=== PATIENT | female | born 1995 | race Caucasian/White ===

== ENCOUNTER 2022-04-21 22:17 | Emergency (ER) | payer OTHER, SELFPAY ==
[2022-04-21 22:28] VITALS: BP 165/78; PULSE 98; RESP 16; TEMP 37.2; O2SAT 98; BMI 52.0
--- OUTSIDE RECORDS SUMMARY | 2022-04-21 23:25 | XMS_ITS | Encounter Summary ---
:1995 Author Organization [facility] Address [address] [place] [address] Care Team Providers Name Role Phone Shan Wild M.D. Primary Care Provider Encounter Details Date Type Department Care Team Description 04/21/2022 Hospital Encounter Department of Shan Wild Well Ad ult Examination Normal; Laboratory Medicine Justice Baker Fatigue in [place] [address] [address] [place] [address] [facility] [address] [place], [place] [phone] (Work) [phone] Social History Tobacco Use Types Packs/Day Years Used Date Smoking Tobacco: Some Days Cigarettes Smokeless Tobacco: Never Sex Assigned at Date Recorded Not on file documented as of this encounter Plan of Treatment Not on filedocumented as of this encounter Procedures Procedure Name Priority Date/Time Associated Comments Diagnosis MORPHOLOGY EVALUATION Routine 04/21/2022 8:34 AM Results for this CDT procedure are i n the results section. LIPID PANEL, S Routine 04/21/2022 8:34 AM Well Adult Results for this CDT Examination Normal procedure are in the results section. CBC WITH DIFFERENTIAL, Routine 04/21/2022 8:34 AM Fatigue Results for this B CDT procedure are i n the results section. THYROID-STIMULATING Routine 04/21/2022 8:34 AM Fatigue Re sults for this HORMONE-SENSITIVE CDT procedure are in (S-TSH) the results section. GLUCOSE, FASTING, S/P Routine 04/21/2022 8:34 AM Well Adult Results for this CDT Examination Normal procedure are in the results section. COMPREHENSIVE Routine 04/21/2022 8:34 AM Fatigue Results for this METABOLIC PANEL, S/P CDT procedu re are in the results section. documented in this encounter Results (ABNORMAL) Morphology Evaluation (04/21/2022 8:34 AM CDT) Patholo gist Method Time Signature RBC Morphology See Specific 04/21/2022 [facility] Findings 12:28 PM CDT PLT Morphology Normal 04/21/2022 [facility] 12:28 PM CDT PLT Estimate Adequate Adequate 04/21/2022 [facility] 12:28 PM CDT Anisocytosis Marked (A) 04/21/2022 [facility] 12:28 PM CDT Elliptocytes Slight (A) Not Seen 04/21/2022 [facility] 12:28 PM CDT Hypochromia Moderate (A) Not Seen 04/21/2022 [facility] 12:28 PM CDT Microcytosis Marked (A) Not Seen 04/21/2022 [facility] 12:28 PM CDT Polychromasia Slight (A) Not Seen 04/21/2022 [facility] 12:28 PM CDT Specimen Anatomical Collection Method Collection Time Receive d Time (Source) Location / / Volume Laterality Blood 04/21/2022 8:34 AM 8:34 CDT AM CDT Shan Wild M.D. LAB BLOOD ADD-ON Performing Organization Address City/State/ZIP Code Phon e Number [facility]- [address], [place] [address] [place] [address] System in [place] [address] (ABNORMAL) Comprehensive Metabolic Panel (04/21/2022 8:34 AM CDT) Analysis Performed At Patho logist Time Signature Potassium, P 3.7 3.6 - 5.2 04/21/2022 [facility] mmol/L 12:05 PM CDT Sodium, P 138 135 - 145 04/21/2022 [place] mmol/L 12:05 PM CDT Chloride, P 103 98 - 107 04/21/2022 [place] mmol/L 12:05 PM CDT Bicarbonate, P 23 22 - 29 04/21/2022 [facility] mmol/L 12:05 PM CDT Anion Gap, P 12 7 - 15 04/21/2022 [facility] 12:05 PM CDT BUN (Blood Urea 9 6 - 21 04/21/2022 [facility] Nitrogen), P mg/dL 12:05 PM CDT Creatinine 0.57 (L) 0.59 - 04/21/2022 [facility] 1.04 mg/dL 12:05 PM CDT Estimated GFR >90 >=60 04/21/2022 [facility] (eGFR) mL/min/BSA 12:05 PM CDT Comment: Estimated GFR calculated using the 2020 CKD_EPI creatinine equation. Calcium, Total, P 8.6 8.6 - 10.0 mg/dL 04/21/2022 12:0 5 PM CDT [place] Glucose, P CANCELED mg/dL 04/21/2022 11:10 AM CDT [facility] Comment: Duplicate test request. Result canceled by the ancillary. Protein, Total, P 6.5 6.3 - 7.9 g/dL 04/21/2022 12:05 PM CDT [facility] Albumin, P 4.1 3.5 - 5.0 g/dL 04/21/2022 12:05 PM CDT [place] Aspartate Aminotransferase (AST), 18 8 - 43 U/L 04/21 12:05 PM CDT [place] P Alkaline Phosphatase, P 50 35 - 104 U/L 04/21/2022 12 :05 PM CDT [facility] Alanine Aminotransferase (ALT), P 14 7 - 45 U/L 04/21 12:05 PM CDT [place] Bilirubin, Total, P 0.3 <=1.2 mg/dL 04/21/2022 12:05 P M CDT [facility] Specimen Anatomical Collection Method Collection Time Receive d Time (Source) Location / / Volume Laterality Blood (Blood, 04/21/2022 8:34 AM 04/21/20 22 Venous) CDT 11:09 AM CDT Shan Wild M.D. LAB BLOOD ADD-ON Performing Organization Address City/State/ZIP Code Phon e Number [facility]- [address] [place] [address] [place] [address] System in [place] [address] (ABNORMAL) S-TSH (Thyroid-Stimulating Hormone - Sensitive) (04/21/2022 8:34 AM CDT) athologist Signature TSH, Sensitive 5.6 (H) 0.3 - 4.2 04/21/2022 [facility] mIU/L 11:54 AM CDT Specimen Anatomical Collection Method Collection Time Receive d Time (Source) Location / / Volume Laterality Blood (Blood, 04/21/2022 8:34 AM 04/21/20 Venous) CDT 11:09 AM CDT Shan Wild M.D. LAB BLOOD ADD-ON Performing Organization Address City/[facility]/ZIP Code Phon e Number [facility]- [address] [place] [facility] [address] [facility] [place] [address] System in [place] [address] Glucose, Fasting (04/21/2022 8:34 AM CDT) athologist Signature Glucose, P 95 70 - 100 04/21/2022 [facility] mg/dL 12:09 PM CDT Last Intake 10 hr 04/21/2022 [facility] 11:08 AM CDT Specimen Anatomical Collection Method Collection Time Receive d Time (Source) Location / / Volume Laterality Blood (Blood, 04/21/2022 8:34 AM 04/21/20 Venous) CDT 11:08 AM CDT Shan Wild M.D. LAB BLOOD NON ADD-ON Performing Organization Address City/[facility]/ZIP Code Phon e Number [facility]- [address] [place] [facility] [place] [address] [place] [address] System in [place] [address] (ABNORMAL) CBC with Differential, Blood (04/21/2022 8:34 AM CDT) [facility] gist Method Time Signature Hemoglobin 6.5 (L) 11.6 - 04/21/2022 [facility] 15.0 g/dL 12:27 PM CDT Hematocrit 24.8 (L) 35.5 - 04/21/2022 [facility] 44.9 % 12:27 PM CDT Erythrocytes 4.06 3.92 - 04/21/2022 [facility] 5.13 12:27 PM CDT x10(12)/L MCV 61.1 (L) 78.2 - 04/21/2022 [place] 97.9 fL 12:27 PM CDT RBC Distrib Width 20.3 (H) 12.2 - 04/21/2022 [facility] 16.1 % 12:27 PM CDT Platelet Count 351 157 - 371 04/21/2022 [place] x10(9)/L 12:27 PM CDT Leukocytes 6.0 3.4 - 9.6 04/21/2022 [place] x10(9)/L 12:27 PM CDT Neutrophils 3.58 1.56 - 04/21/2022 [place] 6.45 12:27 PM CDT x10(9)/L Lymphocytes 1.73 0.95 - 04/21/2022 [place] 3.07 12:27 PM CDT x10(9)/L Monocytes 0.53 0.26 - 04/21/2022 [place] 0.81 12:27 PM CDT x10(9)/L Eosinophils 0.09 0.03 - 04/21/2022 [facility] 0.48 12:27 PM CDT x10(9)/L Basophils 0.05 0.01 - 04/21/2022 [place] 0.08 12:27 PM CDT x10(9)/L Specimen Anatomical Collection Method Collection Time Receive d Time (Source) Location / / Volume Laterality Blood (Blood, 04/21/2022 8:34 AM 04/21/20 8:34 Venous) CDT AM CDT Shan Wild M.D. LAB BLOOD ADD-ON Performing Organization Address City/State/ZIP Code Phon e Number [facility]- [address] [place] [address] [place] [address] System in [place] [address] (ABNORMAL) Lipid Panel (04/21/2022 8:34 AM CDT) athologist Signature Triglycerides 62 mg/dL 04/21/2022 [facility] 12:05 PM CDT Comment: ----REFERENCE VALUE---- Normal: <150 mg/dL Borderline High: 150-199 mg/dL High: 200-499 mg/dL Very High: > or =500 mg/dL Cholesterol, Total 136 mg/dL 04/21/2022 12:05 PM C DT [facility] Comment: ----REFERENCE VALUE---- Desirable: < 200 mg/dL Borderline High: 200 - 239 mg/dL High: > or = 240 mg/dL Cholesterol, LDL, Calculated 79 mg/dL 04/21/2022 12:05 PM CDT [facility] Comment: ----REFERENCE VALUE---- Desirable: <100 mg/dL Above Desirable: 100-129 mg/dL Borderline High: 130-159 mg/dL High: 160-189 mg/dL Very High: >=190 mg/dL ----ADDITIONAL INFORMATION---- LDL cholesterol calculated using the Gentile/NIH equation. Cholesterol, HDL 44 (L) >=50 mg/dL 04/21/2022 12:05 PM CD T [place] Cholesterol, Non-HDL, Calculated 92 mg/dL 12:05 PM CDT [facility] Comment: ----REFERENCE VALUE---- Desirable: <130 mg/dL Above Desirable: 130-159 mg/dL Borderline High: 160-189 mg/dL High: 190-219 mg/dL Very High: > or =220 mg/dL Fasting (8 HR or more) Yes 04/21/2022 11:09 AM CDT [place] Specimen Anatomical Collection Method Collection Time Receive d Time (Source) Location / / Volume Laterality Blood (Blood, 04/21/2022 8:34 AM 04/21/20 22 Venous) CDT 11:09 AM CDT Shan Wild M.D. LAB BLOOD ADD-ON Performing Organization Address City/State/ZIP Code Phon e Number [facility]- [address] [place] [address] [place] [address] System in [place] [address] documented in this encounter Visit Diagnoses Diagnosis Well Adult Examination Normal Fatigue documented in this encounter Care Teams Brake Liner Relationship Specialty Start Date End Date Shan Wild M.D. PCP - General Family Medicine 04/07/[address] [place] [address] [place] [phone] documented as of this encounter
--- OUTSIDE RECORDS SUMMARY | 2022-04-21 23:25 | XMS_ITS | Clinical Summary ---
:1993 Author Organization [facility] [place] [address] Care Team Providers Name Role Phone Damien Jaramillo MD Primary Care Provider Allergies Active Allergy Reactions Severity Noted Date Comments Nickel Rash 04/28/2016 Medications Medication Sig Dispensed Refills Start Date End Date Status ferrous sulfate 325 mg Take 1 tablet by 180 tablet 1 7 Active delayed release mouth 2 times tabletIndications: daily with meals. Iron deficiency anemia due to chronic blood loss Active Problems Problem Noted Date Morbid obesity with BMI of 50.0-59.9, adult 04/28/2016 Supervision of normal first 06/26/2012 Overview: 1. NAIF 02/05/2013 by sure LMP. 8 wee k ultrasound gave due date of 02/09/13. Will stick with due date based on sure LMP. 2. Declined screening for defects. 3. Borderline hypertension. 4. Anemia Iron deficiency anemia, unspecified 03/29/2009 Adjustment disorder with mixed anxiety and depressed m ood 01/09/2008 Immunizations Name Administration Dates Next Due DTP 04/14/1998, 07/25/1994, 1993 DTP-HIB 1993, 1993 HIB HbOC (HibTITER) 07/25/1994, 1993 Hepatitis B (Peds) 04/14/1998, 05/06/1997, 04/14/1996 Human Papilloma Virus Vaccine 04/28/2016, 12/11/2008, 2007 Influenza, IIV4 04/28/2016 MMR 04/14/1998, 07/25/1994 Oral Polio Vaccine 04/14/1998, 07/25/1994, 1993, 04/26 Td (Age >=7 Years) 11/17/2004 Tdap 04/28/2016 Family History Medical History Relation Name Comments Hypertension Father Good Health Mother Diabetes Paternal Grandmother Hypertension Paternal Grandmother Relation Name Status Comments Father Mother Paternal Grandmother Social History Tobacco Use Types Packs/Day Years Used Date Never Smoker Smokeless Tobacco: Never Used Tobacco Cessation: Counseling Given: Yes Alcohol Use Standard Drinks/Week Comments Yes 1 (1 standard drink = 0.6 oz pure alcoho l) 1 glass of wine per month Alcohol Habits Answer Date Recorded How often do you have a drink containing Not asked alcohol? How many drinks containing alcohol do you Not asked have on a typical day when you are drinking? How often do you have six or more drinks on Not asked one occasion? Comment: 1 glass of wine per month 04/28/2016 Sex Assigned at Date Recorded Not on file Obstetrics History Para Term AB IAB SAB Ectopic Multiple Living Live Births 2 Date Outcome GA Total Labor/2nd/3rd Weight Sex Delivery Anes PTL Margarita A 1 A5 Name Clin Labor Comments: System Generated. Please review and update details. Last Filed Vital Signs Vital Sign Reading Time Taken Comments Blood Pressure 136/80 01/16/2020 2:15 PM CDT Pulse 96 01/16/2020 1:21 PM CDT Temperature 36.7 ??C (98 ??F) 01/16/2020 1:21 PM CDT Respiratory Rate 12 01/15/2012 1:03 PM CDT Oxygen Saturation 99% 01/16/2020 1:21 PM CDT Inhaled Oxygen Concentration - - Weight 162.4 kg (358 lb) 01/16/2020 1:21 PM CDT Height 172.7 cm (5' 8) 01/16/2020 1:21 PM CDT Body Mass Index 54.43 01/16/2020 1:21 PM CDT Plan of Treatment Health Maintenance Due Date Last Done Comments Hepatitis C screening for age 1004/05/2011 18-79 Pap test for age 21-65 04/28/2019 04/28/2016, 07/01/2012, 06/23/2011 Depression screening for age 12+ 10/05/2020 10/06/2019, , 04/28/2016 BMI (ht and wt on same day) for 01/15/2021 01/16/2020, 09/24, age 18+ 11/27/2016, Additional history exists Influenza for age 9-49 02/23/2022 04/28/2016 COVID-19 vaccine series (2 - 05/05/2022 04/14/2022 Pfizer series) Tetanus booster 04/28/2026 04/28/2016, 11/17/2004 Tdap Completed 04/28/2016 Results Not on filefrom Last 3 Months Insurance Payer Benefit Plan / Subscriber ID Effective Dates Phone Addre ss Type Group [employer] [id number] 2019-Present [address] [place] [address] Care Teams Child Care Attendant Relationship Specialty Start Date End Date Damien Jaramillo MD PCP - General 06/07/06 [address] [place] [address]
--- OUTSIDE RECORDS SUMMARY | 2022-04-21 23:25 | XMS_ITS | Clinical Summary ---
:1995 Author Organization [facility] Address [address] [place] [address] Care Team Providers Name Role Phone Shan Wild M.D. Primary Care Provider Source Comments Patient records contain information from all sites at [facility]. For routine questions regarding patient records, call [phone] during business hours, M-F 8:00 AM - 5:00 PM Central Time. Record requests for emergency care only can be directed to [phone] at any time.[facility] Allergies Active Allergy Reactions Severity Noted Date Comments Alcohol Hives Medium 04/14/2022 TEQUILA Blackberry Hives Medium 04/14/2022 Nickel Rash 04/28/2016 Medications Medication Sig Dispensed Refills Start Date End Date Status ferrous sulfate 325 Take 325 mg 0 11/27/2016 022 Discontinued mg (65 mg iron) DR by mouth. tablet Encounters Date Type Specialty Care Team Description 04/21/2022 Hospital Encounter Laboratory Medicine Shan Wild [facility] Adult Examination Normal; Justice Baker Fatigue 04/21/2022 Clinical Communication Family Medicine Shan Wild M.D. 04/14/2022 Comprehensive Visit Family Medicine Shan Wild Adult Examination Normal (Primary Dx); Justice Baker Fatigue; Iron Deficiency Anemia Screening Exam; Morbid Obesity Body Mass Index 40.0-44.9 Adult (HCC) from Last 3 Months Immunizations Name Administration Dates Next Due 4vHPV (discontinued) 04/28/2016, 12/11/2008, 04/28/2008 DTP 04/14/1998, 07/25/1994, 1993 DTP / Hib 1993, 1993 HepB Pediatric/Adolescent 04/14/1998, 05/06/1997, 04/14/1996 Hib (HbOC) (discontinued) 07/25/1994, 1993 Influenza (IM) Preservative Free 04/03/2013 MMR 04/14/1998, 07/25/1994 Polio, Unspecified 04/14/1998, 07/25/1994, 1993, 1993 SARS-COV-2 (COVID-19) - PFIZER 04/14/2022 BIVALENT BOOSTER TS(12 YEARS OR OLDER) Td, (Adult) Unspecified 11/17/2004 Tdap 04/28/2016 influenza vaccine quad 04/14/2022, 04/28/2016 (FLUZONE/FLUARIX) (6 months and older)(PF) Family History Medical History Relation Name Comments Anemia Mother Relation Name Status Comments Mother Alive Social History Tobacco Use Types Packs/Day Years Used Date Smoking Tobacco: Some Days Cigarettes Smokeless Tobacco: Never Tobacco Cessation: Ready to Quit: Yes; C ounseling Given: Yes Sex Assigned at Date Recorded Not on file Last Filed Vital Signs Vital Sign Reading Time Taken Comments Blood Pressure 135/81 04/14/2022 10:10 AM CDT Pulse 86 04/14/2022 10:10 AM CDT Temperature 36.7 ??C (98.1 ??F) 04/14/2022 10:10 AM CDT Respiratory Rate 16 04/14/2022 10:10 AM CDT Oxygen Saturation - - Inhaled Oxygen Concentration - - Weight 160 kg (352 lb 11.8 oz) 04/14/2022 10:10 AM CDT Height 175 cm (5' 8.9) 04/14/2022 10:10 AM CDT Body Mass Index 52.24 04/14/2022 10:10 AM CDT Plan of Treatment Health Maintenance Due Date Last Done Comments HIV Screening 1993 Hepatitis C Screening 1993 Pneumococcal vaccine (0-64 years) 1999 (1 - PCV) Depression Screening (Annual 06/25/2021 PHQ-2) Tobacco Cessation counseling 04/14/2023 04/14/2022 Cervical Cancer Screening 04/14/2025 04/14/2022 DTaP,Tdap,and Td Vaccines (7 - Td 04/28/2026 04/28/2016, , or Tdap) 04/14/1998, Additional history exists Hepatitis B Vaccines Completed 04/14/1998, 05/06/1997, 04/14/1996 COVID-19 Vaccine Completed 04/14/2022, 06/15/2021, 05/18/2021 Influenza Vaccine Completed 04/14/2022, 04/28/2016, 04/03/2013 Procedures Procedure Name Priority Date/Time Associated Comments Diagnosis MORPHOLOGY EVALUATION Routine 04/21/2022 8:34 AM Results for this CDT procedure are i n the results section. COMPREHENSIVE Routine 04/21/2022 8:34 AM Fatigue Results for this METABOLIC PANEL, S/P CDT procedu re are in the results section. THYROID-STIMULATING Routine 04/21/2022 8:34 [...] Normal procedure are in the results section. THINPREP SCREEN Routine 04/14/2022 10:41 Well Adult Results for this AM CDT Examination Normal procedure are in the results section. from Last 3 Months Results (ABNORMAL) Morphology Evaluation (04/21/2022 8:34 AM CDT) [facility] Method Time Signature RBC Morphology See Specific [...] Organization Address City/State/ZIP Code Phon e Number [facility]- [address] [place] [address] [facility] [place] [facility] [address] System in [place] [address] (ABNORMAL) Lipid Panel (04/21/2022 8:34 AM CDT) P athologist Signature Triglycerides 62 mg/dL 04/21/2022 [facility] [...] Organization Address City/State/ZIP Code Phon e Number [facility]- [address] [place] [address] [facility] [place] [address] System in [place] [address] (ABNORMAL) CBC with Differential, Blood (04/21/2022 8:34 AM CDT) [facility] Method Time Signature Hemoglobin 6.5 (L) 11.6 [...] M.D. LAB BLOOD ADD-ON Performing Organization Address City/[facility] [address]/ZIP Code Phon e Number [facility]- [address] [place] [address] [facility] [place] [address] System in [place] [address] (ABNORMAL) S-TSH (Thyroid-Stimulating Hormone - Sensitive) (04/21/2022 8:34 AM CDT) athologist Signature TSH, Sensitive 5.6 (H) 0.3 - 4.2 04/21/2022 [facility] mIU/L 11:54 AM CDT Specimen Anatomical Collection Method Collection Time Receive d Time (Source) Location / / Volume Laterality Blood (Blood, 04/21/2022 8:34 AM 04/21/20 Venous) CDT 11:09 AM CDT Shan Wild M.D. LAB BLOOD ADD-ON Performing Organization Address City/[facility] [address]/ZIP Code Phon e Number [facility]- [address] [place] [address] [place] [address] System in [place] [address] Glucose, Fasting (04/21/2022 8:34 AM CDT) P athologist Signature Glucose, P 95 70 - 100 04/21/2022 [facility] mg/dL 12:09 PM CDT Last Intake 10 hr 04/21/2022 [facility] 11:08 AM CDT Specimen Anatomical Collection Method Collection Time Receive d Time (Source) Location / / Volume Laterality Blood (Blood, 04/21/2022 8:34 AM 04/21/20 Venous) CDT 11:08 AM CDT Shan Wild M.D. LAB BLOOD NON ADD-ON Performing Organization Address City/State/ZIP Code Phon e Number [facility]- [address] [place] [address] [facility] [place] [facility] [place] [address] System in [place] [address] (ABNORMAL) Comprehensive Metabolic Panel (04/21/2022 8:34 AM [...] Organization Address City/State/ZIP Code Phon e Number [facility]- [address] [place] [address] [place] [address] System in [place] [address] (ABNORMAL) ThinPrep Screen (04/14/2022 10:41 AM CDT) Component Value Ref Test Analysis Performed At [facility] Range Method Time Signature (A) 04/20/2022 [facility] 2:48 PM CDT Pap Test Source Cervical/Endoce 04/20/2022 [facility] rv[facility] (A) 2:48 PM CDT Gross Description Received 04/20/2022 [facility] specimen in a 2:48 PM CDT ThinPrep vial. (A) Hormone None/Not known 04/20/2022 [facility] Therapy/Contracep (A) 2:48 PM CDT tives Report Barbara Fitch MD 04/20/2022 [facility] electronically 2:48 PM CDT signed by I verify that I have examined all relevant slides/materials for the specimen(s) and rendered or confirmed the diagnosis. (A) Interpretation Cervical/Endocervical ??(ThinPrep): 04/20/2022 [facility] 2:48 PM CDT Satisfactory for Evaluation Epithelial Cell Abnormality Atypical squamous cells of undetermined significance (A) Specimen Anatomical Collection Method Collection Time Receive d Time (Source) Location / / Volume Laterality Thin Prep Vial 04/14/2022 10:41 9:23 (Cervix/Endocerv AM CDT AM CDT ix) Narrative This result has an attachment that is no t available. Shan Wild M.D. LAB PAP PATHDX ORDERABLES Performing Organization Address City/State/ZIP Code Phon e Number [facility]- [address] CYTOLOGY [facility] [address] Cytology 1025 [facility] from Last 3 Months Care Teams Veneer Sample Maker Relationship Specialty Start Date End Date Shan Wild M.D. PCP - General Family Medicine 04/07/[address] [place] [phone]
--- OUTSIDE RECORDS SUMMARY | 2022-04-21 23:25 | XMS_ITS | Encounter Summary ---
:1993 Author Organization [facility] Address [address] [place] [address] Care Team Providers Name Role Phone Shan Wild M.D. Primary Care Provider Encounter Details Date Type Department Care Team Description 04/21/2022 Clinical Communication Department of [facility] Sukhdev Wild, Medicine, [facility], in [address] [address] [place], [place] [phone] (Work) [phone] Social History Tobacco Use Types Packs/Day Years Used Date Smoking Tobacco: Some Days Cigarettes Smokeless Tobacco: Never Sex Assigned at Date Recorded Not on file documented as of this encounter Miscellaneous Notes Telephone Encounter - Kari Tavera L.P.N. - 04/21/2022 5:17 PM CDT Images from the original note were not included. Left message for patient to return call to clinic. Does the patient need to speak to nursing? yes Action needed: Shan Wild M.D. P [facility] Fbfb Nurse Please inform the patient regarding her results. Her hemoglobin is down to 6.5. I would urge her to go to the ER for further evaluation and management. Fasting glucose, cholesterol, CMP, and TSH are normal. Provider notified documented in this encounter Plan of Treatment Not on filedocumented as of this encounter Visit Diagnoses Not on filedocumented in this encounter Care Teams Front End Alignment Specialist Relationship Specialty Start Date End Date Shan Wild M.D. PCP - General Family Medicine 04/07/[address] [place] [address] [place] [phone] documented as of this encounter
--- OUTSIDE RECORDS SUMMARY | 2022-04-21 23:25 | XMS_ITS | Encounter Summary ---
:1995 Author Organization [facility] Address [address] [place] [address] Care Team Providers Name Role Phone Shan Wild M.D. Primary Care Provider Reason for Visit Reason Comments Annual Exam Fatigue Patient thinks her iron is l ow. Easy bruising and fatigue. Not currently taking an iron supplement. Earache Left sided ear pain. Started one week ago. Comes and goes - rates 4/10 pain scale. Appointment Request (Routine) - Closed Specialty Diagnoses / Procedures Referred By Contact Refer red To Contact Family Medicine Referral ID Status Reason Start Date Expiration Date Visits Requ ested Visits Authorized [id number] Closed 04/07/2022 04/07/2023 1 1 Encounter Details Date Type Department Care Team Description 04/14/2022 Comprehensive Visit Department of Shan Wild Well A dult Examination Normal (Primary Dx); Family MedicineSamuel M.D. Fatigue; [facility], [facility] Iron Deficiency Anemia Screening Exam; in [place], [place] Morbid Obesit y Body Mass Index 40.0-44.9 Adult ([facility]) [place] [id number] [place] [address] [place], [place] (Work) [phone] Social History Tobacco Use Types Packs/Day Years Used Date Smoking Tobacco: Some Days Cigarettes Smokeless Tobacco: Never Tobacco Cessation: Ready to Quit: Yes; C ounseling Given: Yes Sex Assigned at Date Recorded Not on file documented as of this encounter Last Filed Vital Signs Vital Sign Reading [...] Mass Index 52.24 04/14/2022 10:10 AM CDT documented in this encounter H&P Notes Shan Wild M.D. - 04/14/2022 10:00 AM CDT SUBJECTIVE CHIEF COMPLAINT / REASON FOR VISIT Patient is 27 years old female with past medical history significant for iron- deficiency anemia, morbid obesity who presented today to the clinic to establish care and get an annual physical. Patient was receiving her care at [facility]. Patient stated that she has history of iron-deficiency anemia. She would like her blood work to be checked. She stated that she has been trying to conceive recently. She has not been using any contraception. She complains that her periods are regular. She stated that she has been feeling extremely tired. She has not been on iron supplements. She denies any other symptoms. She reported that she has smoked couple of times a week. She has occasional drinking alcohol. Denies any recreational drug use. She works in [email or web address]. HISTORY OF PRESENT ILLNESS Neha Rand is a 27 y.o. female REVIEW OF SYSTEMS REVIEW OF SYSTEMS No current outpatient medications on file. Pertinent positive ROS are listed above in HPI. 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 FAMILY HISTORY Family History Problem Relation Age of Onset Anemia Mother SOCIAL HISTORY Social History Socioeconomic History Marital status: Spouse name: Not on file Number of children: Not on file Years of education: Not on file Highest education level: Not on file Occupational History Not on file Tobacco Use Smoking status: Some Days Types: Cigarettes Smokeless tobacco: Never Vaping Use Vaping Use: never used Substance and Sexual Activity Alcohol use: Not on file Drug use: Not on file Sexual activity: Not on file Other Topics Concern Not on file Social History Narrative Not on file Social Determinants of Health Financial Resource Strain: Not on file Food Insecurity: Not on file Transportation Needs: Not on file Physical Activity: Not on file Stress: Not on file Social Connections: Not on file Intimate Partner Violence: Not on file Housing Stability: Not on file OBJECTIVE BP 135/81 (BP Location: Right arm, Patient Position: Sitting, Cuff Size: Regular) Pulse 86 Temp 36.7 ??C (Temporal) Resp 16 Ht 175 cm Wt (!) 160 kg LMP 03/25/2022 Comment: Had some spottinglast week. BMI 52.24 kg/m?? PHYSICAL EXAMINATION General: Alert, pleasant female appearing in no acute distress. Neuro: Oriented x 3, responds appropriately to questions and follows commands without difficulty. Pupils equal and reactive to light. Cranial nerves II-XII grossly intact. EOMs intact. Muscle tone and strength normal and equal bilaterally without weakness or involuntary movements. Sensation intact to light touch in all extremities. Head: Normocephalic, atraumatic. Eyes: Sclerae clear without injection, conjunctivae without drainage, erythema or matting. MILADIS. Ears: Normal auditory canals and external ears. Tympanic membranes pearly bilaterally. Nontender. Oropharynx: Moist and pink without exudate. Normal buccal mucosa. Dental hygiene adequate. Neck: Supple without lymphadenopathy. No thyromegaly or carotid bruits. Heart: Normal S1, S2 with regular rate and rhythm. No murmurs, rubs, or clicks heard. Lungs: Clear to auscultation bilaterally posteriorly without rhonchi, wheezes, or crackles. No coughon exam today. Respirations are easy and unlabored. Breasts: breasts appear normal, no suspicious masses, no skin or nipple changes or axillary nodes. Abdomen: Soft, nondistended, nontender to palpation without palpable masses or organomegaly. Genitourinary: .. External genitalia without erythema or lesions. Urethra normal. No prolapse. No lesions or masses. Vaginal mucosa well estrogenized and with normal physiologic discharge. Cervix pink and without discharge. Uterus anterior, midline, smooth and not enlarged. No adnexal masses or tenderness. Musculoskeletal: Back is straight and non-tender, full range of motion of upper and lower extremities. Feet: Good pedal pulses, no lesions, nail hygiene good. Extremities: No upper or lower extremity edema or cyanosis. Skin: Warm and dry without rashes on the visible areas. Psychiatric: Appropriate mood and affect. Makes good eye contact. Dressed appropriately. Contributesmeaningfully to conversation. ASSESSMENT / PLAN #1 Well Adult Examination Normal - Lipid Panel; Future; Expected date: 04/21/2022 - Glucose, Fasting; Future; Expected date: 04/21/2022 - ThinPrep Screen Preventive measurements discussed. We will obtain Pap smear, screening for hyperlipidemia and diabetes. Monthly breast exam advised. Declined STD. #2 Fatigue - CBC with Differential, Blood; Future; Expected date: 04/21/2022 - S-TSH (Thyroid-Stimulating Hormone - Sensitive); Future; Expected date: 04/21/2022 - Comprehensive Metabolic Panel; Future; Expected date: 04/21/2022 Will check above blood work. Call the patient with the result. #3 Iron Deficiency Anemia Screening Exam We will check her CBC. #4 Morbid Obesity Body Mass Index 40.0-44.9 Adult (HCC) Counseled about healthy diet and exercise. Other orders - SARS-COV-2 (COVID-19) - PFIZER BIVALENT BOOSTER TS (12 years or older) - influenza vaccine quad (FLUZONE/FLUARIX) (6 months and older) (PF) Shan Wild M.D. documented in this encounter Plan of Treatment Not on filedocumented as of this encounter Procedures Procedure Name Priority Date/Time Associated Diagnosis Comme nts THINPREP SCREEN Routine 04/14/2022 10:41 AM Well Adult Resul ts for this CDT Examination Normal procedure are in the results section. documented in this encounter Results (ABNORMAL) Comprehensive Metabolic Panel (04/21/2022 8:34 AM [...] Organization Address City/State/ZIP Code Phon e Number [facility]- [address] [place] [address] [facility] [place] [address] System in [place] [address] (ABNORMAL) S-TSH (Thyroid-Stimulating Hormone - [...] Organization Address City/State/ZIP Code Phon e Number [facility]- [address] [facility] [place] [address] [place] [address] System in [place] [address] [facility] Glucose, Fasting (04/21/2022 8:34 AM CDT) athologist [...] Organization Address City/State/ZIP Code Phon e Number [facility]- [address] [facility] [place] [address] [facility] [place] [address] System in [place] [address] (ABNORMAL) CBC with Differential, Blood (04/21/2022 8:34 AM CDT) [facility] gist Method Time Signature Hemoglobin 6.5 (L) [...] Organization Address City/State/ZIP Code Phon e Number [facility]- [address] [place] [address] [place] [address] System in [place] [address] (ABNORMAL) Lipid Panel (04/21/2022 8:34 [...] T [facility] Cholesterol, Non-HDL, Calculated 92 mg/dL 022 12:05 PM CDT [facility] Comment: ----REFERENCE VALUE---- [...] Organization Address City/State/ZIP Code Phon e Number [facility]- [address] [place] [address] [place] [address] System in [place] [address] (ABNORMAL) ThinPrep Screen (04/14/2022 10:41 AM CDT) Component Value Ref Test Analysis Performed At [facility] gist Range Method Time Signature (A) 04/20/2022 [facility] 2:48 PM CDT Pap Test Source Cervical/Endoce 04/20/2022 [facility] rvical (A) 2:48 PM CDT Gross Description Received 04/20/2022 [facility] specimen in a 2:48 PM CDT ThinPrep vial. (A) Hormone None/Not known 04/20/2022 [facility] Therapy/Contracep (A) 2:48 PM CDT tives Report Barbara Fitch MD 04/20/2022 [facility] electronically 2:48 PM CDT signed by I [...] LAB PAP PATHDX ORDERABLES Performing Organization Address City/[facility] Code Phon e Number [facility]- [address] [place] [address] [place] [address] [facility] [address] [place] [address] documented in this encounter Visit Diagnoses Diagnosis Well Adult Examination Normal - Primary Fatigue Iron Deficiency Anemia Screening Exam Morbid Obesity Body Mass Index 40.0-44.9 Adult (HCC) documented in this encounter Care Teams Government Documents Librarian Relationship Specialty Start Date End Date Shan Wild M.D. PCP - General Family Medicine 04/07/[address] [place] [address] [place] [id number] documented as of this encounter
[2022-04-21 23:40] VITALS: BP 154/78; PULSE 98; RESP 16; TEMP 36.9
--- NOTE | 2022-04-22 01:01 | ED_ITS ---
HPI - General Adult General Date Seen: 04/21/22 Chief complaint: Unspecified Complaint, Adult Stated complaint: low hemoglobin Time Seen by Provider: 04/21/22 22:46 Source: patient Mode of arrival: ambulatory Limitations: no limitations History of Present Illness HPI narrative: 27-year-old female with a history of anemia presents here and she got a panic call from primary care that her hemoglobin was 6.5. She was in there to get checked, she has a history of low hemoglobins and fatigue. They called her and told her to rib go directly to the emergency room. She says the lowest her he enrique is been before that she can remember was 9, but she has quit taking her iron approximately 1 year ago. She is also a vegan, she denies a history of nose bleeds, blood in her stools, nausea and vomiting. She does have rather heavy periods and a little bit of irregularity with this. She denies any chest pain any shortness of breath, any weakness, any syncope, or feeling she is going to pass out. She otherwise feels pretty fine but she does work to 12 hours a [employer] trip where she is employed. There is no history of previous malignancy. Related Data Previous Rx's Medication Instructions Recorded ferrous fumarate 324 mg (106 mg 324 mg PO DAILY #30 tabs 04/21/22 iron) tablet Allergies Allergy/AdvReac Type Severity Reaction Status Date / Time nickel AdvReac Verified 04/21/22 22:33 blackberry AdvReac Uncoded 04/21/22 22:33 Review of Systems Status of ROS: Reports: 10 or more systems reviewed and unremarkable except as noted in History and below PFSH PFS Social History Smoking Status: Current some day smoker What tobacco products do you use: cigarettes Do you use any of these nicotine containing products: None How often do you have a drink containing alcohol: never AUDIT-C Alcohol total score: 0 Non-prescribed substance use: denies use Exam Narrative: Exam Narrative: She is seen in room 8 she is in no apparent distress, her pupils are equal round reactive to light maybe a little bit of pale conjunctiva TMs are normal bilaterally cranial nerves 3-12 are normal, carotid upstrokes are normal there is no lymphadenopathy anterior posterior chains, her chest is clear bilaterally with no wheezing crackles noted her heart sounds are normal and I cannot hear a murmur. Her abdomen is soft there is no guarding no pedal splenomegaly noted. She over has a large abdomen consistent with an elevated BMI. Moves all extremities independently and well. Const: Vital Signs, click to edit/add: Vital Signs - 24 hr 04/21/22 22:28 04/21/22 23:40 Temperature 98.9 F 98.4 F Pulse Rate [Left P ulse Oximeter] 98 98 Respiratory Rate 16 16 Blood Pressure [Le ft Upper Arm] 165/78 H 154/78 H Pulse Oximetry 98 Oxygen Delivery Me thod Room Air Documenting provider has reviewed patient's vital signs: yes Course Vital Signs Vital signs: Initial Vital Signs Temperature 98.9 F 04/21/22 22:28 Temperature Source Temporal Artery Scan 04/21/22 22:28 Pulse Rate 98 04/21/22 22:28 Pulse Rhythm 04/21/22 22:28 Respiratory Rate 16 04/21/22 22:28 Blood Pressure 165/78 H 04/21/22 22:28 Blood Pressure Mean 107 04/21/22 22:28 Blood Pressure Position Sitting 04/21/22 22:28 Pulse Oximetry 98 04/21/22 22:28 Oxygen Delivery Method 04/21/22 22:28 Vital Signs Temperature 98.9 F 04/21/22 22:28 Pulse Rate 98 04/21/22 22:28 Respiratory Rate 16 04/21/22 22:28 Blood Pressure 165/78 H 04/21/22 22:28 Pulse Oximetry 98 04/21/22 22:28 Oxygen Delivery Method 04/21/22 22:28 Temperature 98.4 F 04/21/22 23:40 Pulse Rate 98 04/21/22 23:40 Respiratory Rate 16 04/21/22 23:40 Blood Pressure 154/78 H 04/21/22 23:40 Pulse Oximetry 98 04/21/22 22:28 Oxygen Delivery Method 04/21/22 22:28 Medical Decision Making MDM Narrative Medical decision making narrative: I discussed with her that at this point she is anemic. The sheet she brought with me shows me that her RDW is high, and a low MCV, platelet count was normal, this is consistent with iron deficiency anemia, but further testing will need to be done. She does not appear to have acute blood loss, and does not appear we from a malignancy. Although she would qualify for a transfusion she clearly is not needing it on emergent basis. The risk of a transfusion I went over with her and she does not want to do this. She however would agree to follow up with her primary care physician and start iron. I did give her prescription for iron fumarate that she can start taking. She will need other testing for this such as iron studies. Would also encourage her to consideration of follow-up with OBGYN if we can get her periods under control. I went over with her the signs and symptoms of worsening, when she should come back to the ER she was okay with this. Discharge Plan Discharge Clinical Impression: Anemia Patient Disposition: Home, Self-Care Condition: Stable Instructions: Anemia (ED) Additional Instructions: Home rest follow-up with primary care, for further studies, start taken the iron tablets, if you develop, chest pain, shortness of breath, syncope, passing out, or other issues then I would recommend to come back and we will give you a transfusion. But given the fact that this is chronic, likely related to heavy periods and nutritional. Prescriptions: New ferrous fumarate 324 mg (106 mg iron) tablet 324 mg PO DAILY Qty: 30 2RF Follow Up/Referrals: Damien Jaramillo MD [Staff Physician] - Stand Alone Forms: [employer] Mondays Info Instructions
== END 2022-04-21 23:41 | disposition home or self-care (01) ==
LOC: ED 23:23
PROVIDERS: Emergency Provider Family Medicine
DX: D64.9 Anemia, unspecified (principal)
CPT/HCPCS: 99283; 99284

== ENCOUNTER 2022-05-09 14:35 | Outpatient (CLI) | payer OTHER, SELFPAY ==
--- OUTSIDE RECORDS SUMMARY | 2022-05-09 14:39 | XMS_ITS | Clinical Summary ---
:1995 Author Organization [facility] Address [address] [place] [address] Care Team Providers Name Role Phone Shan Wild M.D. Primary Care Provider Source Comments Patient records contain information from all sites at [facility]. For routine questions regarding patient records, call [phone] during business hours, M-F 8:00 AM - 5:00 PM Central Time. Record requests for emergency care only can be directed to [phone] at any time.[facility] Allergies Active Allergy Reactions Severity Noted Date Comments Alcohol Hives Medium 04/14/2022 TEQUILA Blackberry Hives Medium 04/14/2022 Nickel Rash 04/28/2016 Medications Medication Sig Dispensed Refills Start Date End Date Status ibuprofen Take 400 mg 0 Active (ADVIL,MOTRIN) 200 mg by mouth. tablet ferrous sulfate 325 Take 325 mg 0 04/26/2022 Active mg (65 mg iron) by mouth. tablet acetaminophen Take 1,000 0 Activ e (TYLENOL) 500 mg mg by tablet mouth. ferrous sulfate 325 Take 325 mg 0 11/27/2016 022 Discontinued mg (65 mg iron) DR by mouth. tablet Encounters Date Type Specialty Care Team Description 04/28/20[address] Family Shan Lane Menorrhagia (Primary Dx); Justice Baker Atypical Squ[place] us Cell Uncertain Significance Personal History; Anemia 04/24/[address] Shan [address] M.D. 04/21/2022 Hospital Encounter Laboratory Shan Wild Dmitry lt Examination Normal; Medicine Justice Baker Fatigue 04/21/[address] Shan [address] M.D. 04/14/2022 Comprehensive Visit Family Medicine Ayuob, Mysoon Well Adult Examination Normal (Primary Dx); M MRochelleDRochelle Fatigue; Iron Deficiency Anemia Screening Exam; Morbid [...] Tobacco: Never Tobacco Cessation: Ready to Quit: Not As ked; Counseling Given: Not Answered Comments: Patient stated she has not had a cigarette in two weeks Sex Assigned at Date Recorded Not on file Last Filed Vital Signs Vital Sign Reading Time Taken Comments Blood Pressure 155/78 04/28/2022 11:30 AM CDT Pulse 80 04/28/2022 11:30 AM CDT Temperature 36.6 ??C (97.8 ??F) 04/28/2022 11:20 AM CDT Respiratory Rate 16 04/28/2022 11:20 AM CDT Oxygen Saturation - - Inhaled Oxygen Concentration - - Weight 157 kg (345 lb 14.4 oz) 04/28/2022 11:20 AM CDT Height 175 cm (5' 8.9) 04/14/2022 10:10 AM CDT Body Mass Index 51.23 04/14/2022 10:10 AM CDT Plan of Treatment Upcoming Encounters Date Type Specialty Care Team Description 05/12/2022 Comprehensive Visit Obstetrics and Vaibhav Pastor Gynecology Justice [address] [facility] Nena [place] [address] (Wo rk) 05/29/2022 Appointment Laboratory Medicine Shan Wild M.D. [address] [facility] [place] [phone] (Wo rk) Health Maintenance Due Date Last Done Comments HIV Screening 1995 Hepatitis C Screening 1995 Pneumococcal vaccine (0-64 years) 1999 (1 - PCV) Tobacco Cessation counseling 04/14/2023 04/14/2022 Cervical Cancer Screening 04/14/2025 04/14/2022 DTaP,Tdap,and Td Vaccines (7 - Td 04/28/2026 04/28/2016, , or Tdap) 04/14/1998, Additional history exists Hepatitis B Vaccines Completed 04/14/1998, 05/06/1997, 04/14/1996 COVID-19 Vaccine Completed 04/14/2022, 06/15/2021, 05/18/2021 Influenza Vaccine Completed 04/14/2022, 04/28/2016, 04/03/2013 Depression Screening (Annual Completed 04/28/2022 PHQ-2) Procedures Procedure Name Priority Date/Time Associated Comments [...] Organization Address City/State/ZIP Code Phon e Number [facility]- [address] [place] [address] [place] [address] System in [place] [address] (ABNORMAL) Lipid Panel (04/21/2022 [...] Organization Address City/State/ZIP Code Phon e Number [facility]- [address] [place] [address] [place] [address] System in [place] [address] (ABNORMAL) CBC with Differential, Blood (04/21/2022 8:34 AM CDT) [facility] gist Method Time Signature Hemoglobin 6.5 [...] Organization Address City/State/ZIP Code Phon e Number [facility]- [address] [place] [address] [place] [address] System in [place] [address] (ABNORMAL) S-TSH (Thyroid-Stimulating Hormone - Sensitive) (04/21/2022 8:34 AM CDT) P athologist Signature TSH, Sensitive 5.6 (H) 0.3 - 4.2 04/21/2022 [facility] mIU/L 11:54 AM CDT Specimen Anatomical Collection Method Collection Time Receive d Time (Source) Location / / Volume Laterality Blood (Blood, 04/21/2022 8:34 AM 04/21/20 Venous) CDT 11:09 AM CDT Shan Wild M.D. LAB BLOOD ADD-ON Performing Organization Address City/[facility]/ZIP Code Phon e Number [facility]- [address] [place] [place] [address] [place] [address] System in [place] [address] Glucose, Fasting (04/21/2022 8:34 AM CDT) P [...] Organization Address City/State/ZIP Code Phon e Number [facility]- [address] [place] [place] [address] [place] [address] System in [place] [address] (ABNORMAL) Comprehensive Metabolic Panel (04/21/2022 [...] Organization Address City/State/ZIP Code Phon e Number [facility]- [address] [place] [address] [place] [address] System in [place] [address] (ABNORMAL) ThinPrep Screen (04/14/2022 10:41 AM CDT) Component Value Ref Test Analysis Performed At [facility] gist Range Method Time Signature (A) [...] Organization Address City/State/ZIP Code Phon e Number [facility]- [address] [place] [address] [place] [address] [facility] Cytology [address] [place] [address] from Last 3 Months Care Teams Marketing Intelligence Manager Relationship Specialty Start Date End Date Shan Wild M.D. PCP - General Family Medicine 04/07/[address] [place] [id number]
--- OUTSIDE RECORDS SUMMARY | 2022-05-09 14:39 | XMS_ITS | Encounter Summary ---
:1995 Author Organization [facility] Address [address] [place] [address] Care Team Providers Name Role Phone Shan [...] Expiration Date Visits Requ ested Visits Authorized [id number] Closed 04/07/2022 04/07/2023 1 1 Encounter Details Date Type Department Care Team Description 04/14/2022 Comprehensive Visit Department of Shan Wild Well A dult Examination Normal (Primary Dx); Family MedicineSamuel M.D. Fatigue; [facility], [facility] Iron Deficiency Anemia Screening Exam; in [place], [place] Morbid Obesit y Body Mass Index 40.0-44.9 Adult (FORM[facility]LY [facility]) [place] [address] [place] [address] [place], [place] (Work) [phone] Social History Tobacco Use [...] physical. Patient was receiving her care at [facility]. Patient stated that she has history of [...] any recreational drug use. She works in [employer]. HISTORY OF PRESENT ILLNESS Neha Rand is a 27 y.o. female REVIEW OF SYSTEMS REVIEW OF SYSTEMS No current outpatient medications on file. Pertinent positive ROS are listed above in HPI. ALLERGIES Alcohol, Blackberry, and Nickel PAST MEDICAL HISTORY Past Medical History: Diagnosis Date Anemia Iron Deficiency Morbid Obesity Body Mass Index 50.0-59.9 Adult (FORMERLY [facility]) PAST SURGICAL HISTORY Past Surgical History: Procedure Laterality Date SECTION DIRECTOR OF LOSS PREVENTION HISTORY Patient's last menstrual period was 03/25/2022. [...] Morbid Obesity Body Mass Index 40.0-44.9 Adult ([facility]) Counseled about healthy diet and exercise. Other orders - SARS-COV-2 (COVID-19) - PFIZER BIVALENT BOOSTER TS (12 years or older) - influenza vaccine quad (FLUZONE/FLUARIX) (6 months and older) (PF) Shan Wild M.D. documented in this encounter Plan of Treatment Upcoming Encounters Date Type Specialty Care Team Description 05/12/2022 Comprehensive Visit Obstetrics and [facility], Vaibhav Khan Gynecology Justice 200 [facility] PA[place] [phone] (Michael arias) 05/29/2022 Appointment Laboratory Medicine Shan Wild M.D. [address] [facility] [place] [phone] (Michael arias) documented as of this encounter Procedures Procedure Name Priority Date/Time Associated Diagnosis Comme nts THINPREP SCREEN Routine 04/14/2022 10:41 AM Well Adult Resul ts for this CDT Examination Normal procedure are in the results section. documented in this encounter Results (ABNORMAL) Comprehensive Metabolic Panel (04/21/2022 8:34 AM CDT) [facility] Time Signature Potassium, P 3.7 3.6 - [...] Organization Address City/State/ZIP Code Phon e Number - [address] [place] [address] [place] [address] System in [place] [address] (ABNORMAL) S-TSH (Thyroid-Stimulating Hormone - [...] Organization Address City/State/ZIP Code Phon e Number - [address] [place] [address] [place] [address] System in [place] [address] Glucose, Fasting (04/21/2022 [...] Organization Address City/State/ZIP Code Phon e Number - [address] [place] [address] [facility] [place] [place] [address] System in [place] [address] [facility] (ABNORMAL) CBC with Differential, Blood (04/21/2022 8:34 AM CDT) [facility] Method Time Signature Hemoglobin 6.5 (L) 11.6 [...] Organization Address City/State/ZIP Code Phon e Number [facility]- [address] [place] [address] [place] [address] System in [place] [address] (ABNORMAL) Lipid Panel (04/21/2022 [...] Organization Address City/State/ZIP Code Phon e Number - [address] [place] [address] [place] [address] System in [place] [address] (ABNORMAL) ThinPrep Screen (04/14/2022 10:41 AM CDT) Component Value Ref Test Analysis Performed At [facility] gist Range Method Time Signature (A) [...] LAB PAP PATHDX ORDERABLES Performing Organization Address City/[facility]/ZIP Code Phon e Number - [address] [place] [address] [facility] [place] [place] [address] System [facility] documented in this encounter Visit Diagnoses Diagnosis Well Adult Examination Normal - Primary Fatigue Iron Deficiency Anemia Screening Exam Morbid Obesity Body Mass Index 40.0-44.9 Adult (HCC) documented in this encounter Care Teams Robot Designer Relationship Specialty Start Date End Date Shan Wild M.D. PCP - General Family Medicine 04/07/[address] [place] [phone] documented as of this encounter
--- OUTSIDE RECORDS SUMMARY | 2022-05-09 14:39 | XMS_ITS | Encounter Summary ---
:1995 Author Organization [facility] Address [address] [place] [address] Care Team Providers Name Role Phone Shan Wild M.D. Primary Care Provider Reason for Referral Outpatient (Routine) - Authorized Specialty Diagnoses / Procedures Referred By Contact Refer red To Contact Obstetrics and Diagnoses Menorrhagia Atypical Squamous Cell Uncertain Significance Personal History Shan Wild [facility] Gynecology M.Dano [address] [place] [address] Referral ID Status Reason Start Date Expiration Date Visits V isits Requested Authorized [id number] Authorized 04/28/2022 04/28/2023 1 1 Reason for Visit Reason Comments OTHER Pap and hemoglobin Appointment Request (Routine) - Closed Specialty Diagnoses / Procedures Referred By Contact Refer red To Contact Family Medicine Referral ID Status Reason Start Date Expiration Date Visits Requ ested Visits Authorized [id number] Closed 04/24/2022 04/24/2023 1 Encounter Details Date Type Department Care Team Description 04/28/2022 Office Visit Department of Family Shan Wild Men orrhagia (Primary Dx); Medicine, [facility]ul[facility] Rendon Atypical Squamous Cell Uncertain Signifi cance Personal History; Clinic, in [place] [address] [place], [place] [address] [facility] [address] [place], [place] [phone] (Work) [phone] Social History Tobacco Use Types Packs/Day Years [...] 14.4 oz) 04/28/2022 11:20 AM CDT Height - - Body Mass Index 51.23 04/14/2022 10:10 AM CDT documented in this encounter Progress Notes Shan Wild M.D. - 04/28/2022 11:30 AM CDT Progress Note Post hospital discharge HOSPITALIST DISCHARGE SUMMARY [facility] Admission Date: 04/25/2022 Discharge Date: 04/26/2022 Discharge Plan: Neha Rand was discharged to home. Principal Diagnosis Iron deficiency anemia Hospital Problem List Principal Problem: Iron deficiency anemia, unspecified Active Problems: Morbid obesity with BMI of 50.0-59.9, adult (HC) Menorrhagia ADDITIONAL COMMENTS REGARDING DIAGNOSIS SPECIFICITY Additional Diagnosis Information BMI>40, which is consistent with MORBID OBESITY. This is clinically significant due to increased nursing cares, use of resources and specialty equipment. Hospital Course Ms. Neha Rand is a 27 y.o. female with a history of iron deficiency anemia and menorrhagia who presents with fatigue and low hemoglobin. Patient saw her PCP for routine appointment an 04/21 and was found to have low hgb. At that time she was discharged prior to labs returning. She wasthen notified by her primary care, to present to the emergency department because her hemoglobin waslow. Patient states that she went to the [facility] yesterday, they felt that this was chronic, no further labs were done and she was discharged home. She eventually came to [facility] ED. Patient has had increased fatigue over the last several days prior to admission. She does have chronic iron deficiency anemia and has been having heavy menstrual cycles. Feeling very weak. No chest pain. Noshortness of breath. She has been taking iron supplements. She did just finished her menstrual cycleon . Her cycles are regular every month, they last 7 days with the first 3 days being the heaviest flow. In the ED, her cbc was remarkable for hgb of 6.4 with microcytic hypochromic anemia. She was typed and cross to receive 2 units of RBC. She was admitted for management of anemia. Her HGB increased to 7.9 after 2 units. A third unit of RBC and an IV Iron infusion was given to get her hgb up to 9.1. Patient was feeling fell and stable for discharge. She should resume her ferrous sulfate every other day. She will follow up with her PCP in 2 days. Recommendations for Outpatient Provider PCP: Damien Jaramillo MD Recommendations for outpatient provider Specific recommendations to be addressed at the follow up visit: Recheck anemia symptoms, recheck blood pressure- consider starting antihypertensive medication if consistently elevated outside the hospital, follow up iron studies and celiac studies- was pending at discharged (blood was drawn prior to iron infusion), encourage weight loss Medication regimen changes: iron supplement changed to every other day Today at the clinic: Patient stated that she has been feeling better than before. She does have some energy. She stated that her periods are very heavy, she goes through 1-2 packages of pad in the 1st 3 days. She stated that her periods are regular and last for 7 days. Patient stated that she the last time she was on oral contraception was 7 years ago. She is trying to conceive for the past year. Denies any concern today. A Pap smear was found to be ASCUS. Denies history of Pap smear. Allergies Allergen Reactions Alcohol Hives TEQUILA Blackberry Hives Nickel Rash Current Outpatient Medications: acetaminophen (TYLENOL) 500 mg tablet, Take 1,000 mg by mouth., Disp: , Rfl: ferrous sulfate 325 mg (65 mg iron) tablet, Take 325 mg by mouth., Disp: , Rfl: ibuprofen (ADVIL,MOTRIN) 200 mg tablet, Take 400 mg by mouth., Disp: , Rfl: No current facility-administered medications for this visit. Past Medical History: Diagnosis Date Anemia Iron Deficiency Morbid Obesity Body Mass Index 50.0-59.9 Adult (FORM[facility]) Social History Tobacco Use Smoking status: Some Days Types: Cigarettes Smokeless tobacco: Never Tobacco comments: Patient stated she has not had a cigarette in two weeks Vaping Use Vaping Use: never used REVIEW OF SYSTEMS Vitals: 04/28/22 1120 04/28/22 1130 BP: 145/80 155/78 BP Location: Right arm Right arm Patient Position: Sitting Sitting Cuff Size: Large Large Pulse: 70 80 Resp: 16 Temp: 36.6 ??C TempSrc: Temporal Weight: (!) 157 kg Constitutional Appearance: She is well-developed. HENT Head: Normocephalic and atraumatic. Right Ear: External ear normal. Left Ear: External ear normal. Nose: Nose normal. Eyes Conjunctiva/sclera: Conjunctivae normal. Pupils: Pupils are equal, round, and reactive to light. Cardiovascular Rate and Rhythm: Normal rate and regular rhythm. Heart sounds: Normal heart sounds. Pulmonary Effort: Pulmonary effort is normal. No respiratory distress. Breath sounds: Normal breath sounds. Abdominal General: Bowel sounds are normal. There is no distension. Palpations: Abdomen is soft. There is no mass. Tenderness: There is no abdominal tenderness. There is no guarding. Musculoskeletal General: Normal range of motion. Cervical back: Normal range of motion and neck supple. Skin General: Skin is warm and dry. Neurological Mental Status: She is alert and oriented to person, place, and time. Deep Tendon Reflexes: Reflexes are normal and symmetric. Psychiatric Behavior: Behavior normal. Neha was seen today for other. Diagnoses and all orders for this visit: Menorrhagia - Obstetrics and Gynecology - Gynecology consult (clinic); Future Atypical Squamous Cell Uncertain Significance Personal History - Obstetrics and Gynecology - Gynecology consult (clinic); Future Will refer to OBGYN for further evaluation given that the patient is to trying conceive. She have significant menorrhagia. She was also to have ASCUS. Given her weight, I believe it would be appropriate to send her to OBGYN to repeat Pap smear and get HPV. Anemia - CBC with Differential, Blood; Future - Iron and Total Iron-Binding Capacity; Future We will check [place] CBC in [place] as well as ferritin in 1 month. She will continue on iron supplements. documented in this encounter Plan of Treatment Upcoming Encounters Date Type Specialty Care Team Description 05/12/2022 Comprehensive Visit Obstetrics and [facility], Vaibhav Khan Gynecology Justice 200 [facility] [place] [phone] (Wo rk) 05/29/2022 Appointment Laboratory Medicine Shan Wild M.D. [address] [facility] [place] [phone] (Wo rk) Scheduled Orders Name Type Priority Associated Diagnoses Order S chedule CBC with Differential, Lab Routine Anemia Expec krystal: 05/28/2022 Blood (Approximate), Expires: 07/29/2023 Iron and Total Lab Routine Anemia Expected: 09/2021 Iron-Binding Capacity (Appro ximate), Expires: 07/29/2023 Ferritin Lab Routine Menorrhagia Expected: 05/28 (Approximate), Expires: 07/29/2023 Scheduled Referrals Name Type Priority Associated Diagnoses Order S chedule Obstetrics and Outpatient Referral Routine Menorrhagia Expected: Gynecology - Atypical Squamous 04/28/2022 Gynecology consult Cell Uncertain (Approx imate), (clinic) Significance Personal s: History 07/29/2023 documented as of this encounter Visit Diagnoses Diagnosis Menorrhagia - Primary Atypical Squamous Cell Uncertain Signifi cance Personal History Anemia documented in this encounter Care Teams Linotyper Relationship Specialty Start Date End Date Shan Wild M.D. PCP - General Family Medicine 04/07/22 [address] [facility] [place] [phone] documented as of this encounter
--- OUTSIDE RECORDS SUMMARY | 2022-05-09 14:39 | XMS_ITS | Encounter Summary ---
:1995 Author Organization [facility] Address [address] [place] [address] Care Team Providers Name Role Phone Shan Wild M.D. Primary Care Provider Encounter Details Date Type Department Care Team Description 04/24/2022 Clinical Communication Department of [facility] Sukhdev Wild, Medicine, [place] [facility], in [address] [address] [place], [place] [phone] (Work) [phone] Social History Tobacco Use Types Packs/Day Years Used Date Smoking Tobacco: Some Days Cigarettes Smokeless Tobacco: Never Sex Assigned at Date Recorded Not on file documented as of this encounter Miscellaneous Notes Telephone Encounter - Joe Burgos - 04/25/2022 1:52 PM CDT Patient calling back to inform that she will not be on her cycle at her upcoming appt. Telephone Encounter - Daniela Mcdonald - 04/25/2022 11:05 AM CDT Left detailed message per patient request. Patient is scheduled on 04/28/22. Telephone Encounter - Tyree Blanco - 04/25/2022 9:56 AM CDT Reason for Communication: Patient returning call Current Can Nursing/Provider leave a detailed message: yes Did the patient refuse triage through Nurse line? (for symptom based concerns): Action Needed: Name of Medication (if relevant): Telephone Encounter - Cony Fung L.P.N. - 04/24/2022 11:29 AM CDT Images from the original note were not included. Left message for patient to return call to clinic. Does the patient need to speak to nursing? yes Action needed: Per Dr. Wild patient needs to be informed of the following information: Shan Wild M.D. 04/22/2022 4:29 PM CDT Back to Top Pap smears showed abnormal cells. I would like to repeat the Pap smear and get HPV testing as well. Please help the patient to schedule an appointment for Pap smear. Make sure that she is not on her period. documented in this encounter Plan of Treatment Upcoming Encounters Date Type Specialty Care Team Description 05/12/2022 Comprehensive [facility] Vaibhav Khan Gynecology Justice 200 [facility] Nena [place] [phone] (Wo rk) 05/29/2022 Appointment Laboratory Medicine Shan Wild M.D. 300 [facility] [place] [phone] (Wo rk) documented as of this encounter Visit Diagnoses Not on filedocumented in this encounter Care Teams Marine Equipment Preservation Inspector Relationship Specialty Start Date End Date Shan Wild M.D. PCP - General Family Medicine 04/07/22 [address] [facility] [place] [phone] documented as of this encounter
--- OUTSIDE RECORDS SUMMARY | 2022-05-09 14:39 | XMS_ITS | Encounter Summary ---
:1995 Author Organization [facility] Address [address] [place] [address] Care Team Providers Name Role Phone Shan Wild M.D. Primary Care Provider Encounter Details Date Type Department Care Team Description 04/21/2022 Hospital Encounter Department of Shan Wild ult Examination Normal; Laboratory Medicine Justice Baekr Fatigue in [address] 300 [facility] [address] [place], [place] [phone] (Work) [phone] Social History Tobacco Use Types Packs/Day Years Used Date Smoking Tobacco: Some Days Cigarettes Smokeless Tobacco: Never Sex Assigned at Date Recorded Not on file documented as of this encounter Plan of Treatment Upcoming Encounters Date Type Specialty Care Team Description 05/12/2022 Comprehensive Visit Obstetrics and [place], Sherice Ribeiro M.D. 200 [place], [place] [address] (Wo rk) 05/29/2022 Appointment Laboratory Medicine Shan Wild M.D. 300 [place] [address] (Wo rk) documented as of this encounter Procedures Procedure [...] Organization Address City/State/ZIP Code Phon e Number [facility]- [address] [place] [address] [place] [address] System in [place] [address] (ABNORMAL) Comprehensive Metabolic Panel [...] Organization Address City/State/ZIP Code Phon e Number [facility]- [address] [place] [address] [facility] [place] [address] System in [place] [address] (ABNORMAL) S-TSH (Thyroid-Stimulating Hormone [...] Organization Address City/State/ZIP Code Phon e Number [facility]- [address] [place] [address] [facility] [place] [facility] [address] System in [place] [address] Glucose, Fasting (04/21/2022 8:34 AM CDT) P athologist Signature Glucose, P 95 70 - 100 04/21/2022 [place] mg/dL 12:09 PM CDT Last Intake 10 hr 04/21/2022 [place] 11:08 AM CDT Specimen Anatomical Collection Method Collection Time Receive d Time (Source) Location / / Volume Laterality Blood (Blood, 04/21/2022 8:34 AM 04/21/20 Venous) CDT 11:08 AM CDT hSan Wild M.D. LAB BLOOD NON ADD-ON Performing Organization Address City/State/ZIP Code Phon e Number [facility]- [address] [place] [address] [facility] [place] [address] System in [place] [address] (ABNORMAL) CBC with Differential, Blood (04/21/2022 8:34 AM CDT) [facility] gist Method Time Signature Hemoglobin 6.5 [...] Organization Address City/State/ZIP Code Phon e Number [facility]- [address] [place] [address] [place] [address] System in [place] [address] (ABNORMAL) Lipid Panel (04/21/2022 8:34 [...] Organization Address City/State/ZIP Code Phon e Number [facility]- [address] [place] [address] [place] [address] System in [place] [address] documented in this encounter Visit Diagnoses Diagnosis Well Adult Examination Normal Fatigue documented in this encounter Care Teams Farmworker Dairy Relationship Specialty Start Date End Date Shan Wild M.D. PCP - General Family Medicine 04/07/[address] [place] [phone] documented as of this encounter
--- OUTSIDE RECORDS SUMMARY | 2022-05-09 14:39 | XMS_ITS | Encounter Summary ---
:1995 Author Organization [facility] Address [address] [place] [address] Care Team Providers Name Role Phone Shan Wild M.D. Primary Care Provider Encounter Details Date Type Department Care Team Description 04/21/2022 Clinical Communication Department of [facility] Sukhdev Wild, Medicine, [facility], in [address] [address] [place], [place] [phone] (Work) [phone] Social History Tobacco Use Types Packs/Day Years Used Date Smoking Tobacco: Some Days Cigarettes Smokeless Tobacco: Never Sex Assigned at Date Recorded Not on file documented as of this encounter Miscellaneous Notes Telephone Encounter - Analy Gutierrez CRochelleMPorter - 04/24/2022 2:54 PM CDT Notified patient of results. She went to ED in [facility] and was told by physician in ED that it was a chronic condition and didn't seem worried. Patient stated they also didn't test her hemoglobin and just gave and iron pill and sent her home. Telephone Encounter - Kari Tavera L.P.N. - 04/21/2022 5:17 PM CDT Images from the original note were not included. Left message for patient to return call to clinic. Does the patient need to speak to nursing? yes Action needed: Shan Wild M.D. P [facility] Fbfb Nurse Please inform the patient regarding her results. Her hemoglobin is down to 6.5. I would urge her to go to the ER for further evaluation and management. Fasting glucose, cholesterol, CMP, and TSH are normal. Provider notified documented in this encounter Plan of Treatment Upcoming Encounters Date Type Specialty Care Team Description 05/12/2022 [facility] Vaibhav [facility] Gyne[facility] [place] 200 [facility] [place] [phone] (Wo rk) 05/29/2022 Appointment Laboratory Medicine Shan Wild M.D. 300 [facility] [place] [phone] (Wo rk) documented as of this encounter Visit Diagnoses Not on filedocumented in this encounter Care Teams Cellophane Press Operator Relationship Specialty Start Date End Date Shan Wild M.D. PCP - General Family Medicine 04/07/22 300 [facility] [place] [phone] documented as of this encounter
--- OUTSIDE RECORDS SUMMARY | 2022-05-09 14:39 | XMS_ITS | Clinical Summary ---
:1995 Author Organization [email or web address] [facility] Address [place] [address] Care Team Providers Name Role Phone Damien Jaramillo MD Primary Care Provider Allergies Active Allergy Reactions Severity Noted Date Comments Nickel Rash 04/28/2016 Medications Medication Sig Dispensed Refills Start End Date Status Date acetaminophen Take 1,000 mg by 0 Active (TYLENOL EXTRA mouth every 6 STRGTH) 500 mg hours if needed tablet for Pain. Max acetaminophen dose: 4000mg in 24 hrs. ibuprofen (ADVIL; Take 400 mg by 0 Active MOTRIN) 200 mg mouth every 6 tablet hours if needed for Pain. ferrous sulfate, Take 1 Tablet 0 Active 65 mg elemental, (325 mg) by mouth 2 tabletIndications once every other : Iron deficiency day. anemia due to chronic blood loss ferrous sulfate Take 1 tablet by 180 tablet 1 Discontinued 325 mg delayed mouth 2 times 7 22 ( Pharmacist release daily with meals. ch aneta per tabletIndications me dication : Iron deficiency hi story anemia due to (E-can milli not chronic blood sent)) loss ferrous sulfate, Take 325 mg by 0 04/26/20 Discontinued 65 mg elemental, mouth once daily. 22 (Reorder tablet (E-cancel not sent)) Active Problems Problem Noted Date Menorrhagia 04/25/2022 Morbid obesity with BMI of 50.0-59.9, adult 04/28/2016 Supervision of normal first 06/26/2012 Overview: 1. NAIF 02/05/2013 by sure LMP. 8 [facility] ultrasound gave due date of 02/09/13. Will stick with due date based on sure LMP. 2. Declined screening for defects. 3. Borderline hypertension. 4. Anemia Iron deficiency anemia, unspecified 03/29/2009 Adjustment disorder with mixed anxiety and depressed m ood 01/09/2008 Encounters Date Type Specialty Care Team Description 05/08/2022 Lab Requisition Ritika, September LASHAY Miller 05/05/2022 Lab Requisition Fitvarunoff, September L, LASHAY 04/27/2022 Patient Outreach Natasha Lucio RN Care S, RN Management; Hos pital F/U (Lace [facility]) 04/25/2022 - Emergency Delphine Connelly Anemia, unspecified type (Primary Dx); 04/26/2022 PURA Mon Menorrhagia with regular cycle; Hunter Bingham Iron deficie ncy anemia due to chronic blood loss MD Bre George Jennifer Rose F, MD Nguyen, Lala Miller, Z OS 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 HOSPITALIST DISCHARGE [facility] Admission Date: 04/25/2022 Discharge Date: 04/26/2022 Discharge Plan: Neha Rand was discharged to home. Principal Diagnosis Iron deficiency anemia Hospital Problem List Principal Problem: Iron deficiency anemia, uns pecified Active Problems: Morbid obesity with BMI of 50.0-59.9, adult (HC) Menorrhagia ADDITIONAL COMMENTS REGARDIN G DIAGNOSIS SPECIFICITY Additional Diagnosis Informa tion BMI>40, which is consistent with MORBID OBESITY. This is clinically significant due to increased nursing cares, use of resources and specialty equipment. Hospital Course Ms. Neha graff is a 27 y.o. female with a history of iron deficiency anemia and menorrhagia who presents with fatigue and low hemoglobin. Patient saw her PCP for routine appointment an 04/21 and was found to have low hgb. At that time she was discharged prior to labs returning. She was then notified by her primary care, to present to the emergency department because her hemoglobin was low. Patient states that ludy andrade went to the [facility] yesterday, they felt that this was chronic, no further labs were done and she was discharged home. She eventually came to [facility]. Josee ent has had increased fatigu e over the last several days prior to admission. She does have chronic iron deficiency anemia and has been having heavy menstrual cycles. Feeling very weak. No chest pain. No shortness of breath. She faulkner s been taking iron supplements. She did just finished her menstrual cycle on . Her cycles are regular every month, they last 7 days with the first 3 days being the heaviest flow. In the ED, her cbc was remar kable for hgb of 6.4 with microcytic hypochromic anemia. She was typed and cross to receive 2 units of RBC. She was admitted for management of anemia. Her HGB increased to 7. 9 after 2 units. A third uni t of RBC and an IV Iron infusion was given to get her hgb up to 9.1. Patient was feeling fell and stable for discharge. She should resume her ferrous sulfate every other day. She will follow up with her PCP in 2 days. Recommendations for Outpatie nt Provider PCP: Damien Jaramillo MD Recommendations for outpati ent provider Specific recommendations to be addressed at the follow up visit: Recheck anemia symptoms, re check blood pressure- consider starting antihypertensive medication if consistently elevated outside the hospital, follow up iron studies and celiac studies- was pending at d ischarged (blood was drawn p rior to iron infusion), encourage weight loss Medication regimen changes: iron supplement changed to every other day Follow-up labs/imaging: hgb Other specialty follow-up no t included in DC orders: Hematology Special considerations: none Functional evaluations: Fall Risk: Total Score (If 5 or > is High Risk): 1 (04/26/22799) NuDESC (>/=2 abnormal): 0 ( 04/26/22799) MOCA: // SLUMS: Discharge Medications Your Home Medicines CHANGE how you take these me dicines Instructions ferrous sulfate (65 mg eleme ntal) tablet For diagnoses: Iron deficien cy anemia due to chronic blood loss What changed: when to take t his Take 1 Tablet (325 mg) by m outh once every other day. CONTINUE taking these medici shannon Instructions acetaminophen 500 mg tablet Commonly known as: TYLENOL E XTRA STRGTH Take 1,000 mg by mouth ever y 6 hours if needed for Pain. Max acetaminophen dose: 4000mg in 24 hrs. ibuprofen 200 mg tablet Commonly known as: ADVIL; MO GIN Take 400 mg by mouth every 6 hours if needed for Pain. Pertinent Findings / Procedu res Most Recent Vital Signs Last 36 Hours BP: 172/95 (04/26/22 163) B P Min: 135/91 Max: 183/103 Pulse: 64 (04/26/221636) Pu lse Min: 64 Max: 98 Resp: 18 (04/26/22 163) Res p Min: 17 Max: 20 SpO2: 97 % (04/26/221636) S pO2 Min: 96 % Max: 100 % Temp: 97.8 ??F (36.6 ??C) (06/26/211636) Temp Min: 97.8 ??F (36.6 ??C) Max: 99.3 ??F (37.4 ??C) Most Recent O2 Device Last L PM (if NC) Last FiO2 (if BiPAP/vent) Room Air (04/26/22 1358) Last Wt: (!) 157.7 kg (347 l b 11.2 oz) (04/26/22 0600) Change from prior: -2.9 kg current BMI: 52.28 Gen: obese, resting in bed, in no distress CV: RRR, normal S1 S2, no mu rmurs appreciated Resp: non labored, clear jimmie aterally Abd: soft, non-tender, non-d istended, active bowel sounds Ext: no edema MSK: moving all extremities, muscle tone normal for age, skeletal configuration normal Neuro: alert and oriented, s peech fluent Psych: normal mood and appro priate affect Skin: warm and dry, no signi ficant rashes/lesions Labs: Recent Labs 04/26/22 1656 04/26/22 0559 04/25/22 2156 04/25/22 1521 WBC -- -- -- 7.1 RBC -- -- -- 4.02 HGB 9.1 L 7.9 L < > 6.4 LL HCT -- -- -- 23.7 L MCV 63 L 63 L < > 59 L MCH -- -- -- 15.9 L MCHC -- -- -- 27.0 L PLT -- -- -- 382 MPV -- -- -- 10.5 < > = values in this interv al not displayed. Recent Labs 04/26/22 0559 04/25/22 1521 SODIUM 137 134 L POTASSIUM 4.2 3.7 CHLORIDE 110 106 WU2JIHTS 20 L 21 BUN 9 11 CREATININE 0.63 0.69 GLUCOSE 90 88 CALCIUM 8.6 9.1 No results for input(s): AL KPHOSPH, PROTEIN, BILITOTAL, AST, ALT in the last 720 hours. Component Latest Ref Rng & Units 04/25 TSH 0.35 - 4.94 uIU/mL 2.45 Consultants None Diet / Activity / Follow-Up After Discharge Orders and I nstructions Low salt 2gm sodium restric tion diet: - eat a diet that is low in sodium (salt). - remove the salt shaker, do not have it on the table when you are eating, or in the kitchen when you are cooking - do not eat seasoned salts, pickles, olives, salted soups and snacks, regular cold cuts and cheeses, regular TV dinners - learn to read food labels - low sodium is 140 mg or le ss per serving - beware of foods with 400 - 600 mg sodium per serving - eat fresh fruits, vegetabl es, and meats PATIENT COMMUNICATION To help keep your blood pre ssure down, minimize salt, caffeine, alcohol and high fat dairy products. Primary Care Provider yareli w up appointment(s) Keep your follow up appoint ment on Saturday 04/28 When to follow up: 1 to 5 d ays Up as tolerated It is important to slowly r eturn to your regular level of activity. Start with 5-10 minutes at one time and slowly build to 30 minutes at one time. Save your energy by spreading out activities that make you tired. Rest as needed. When should you be concerne d? Your health care provider i s: Damien Jaramillo MD Please call your health care provider if: - you feel you are getting w orse or having an increase in problems - fever greater than 101 deg michael - increasing shortness of br eath - any signs of infection (in creasing redness, swelling, tenderness, warmth, change in appearance, or increased drainage) - blood in your urine or sto ol - coughing or vomiting blood - nausea (upset stomach) and vomiting and/or diarrhea that will not stop - severe pain that is not re lieved by medicine, rest or ice Call 911 if you feel you are having a medical emergency. [facility] You were in the hospital fo r anemia. Pending Studies Lab results that may not be resulted at time of discharge: (From admission through now) Start Ordered 04/26/22 0600 CWS PATH REVI EW HEMATOLOGY TOMORROW AM, STAT 04/25/22 1610 04/25/22 2200 IRON PLUS IRO N BINDING CAP ONE TIME, TODAY 04/25/22 18004/25/22 220 CELIAC CASCAD E PANEL ONE TIME, TODAY 04/25/22 18004/25/22 181 FERRITIN ONE TIME, SABINO 04/25/22 180 Total time spent on discharg e coordination: 35 minutes. Patient was seen and examined today. Lala Craig NP Hospitalist, [facility] [phone] Patient seen and examined. Reol perez discussed with Lala Craig NP. Agree with above plan. 04/25/2022 Travel from Last 3 Months Immunizations Name Administration Dates Next Due DTP 04/14/1998, 07/25/1994, 1993 DTP-HIB 1993, 1993 HIB HbOC (HibTITER) 07/25/1994, 1993 Hepatitis B (Peds) 04/14/1998, 05/06/1997, 04/14/1996 Human Papilloma Virus Vaccine 04/28/2016, 12/11/2008, 2007 Influenza, IIV4 04/28/2016 MMR 04/14/1998, 07/25/1994 Oral Polio Vaccine 04/14/1998, 07/25/1994, 1993, 04/26 Td (Age >=7 Years) 11/17/2004 Tdap 04/28/2016 Family History Medical History Relation Name Comments Hypertension Father Hypothyroidism Maternal Grandmother Iron deficiency Maternal Grandmother Good Health Mother Iron deficiency Mother Diabetes Paternal Grandmother Hypertension Paternal Grandmother Relation Name Status Comments Father Maternal Grandmother Mother Paternal Grandmother Social History Tobacco Use [...] Assigned at Date Recorded Not on file Travel History Travel Start Travel End [place] 04/07/2022 04/10/2022 COVID-19 Exposure Response Date Recorded In the last 10 days, have you been in contact with No / Unsu re 04/25/2022 2:47 PM CDT someone who was confirmed or suspected to have Coronavirus/COVID-19? Obstetrics History Para Term AB IAB SAB Ectopic Multiple Living Live Births 2 Date Outcome GA Total Labor/2nd/3rd Weight Sex Delivery Anes PTL Margarita A 1 A5 Name Clin Labor Comments: System Generated. Please review and update details. Last Filed Vital Signs Vital Sign Reading Time Taken Comments Blood Pressure 172/95 04/26/2022 4:37 PM CDT Pulse 64 04/26/2022 4:37 PM CDT Temperature 36.6 ??C (97.8 ??F) 04/26/2022 4:37 PM CDT Respiratory Rate 18 04/26/2022 4:37 PM CDT Oxygen Saturation 97% 04/26/2022 4:37 PM CDT Inhaled Oxygen Concentration - - Weight 157.7 kg (347 lb 11.2 oz) 04/26/2022 6:00 AM CDT Height 175.3 cm (5' 9) 04/25/2022 2:59 PM CDT Body Mass Index 51.35 04/25/2022 2:59 PM CDT Plan of Treatment Health Maintenance Due Date Last Done Comments Hepatitis C screening for age 1004/05/2011 18-79 Pap test for age 21-65 04/28/2019 04/28/2016, 07/01/2012, 06/23/2011 Depression screening for age 12+ 10/05/2020 10/06/2019, , 04/28/2016 BMI (ht and wt on same day) for 01/15/2021 01/16/2020, 09/24, age 18+ 11/27/2016, Additional history exists Influenza for age 9-49 02/23/2022 04/28/2016 Tetanus booster 04/28/2026 04/28/2016, 11/17/2004 Tdap Completed 04/28/2016 COVID-19 vaccine series Completed 04/14/2022, 06/15/2021, 05/18/2021 Procedures Procedure Name Priority Date/Time Associated Comments Diagnosis LAB TRACKING EVENT Routine 05/05/2022 9:50 AM BABY DOCTOR PATH TISSUE EXAM Routine 05/05/2022 9:50 Results for this AM BABY DOCTOR procedure are i n the results section. HEMOGLOBIN Today 04/26/2022 4:56 Results for this PM CDT procedure are i n the results section. TRANSFUSE RBC (NURSE STAT 04/26/2022 2:01 COMMUNICATION ORDER) PM CDT RBC W/O TYPE & SCREEN STAT 04/26/2022 10:30 Re sults for this AM CDT procedure are i n the results section. HEMOGLOBIN Early AM 04/26/2022 5:59 Results for this AM CDT procedure are i n the results section. BASIC METABOLIC PANEL Early AM 04/26/2022 5:59 Res ults for this AM CDT procedure are i n the results section. MAGNESIUM Early AM 04/26/2022 5:59 Results for this AM CDT procedure are i n the results section. HEMOGLOBIN Today 04/25/2022 9:56 Results for this PM CDT procedure are i n the results section. TRANSFUSE RBC (NURSE Today 04/25/2022 7:42 COMMUNICATION ORDER) PM CDT TISSUE TRANSGLUTAMINASE Timed 04/25/2022 6:12 R esults for this IGA PM CDT procedure are i n the results section. CELIAC CASCADE PANEL Today 04/25/2022 6:12 Resu lts for this PM CDT procedure are i n the results section. IRON PLUS IRON BINDING Today 04/25/2022 6:12 Re sults for this CAP PM CDT procedure are i n the results section. TRANSFUSE RBC (NURSE Today 04/25/2022 4:35 COMMUNICATION ORDER) PM CDT COVID 19 STAT 04/25/2022 4:07 Results for this PM CDT procedure are i n the results section. COVID 19 COLLECTION STAT 04/25/2022 4:07 Resul ts for this PM CDT procedure are i n the results section. RBC W/O TYPE & SCREEN STAT 04/25/2022 3:47 Res ults for this PM CDT procedure are i n the results section. RED BLOOD CELLS EA UNIT STAT 04/25/2022 3:21 R esults for this PM CDT procedure are i n the results section. RED BLOOD CELLS EA UNIT STAT 04/25/2022 3:21 R esults for this PM CDT procedure are i n the results section. RED BLOOD CELLS EA UNIT STAT 04/25/2022 3:21 R esults for this PM CDT procedure are i n the results section. TYPE & SCREEN STAT 04/25/2022 3:21 Results for this PM CDT procedure are i n the results section. TSH SABINO 04/25/2022 3:21 Results for this PM CDT procedure are i n the results section. FERRITIN SABINO 04/25/2022 3:21 Results for this PM CDT procedure are i n the results section. CWS PATH REVIEW STAT 04/25/2022 3:21 Results f or this HEMATOLOGY PM CDT procedure are i n the results section. RED CELL MORPHOLOGY STAT 04/25/2022 3:21 Resul ts for this PM CDT procedure are i n the results section. PLATELET ESTIMATE STAT 04/25/2022 3:21 Results for this PM CDT procedure are i n the results section. MANUAL DIFFERENTIAL STAT 04/25/2022 3:21 Resul ts for this PM CDT procedure are i n the results section. ,SERUM SABINO 04/25/2022 3:21 Results f or this PM CDT procedure are i n the results section. CBC WITH AUTO STAT 04/25/2022 3:21 Results for this DIFFERENTIAL PM CDT procedure are i n the results section. BASIC METABOLIC PANEL STAT 04/25/2022 3:21 Res ults for this PM CDT procedure are i n the results section. CBC WITH AUTO STAT 04/25/2022 3:21 Results for this DIFFERENTIAL PM CDT procedure are i n the results section. from Last 3 Months Results LAB TRACKING EVENT (05/05/2022 9:50 AM BABY DOCTOR) Specimen Anatomical Collection Method Collection Time Receive d Time (Source) Location / / Volume Laterality Other (Other) Client Collect / 05/05/2022 9:50 AM 04/25 5:35 Unknown BABY DOCTOR PM BABY DOCTOR Kristi Yost PA-C LAB BILL ONLY Performing Organization Address City/State/ZIP Code Phon e Number [facility] [address] [place] [address] LABORATORY-CENTRAL 2000 LABORATORY PATH TISSUE EXAM (05/05/2022 9:50 AM BABY DOCTOR) Component Value Ref Test Analysis Performed At [facility] gist Range Method Time Signature Case Report Pathology Report ?Case: [id number] ? 05/09/2022 [facility] Authorizing Provider: ??Kristi Marin PA-C ?Collected: ? 05/05/2022 0950 ? 2:33 PM BABY DOCTOR HEALTH Ordering Location: ? [facility] CENTRAL LAB ?Received: ?05/08/20222105 ? MATT RILEY Pathologist: ? Melvin Alegria MD ? ENTRAL Specimen: ?Endometrial B iopsy ? LABORATORY Final A) ENDOMETRIUM, BIOPSY: 05/09/2022 [facility] A Electronically Diagnosis 1. Menstrual endometrium 2:33 PM BABY DOCTOR HEA LT signed by 2. Negative for chronic endometritis LABORATORY-C Melvin Alegria 3. Negative for hyperplasia, atypia, and malignancy ENTRMILEY Casillas MD on LABORATORY 2 at 2:33 PM Clinical Ms. Suh 05/09/2022 [facility] Information Keyona is a 27 2:33 PM [facility] y.o. with LABORATORY-C irregular ENTRAL bleeding LABORATORY Gross A) Received in formalin, lab eled with the patient's name and intra- uterine, is a 2.7 x 1.1 x 0.2 cm aggregate of pink-gilmore mucosa admixed with clotted blood and mucous. The specimen is entirely submitted in 1 cassette. 05/09/2022 [facility] Description 2:33 PM [facility] [place] Le[place] 05/08/2022 9:15 PM LABORATORY-C ENTRAL LABORATORY Microscopic The final 05/09/2022 [facility] Description diagnosis is 2:33 PM [facility] based on LABORATORY-C microscopic ENTRAL examination of LABORATORY appropriate sections of all specimens. Additional 05/09/2022 [facility] Information Interpreted at [email or web address], Central Laboratory - [address], [place] [address] 2:33 PM [facility] LABORATORY-C ENTRAL LABORATORY Specimen Anatomical Collection Method Collection Time Receive d Time (Source) Location / / Volume Laterality Other 05/05/2022 9:50 AM 2 9:06 (Endometrial BABY DOCTOR PM BABY DOCTOR Biopsy) September L Ritika METZ PATHOLOGY/CYTOLOGY Performing Organization Address City/State/ZIP Code Phon e Number [facility] [address] [place] [address] LABORATORY-CENTRAL 2000 LABORATORY (ABNORMAL) HEMOGLOBIN (04/26/2022 4:56 PM CDT)Only the most recent of3 results within the time period is included. athologist Signature HEMOGLOBIN 9.1 (L) 12.0 - 04/26/2022 [place] 16.0 g/dL 5:18 PM CDT [facility] LABORATORY MCV 63 (L) 80 - 100 04/26/2022 [place] fL 5:18 PM CDT [facility] LABORATORY Specimen Anatomical Collection Method / Collection Time Recei danie Time (Source) Location / Volume Laterality Blood BLOOD SPECIMEN / Venipuncture / 04/26/2022 4:56 2021 5:15 Unknown Unknown PM CDT PM CDT Vanessa Díaz MD HEMATOLOGY Performing Organization Address [facility] Phon e Number [facility] LABORATORY [address] [place] [address] TRANSFUSE RBC (NURSE COMMUNICATION ORDER) (04/26/2022 4:35 PM CDT) Specimen (Source) Anatomical Location Collection Method / Collectio n Time Received Time / Laterality Volume Blood BLOOD SPECIMEN / Unknown Vanessa Díaz MD NURSING BLOOD BANK RBC W/O TYPE & SCREEN (04/26/2022 10:30 AM CDT)Only the most recent of2 results within the time period is included. P athologist Signature QUANTITY 1 04/26/2022 [place] 10:30 AM CDT [facility] LABORAT[facility] BLOOD BANK Specimen (Source) Anatomical Collection Method Collection Time Re ceived Time Location / / Volume Laterality Blood BLOOD SPECIMEN / 04/26/2022 9:56 Unknown AM CDT Vanessa Díaz MD BLOOD BANK Performing Organization Address [facility] Phon e [facility] [place] LABORATORY [address] [place] [address] BLOOD BANK Magnesium (04/26/2022 5:59 AM CDT) P athologist Signature MAGNESIUM 2.0 1.6 - 2.6 04/26/2022 [place] mg/dL 6:56 AM CDT [facility] LABORATORY Specimen Anatomical Collection Method Collection Time Receive d Time (Source) Location / / Volume Laterality Blood BLOOD SPECIMEN / Butterfly / 04/26/2022 5:59 AM 04/26 6:05 Unknown Unknown CDT AM CDT Vanessa Díaz MD CHEMISTRY Performing Organization Address City/[facility] Code Phon e [facility] [place] LABORATORY [address] [place] [address] (ABNORMAL) Basic Metabolic Panel (04/26/2022 5:59 AM CDT)Only the most recent of 2 resultswithin the time period is included. athologist Signature SODIUM 137 135 - 145 04/26/2022 [place] mmol/L 6:55 AM [facility] LABORATORY POTASSIUM 4.2 3.5 - 5.0 04/26/2022 [place] mmol/L 6:55 AM [facility] LABORATORY CHLORIDE 110 98 - 110 04/26/2022 [place] mmol/L 6:55 AM [facility] LABORATORY CO2,TOTAL 20 (L) 21 - 31 04/26/2022 [place] mmol/L 6:55 AM [facility] LABORATORY ANION GAP 7 5 - 18 04/26/2022 [facility] 6:55 AM [facility] LABORATORY GLUCOSE 90 65 - 100 04/26/2022 [place] mg/dL 6:55 AM [facility] LABORATORY CALCIUM 8.6 8.5 - 10.5 04/26/2022 [place] mg/dL 6:55 AM [facility] LABORATORY BUN 9 8 - 25 04/26/2022 [facility] mg/dL 6:55 AM [facility] LABORATORY CREATININE 0.63 0.57 - 04/26/2022 [place] 1.11 mg/dL 6:55 AM [facility] LABORATORY BUN/CREAT RATIO 14 10 - 20 04/26/2022 [facility] 6:55 AM [facility] LABORATORY eGFR >90 >90 04/26/2022 [facility] mL/min/1.7 6:55 AM [facility] 3m2 LABORATORY Comment: As of 2021, eGFR is calcu lated by the CKD-EPI creatinine equation without race adjustment. eGFR can be inf luenced by muscle mass, exercise, and diet. The reported eGFR is an estimation only and is only applicable if the renal function is stable. Specimen Anatomical Collection Method Collection Time Receive d Time (Source) Location / / Volume Laterality Blood BLOOD SPECIMEN / Butterfly / 04/26/2022 5:59 AM 04/26 6:05 Unknown Unknown CDT AM CDT Vanessa Díaz MD CHEMISTRY Performing Organization Address City/[facility]/ZIP Code Phon e Number [facility] LABORATORY [address] [place] [address] TRANSFUSE RBC (NURSE COMMUNICATION ORDER) (04/25/2022 9:55 PM CDT) Specimen (Source) Anatomical Location Collection Method / Collectio n Time Received Time / Laterality Volume Blood BLOOD SPECIMEN / Unknown Delphine Connelly Z OS MAINFRAME SYSTEMS PROGRAMMER NURSING BLOOD BANK TRANSFUSE RBC (NURSE COMMUNICATION ORDER) (04/25/2022 7:27 PM CDT) Specimen (Source) Anatomical Location Collection Method / Collectio n Time Received Time / Laterality Volume Blood BLOOD SPECIMEN / Unknown Delphine Connelly Z OS MAINFRAME SYSTEMS PROGRAMMER NURSING BLOOD BANK CELIAC CASCADE PANEL (04/25/2022 6:12 PM CDT) P athologist Signature IGA 131.85 84.50 - 04/27/2022 [facility] [email or web address] 499.00 8:41 AM CDT LABORATORY-CENT mg/dL [facility] LABORATORY Specimen Anatomical Collection Method Collection Time Receive d Time (Source) Location / / Volume Laterality Blood BLOOD SPECIMEN / Add On / Unknown 04/25/2022 6:12 PM 1 06/25/2021 6:12 Unknown CDT PM CDT Narrative [facility] LABORATORY-CENTRAL LABORAT ORY - 04/27/2022 8:41 AM CDT Reflexed to Tissue Transglutaminase IgA Lala Craig Z OS [employer]INFRAME SYSTEMS PROGRAMMER SEND OUTS Performing Organization Address City/[facility]/ZIP Code Phon e Number [facility] [address] [place] [address] LABORATORY-CENTRAL 2000 LABORATORY (ABNORMAL) IRON PLUS IRON BINDING CAP (04/25/2022 6:12 PM CDT) Analysis Performed At Patho logist Time Signature IRON 62 25 - 156 04/27/2022 [facility] ug/dL 1:52 PM CDT LABORATORY-[facility]YTE TRAL LABORATORY UIBC 494 04/27/2022 [facility] (UNSATURATED) 1:52 PM CDT LABORATORY-[facility] TRAL LABORATORY IRON BINDING 556 (H) 245 - 400 04/27/2022 [facility] ug/dL 1:52 PM CDT LABORATORY-[facility] TRAL LABORATORY IRON,% 11 (L) 20 - 55 % 04/27/2022 [facility] SATURATION 1:52 PM CDT LABORATORY-[facility] TRAL LABORATORY Specimen Anatomical Collection Method Collection Time Receive d Time (Source) Location / / Volume Laterality Blood BLOOD SPECIMEN / Add On / Unknown 04/25/2022 6:12 PM 1 06/25/2021 6:12 Unknown CDT PM CDT Lala Miller Kiara NEVES CHEMISTRY Performing Organization Address [facility] Phon e Number [facility] [address] [place] [address] LABORATORY-CENTRAL 1999 LABORATORY TISSUE TRANSGLUTAMINASE IGA (04/25/2022 6:12 PM CDT) [facility] gist Method Time Signature TISSUE <1.2 <4.0 U/ml 04/28/2022 [facility] TRANSGLUTAMINASE IGA 12:[address] [facility] TOR-MAYTE TRAL LABORATORY Comment: Celiac disease unlikely unless IgA deficient. Recommend IgA levels if not already performed. Specimen Anatomical Collection Method Collection Time Receive d Time (Source) Location / / Volume Laterality Blood BLOOD SPECIMEN / Add On / Unknown 04/25/2022 6:12 PM 1 06/25/2021 6:12 Unknown CDT PM CDT Narrative [facility] LABORATORY-CENTRAL LABORAT ORY - 04/28/2022 12:17 PM CDT Negative ?<4.0 Weak Positive ?? 4-10 Positive ?>10.0 This test should not be solely relied up on to establish a diagnosis of celiac disease. Affected individuals who have been on a gluten-free diet prior to testing may have a negative result. These results were obtained using the [employer] R h-tTG IgA PRAMOD assay. ??Values obtained from other manufacturers' assay methods may not be used interchangeably. Lala Kiara Craig NP SEND OUTS Performing Organization Address City/[facility] Phon e Number [facility] [address] [place] [address] LABORATORY-CENTRAL 1999 LABORATORY COVID 19 (04/25/2022 4:07 PM CDT) Analysis Performed At [facility] Time Signature COVID 19 Negative Negative 04/25/2022 [facility] 6:34 PM CDT [facility] Comment: All PCR tests are subject to fa lse negative result due to variability in viral load and collection technique. A n egative result does not rule out a SARS-CoV-2 infection. Clinical correlation required . Specimen Anatomical Location / Collection Method Collection Samir e Received Time (Source) Laterality / Volume Other SPECIMEN FROM Non-Blood / 04/25/2022 4:07 04/25/2022 4:11 NASOPHARYNGEAL Unknown PM CDT PM CDT STRUCTURE / Unknown Narrative [facility] - 6:34 PM CDT This test has been authorized by FDA und er an Emergency Use Authorization (EUA). This test is only authorized for the duration of time the declaration that circumstances exist justifying the authorization of th e emergency use of in vitro diagnostic tests for detection of SARS-CoV-2 virus and/or diagnosis of COVID-19 infection under section 564(b)(1) of the Act, 21 U.S.C. 360bbb-3(b) (1), unless the authorization is terminated or revoked sooner. Delphine Connelly NP MICROBIOLOGY Performing Organization Address [facility] e [facility] [place] LABORATORY [address] [place] [address] COVID 19 COLLECTION (04/25/2022 4:07 PM CDT) [facility] [employer] Method Time Signature TESTING [facility] 04/25/2022 [facility] [facility] Laboratory 4:11 PM CDT [facility] Comment: Specimen submitted to [facility] for testing. Specimen Anatomical Location / Collection Method Collection Samir e Received Time (Source) Laterality / Volume Other SPECIMEN FROM Non-Blood / 04/25/2022 4:07 04/25/2022 4:10 NASOPHARYNGEAL Unknown PM CDT PM CDT STRUCTURE / Unknown Delphine Connelly NP SEND OUTS Performing Organization Address [facility] e [facility] [place] LABORATORY [address] [place] [address] CWS PATH REVIEW HEMATOLOGY (04/25/2022 3:21 PM CDT) [facility] [employer] Method Time Signature PATH COMMENT Reviewed by 04/27/2022 [facility] BB on 4:19 PM CDT LABORATORY-MAYTE 04/27/2022 TRAL LABORATORY Comment: Specimen Anatomical Collection Method / Collection Time Recei danie Time (Source) Location / Volume Laterality Blood BLOOD SPECIMEN / Venipuncture / 04/25/2022 3:21 2021 3:29 Unknown Unknown PM CDT PM CDT Delphine Connelly NP LABORATORY Performing Organization Address City/State/ZIP Code Phon e Number [facility] [address] [place] [address] LABORATORY-CENTRAL 2000 LABORATORY (ABNORMAL) CBC WITH AUTO DIFFERENTIAL (04/25/2022 3:21 PM CDT) [facility] Method Time Signature WHITE BLOOD 7.1 4.5 - 11.0 04/25/2022 [place] COUNT thou/cu mm 4:19 PM [facility] LABORATORY RED BLOOD COUNT 4.02 4.00 - 04/25/2022 [place] 5.20 4:19 PM [facility] mil/cu mm LABORATORY HEMOGLOBIN 6.4 (LL) 12.0 - 04/25/2022 [place] 16.0 g/dL 4:19 PM [facility] LABORATORY HEMATOCRIT 23.7 (L) 33.0 - 04/25/2022 [place] 51.0 % 4:19 PM [facility] LABORATORY MCV 59 (L) 80 - 100 04/25/2022 [place] fL 4:19 PM [facility] LABORATORY MCH 15.9 (L) 26.0 - 04/25/2022 [place] 34.0 pg 4:19 PM [facility] LABORATORY MCHC 27.0 (L) 32.0 - 04/25/2022 [place] 36.0 g/dL 4:19 PM [facility] LABORATORY RDW 20.2 (H) 11.5 - 04/25/2022 [place] 15.5 % 4:19 PM [facility] LABORATORY PLATELET COUNT 382 140 - 440 04/25/2022 [place] thou/cu mm 4:19 PM [facility] LABORATORY MPV 10.5 6.5 - 11.0 04/25/2022 [place] fL 4:19 PM [facility] LABORATORY Specimen Anatomical Collection Method / Collection Time Recei danie Time (Source) Location / Volume Laterality Blood BLOOD SPECIMEN / Venipuncture / 04/25/2022 3:21 2021 3:29 Unknown Unknown PM CDT PM CDT Delphine Connelly NP HEMATOLOGY Performing Organization Address [facility]/ZIP Code Phon e Number [facility] [address] [place] [address] RED CELL MORPHOLOGY (04/25/2022 3:21 PM CDT) [facility] Method Time Signature RBC COMMENT RBC RBC 04/25/2022 [place] morphology morphology 4:10 PM CDT [facility] normal normal, RBC LABORATORY morphology within normal limits for newborns. Specimen Anatomical Collection Method / Collection Time Recei danie Time (Source) Location / Volume Laterality Blood BLOOD SPECIMEN / Venipuncture / 04/25/2022 3:21 2021 3:29 Unknown Unknown PM CDT PM CDT Delphine Connelly NP HEMATOLOGY Performing Organization Address [facility]/ZIP Code Phon e Number [facility] [address] [place] [address] PLATELET ESTIMATE (04/25/2022 3:21 PM CDT) [facility] Method Time Signature PLATELET Adequate Adequate, No 04/25/2022 [facility] estimate 4:10 PM CDT [facility] LABORATORY Specimen Anatomical Collection Method / Collection Time Recei danie Time (Source) Location / Volume Laterality Blood BLOOD SPECIMEN / Venipuncture / 04/25/2022 3:21 2021 3:29 Unknown Unknown PM CDT PM CDT Delphine Connelly NP HEMATOLOGY Performing Organization Address [facility]/ZIP Code Phon e Number [facility] [address] [place] [address] MANUAL DIFFERENTIAL (04/25/2022 3:21 PM CDT) athologist Signature % NEUTROPHILS 64.0 % 04/25/2022 [place] 4:10 PM CDT [facility] LAB[facility] % LYMPHOCYTES 30.0 % 04/25/2022 [place] 4:10 PM CDT [facility] % MONOCYTES 5.0 % 04/25/2022 [place] 4:10 PM CDT [facility] % EOSINOPHILS 1.0 % 04/25/2022 [place] 4:10 PM CDT [facility] % BASOPHILS 0.0 % 04/25/2022 [place] 4:10 PM CDT [facility] NEUTROPHILS 4.5 1.7 - 7.0 04/25/2022 [place] ABSOLUTE thou/cu mm 4:10 PM CDT [facility] LABORATORY LYMPHOCYTES 2.1 0.9 - 2.9 04/25/2022 [place] ABSOLUTE thou/cu mm 4:10 PM CDT [facility] LABORATORY MONOCYTES 0.4 <0.9 04/25/2022 [place] ABSOLUTE thou/cu mm 4:10 PM CDT [facility] LABORATORY EOSINOPHILS 0.1 <0.5 04/25/2022 [place] ABSOLUTE thou/cu mm 4:10 PM CDT [facility] LABORATORY BASOPHILS 0.0 <0.3 04/25/2022 [facility] ABSOLUTE thou/cu mm 4:10 PM T [facility] LABORATORY Specimen Anatomical Collection Method / Collection Time Recei danie Time (Source) Location / Volume Laterality Blood BLOOD SPECIMEN / Venipuncture / 04/25/2022 3:21 2021 3:29 Unknown Unknown PM CDT PM CDT Delphine Connelly NP HEMATOLOGY Performing Organization Address City/State/ZIP Code Phon e Number [facility] [address] [place] [address] TSH (04/25/2022 3:21 PM CDT) P athologist Signature TSH 2.45 0.35 - 4.94 04/25/2022 [place] uIU/mL 6:53 PM CDT [facility] LABORATORY Specimen Anatomical Collection Method / Collection Time Recei danie Time (Source) Location / Volume Laterality Blood BLOOD SPECIMEN / Venipuncture / 04/25/2022 3:21 2021 3:29 Unknown Unknown PM CDT PM CDT Narrative [facility] - 6:53 PM CDT In Adults, TSH values between 5.00 and 10.00 uIU/ml do not necessarily indicate the presence of Hyp othyroidism. Correlation with clinical findings such as presence of goiter and/or Thyroperoxidase (TPO) Antibody ma y be helpful. For more information please refer to POONAM 20 ; 291: [phone]. Lala Craig Z OS [employer] SYSTEM[employer] PROGRAMMER CHEMISTRY Performing Organization Address City/[facility]/ZIP Code Phon e Number [facility] [address] [place] [address] ,SERUM (04/25/2022 3:21 PM CDT) Analysis Performed At Patho logist Time Signature ,SERU Negative Negative 04/25/2022 [place] M 4:13 PM CDT [facility] LABORATORY Specimen Anatomical Collection Method / Collection Time Recei danie Time (Source) Location / Volume Laterality Blood BLOOD SPECIMEN / Venipuncture / 04/25/2022 3:21 2021 3:29 Unknown Unknown PM CDT PM CDT Delphine Connelly NP CHEMISTRY Performing Organization Address [facility]/ZIP [facility] Phon e Number [facility] [address] [place] [address] TYPE AND SCREEN ONLY (04/25/2022 3:21 PM CDT) Patholo gist Method Time Signature ABORH A Rh 04/25/2022 [place] Positive 4:00 PM CDT [facility] LAB[facility]ORY BLOOD BANK ANTIBODY Negative Negative 04/25/2022 [place] SCREEN 4:00 PM CDT [facility] BLOOD BANK SPECIMEN 04/28/22 04/25/2022 [place] EXPIRATION 23:59 4:00 PM CDT MEDICAL DATE/TIME CENTER LABORATORY BLOOD BANK Specimen Anatomical Collection Method / Collection Time Recei danie Time (Source) Location / Volume Laterality Blood BLOOD SPECIMEN / Venipuncture / 04/25/2022 3:21 2021 3:29 Unknown Unknown PM CDT PM CDT Delphine Connelly Z OS [employer]S PROGRAMMER BLOOD BANK Performing Organization Address [facility]/ZIP [facility] Phon e Number [facility] [address] [place] [address] BLOOD BANK (ABNORMAL) FERRITIN (04/25/2022 3:21 PM CDT) P athologist Signature FERRITIN <2.0 (L) 15.0 - 04/26/2022 [facility] 205.0 ng/mL 6:42 PM CDT LABORATORY-CENT RAL LABORATORY Specimen Anatomical Collection Method / Collection Time Recei danie Time (Source) Location / Volume Laterality Blood BLOOD SPECIMEN / Venipuncture / 04/25/2022 3:21 2021 3:29 Unknown Unknown PM CDT PM CDT Lala Craig NP CHEMISTRY Performing Organization Address City/State/ZIP Code Phon e Number [facility] [address] [place] [address] LABORATORY-CENTRAL 2000 LABORATORY RED BLOOD CELLS EA UNIT (04/25/2022 3:21 PM CDT)Only the most recent of3 results within the time period is included. [facility] Method Time Signature CROSSMATCH Compatible Compatible [facility] BLOOD BANK PRODUCT BLOOD A Rh Positive [facility] LAB[facility] BLOOD BANK PRODUCT ID [id number] [facility] LABORATORY BLOOD BANK PRODUCT STATUS Transfused [facility] BLOOD BANK PRODUCT RBC -1 LR [facility] LAB[facility]ATORY BLOOD BANK PRODUCT CODE [id number] [facility] BLOOD BANK ISSUE 04/26/22 [place] DATE/TIME 13:51 [facility] BLOOD BANK Specimen (Source) Anatomical Location Collection Method / Collectio n Time Received Time / Laterality Volume Vanessa Díaz MD BLOOD BANK Performing Organization Address City/[facility]/ZIP Code Phon e Number [facility] [address] [place] [address] BLOOD BANK from Last 3 Months Insurance Payer Benefit Plan / Subscriber ID Effective Dates Phone Addre ss Type Group [employer] HP [id number] 2019-Present [address] [place] [id number] Advance Directives Latest Code Status on File Code Status Date Activated Date Inactivated Comments Full Code 04/25/2022 5:49 PM 04/26/2022 8:26 PM Code Status Discussion: Reviewed Preferences Care Teams Undercover 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
--- NOTE | 2022-05-09 15:00 | CRLHL7_ITS ---
For Patients: As a result of the Century Cures Act, medical imaging exams and procedure reports are released immediately into your electronic medical record. You may view this report before your referring provider. If you have questions, please contact your health care provider. INDICATION: ? FIBROIDS, POLYPS, OTHER COMPARISON: 12/13/2018 TECHNIQUE: 2D mckeon scale and color Doppler images were acquired of the pelvis using a transabdominal and transvaginal approach. FINDINGS: Sonographic images demonstrate an enlarged size and right lobular outer contour of the uterus. Uterus measures 12.8 cm in length by 7.7 cm in AP diameter by 12.2 cm in transverse dimension. There is a large right-sided intramural/subserosal heterogeneously hypoechoic circumscribed leiomyoma measuring 7.9 x 7.8 x 7.9 cm. The endometrial lining is displaced and measures 13 mm in composite thickness. The right ovary measures 3.9 x 2.1 x 3.0 cm in size and the left ovary measures 4.2 x 2.1 x 3.1 cm. The ovaries demonstrate normal arterial and venous blood flow on color Doppler analysis. There are no suspicious fluid collections within the cul-de-sac. IMPRESSION: Large right-sided uterine fibroid measuring 7.9 cm, new from the prior study. Dictated by James Byers MD @ 05/12/2022 9:49:36 AM (Electronically Signed)
== END 2022-05-09 14:36 | disposition home or self-care (01) ==
LOC: US 14:37
PROVIDERS: Visit Provider Physician Assistant
DX: N92.0 Excessive and frequent menstruation with regular cycle (principal); D25.9 Leiomyoma of uterus, unspecified
CPT/HCPCS: 76830; 76856

== ENCOUNTER 2022-08-08 14:24 | Emergency (ER) | payer OTHER, SELFPAY ==
[2022-08-08 14:29] VITALS: BP 162/93; PULSE 90; RESP 20; TEMP 36.3; O2SAT 100; BMI 48.8
--- NOTE | 2022-08-08 14:42 | ED.LOWEXIN ---
HPI - Extremity Injury (Lower) General Time Seen by Provider: 14:42 Date Seen: 08/08/22 Chief Complaint: Extremity Pain/Injury, Lower Stated Complaint: Fell, injured R knee Time Seen by Provider: 08/08/22 14:42 Source: patient, RN notes reviewed and old records reviewed Mode of arrival: ambulatory Limitations: no limitations History of Present Illness HPI Narrative: Neha is a very pleasant 27-year-old female who comes to the emergency room after falling and injuring her right knee and right ankle. States that she fell this morning prior to work. She fell onto her right knee and may have twisted her ankle. She was able to get up and walk and even went to work. However, while at work at the [employer] where she was standing for prolonged. She had increasing pain and increasing inability to bear a lot of weight. She denies hitting her head or any neck pain. She denies numbness or tingling of the extremities. In the past she has fractured toes on her right foot but has never injured her ankle. Related Data Home Medications Medication Instructions Recorded Confirmed No Known Home Medications 08/08/22 08/08/22 Allergies Allergy/AdvReac Type Severity Reaction Status Date / Time nickel Allergy Mild Rash Verified 05/23/22 14:28 agave Allergy Mild Hives Uncoded 05/23/22 14:28 blackberry Allergy Mild Hives Uncoded 05/23/22 14:28 Review of Systems Status of ROS: Reports: 10 or more systems reviewed and unremarkable except as noted in History and below Const: Denies: fever or chills Eyes: Denies: change in vision ENMT: Denies: neck pain Cardio: Denies: chest pain GI: Denies: abdominal pain Musculo: Reports: extremity pain, extremity swelling and joint pain; Denies: back pain or neck pain Integ/Breast: Denies: rash PFSH COUNTS INCLUDE [facility] BEDS AT THE [facility] Medical History Dysmenorrhea Elevated blood pressure reading History of abnormal cervical Pap smear Iron deficiency anemia Menorrhagia Morbid obesity with BMI of 50.0-59.9, adult Recurrent loss Surgical History History of Family History Family/Other Breast cancer Aunt Lung cancer Family/Other High blood pressure Maternal Grandmother Diabetes Social History Smoking Status: Former smoker What tobacco products do you use: cigarettes Smoking quit date/years: <= 15 years ago Do you use any of these nicotine containing products: Vaping Products Second hand tobacco smoke exposure: No How often do you have a drink containing alcohol: monthly or less How many standard drinks containing alcohol do you have on a typical day: 1 or 2 How often do you have six or more drinks on one occasion: Never AUDIT-C Alcohol total score: 1 Non-prescribed substance use: marijuana (any form) Non-prescribed substance use details: occasionally marijuana gummy for sleep Little interest or pleasure in doing things: several days Feeling down, depressed, or hopeless: several days service: No Exam Narrative: Exam Narrative: Very pleasant female in no acute distress. No respiratory issues. Head atraumatic normocephalic. Neck is supple without any midline cervical tenderness Heart with regular rate and rhythm lungs are clear Palpation of the right knee shows tenderness along the medial joint line slightly. No tenderness along the lateral joint line. Mild ecchymosis noted over the patella. There is evolving ecchymosis noted on the anterior lateral aspect of the lower tib-fib area. Mild discomfort with palpation over the lateral malleolus and none over medial malleolus. Palpation of the foot shows no pain over the 5th metatarsal nor the navicular. Const: Vital Signs, click to edit/add: Vital Signs - 24 hr 08/08/22 14:29 Temperature 97.4 F L Pulse Rate [Pulse Oximeter] 90 Respiratory Rate 20 Blood Pressure [Ri ght Upper Arm] 162/93 H Pulse Oximetry 100 Oxygen Delivery Me thod Room Air Documenting provider has reviewed patient's vital signs: yes Course Course Hospital Course: Would recommend x-ray of the knee and ankle at this time. Vital Signs Vital signs: Initial Vital Signs Temperature 97.4 F L 08/08/22 14:29 Temperature Source Temporal Artery Scan 08/08/22 14:29 Pulse Rate 90 08/08/22 14:29 Respiratory Rate 20 08/08/22 14:29 Blood Pressure 162/93 H 08/08/22 14:29 Blood Pressure Mean 116 08/08/22 14:29 Blood Pressure Position Supine 08/08/22 14:29 Pulse Oximetry 100 08/08/22 14:29 Oxygen Delivery Method 08/08/22 14:29 Vital Signs Temperature 97.4 F L 08/08/22 14:29 Pulse Rate 90 08/08/22 14:29 Respiratory Rate 20 08/08/22 14:29 Blood Pressure 162/93 H 08/08/22 14:29 Pulse Oximetry 100 08/08/22 14:29 Oxygen Delivery Method 08/08/22 14:29 Temperature 97.4 F L 08/08/22 14:29 Pulse Rate 90 08/08/22 14:29 Respiratory Rate 20 08/08/22 14:29 Blood Pressure 162/93 H 08/08/22 14:29 Pulse Oximetry 100 08/08/22 14:29 Oxygen Delivery Method 08/08/22 14:29 MDM - Extremity Injury (Lower) MDM Narrative Medical decision making narrative: 1. Right knee injury-no evidence of fracture but there is a possibility of an effusion. Will attempted placement of knee immobilizer and if that is not comfortable will use wide Rivas wrap. Recommend crutches at this time for partial weight-bearing. Reviewed need for safety with crutch use during the winter months. Ibuprofen or Tylenol as needed for discomfort. Recommend icing as needed recommend follow-up with primary MD or Orthopedics if not improving. May need MRI. 2. Disposition-home at this time. Patient declines note for work. Medical Records Attestation: I reviewed the patient's medical records. Imaging Data Right knee and ankle x-rays: My impression: No evidence of fractures. Radiologist's impression: There is a large plantar calcaneal spur. There is no visible acute fracture, dislocation or destructive process regarding the right ankle on this two-view exam. The imaging of the right knee is limited. The lateral view is suboptimal. No obvious acute fracture, dislocation or destructive process. Questionable joint effusion Impression: 1. Large plantar calcaneal spur. No visible acute fracture, dislocation or destructive process regarding the right ankle. 2. Limited examination of the right knee. No obvious fracture, dislocation or destructive process. Probable joint effusion. Discharge Plan Discharge Clinical Impression: Injury, knee, Fall Patient Disposition: Home, Self-Care Condition: Unchanged Additional Instructions: Knee immobilizer Rivas wrap as needed for support. Use crutches so that you can bear only a small amount of weight on your knee. Recommend ibuprofen or Tylenol as needed for pain and continued icing. Follow-up with your primary MD or Orthopedics if you have ongoing difficulty as you may need MRI in the future. Return as needed. Prescriptions: No Action No Known Home Medications Follow Up/Referrals: Provider,Not a Local [Primary Care Provider] - Stand Alone Forms: [employer] Info Instructions
--- NOTE | 2022-08-08 14:48 | CRLHL7_ITS ---
For Patients: As a result of the Century Cures Act, medical imaging exams and procedure reports are released immediately into your electronic medical record. You may view this report before your referring provider. If you have questions, please contact your health care provider. Indication: Injury Technique: Two views of the right ankle and two views of the right knee were acquired Comparison: None Findings: There is a large plantar calcaneal spur. There is no visible acute fracture, dislocation or destructive process regarding the right ankle on this two-view exam. The imaging of the right knee is limited. The lateral view is suboptimal. No obvious acute fracture, dislocation or destructive process. Questionable joint effusion Impression: 1. Large plantar calcaneal spur. No visible acute fracture, dislocation or destructive process regarding the right ankle. 2. Limited examination of the right knee. No obvious fracture, dislocation or destructive process. Probable joint effusion. Dictated by Patrick William MD @ 08/08/2022 3:38:24 PM (Electronically Signed)
== END 2022-08-08 16:09 | disposition home or self-care (01) ==
PROVIDERS: Emergency Provider Family Medicine
DX: M25.561 Pain in right knee (principal); M25.571 Pain in right ankle and joints of right foot; W19.XXXA Unspecified fall, initial encounter; X50.1XXA Overexertion from prolonged static or awkward postures, initial encounter
CPT/HCPCS: 73560; 73600; 99283

== ENCOUNTER 2022-08-30 08:14 | Outpatient (CLI) | payer OTHER, SELFPAY | END 2022-08-30 08:15 | disposition home or self-care (01) | LOC: NFLDREF 09-02 08:17 | PROVIDERS: PCP Physician Assistant; Referring Provider Physician Assistant; Visit Provider Physician Assistant | DX: D50.9 Iron deficiency anemia, unspecified (principal) | CPT/HCPCS: 82728; 83540; 83550 ==

== ENCOUNTER 2023-02-21 09:16 | Outpatient (REF) | payer OTHER, SELFPAY ==
[2023-02-21 09:35] LABS: Basophils Absolute Auto 0.05 K/uL (0.00-0.30); Basophils Percent Auto 0.6 % (0.0-3.0); Eosinophils Absolute Auto 0.15 K/uL (0.00-0.50); Eosinophils Percent Auto 1.9 % (0.0-7.0); Hematocrit 31.2 % (33.0-51.0); Hemoglobin* 8.5 gm/dL (12.0-16.0); Immature Granulocytes Abs Auto 0.02 K/uL (0.00-0.30); Immature Granulocytes Pct Auto 0.3 %; Lymphocytes Percent Auto 26.3 % (20-44); Mean Corpuscular HGB Conc 27 gm/dL (32-36); Mean Corpuscular Hemoglobin 18 pg (26-34); Mean Corpuscular Volume 66 fL (80-100); Monocytes Percent Auto 5.5 % (0.0-11.0); Neutrophils Absolute Auto 5.22 K/uL (1.7-7.0); Neutrophils Percent Auto 65.4 % (42.0-72.0); Platelet Count* 486 K/uL (140-440); RDW Coefficient of Variation % 19.4 % (11.5-15.5); Red Blood Count 4.71 m/uL (4.00-5.20); White Blood Count* 7.98 K/uL (4.50-11.00)
[2023-02-21 09:54] LABS: Slide Review Reflex Yes
[2023-02-21 10:08] LABS: Slide Review Acceptable Review (Acceptable)
== END 2023-02-21 09:17 | disposition home or self-care (01) ==
LOC: NPINS 09:16
PROVIDERS: PCP Pediatrics; Visit Provider Pediatrics
DX: D25.9 Leiomyoma of uterus, unspecified (principal); N92.0 Excessive and frequent menstruation with regular cycle; D50.9 Iron deficiency anemia, unspecified; D64.9 Anemia, unspecified
CPT/HCPCS: 85025

== ENCOUNTER 2023-03-14 11:23 | Outpatient (REF) | payer OTHER, SELFPAY ==
[2023-03-14 11:54] LABS: Hematocrit 30.1 % (33.0-51.0); Hemoglobin* 8.4 gm/dL (12.0-16.0); Mean Corpuscular HGB Conc 28 gm/dL (32-36); Mean Corpuscular Hemoglobin 19 pg (26-34); Mean Corpuscular Volume 67 fL (80-100); Neutrophils Percent Auto 66.3 % (42.0-72.0); Platelet Count* 380 K/uL (140-440); Red Blood Count 4.51 m/uL (4.00-5.20); White Blood Count* 5.85 K/uL (4.50-11.00)
[2023-03-14 11:55] LABS: Basophils Absolute Auto 0.06 K/uL (0.00-0.30); Eosinophils Absolute Auto 0.08 K/uL (0.00-0.50); Eosinophils Percent Auto 1.4 % (0.0-7.0); Immature Granulocytes Abs Auto 0.03 K/uL (0.00-0.30); Immature Granulocytes Pct Auto 0.5 %; Lymphocytes Absolute Auto 1.35 K/uL (0.90-2.90); Lymphocytes Percent Auto 23.1 % (20-44); Monocytes Percent Auto 7.7 % (0.0-11.0); Neutrophils Absolute Auto 3.88 K/uL (1.7-7.0)
[2023-03-14 11:56] LABS: Slide Review Reflex No
== END 2023-03-14 11:24 | disposition home or self-care (01) ==
LOC: NPINS 11:23
PROVIDERS: PCP Pediatrics; Visit Provider Obstetrics & Gynecology
DX: D50.9 Iron deficiency anemia, unspecified (principal); N92.0 Excessive and frequent menstruation with regular cycle; D25.9 Leiomyoma of uterus, unspecified
CPT/HCPCS: 85025

== ENCOUNTER 2023-11-23 14:25 | Outpatient (CLI) | payer OTHER, SELFPAY ==
--- OUTSIDE RECORDS SUMMARY | 2023-11-23 14:27 | XMS_ITS ---
Author Organization [facility] Address [address] [place] [address] Care Team Providers Care Optometry Professor Name Role Phone Unavailable Unavailable Unavailable Surgery Details Not on file Complications Check Surgery Details section. Procedure Estimated Blood Loss Check Surgery Details section. Procedure Findings Check Surgery Details section. Procedure Specimens Taken Check Surgery Details section.
--- OUTSIDE RECORDS SUMMARY | 2023-11-23 14:27 | XMS_ITS | Clinical Summary ---
Author Organization [facility] Address [address] [place] [address] Care Team Providers Care Boilermaker Ship Name Role Phone Shan Wild M.D. Primary Care Provider Source Comments Patient records contain information from all sites at [facility]. For routine questions regarding patient records, call [phone] during business hours, M-F 8:00 AM - 5:00 PM Central Time. Record requests for emergency care only can be directed to [phone] at any time.[facility] Allergies Active Allergy Reactions Criticality Noted Date Comments Alcohol Hives (Reselect Reaction) Medium 04/14/2022 TEQUILA Blackberry Hives (Reselect Reaction) Medium 04/14/2022 Nickel Rash 04/28/2016 Medications Medication Sig Dispensed Refills Start Date End Date Status ibuprofen (ADVIL,MOTRIN) 200 mg tablet Take 400 mg by mouth as needed for pain or fever. Active ferrous sulfate 325 mg (65 mg iron) tablet Take 325 mg by mouth every other day. Twice daily, every other day 04/26/2022 Active acetaminophen (TYLENOL) 500 mg tablet Take 2 tablets (1,000 mg total) by mouth every 6 (six) hours as needed for pain. Alternate with ibuprofen every 3 hours. Do not exceed 4000 mg or 4 g in 24 hours. 30 tablet 03/23/2023 Active ibuprofen (ADVIL,MOTRIN) 200 mg tablet Take 3 tablets (600 mg total) by mouth every 6 (six) hours as needed for pain. Alternate with acetaminophen every 3 hours. 30 tablet 03/23/2023 Active UNABLE TO FIND Apple cider vinegar tablet 3 times daily Active metFORMIN XR (GLUCOPHAGE-XR) 500 mg 24 hr tablet Take 1 tablet (500 mg total) by mouth daily with breakfast. 90 tablet 1 06/01/2023 Active phentermine (ADIPEX-P) 37.5 mg tablet Take 1 tablet (37.5 mg total) by mouth every morning before breakfast. 30 tablet 06/01/2023 Active Active Problems Problem Noted Date Diagnosed Date Leiomyoma (Fibroid) Uterus 12/08/2022 Immunizations Name Administration Dates Next Due 4vHPV (discontinued) 04/28/2016,12/11/2008,04/28 DTP 04/14/1998,07/25/1994,1993 DTP / Hib 1993,1993 HepB Pediatric/Adolescent 04/14/1998,05/06/1997, 04/14/1996 Hib (HbOC) (discontinued) 07/25/1994,1993 Influenza (IM) Preservative Free 04/03/2013 MMR 04/14/1998,07/25/1994 PCV20 06/01/2023 Polio, Unspecified 04/14/1998, 5,1993,1992 SARS-COV-2 (COVID-19) - MODE RNA (12 YEARS AND OLDER) [id number] 06/01/2023 SARS-COV-2 (COVID-19) - PFIZ ER BIVALENT TS(Discontinued)(12 YEARS OR OLDER) 04/14/2022 Td, (Adult) Unspecified 11/17/2004 Tdap 04/28/2016 influenza vaccine quad (FLUZONE/FLUARIX) (6 months and older)(PF) 06/01/2023,04/14/2022,04/28/2016 Family History Medical History Relation Name Comments Anemia Mother Relation Name Status Comments Mother Alive Social History Tobacco Use Types Packs/Day Years Used Date Smoking Tobacco: Some Days Cigarettes 0.3 10 Smokeless Tobacco: Never Tobacco Cessation:Ready to Q uit: Not Asked; Counseling Given: Not Answered Comments:Currently using a vape. Alcohol Use Standard Drinks/Week Comments Yes 0 (1 standard drink = 0.6 oz pur e alcohol) Once a month Humiliation, Afraid, Rape, and Kick questionnair e Answer Date Recorded Within the last year, have y ou been afraid of your partner or ex-partner? No 08/30/2022 Within the last year, have y ou been humiliated or emotionally abused in other ways by your partner or ex-partner? No Within the last year, have y ou been kicked, hit, slapped, or otherwise physically hurt by your partner or ex-partner? No 08/30/2022 Within the last year, have y ou been raped or forced to have any kind of sexual activity by your partner or ex-partner? No 08/30/2022 Social Connection and Isolation Panel [NHANES] A nswer Date Recorded In a typical week, how many times do you talk on the phone with family, friends, or neighbors? Three times a week 08/30/2022 How often do you get togethe r with friends or relatives? Once a week 08/30/2022 How often do you attend [facility] or tenriism services? Never 08/30/2022 Do you belong to any clubs o r organizations such as hoahaoism groups, unions, fraternal or athletic groups, or school groups? No 08/30/2022 How often do you attend meet ings of the clubs or organizations you belong to? Never 08/30/2022 Are you , , di vorced, , never , or living with a partner? 08/30/2022 AUDIT-C Answer Date Recorded Q1: How often do you have a drink containing alc ohol? Monthly or less 08/30/2022 Q2: How many drinks containi ng alcohol do you have on a typical day when you are drinking? 1 or 2 08/30/2022 Q3: How often do you have si x or more drinks on one occasion? Never 08/30/2022 Overall Financial Resource Strain (CARDIA) Answe r Date Recorded How hard is it for you to pa y for the very basics like food, housing, medical care, and heating? Not hard at all 08/30/2022 PHQ-2 Answer Date Recorded PHQ-2 Score 1 05/30/2023 [facility] - Occupational Stress Questionnaire Answer Date Recorded Do you feel stress - tense, restless, nervous, or anxious, or unable to sleep at night because your mind is troubled all the time - these days? To some extent 08/30/2022 Exercise Vital Sign Answer Date Recorde d On average, how many days pe r week do you engage in moderate to strenuous exercise (like a brisk walk)? 2 days 08/30/2022 On average, how many minutes do you engage in exercise at this level? 30 min 08/30/2022 Hunger Vital Sign Answer Date Recorded Within the past 12 months, y ou worried that your food would run out before you got the money to buy more. Never true 08/31/19 Within the past 12 months, t he food you bought just didn't last and you didn't have money to get more. Never true 08/30/2022 PRAPARE - Transportation Answer Date Re corded In the past 12 months, has l ack of transportation kept you from medical appointments or from getting medications? No 01/2023 In the past 12 months, has l ack of transportation kept you from meetings, work, or from getting things needed for daily living? No 08/30/2022 Housing Stability Vital Sign Answer Dion e Recorded In the last 12 months, was t here a time when you were not able to pay the mortgage or rent on time? No 08/30/2022 In the last 12 months, how many places have you lived? 1 08/30/2022 In the last 12 months, was t here a time when you did not have a steady place to sleep or slept in a fci (including now)? No 08/30/2022 Nutrition Answer Date Recorded Nutrition: EVOO Fat Source No 08/30 On average, how many serving s of fruits and vegetables do you eat per day (serving size is equal to 1 cup or approximately the size of a tennis ball)? 2-3 08/30/2022 Dental Answer Date Recorded Dental: Regular Dentist Yes 08/24/19 Employment Answer Date Recorded Employment status Employed and actively working without restrictions 08/30/2022 Education Answer Date Recorded What is the highest level of school you have completed or the highest degree you have received? 12th grade 08/23/2022 Sex and Gender Information Value Date Recorded Sex Assigned at Female 08/23/2022 7:16 PM PRODUCT CONTROLLER Gender Identity Female 08/23/2022 7:16 PM PRODUCT CONTROLLER Sexual Orientation Bisexual 08/23/2022 7: 16 PM PRODUCT CONTROLLER Last Filed Vital Signs Vital Sign Reading Time Taken Comments Blood Pressure 146/90 06/01/2023 9:26 AM PRODUCT CONTROLLER Pulse 79 06/01/2023 9:26 AM PRODUCT CONTROLLER Temperature 36.3 ??C (97.3 ??F) 06/01/2023 9:19 AM CS T Respiratory Rate 16 06/01/2023 9:19 AM PRODUCT CONTROLLER Oxygen Saturation 100% 03/23/2023 5:20 PM CDT Inhaled Oxygen Concentration - - Weight 154 kg (340 lb 9.8 oz) 06/01/2023 9:19 AM PRODUCT CONTROLLER Height 172.5 cm (5' 7.91) 06/01/2023 9:19 AM CS T Body Mass Index 51.92 06/01/2023 9:19 AM PRODUCT CONTROLLER Plan of Treatment Health Maintenance Due Date Last Done Comments HIV Screening 1993 Hepatitis C Screening 1993 Tobacco Cessation counseling 04/14/2023 04/14/2022 Depression Screening (Annual PHQ-2) 06/25/2023 Cervical Cancer Screening 05/05/2025 05/05/2022, DTaP,Tdap,and Td Vaccines (7 - Td or Tdap) 04/28/2026 04/28/2016, 11/17/2004, 04/14/1998, Additional history exists Hepatitis B Vaccines Completed 04/14/1998, 05/06/1997, 04/14/1996 HPV Vaccines Completed 04/28/2016, 11/23, 04/28/2008 COVID-19 Vaccine Completed 06/01/2023, , 06/15/2021, Additional history exists Influenza Vaccine Completed 06/01/2023, , 04/28/2016, Additional history exists Pneumococcal vaccine (0-64 years) Completed 023 Procedures Procedure Name Priority Date/Time Associated Diagnosis Comments THINPREP SCREEN Routine 04/14/2022 10:41 AM CDT Well Adult Examination Normal from Last 3 Months or Most Recently Relevant to Health Maintenance Results * (ABNORMAL) ThinPrep Screen (04/14/2022 10:41 AM CDT) (A) 2:48 PM CDT [facility] Pap Test Source Cervical/Endoce rvical(A) 04/20/2022 2:48 PM CDT [facility] Gross Description Received specimen in a ThinPrep vial.(A) 04/20/2022 2:48 PM CDT [facility] Hormone Therapy/Contracep tives None/Not known(A) 04/20/2022 2:48 PM CDT [facility] Report electronically signed by Barbara Fitch MD I verify that I have examined all relevant slides/material s for the specimen(s) and rendered or confirmed the diagnosis. (A) 04/20/2022 2:48 PM CDT [facility] Interpretation Cervical/Endoce rvical ??(ThinPrep): Satisfactory for Evaluation Epithelial Cell Abnormality Atypical squamous cells of undetermined significance (A) 04/20/2022 2:48 PM CDT [facility] Thin Prep Vial (Cervix/Endocerv ix) 04/14/2022 10:41 AM CDT 04/17/2022 9:23 AM CDT Shan Wild M.D. LAB PAP PATHDX ORDER [facility] [address] [place] [address], [facility] [address] [place] [id number] from Last 3 Months or Most Recently Relevant to Health Maintenance Advance Directives For more information, please contact: [phone] * Full Code (Latest Code Status on File) Date Activated Date Inactivated Comments 03/23/2023 5:05 PM 03/23/2023 9:40 PM Question Answer Comments Full Code: Discussed * Full Code Date Activated Date Inactivated Comments 03/23/2023 10:38 AM 03/23/2023 5:05 PM Question Answer Comments Full Code: Discussed Care Teams Boilermaker Ship Relationship Specialty Start Date End Date Shan Wild M.D. [address] [place] [phone] PCP - General Family Medicine 04/07/22
--- OUTSIDE RECORDS SUMMARY | 2023-11-23 14:27 | XMS_ITS | Referral Summary ---
Author Organization [facility] Address [address] [place] [address] Care Team Providers Care Clerical Order Filler Name Role Phone Shan Wild M.D. Primary Care Provider Source Comments Patient records contain information from all sites at [facility]. For routine questions regarding patient records, call [phone] during business hours, M-F 8:00 AM - 5:00 PM Central Time. Record requests for emergency care only can be directed to [phone] at any time.[facility] Allergies Active Allergy Reactions Criticality Noted Date [...] - MODE RNA (12 YEARS AND OLDER) [id number] 06/01/2023 SARS-COV-2 (COVID-19) - PFIZ ER BIVALENT TS(Discontinued)(12 YEARS OR OLDER) 04/14/2022 Td, (Adult) Unspecified 11/17/2004 Tdap 04/28/2016 influenza vaccine quad (FLUZONE/FLUARIX) (6 months and older)(PF) 06/01/2023,04/14/2022,04/28/2016 Social History Tobacco Use Types Packs/Day Years [...] week 08/30/2022 How often do you attend chur or cheondoism services? Never 08/30/2022 Do you belong to any clubs o r organizations such as mosque groups, unions, fraternal or athletic groups, or [...] Answer Date Recorded PHQ-2 Score 1 05/30/2023 [facility] - Occupational Stress Questionnaire Answer Date Recorded [...] Sex Assigned at Female 08/23/2022 7:16 PM VALVE REPAIRER Gender Identity Female 08/23/2022 7:16 PM VALVE REPAIRER Sexual Orientation Bisexual 08/23/2022 7: 16 PM VALVE REPAIRER Last Filed Vital Signs Vital Sign Reading Time Taken Comments Blood Pressure 146/90 06/01/2023 9:26 AM VALVE REPAIRER Pulse 79 06/01/2023 9:26 AM VALVE REPAIRER Temperature 36.3 ??C (97.3 ??F) 06/01/2023 9:19 AM CS T Respiratory Rate 16 06/01/2023 9:19 AM VALVE REPAIRER Oxygen Saturation 100% 03/23/2023 5:20 PM CDT Inhaled Oxygen Concentration - - Weight 154 kg (340 lb 9.8 oz) 06/01/2023 9:19 AM VALVE REPAIRER Height 172.5 cm (5' 7.91) 06/01/2023 9:19 AM CS T Body Mass Index 51.92 06/01/2023 9:19 AM VALVE REPAIRER Plan of Treatment Not on file Procedures Procedure Name Priority Date/Time Associated Diagnosis [...] Wild M.D. LAB PAP PATHDX ORDER [facility] [address] [place] [address], [place] [facility] [address] [place] [address] from Last 3 Months or Most Recently Relevant to Health Maintenance Advance Directives For more information, please contact: [phone] * Full Code (Latest Code Status on File) Date Activated Date Inactivated Comments 03/23/2023 5:05 PM 03/23/2023 9:40 PM Question Answer Comments Full Code: Discussed * Full Code Date Activated Date Inactivated Comments 03/23/2023 10:38 AM 03/23/2023 5:05 PM Question Answer Comments Full Code: Discussed Care Teams Clerical Order Filler Relationship Specialty Start Date End Date Shan Wild M.D. [address] [place] [phone] PCP - General Family Medicine 04/07/22
--- OUTSIDE RECORDS SUMMARY | 2023-11-23 14:27 | XMS_ITS | Clinical Summary ---
Author Organization [facility] Address [place], [place] [address] Care Team Providers Care Clinical Practitioner Name Role Phone Damien Jaramillo MD Primary Care Provider [phone] Allergies Active Allergy Reactions Criticality Noted Date Comments Nickel Rash 04/28/2016 Medications Medication Sig Dispensed Refills Start Date End Date Status acetaminophen (TYLENOL EXTRA STRGTH) 500 mg tablet Take 1,000 mg by mouth every 6 hours if needed for Pain. Max acetaminophen dose: 4000mg in 24 hrs. Active ibuprofen (ADVIL; MOTRIN) 200 mg tablet Take 400 mg by mouth every 6 hours if needed for Pain. Active ferrous sulfate, 65 mg elemental, tabletIndications:I deshawn deficiency anemia due to chronic blood loss Take 1 Tablet (325 mg) by mouth once every other day. 0 04/26/2022 Active Active Problems Problem Noted Date Diagnosed Date Menorrhagia 04/25/2022 Morbid obesity with BMI of 50.0-59.9, adult 09/2015 Supervision of normal first 06/26/2012 Overview: 1. NAIF 02/05/2013 by sure LMP. 8 week ultrasound gave due date of 02/09/13. Will stick with due date based on sure LMP. 2. Declined screening for defects. 3. Borderline hypertension. 4. Anemia Iron deficiency anemia, unspecified 03/29/2009 Adjustment disorder with mixed anxiety and depre ssed mood 01/09/2008 Immunizations Name Administration Dates Next Due DTP 04/14/1998,07/25/1994,1993 DTP-HIB 1993,1993 HIB HbOC (HibTITER) 07/25/1994,1993 Hepatitis B (Peds) 04/14/1998,05/06/1997, 996 Human Papilloma Virus Vaccine 04/28/2016, 009,04/28/2008 Influenza, IIV4 04/28/2016 MMR 04/14/1998,07/25/1994 Oral Polio Vaccine 04/14/1998,07/25/1994, 994,1993 Td (Age >=7 Years) 11/17/2004 Tdap 04/28/2016 Family History Medical History Relation Name Comments Hypertension Father Hypothyroidism Maternal Grandmother Iron deficiency Maternal Grandmother Good Health Mother Iron deficiency Mother Diabetes Paternal Grandmother Hypertension Paternal Grandmother Relation Name Status Comments Father Maternal Grandmother Mother Paternal Grandmother Social History Tobacco Use Types Packs/Day Years Used Date Smoking Tobacco: Never Smokeless Tobacco: Never Tobacco Cessation:Counseling Given: Yes Alcohol Use Standard Drinks/Week Comments Yes 1 (1 standard drink = 0.6 oz pur e alcohol) 1 glass of wine per month PHQ-2 Answer Date Recorded PHQ-2 TOTAL SCORE 3 10/06/2019 Social Connections Answer Date Recorded Frequency of Communication with Friends and Fami ly Not on file 10/02/2022 Financial Resource Strain Answer Date R ecorded Difficulty of Paying Living Expenses Not on file 06/25/2021 Difficulty of Paying Living Expenses Not on file 06/25/2021 Sex and Gender Information Value Date Recorded Sex Assigned at Not on file Gender Identity Not on file Sexual Orientation Not on file Obstetrics History Para Term AB IAB SAB Ectopic Multiple Livin g Live Births 2 Date Outcome GA Total Labor Labor/2nd/3rd Weight Sex Delivery Anes PTL Margarita A1 A5 Name Cl in Comments:System Genera krystal. Please review and update details. Last Filed Vital Signs Vital Sign Reading Time Taken Comments Blood Pressure 172/95 04/26/2022 4:37 PM CDT Pulse 64 04/26/2022 4:37 PM CDT Temperature 36.6 ??C (97.8 ??F) 04/26/2022 4:37 PM CD T Respiratory Rate 18 04/26/2022 4:37 PM CDT Oxygen Saturation 97% 04/26/2022 4:37 PM CDT Inhaled Oxygen Concentration - - Weight 157.7 kg (347 lb 11.2 oz) 04/26/2022 6:00 AM CDT Height 175.3 cm (5' 9) 04/25/2022 2:59 PM CDT Body Mass Index 51.35 04/25/2022 2:59 PM CDT Plan of Treatment Health Maintenance Due Date Last Done Comments Hepatitis C screening for age 18-79 2011 Depression screening for age 12+ 10/05/2020 10/06/2019, 10/19/2017, 04/28/2016 BMI (ht and wt on same day) for age 18+ 01/15/2021 01/16/2020, 10/19/2017, 11/27/2016, Additional history exists COVID-19 vaccine series ( season) 2023 04/14/2022, 06/15/2021, 05/18/2021 Influenza for age 9-49 02/24/2024 04/28/2016 Pap test for age 21-65 05/05/2025 , 05/05/2022, 04/28/2016, Additional history exists Tetanus booster 04/28/2026 04/28/2016, 11/17/2004 HIV for age 15-65 Completed 06/26/2012 Tdap Completed 04/28/2016 Pneumococcal series for age 6-64 Aged Out No longer eligible based on patient's age to complete this topic Procedures Procedure Name Priority Date/Time Associated Diagnosis Comments HPV THIN PREP Routine 05/05/2022 9:50 AM LIME PLANT OPERATOR ANTI HIV 1/2 Routine 06/26/2012 12:44 PM LIME PLANT OPERATOR Supervision of normal first from Last 3 Months or Most Recently Relevant to Health Maintenance Results * HPV HIGH RISK (05/05/2022 9:50 AM LIME PLANT OPERATOR) TYPE 16 Negative Negative 05/09/2022 5:09 PM LIME PLANT OPERATOR [facility] TYPE 18 Negative Negative 05/09/2022 5:09 PM LIME PLANT OPERATOR [facility] OTHER HIGH RISK TYPES Negative Negative 05/09/2022 5:09 PM LIME PLANT OPERATOR [facility] Other (Cervical) 05/05/2022 9:50 AM LIME PLANT OPERATOR 05/08/2022 1:46 PM LIME PLANT OPERATOR Narrative [facility] - 05/09/2022 5:09 PM LIME PLANT OPERATOR HPV types 16, 18, 31, 33, 35, 39, 45, 51, 52, 56, 58, 59, 66 and 68 DNA were undetectable or below the pre-set threshold. Methodology: Kassidy Keon 4800 HPV Test September Ritika METZ [facility] [address] [place] [address], * ANTI HIV 1/2 (06/26/2012 12:44 PM LIME PLANT OPERATOR) ANTI HIV 1/2 Non-reacti ve [facility] Blood specimen (specimen) BLOOD SPECIMEN / Unknown 06/26/2012 12:44 PM LIME PLANT OPERATOR 06/26/2012 12:34 PM LIME PLANT OPERATOR Kiah Valencia SOLAR BUSINESS DEVELOPER SEND OUTS [facility] INTERNAL ZIP [id number] [place] [address] from Last 3 Months or Most Recently Relevant to Health Maintenance Advance Directives * Full Code (Latest Code Status on File) Date Activated Date Inactivated Comments 04/25/2022 5:49 PM 04/26/2022 8:26 PM Question Answer Comments Code Status Discussion: Reviewed Preferences Care Teams Clinical Practitioner Relationship Specialty Start Date End Date Damien Jaramillo MD [address] [place] [address] [facility] - General 06/07/06
== END 2023-11-23 14:26 | disposition home or self-care (01) ==
PROVIDERS: PCP Pediatrics; Visit Provider Advanced Practice Midwife
DX: Z34.91 Encounter for supervision of normal pregnancy, unspecified, first trimester (principal); Z3A.08 8 weeks gestation of pregnancy
CPT/HCPCS: 76817; 82565; 82570; 84156; 84443; 84450; 84460; 84520; 84550; 86592; 86703; 86704; 86706; 86762; 86787; 86803; 86850; 86870; 86880; 86886; 86900; 86901; 86905; 86906; 86976; 87086; 87340

== ENCOUNTER 2023-11-28 10:45 | Outpatient (CLI) | payer OTHER, SELFPAY ==
--- OUTSIDE RECORDS SUMMARY | 2023-12-02 15:38 | XMS_ITS | Clinical Summary ---
Author Organization [facility] Address [address] [place] [address] Care Team Providers Care Milk House Worker Name Role Phone Shan Wild M.D. Primary Care Provider [phone] Source Comments Patient records contain information from all sites at [facility]. For routine questions regarding patient records, call [phone] during business hours, M-F 8:00 AM - 5:00 PM Central Time. Record requests for emergency care only can be directed to [phone] at any time.[facility] Allergies Active Allergy Reactions Criticality Noted Date [...] cider vinegar tablet 3 times daily Active phentermine (ADIPEX-P) 37.5 mg tablet Take 1 tablet (37.5 mg total) by mouth every morning before breakfast. 30 tablet 06/01/2023 Active metFORMIN XR (GLUCOPHAGE-XR) 500 mg 24 hr tablet TAKE 1 TABLET(500 MG) BY MOUTH DAILY WITH BREAKFAST 90 tablet 3 11/27/2023 Active metFORMIN XR (GLUCOPHAGE-XR) 500 mg 24 hr tablet Take 1 tablet (500 mg total) by mouth daily with breakfast. 90 tablet 1 06/01/2023 4 Discontinued Active Problems Problem Noted Date Diagnosed Date Leiomyoma (Fibroid) Uterus 12/08/2022 Encounters Date Type Department Care Team Description 11/25/2023 Refill Department of Family Medicine, [facility], in [address] [phone] Shan Wild M.D. Med Refill from Last 3 Months Immunizations Name Administration Dates Next Due 4vHPV (discontinued) 04/28/2016,12/11/2008,04/28 DTP 04/14/1998,07/25/1994,1993 DTP / Hib 1993,1993 HepB Pediatric/Adolescent 04/14/1998,05/06/1997, 04/14/1996 Hib (HbOC) (discontinued) 07/25/1994,1993 Influenza (IM) Preservative Free 04/03/2013 MMR 04/14/1998,07/25/1994 PCV20 06/01/2023 Polio, Unspecified 04/14/1998, 5,1993,1992 SARS-COV-2 (COVID-19) - MODE RNA (12 YEARS AND OLDER) [id number] 06/01/2023 SARS-COV-2 (COVID-19) - PFIZ ER BIVALENT [...] week 08/30/2022 How often do you attend [facility] or muslim services? Never 08/30/2022 Do you belong to any clubs o r organizations such as episcopal groups, unions, fraternal or athletic groups, or [...] Answer Date Recorded PHQ-2 Score 1 05/30/2023 [facility] - Occupational Stress Questionnaire Answer Date Recorded [...] money to buy more. Never true 08/31/19 23 Within the past 12 months, t he [...] place to sleep or slept in a intermediate (including now)? No 08/30/2022 Nutrition Answer Date [...] Sex Assigned at Female 08/23/2022 7:16 PM CERAMIST Gender Identity Female 08/23/2022 7:16 PM CERAMIST Sexual Orientation Bisexual 08/23/2022 7: 16 PM CERAMIST Last Filed Vital Signs Vital Sign Reading Time Taken Comments Blood Pressure 146/90 06/01/2023 9:26 AM CERAMIST Pulse 79 06/01/2023 9:26 AM CERAMIST Temperature 36.3 ??C (97.3 ??F) 06/01/2023 9:19 AM CS T Respiratory Rate 16 06/01/2023 9:19 AM CERAMIST Oxygen Saturation 100% 03/23/2023 5:20 PM CDT Inhaled Oxygen Concentration - - Weight 154 kg (340 lb 9.8 oz) 06/01/2023 9:19 AM CERAMIST Height 172.5 cm (5' 7.91) 06/01/2023 9:19 AM CS T Body Mass Index 51.92 06/01/2023 9:19 AM CERAMIST Plan of Treatment Health Maintenance Due Date Last Done Comments HIV Screening 1993 Hepatitis C Screening 1993 Tobacco Cessation counseling 04/14/2023 04/14/2022 Depression Screening (Annual PHQ-2) 06/25/2023 Cervical Cancer Screening 05/05/2025 05/05/2022, DTaP,Tdap,and Td Vaccines (7 - Td or Tdap) 04/28/2026 04/28/2016, 11/17/2004, 04/14/1998, Additional history exists Hepatitis B Vaccines Completed 04/14/1998, 05/06/1997, 04/14/1996 HPV Vaccines Completed 04/28/2016, 09/2015, 12/11/2008, Additional history exists COVID-19 Vaccine Completed 06/01/2023, , 06/15/2021, Additional [...] Wild M.D. LAB PAP PATHDX ORDER [facility] [address] [place] [address], [facility] [address] [place] [address] from Last 3 Months or Most Recently Relevant to Health Maintenance Advance Directives For more information, please contact: [phone] * Full Code (Latest Code Status on File) Date Activated Date Inactivated Comments 03/23/2023 5:05 PM 03/23/2023 9:40 PM Question Answer Comments Full Code: Discussed * Full Code Date Activated Date Inactivated Comments 03/23/2023 10:38 AM 03/23/2023 5:05 PM Question Answer Comments Full Code: Discussed Care Teams Milk House Worker Relationship Specialty Start Date End Date Shan Wild M.D. [address] [place] [phone] PCP - General Family Medicine 04/07/22
--- OUTSIDE RECORDS SUMMARY | 2023-12-02 15:38 | XMS_ITS | Encounter Summary ---
Author Organization [facility] Address [address] [place] [address] Care Team Providers Care Oceanographer Physical Name Role Phone Shan Wild M.D. Primary Care Provider [phone] Reason for Visit * Reason Comments Med Refill Encounter Details Date Type Department Care Team (Late st Contact Info) Description 11/25/2023 Refill Department of Family Medicine, [facility], in [place], [place] [address] [place] [phone] Shan Wild M.D. [address] [place] [address] Med Refill Social History Tobacco Use Types Packs/Day Years Used Date Smoking Tobacco: Some Days Cigarettes 0.3 10 Smokeless Tobacco: Never Comments:Currently using a v ape. Alcohol Use Standard Drinks/Week Comments Yes 0 [...] 08/30/2022 How often do you attend chur ch or yazidi services? Never 08/30/2022 Do you belong to any clubs o r organizations such as synagogue groups, unions, fraternal or athletic groups, or [...] Answer Date Recorded PHQ-2 Score 1 05/30/2023 [facility] - [...] place to sleep or slept in a fdc (including now)? No 08/30/2022 Nutrition Answer Date [...] Sex Assigned at Female 08/23/2022 7:16 PM GASOLINE PUMP MECHANIC Gender Identity Female 08/23/2022 7:16 PM GASOLINE PUMP MECHANIC Sexual Orientation Bisexual 08/23/2022 7: 16 PM GASOLINE PUMP MECHANIC documented as of this encounter Plan of Treatment Not on file documented as of this encounter Visit Diagnoses Not on filedocumented in this encounter Care Teams Oceanographer Physical Relationship Specialty Start Date End Date Shan Wild M.D. [address] [place], [place] [address] [place] [address] PCP - General Family Medicine 04/07/22 documented as of this encounter
--- OUTSIDE RECORDS SUMMARY | 2023-12-02 15:38 | XMS_ITS | Clinical Summary ---
Author Organization [facility] Address [place], [place] [address] Care Team Providers Care Resolution Specialist Name Role Phone Damien Jaramillo MD Primary Care Provider [phone] Allergies Active Allergy Reactions Criticality Noted Date [...] Outcome GA Total Labor Labor/2nd/3rd Weight Sex Type Anes PTL Margarita A1 A5 Name Clin Comments:System Genera krystal. Please review and update [...] HPV THIN PREP Routine 05/05/2022 9:50 AM MICROCOMPUTER SUPPORT SPECIALIST ANTI HIV 1/2 Routine 06/26/2012 12:44 PM MICROCOMPUTER SUPPORT SPECIALIST Supervision of normal first from Last 3 Months or Most Recently Relevant to Health Maintenance Results * HPV HIGH RISK (05/05/2022 9:50 AM MICROCOMPUTER SUPPORT SPECIALIST) TYPE 16 Negative Negative 05/09/2022 5:09 PM MICROCOMPUTER SUPPORT SPECIALIST [facility] TYPE 18 Negative Negative 05/09/2022 5:09 PM MICROCOMPUTER SUPPORT SPECIALIST [facility] OTHER HIGH RISK TYPES Negative Negative 05/09/2022 5:09 PM MICROCOMPUTER SUPPORT SPECIALIST [facility] Other (Cervical) 05/05/2022 9:50 AM MICROCOMPUTER SUPPORT SPECIALIST 05/08/2022 1:46 PM MICROCOMPUTER SUPPORT SPECIALIST Narrative [facility] - 05/09/2022 5:09 PM MICROCOMPUTER SUPPORT SPECIALIST HPV types 16, 18, 31, 33, 35, 39, 45, 51, 52, 56, 58, 59, 66 and 68 DNA were undetectable or below the pre-set threshold. Methodology: Kassidy Keon 4800 HPV Test September Ritika METZ [facility]CROBIOLOGY [facility] [address] [place] [address], * ANTI HIV 1/2 (06/26/2012 12:44 PM MICROCOMPUTER SUPPORT SPECIALIST) ANTI HIV 1/2 Non-reacti ve [facility] Blood specimen (specimen) BLOOD SPECIMEN / Unknown 06/26/2012 12:44 PM MICROCOMPUTER SUPPORT SPECIALIST 06/26/2012 12:34 PM MICROCOMPUTER SUPPORT SPECIALIST Kiah Valencia STONEWORKING BELT SANDER SEND OUTS [facility] INTERNAL ZIP [address] [place] [address] from Last 3 Months or Most Recently Relevant to Health Maintenance Advance Directives * Full Code (Latest Code Status on File) Date Activated Date Inactivated Comments 04/25/2022 5:49 PM 04/26/2022 8:26 PM Question Answer Comments Code Status Discussion: Reviewed Preferences Care Teams Resolution Specialist Relationship Specialty Start Date End Date Damien Jaramillo MD [address] [place] [address] [facility] - General 06/07/06
--- OUTSIDE RECORDS SUMMARY | 2023-12-02 15:38 | XMS_ITS | Referral Summary ---
Author Organization [facility] Address [address] [place] [address] Care Team Providers Care Nuclear Reactor Technician Name Role Phone Shan Wild M.D. Primary Care Provider Source Comments Patient records contain information from all sites at [facility]. For routine questions regarding patient records, call [phone] during business hours, M-F 8:00 AM - 5:00 PM Central Time. Record requests for emergency care only can be directed to [phone] at any time.[facility] Encounters Date Type Department Care Team Description 11/25/2023 Refill Department of Family Medicine, [facility], in [address] [address] Shan Wild M.D. Med Refill from Last 3 Months Allergies Active Allergy Reactions Criticality Noted Date [...] - MODE RNA (12 YEARS AND OLDER) [id number] 06/01/2023 SARS-COV-2 (COVID-19) - PFIZ ER BIVALENT [...] often do you attend chur ch or buddhism services? Never 08/30/2022 Do you belong to any clubs o r organizations such as gnosticist groups, unions, fraternal or athletic groups, or [...] Answer Date Recorded PHQ-2 Score 1 05/30/2023 [facility] - Occupational Stress Questionnaire Answer Date Recorded [...] place to sleep or slept in a alf (including now)? No 08/30/2022 Nutrition Answer Date [...] Sex Assigned at Female 08/23/2022 7:16 PM LEARNING AND DEVELOPMENT ASSOCIATE Gender Identity Female 08/23/2022 7:16 PM LEARNING AND DEVELOPMENT ASSOCIATE Sexual Orientation Bisexual 08/23/2022 7: 16 PM LEARNING AND DEVELOPMENT ASSOCIATE Last Filed Vital Signs Vital Sign Reading Time Taken Comments Blood Pressure 146/90 06/01/2023 9:26 AM LEARNING AND DEVELOPMENT ASSOCIATE Pulse 79 06/01/2023 9:26 AM LEARNING AND DEVELOPMENT ASSOCIATE Temperature 36.3 ??C (97.3 ??F) 06/01/2023 9:19 AM CS T Respiratory Rate 16 06/01/2023 9:19 AM LEARNING AND DEVELOPMENT ASSOCIATE Oxygen Saturation 100% 03/23/2023 5:20 PM CDT Inhaled Oxygen Concentration - - Weight 154 kg (340 lb 9.8 oz) 06/01/2023 9:19 AM LEARNING AND DEVELOPMENT ASSOCIATE Height 172.5 cm (5' 7.91) 06/01/2023 9:19 AM CS T Body Mass Index 51.92 06/01/2023 9:19 AM LEARNING AND DEVELOPMENT ASSOCIATE Plan of Treatment Not on file Procedures [...] Wild M.D. LAB PAP PATHDX ORDER [facility] [address] [place] [address], [facility] [address] [place] [address] from Last 3 Months or Most Recently Relevant to Health Maintenance Advance Directives For more information, please contact: [phone] * Full Code (Latest Code Status on File) Date Activated Date Inactivated Comments 03/23/2023 5:05 PM 03/23/2023 9:40 PM Question Answer Comments Full Code: Discussed * Full Code Date Activated Date Inactivated Comments 03/23/2023 10:38 AM 03/23/2023 5:05 PM Question Answer Comments Full Code: Discussed Care Teams Nuclear Reactor Technician Relationship Specialty Start Date End Date Shan Wild M.D. [address] [place] [phone] PCP - General Family Medicine 04/07/22
--- OUTSIDE RECORDS SUMMARY | 2023-12-02 15:38 | XMS_ITS ---
Author Organization [facility] Address [address] [place] [address] Care Team Providers Care Community Relations Police Lieutenant Name Role Phone Unavailable Unavailable Unavailable Surgery Details Not on file Complications Check Surgery Details section. Procedure Estimated Blood Loss Check Surgery Details section. Procedure Findings Check Surgery Details section. Procedure Specimens Taken Check Surgery Details section.
== END 2023-11-28 10:46 | disposition home or self-care (01) ==
LOC: NFLDREF 12-02 15:37
PROVIDERS: PCP Pediatrics; Referring Provider Pediatrics; Visit Provider Advanced Practice Midwife
DX: R03.0 Elevated blood-pressure reading, without diagnosis of hypertension (principal)
CPT/HCPCS: 82570; 84156

== ENCOUNTER 2024-04-04 11:58 | Outpatient (CLI) | payer OTHER, SELFPAY ==
--- OUTSIDE RECORDS SUMMARY | 2024-04-04 12:05 | XMS_ITS | Encounter Summary ---
Author Organization [facility] Address [address] [place] [id number] Care Team Providers Care Adobe Architect Name Role Phone Shan Wild M.D. Primary Care Provider Reason for Visit * Outpatient (Routine) - Closed Specialty Diagnoses / Procedures Referred By Kike ortiz Referred To Contact Pediatric Cardiology Diagnoses Complication Morbid Obesity Body Mass Index Greater Than 40 (HCC) Pre Existing Essential Hypertension Complicating Second Trimester (HCC) Recurrent Loss Second Trimester (HCC) Danielle Kirkpatrick M.D. [address] [place] [phone] [facility] Referral ID Status Reason Start Date Expiration Date Visits Re quested Visits Authorized [id number] Closed 02/13/2024 08/14/2025 1 1 Encounter Details Date Type Department Care Team (Latest Contact Info) Description 03/10/2024 11:00 AM CDT Comprehensive Visit Division of Pediatric Cardiology in [place], [place] [address] [place] [phone] Binu Ho M.B.B.S. [address] [place] [phone] Encounter For Screening For Congenital Cardiac Abnormalities (HCC) (Primary Dx); Complication Morbid Obesity Body Mass Index Greater Than 40 (HCC); Pre Existing Essential Hypertension Complicating Second Trimester (HCC); Recurrent Loss Second Trimester (HCC) Social History Tobacco Use Types Packs/Day Years Used Date Smoking Tobacco: Former Cigarettes 0.3 10 Q uit: 08/24/2023 Smokeless Tobacco: Never Comments:Currently using a v ape. Alcohol Use Standard Drinks/Week Comments Yes 0 (1 standard drink = 0.6 oz pur e alcohol) Once a month [facility] Utilities Answer Date Recorded In the past 12 months has e [employer], [employer], oil, or water [employer] threatened to shut off services in your home? No 12/17/2023 Humiliation, Afraid, Rape, and Kick questionnair e [...] week 08/30/2022 How often do you attend [facility] or mu-ism services? Never 08/30/2022 Do you belong to any clubs o r organizations such as congregation groups, unions, fraternal or athletic groups, or [...] Score 1 05/30/2023 [facility] - Occupational Stress Questionnaire Answer Date Recorded [...] to strenuous exercise (like a brisk walk)? 3 days 12/17/2023 On average, how many minutes do you engage in exercise at this level? 50 min 12/17/2023 Hunger Vital Sign Answer Date Recorded Within the past 12 months, y ou worried that your food would run out before you got the money to buy more. Never true 12/17/19 Within the past 12 months, t he food you bought just didn't last and you didn't have money to get more. Never true 12/17/2023 PRAPARE - Transportation Answer Date Re corded In the past 12 months, has l ack of transportation kept you from medical appointments or from getting medications? No 11/24 In the past 12 months, has l ack of transportation kept you from meetings, work, or from getting things needed for daily living? No 12/17/2023 Nutrition Answer Date Recorded On average, how many serving s of fruits and vegetables do you eat per day (serving size is equal to 1 cup or approximately the size of a tennis ball)? 3-5 12/17/2023 Dental Answer Date Recorded Dental: Regular Dentist Yes 08/24/19 Employment Answer Date Recorded Employment status Employed and actively working without restrictions 12/17/2023 Housing Stability Answer Date Recorded What is your living situation today? I have a [facility] [place] place to live 12/17/2023 Education Answer Date Recorded What is the highest level of school you have completed or the highest degree you have received? 12th grade 08/23/2022 Estimated Date of Delivery Comme nts Yes 06/30/2024 Based on last me nstrual period of 09/24/2023 (Exact Date) Sex and Gender Information Value Date Recorded Sex Assigned at Female 08/23/2022 7:16 PM VIRTUAL REALITY SPECIALIST Gender Identity Female 08/23/2022 7:16 PM VIRTUAL REALITY SPECIALIST Sexual Orientation Bisexual 08/23/2022 7: 16 PM VIRTUAL REALITY SPECIALIST documented as of this encounter Consult Notes * Binu Ho M.B.BRochelleS. - 03/10/2024 11:00 AM CDT [facility] Cardiology Consultation Fred Jenkins. Date of Consultation: 03/10/2024 Patient: Neha Rand Date of : 1995, Age: 28 y.o. , CSN: [id number] Address: [address] [place] [phone] Referral: Danielle Kirkpatrick M.D. [address] [place] [phone] SUBJECTIVE CHIEF COMPLAINT: cardiovascular screening. HISTORY OF PRESENT ILLNESS: I had the pleasure of meeting Neha for the first time in our Cardiology Clinic for cardiovascular screening. Neha is a 28 y.o. at 24w0d of gestation. Estimated Date of Delivery: 06/30/24. Obstetric ultrasound showed incomplete cardiac views. She has been referred for echocardiography for cardiovascular screening due to severe obesity an incomplete cardiac views on obstetric ultrasound. Current Medications: acetaminophen (TYLENOL) 500 mg tablet, Take 2 tablets (1,000 mg total) by mouth every 6 (six) hoursas needed for pain. Alternate with ibuprofen every 3 hours. Do not exceed 4000 mg or 4 g in 24 [address] aspirin [address] tablet, Take 1 tablet (81 mg total) by mouth daily. ferrous sulfate 325 mg (65 mg iron) tablet, Take 325 mg by mouth every other day. Twice daily, every other day labetaloL 200 mg tablet, Take 1 tablet by mouth 2 (two) times a day. pmkrusv-Sl-elwt-FA 27 mg iron- 1 mg tablet, Take 1 tablet by mouth daily. UNABLE TO FIND, Apple cider vinegar tablet 3 times daily Allergies Allergen Reactions Alcohol Hives (Reselect Reaction) TEQUILA Blackberry Hives (Reselect Reaction) Nickel Rash Past Medical History: Diagnosis Date Abnormal Pap Smear Cervix Anemia Iron Deficiency Blood Transfusion No Diagnosis 2022 Hypertension NOS Intolerance Lactose Leiomyoma (Fibroid) Uterus Morbid Obesity Body Mass Index 50.0-59.9 Adult ([facility]) Past Surgical History: Procedure Laterality Date SECTION 2012 HYSTEROSCOPY N/A 03/23/2023 Procedure: DIAGNOSTIC HYSTEROSCOPY.; Surgeon: Jeremías Salas M.B.B.SRochelle; Location: [facility] RO OR LAPAROSCOPIC MYOMECTOMY N/A 03/23/2023 Procedure: LAPAROSCOPIC MYOMECTOMY, CHROMO DYE TEST; Surgeon: Jeremías Salas M.B.B.SRochelle; Location: [facility] OR Social History Socioeconomic History Marital status: Spouse name: Felipe Highest education level: 12th grade Occupational History Occupation: [employer] Tobacco Use Smoking status: Former Current packs/day: 0.00 Average packs/day: 0.3 packs/day for 10.0 years (2.5 ttl pk-yrs) Types: Cigarettes Quit date: 08/24/2023 Years since quittin.5 Smokeless tobacco: Never Tobacco comments: Currently using a vape. Vaping Use Vaping status: former use Substance and Sexual Activity Alcohol use: Yes Comment: Once a month Drug use: Never Sexual activity: Yes Partners: Male control/protection: None Social Determinants of Health Food Insecurity: No Food Insecurity (12/17/2023) Hunger Vital Sign Worried About Running Out of Food in the Last Year: Never true Ran Out of Food in the Last Year: Never true Transportation Needs: No Transportation Needs (12/17/2023) PRAPARE - Transportation Lack of Transportation (Medical): No Lack of Transportation (Non-Medical): No Physical Activity: Sufficiently Active (12/17/2023) Exercise Vital Sign Days of Exercise per Week: 3 days Minutes of Exercise per Session: 50 min Intimate Partner Violence: Not At Risk (08/30/2022) Humiliation, Afraid, Rape, and Kick questionnaire Fear of Current or Ex-Partner: No Emotionally Abused: No Physically Abused: No Sexually Abused: No Housing Stability: Low Risk (12/17/2023) Housing Stability Housing: Living Situation: I have a steady place to live Family History Problem Relation Name Age of Onset Anemia Mother Diabetes Mother Hypertension Father Hypertension Sister No Known Problems Brother No Known Problems Son Miscarriages / Stillbirths Maternal Grandmother several miscarriages, at least 2 stillbirths Stroke Maternal Grandmother Lung cancer Maternal Grandmother Emphysema Maternal Grandfather Diabetes Paternal Grandmother Hypertension Paternal Grandmother Heart disease Paternal Grandmother Congenital Hearing Loss Other Felipe () Felipe's sister also has hearing loss No known family history of congenital heart disease, cardiomyopathy, arrhythmia, sudden premature or early coronary artery disease. OBJECTIVE DIAGNOSTICS Lab Results Component Value Date HGBA1C 5.5 06/01/2023 Echo Narrative: For the complete report, see the Order-Level Documents. Final Impressions 1. echocardiogram performed due to abnormal obstetric ultrasound cardiac findings. 2. Estimated date of delivery 06/30/2024. Gestational age 24 weeks. 3. [place] . 4. lie: variable. 5. The available image quality was limited. 6. Normal cardiac anatomy. 7. Normal cardiac dimensions. 8. Normal biventricular function. 9. Normal Doppler velocities. 10. Normal aortic arch. 11. Normal ductal arch. 12. Normal patency of the foramen ovale. 13. echocardiogram reveals normal sinus rhythm at a heart rate of 146 contr/min. 14. Normal umbilical cord Doppler velocities and profile. Three vessel cord. 15. No pericardial effusion. No hydrops. 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 Normal great artery relationships. For the complete report, see the Order-Level Documents. ASSESSMENT / PLAN #1 Complication Morbid Obesity Body Mass Index Greater Than 40 (HCC) #2 Pre Existing Essential Hypertension Complicating Second Trimester (HCC) #3 No critical heart disease identified on echocardiogram In summary, Neha is a 28 y.o. at 24w0d of gestation. echocardiogram was limited due to maternal body habitus and position. However, it revealed normal cardiac anatomy and function. No critical heart defect was identified. I reviewed the findings of the echocardiogram and its limitations with Neha. I explained that echocardiography has certain inherent limitations due to hemodynamics and technological constraints. These limitations may include the inability to rule out atrial septal defects, small ventricular septal defects, partial anomalous pulmonary venous connection, minor valve abnormalities such as bicuspid aortic valve, and coarctation of the aorta. Neha does not need any further cardiac evaluation during this unless there are new concerns. Transthoracic echocardiogram on the can be performed postnatally if there is a clinical need. Questions were answered. Thank you for allowing me to see Neha today. Please feel free to call should any questions or concerns arise. Benitez JenkinsBRochelleS. documented in this encounter Plan of Treatment Not on file documented as of this encounter Visit Diagnoses Diagnosis Encounter For Screening For Congenital Cardiac Abnormalities (HCC)- Primary Complication Morbid Obesity Body Mass Index Greater Than 40 (HCC) Pre Existing Essential Hypertension Complicating Second Trimester (HCC) Recurrent Loss Second Trimester (HCC) documented in this encounter Care Teams Adobe Architect Relationship Specialty Start Date End Date Shan Wild M.D. [address] [place] [phone] PCP - General Family Medicine 04/07/22 documented as of this encounter
--- OUTSIDE RECORDS SUMMARY | 2024-04-04 12:05 | XMS_ITS | Referral Summary ---
Author Organization [facility] Address [address] [place] [id number] Care Team Providers Care Vault Cashier Name Role Phone Shan Wild M.D. Primary Care Provider Source Comments Patient records contain information from all sites at [facility]. For routine questions regarding patient records, call [phone] during business hours, M-F 8:00 AM - 5:00 PM Central Time. Record requests for emergency care only can be directed to [phone] at any time.[facility] Encounters Date Type Department Care Team Description 03/10/2024 11:00 AM CDT Comprehensive Visit Division of Pediatric Cardiology in [place], [place] [address] [place] [address] Binu Ho M.B.B.S. Encounter For Screening For Congenital Cardiac Abnormalities (HCC) (Primary Dx); Complication Morbid Obesity Body Mass Index Greater Than 40 (HCC); Pre Existing Essential Hypertension Complicating Second Trimester (HCC); Recurrent Loss Second Trimester (HCC) 03/10/2024 3:00 PM CDT Routine Department of Obstetrics and Gynecology in [place], [place] [address] [place] [phone] Dez Rivers M.D. Pre Existing Essential Hypertension Complicating Second Trimester (HCC) (Primary Dx); Complication Morbid Obesity Body Mass Index Greater Than 40 (HCC); Recurrent Loss Second Trimester (HCC); Anemia Complicating Second Trimester (HCC); Complete Placenta Previa Without Hemorrhage Second Trimester (HCC); Maternal Care Due To Uterine Scar From Other Previous Surgery (HCC); Maternal Care For Low Transverse Scar From Previous Delivery (HCC); Maternal Care For Other Isoimmunization Second Trimester Single Gestation (HCC); 24 Weeks Gestation (HCC) 03/10/2024 1:36 PM CDT - 03/10/2024 11:59 PM CDT Hospital Encounter Department of Obstetrics and Gynecology in [place], [place] [address] [place] [phone] Dez Rivers M.D. Complication Morbid Obesity Body Mass Index Greater Than 40 (HCC); Pre Existing Essential Hypertension Complicating Second Trimester (HCC); Recurrent Loss Second Trimester (HCC) Discharge Disposition: Home or Self Care 03/10/2024 9:55 AM CDT - 03/10/2024 1:35 PM CDT Hospital Encounter Department of Cardiovascular Diseases in [place], [place] [address] [place] [address] Dez Rivers M.D. Complication Morbid Obesity Body Mass Index Greater Than 40 (HCC); Pre Existing Essential Hypertension Complicating Second Trimester (HCC); Recurrent Loss Second Trimester (HCC) Discharge Disposition: Home or Self Care 02/13/2024 Orders Only Department of Obstetrics and Gynecology in [place], [place] [address] [place] [address] Dez Rivers M.D. Complication Morbid Obesity Body Mass Index Greater Than 40 (HCC) (Primary Dx); Pre Existing Essential Hypertension Complicating Second Trimester (HCC); Recurrent Loss Second Trimester (HCC) 02/13/2024 4:26 PM CDT - 02/13/2024 11:59 PM CDT Hospital Encounter Department of Laboratory Medicine and Pathology, [facility], in [place], [place] [address] [place] [phone] Polly Vega M.B.B.SRochelle Pre Existing Essential Hypertension Complicating First Trimester (HCC) Discharge Disposition: Home or Self Care 02/13/2024 4:30 PM CDT Routine Department of Obstetrics and Gynecology in [place], [place] [address] [place] [address] Dez Rivers M.D. Complication Morbid Obesity Body Mass Index Greater Than 40 (HCC) (Primary Dx); Maternal Care For Other Isoimmunization Second Trimester Single Gestation (HCC); Encounter For Screening For Malformations (HCC); Pre Existing Essential Hypertension Complicating Second Trimester (HCC); Recurrent Loss Second Trimester (HCC); Maternal Care For Low Transverse Scar From Previous Delivery (HCC); Maternal Care Due To Uterine Scar From Other Previous Surgery (HCC); Complete Placenta Previa With Hemorrhage Second Trimester (HCC); 20 Weeks Gestation (HCC) 02/13/2024 3:21 PM CDT - 02/13/2024 4:25 PM CDT Hospital Encounter Department of Obstetrics and Gynecology in [place], [place] 200 [place] [address] Dez Rivers M.D. Maternal Care For Other Isoimmunization Second Trimester Single Gestation (HCC); Encounter For Screening For Malformations (HCC); Complication Morbid Obesity Body Mass Index Greater Than 40 (HCC); Pre Existing Essential Hypertension Complicating Second Trimester (HCC) Discharge Disposition: Home or Self Care 02/13/2024 2:30 PM CDT Comprehensive Visit Division of Nephrology and Hypertension in [place], [place] [address] [place] [address] Sona Walsh M.D., Ph.D. Hyperplasia Fibromuscular Renal Artery (HCC) (Primary Dx); Pre Existing Essential Hypertension Complicating First Trimester (HCC) 02/07/2024 Clinical Communication Department of Obstetrics and Gynecology in [place], [place] [address] [place] [address] Dez Rivers M.D. 02/06/2024 3:30 PM CDT Routine Department of Obstetrics and Gynecology in [place], [place] [address] [place] [address] Dez Rivers M.D. Complication Morbid Obesity Body Mass Index Greater Than 40 (HCC) (Primary Dx); Maternal Care For Other Isoimmunization Second Trimester Single Gestation (HCC); Encounter For Screening For Malformations (HCC); Pre Existing Essential Hypertension Complicating Second Trimester (HCC); Anemia Complicating Second Trimester (HCC); Recurrent Loss Second Trimester (HCC); Complete Placenta Previa With Hemorrhage Second Trimester (HCC); 19 Weeks Gestation (HCC) 02/06/2024 1:45 PM CDT - 02/06/2024 11:59 PM CDT Hospital Encounter Department of Obstetrics and Gynecology in [place], [place] [address] [place] [address] Dez Rivers M.D. Maternal Care For Other Isoimmunization First Trimester Single Gestation (HCC) Discharge Disposition: Home or Self Care 01/30/2024 Orders Only Department of Obstetrics and Gynecology in [place], [place] [address] [place] [address] Dez Rivers M.D. Pre Existing Essential Hypertension Complicating First Trimester (HCC) (Primary Dx) 01/30/2024 1:45 PM CDT - 01/30/2024 11:59 PM CDT Hospital Encounter Department of Radiology, [facility], in [place], [place] [address] [place] [address] Dez Rivers M.D. Maternal Care For Other Isoimmunization First Trimester Single Gestation (HCC); Pre Existing Essential Hypertension Complicating First Trimester (HCC) Discharge Disposition: Home or Self Care 01/11/2024 11:00 AM CDT Virtual Visit Department of Obstetrics and Gynecology in [place], [place] [address] [place] [address] Celina Mauricio M.S., CGC Recurrent Loss Unspecified Trimester (HCC) (Primary Dx) from Last 3 Months Allergies Active Allergy Reactions Criticality Noted Date Comments Alcohol Hives (Reselect Reaction) Medium 04/14/2022 TEQUILA Blackberry Hives (Reselect Reaction) Medium 04/14/2022 Nickel Rash 04/28/2016 Medications Medication Sig Dispensed Refills Start Date End Date Status ferrous sulfate 325 mg (65 mg iron) [...] in 24 hours. 30 tablet 03/23/2023 Active UNABLE TO FIND Apple cider vinegar tablet 3 times daily Active aspirin [address] tabletIndications:Mate rnal Care For Other Isoimmunization First Trimester Fetus 1 (HCC) Take 1 tablet (81 mg total) by mouth daily. 12/19/2023 Active labetaloL 200 mg tablet Take 1 tablet by mouth 2 (two) times a day. 01/18/2024 Active dfeyvgr-Mz-nzuv-FA 27 mg iron- 1 mg tablet Take 1 tablet by mouth daily. 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 (labetalol 200 mg oral every 12 hours) Recurrent Loss Second Trimester 2023 Maternal Care For Low Transv erse Scar From Previous Delivery 01/21/2024 Maternal Care Due To Uterine Scar From Other Previous Surgery 01/21/2024 Overview (01/21/2024): History: prior myomectomy (02/2023) requiring section Complication Morbid Obesity Body Mass Index Greater Than 40 01/21/2024 Leiomyoma (Fibroid) Uterus 12/08/2022 Estimated Date of Delivery Comme nts Yes 06/30/2024 Based on last me nstrual period of 09/24/2023 (Exact Date) Resolved Problems Problem Noted Date Diagnosed Date Resolved Date Complication Morbid Obesity Body Mass Index Greater Than 40 02/07/2024 02/07/2024 Immunizations Name Administration Dates Next Due 4vHPV (discontinued) 04/28/2016,12/11/2008,04/28 DTP 04/14/1998,07/25/1994,1993 DTP / Hib 1993,1993 HepB Pediatric/Adolescent 04/14/1998,05/06/1997, 04/14/1996 Hib (HbOC) (discontinued) 07/25/1994,1993 MMR 04/14/1998,07/25/1994 PCV20 06/01/2023 Polio, Unspecified 04/14/1998, 5,1993,1992 SARS-COV-2 (COVID-19) - MODE RNA (12 YEARS AND OLDER) 06/01/2023 SARS-COV-2 (COVID-19) - PFIZ ER BIVALENT TS(Discontinued)(12 YEARS OR OLDER) 04/14/2022 Td, (Adult) Unspecified 11/17/2004 Tdap 04/28/2016 influenza trivalent vaccine (6 months and older)(PF) 04/03/2013 influenza vaccine quad (FLUZONE/FLUARIX) (6 months and older)(PF) 06/01/2023,04/14/2022,04/28/2016 Social History Tobacco Use Types Packs/Day Years Used Date Smoking Tobacco: Former Cigarettes 0.3 10 Q uit: 08/24/2023 Smokeless Tobacco: Never Tobacco Cessation:Counseling Given: Not Answered Comments:Currently using a vape. Alcohol Use Standard Drinks/Week Comments Yes 0 (1 standard drink = 0.6 oz pur e alcohol) Once a month [employer] Answer Date Recorded In the past 12 months has [employer], [employer], or water [employer] threatened to shut off services in your [...] often do you attend chur ch or mu-ism services? Never 08/30/2022 Do you belong to any clubs o r organizations such as adventist groups, unions, fraternal or athletic groups, or [...] Answer Date Recorded PHQ-2 Score 1 05/30/2023 [facility] - Occupational Stress [...] money to buy more. Never true 12/17/19 24 Within the past 12 months, t he [...] your living situation today? [facility] 12/17/2023 Education Answer Date Recorded What is the highest level of school you have completed or the highest degree you have received? 12th grade 08/23/2022 Estimated Date of Delivery Comme nts Yes 06/30/2024 Based on last me nstrual period of 09/24/2023 (Exact Date) Sex and Gender Information Value Date Recorded Sex Assigned at Female 08/23/2022 7:16 PM LABOR E[employer]OMICS PROFESSOR Gender Identity Female 08/23/2022 7:16 PM LABOR ECONOMICS PROFESSOR Sexual Orientation Bisexual 08/23/2022 7: 16 PM LABOR ECONOMICS PROFESSOR Last Filed Vital Signs Vital Sign Reading Time Taken Comments Blood Pressure 126/76 03/10/2024 2:30 PM CDT Pulse 75 03/10/2024 2:30 PM CDT Temperature 36.8 ??C (98.2 ??F) 03/10/2024 2:30 PM CD T Respiratory Rate 16 06/01/2023 9:19 AM LABOR ECONOMICS PROFESSOR Oxygen Saturation 99% 03/10/2024 2:30 PM CDT Inhaled Oxygen Concentration - - Weight 140 kg (308 lb 10.3 oz) 03/10/2024 2:30 P M CDT Height 173.4 cm (5' 8.27) 02/13/2024 2:31 PM CD T Body Mass Index 46.56 02/13/2024 2:31 PM CDT Plan of Treatment Not on file Procedures Procedure Name Priority Date/Time Associated Diagnosis Comments US OB GROWTH FINLEY RAD - Routine (most inpatients and all outpatients) 03/10/2024 2:22 PM CDT Complication Morbid Obesity Body Mass Index Greater Than 40 (HCC) Pre Existing Essential Hypertension Complicating Second Trimester (HCC) Recurrent Loss Second Trimester (HCC) FINLEY ECHO 2D WITH COLOR AND DOPPLER Routine 03/10/2024 11:12 AM CDT Complication Morbid Obesity Body Mass Index Greater Than 40 (HCC) Pre Existing Essential Hypertension Complicating Second Trimester (HCC) Recurrent Loss Second Trimester (HCC) DIPSTICK, U Routine 02/13/2024 4:43 PM CDT PH, U Routine 02/13/2024 4:43 PM CDT OSMOLALITY, U Routine 02/13/2024 4:43 PM CDT MICROSCOPIC AUTOMATED Routine 02/13/2024 4:43 PM CDT ALBUMIN, RANDOM, U Routine 02/13/2024 4: 43 PM CDT Pre Existing Essential Hypertension Complicating First Trimester (HCC) PROTEIN/CREATININE RATIO, RANDOM, URINE Routine 02/13/2024 4:43 PM CDT Pre Existing Essential Hypertension Complicating First Trimester (HCC) URINALYSIS WITH MICROSCOPIC Routine 02/13/2024 4:43 PM CDT Pre Existing Essential Hypertension Complicating First Trimester (HCC) US OB FOLLOW-UP AND OR GROWTH FINLEY RAD - Routine (most inpatients and all outpatients) 02/13/2024 4:17 PM CDT Maternal Care For Other Isoimmunization Second Trimester Single Gestation (HCC) Encounter For Screening For Malformations (HCC) Complication Morbid Obesity Body Mass Index Greater Than 40 (HCC) Pre Existing Essential Hypertension Complicating Second Trimester (HCC) COMPREHENSIVE METABOLIC PANEL, S/P Routine 02/06/2024 5:00 PM CDT Maternal Care For Other Isoimmunization First Trimester Single Gestation (HCC) Encounter For Screening For Malformations (HCC) Complication Morbid Obesity Body Mass Index Greater Than 40 (HCC) Pre Existing Essential Hypertension Complicating Second Trimester (HCC) CBC WITHOUT DIFFERENTIAL, B Routine 02/06/2024 5:00 PM CDT Maternal Care For Other Isoimmunization First Trimester Single Gestation (HCC) Encounter For Screening For Malformations (HCC) Complication Morbid Obesity Body Mass Index Greater Than 40 (HCC) Pre Existing Essential Hypertension Complicating Second Trimester (HCC) US OB ADVANCED LEVEL FINLEY RAD - Routine (most inpatients and all outpatients) 02/06/2024 3:16 PM CDT Maternal Care For Other Isoimmunization First Trimester Single Gestation (HCC) US KIDNEYS WITH RENAL ARTERY DOPPLER RAD - Routine (most inpatients and all outpatients) 01/30/2024 3:02 PM CDT Maternal Care For Other Isoimmunization First Trimester Single Gestation (HCC) Pre Existing Essential Hypertension Complicating First Trimester (HCC) THINPREP SCREEN Routine 04/14/2022 10:41 AM CDT Well Adult Examination Normal from Last 3 Months or Most Recently Relevant to Health Maintenance Results * US OB Growth Finley (03/10/2024 2:22 PM CDT) Anatomical Region Laterality Modality Body, Ultrasound OB RST LOS, Ultrasound ARZ LOS N/A Ultrasound Narrative 03/10/2024 4:10 PM CDT NEHA MARCUS OB Exam, 03/10/2024 EXAM INFORMATION Patient Name: ??NEHA MARCUS : ??1995 Age: ??28 yrs Sex: ??Female Ref Phys: ??DEZ RIVERS Exam Date: 03/10/2024 Procedure: US OB GROWTH FINLEY Exam Site: [facility] OB #[id number] Plurality: 1 OBHx: [G:(7)] ?F Trm:() Pre:() C-Sec:() Ab-I:() Ab-S:() Ect:() Multi:() Margarita:(1) INDICATIONS FOR SONOGRAPHY Maternal obesity, cHTN, growth, follow-up ductal arch IMPRESSION Finley intrauterine . NAIF established by LMP consistent with 8 week scan. ductal arch appears normal. Composite biometry is consistent with gestational age (82%, 747 grams). Amniotic fluid volume normal. MEASUREMENTS ??aleida ??wks [+/-] (Range) % ?? BPD: 6.14 cm ?? 25w0d ??[+/-2.18] ??(5.33 - 6.50) 77% FL: ??4.32 cm ?? 24w1d ??[+/-2.08] ??(3.79 - 4.97) 42% HC: ??22.19 cm ?? 24w2d ??[+/-2.06] ??(20.48 - 24.40) 40% AC: ??20.59 cm ?? 25w1d ??[+/-2.18] ??(16.97 - 22.22) 77% RATIOS ??(Range) % ?? HC/AC: 1.08 ?(1.05 - 1.21) 21% ?? FL/BPD: 0.70 ? FL/AC: 0.21 ? COMPUTATIONS GA: ?? 24w0d [+/-1.80] Method: ??NAIF NAIF: ??06/30/2024 Sono GA: ??24w1d [+/-1.80] Method: ?? BPD, HC, AC, FL Weight: ??747 gms. ??1 lb 10 oz. ??82% Method: ??BPD, HC, AC, FL OBSERVATIONS Amniotic Fluid Fluid Volume: ??Normal MVP: ??5.26 cm Presentation: ?Cephalic Size: ?Normal for dates Growth: ??Within normal limits. FHR: ??138 bpm ANATOMY Normal: Ductal arch COMMENTS Transabdominal ultrasound was performed. Growth Finley in Cephalic presentation. Composite biometry consistent with gestational age. ??EFW 82%, 747 grams, MVP 5.26 cm. ?? Image of ductal arch was obtained. Preliminary Read by Jesús Silva, RGinaM.SRochelle on 03/10/2024 2:22:44 PM. Warehouse Shipping Clerk: ??Jesús Silva R.D.M.S. Thank You For This Referral Procedure Note Chin Bates M.D. - 03/10/2024 KIRSTEN ROSI NEHA JEAN OB Exam, 03/10/2024 EXAM INFORMATION Patient Name: NEHA MARCUS : 1995 Age: 28 yrs Sex: Female Ref Phys: DEZ RIVERS Exam Date: 03/10/2024 Procedure: US OB GROWTH FINLEY Exam Site: [facility] OB #[id number] Plurality: 1 OBHx: [G:(7)] F Trm:() Pre:() C-Sec:() Ab-I:() Ab-S:() Ect:() Multi:() Margarita:(1) INDICATIONS FOR SONOGRAPHY Maternal obesity, cHTN, growth, follow-up ductal arch IMPRESSION Finley intrauterine . NAIF established by LMP consistent with 8week scan. ductal arch appears normal. Composite biometry is consistentwith gestational age (82%, 747 grams). Amniotic fluid volume normal. MEASUREMENTS aleida wks [+/-] (Range) % BPD: 6.14 cm 25w0d [+/-2.18] (5.33 - 6.50) 77% FL: 4.32 cm 24w1d [+/-2.08] (3.79 - 4.97) 42% HC: 22.19 cm 24w2d [+/-2.06] (20.48 - 24.40) 40% AC: 20.59 cm 25w1d [+/-2.18] (16.97 - 22.22) 77% RATIOS (Range) % HC/AC: 1.08 (1.05 - 1.21) 21% FL/BPD: 0.70 FL/AC: 0.21 COMPUTATIONS GA: 24w0d [+/-1.80] Method: NAIF NAIF: 06/30/2024 Sono GA: 24w1d [+/-1.80] Method: BPD, HC, AC, FL Weight: 747 gms. 1 lb 10 oz. 82% Method: BPD, HC, AC, FL OBSERVATIONS Amniotic Fluid Fluid Volume: Normal MVP: 5.26 cm Presentation: Cephalic Size: Normal for dates Growth: Within normal limits. FHR: 138 bpm ANATOMY Normal: Ductal arch COMMENTS Transabdominal ultrasound was performed. Growth Finley in Cephalic presentation. Composite biometry consistent withgestational age. EFW 82%, 747 grams, MVP 5.26 cm. Image of ductal arch was obtained. Preliminary Read by Jesús Silva R.D.M.SRochelle on 03/10/2024 2:22:44 PM. Warehouse Shipping Clerk: Jesús Silva R.D.MRochelleSRochelle Thank You For This Referral Dez Rivers M.D. 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 Normal great artery relationships. For the complete report, see the Order-Level Documents. Narrative 03/10/2024 11:27 AM CDT For the complete report, see the Order-Level Documents. Final Impressions 1. echocardiogram performed due to abnormal obstetric ultrasound cardiac findings. 2. Estimated date of delivery 06/30/2024. ??Gestational age 24 weeks. 3. Finley . 4. lie: variable. 5. The available [...] cord. 15. No pericardial effusion. No hydrops. Procedure Note Binu Ho M.B.B.S. - 03/10/2024 For the complete report, see the Order-Level Documents. Final Impressions 1. echocardiogram performed due to abnormal obstetric ultrasoundcardiac findings. 2. Estimated date of delivery 06/30/2024. Gestational age 24 weeks. 3. Finley . 4. lie: variable. 5. The available image quality was limited. 6. Normal cardiac anatomy. 7. Normal cardiac dimensions. 8. Normal biventricular function. 9. Normal Doppler velocities. 10. Normal aortic arch. 11. Normal ductal arch. 12. Normal patency of the foramen ovale. 13. echocardiogram reveals normal sinus rhythm at a heart rate of146 contr/min. 14. Normal umbilical cord Doppler velocities and profile. Three vesselcord. 15. No pericardial effusion. No hydrops. 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 Normal great artery relationships. For the complete report, see the Order-Level Documents. Dez Rivers M.D. CV ECHO PROC EDURES * Dipstick, Urine (02/13/2024 4:43 PM CDT) Hemoglobin, QL, U Negative Negative 02/13/2024 6:08 PM CDT DTL Leukocyte Esterase, U Negative Negative 02/13/2024 6:08 PM CDT DTL Nitrite, U Negative Negative 02/13/2024 6:08 PM CDT DTL Ketone, U Negative Negative mg/dL 02/13/2024 6:08 PM CDT DTL Glucose, U Negative Negative mg/dL 02/13/2024 6:08 PM CDT DTL Urine 02/13/2024 4:43 PM CDT 02/13/2024 5:32 PM CDT Polly [place]enz [place] [address], [facility] [place] [address] * (ABNORMAL) Microscopic Automated (02/13/2024 4:43 PM CDT) Microscopy Abnormal 02/13/2024 6:08 PM CDT DTL RBC <3 <3 /hpf 02/13/2024 6:08 PM CDT DTL WBC 4-10 /hpf 02/13/2024 6:08 PM CDT DTL Comment: ----REFERENCE VALUE---- <4 ??(Males) <11 (Females) Squamous Epithelial Cells, U 4-10 /hpf 02/13/2024 6:08 PM CDT DTL Bacteria Present(A) 02/13/2024 6:08 PM CDT DTL Urine 02/13/2024 4:43 PM CDT 02/13/2024 5:32 PM CDT Polly MarquisB.S. LAB URINE ORDER ARIN Performing Organization Address City/[facility]/[place] [address] * pH, Urine (02/13/2024 4:43 PM CDT) pH, U 5.9 4.5 - 8.0 02/13/2024 6:2 7 PM CDT DTL Urine 02/13/2024 4:43 PM CDT 02/13/2024 5:32 PM CDT Polly Bee.S. LAB URINE ORDER ARIN Performing Organization Address [facility] [place] [address] * Albumin, Random, Urine (02/13/2024 4:43 PM CDT) Albumin, Random, U <5.0 mg/L 2023 10:29 AM CDT DTL Comment: ----ADDITIONAL INFORMATION---- This test has been modified from the escrow secretary's instructions. Its performance characteristics were determined by [facility] in a manner consistent with CLIA requirements. This test has not been cleared or approved by the U.S. Food and Drug Administration. Creatinine 148 mg/dL 02/13/2024 6:31 PM CDT DTL Albumin/Creatinine Ratio <3 <25 mg/g 02/14/2024 10:29 AM CDT DTL Comment: This ratio may not correspond with the reference range because one or both of the values used to calculate the ratio was above or below the quantification limits. Urine (Urine, Midstream) 02/13/2024 4:43 PM CDT 02/13/2024 5:32 PM CDT Polly SmithSRochelle LAB URINE ORDER ARIN [facility] [address] [place] [address], [facility] [address] [place] [address] * Protein/Creatinine Ratio, Random, Urine (02/13/2024 4:43 PM CDT) Protein, Total, Random, U 10 mg/dL 02/13/2024 6:31 PM CDT DTL Creatinine, Random, U 148 16 - 326 mg/dL 02/13/2024 6:31 PM CDT DTL Protein/Creatin ine Ratio 0.07 <0.18 mg/mg 02/13/2024 6:31 PM CDT DTL Urine (Urine, Midstream) 02/13/2024 4:43 PM CDT 02/13/2024 5:32 PM CDT Polly MarquisB.S. LAB URINE ORDER ARIN Performing Organization Address City/[facility]/ZIP Co de Phone Number [facility] [address] [place], [place] [id number] [place] [address] [address] [place] [address] * Osmolality, Urine (02/13/2024 4:43 PM CDT) Osmolality, U 770 150 - 1150 mOsm/kg 02/13/2024 6:27 PM CDT DTL Urine 02/13/2024 4:43 PM CDT 02/13/2024 5:32 PM CDT Polly MarquisBRochelleS. LAB URINE ORDER ARIN [facility] [address] [place] [address], [facility] [address] [place] [address] * Urinalysis, with Microscopic: Urine, Midstream (02/13/2024 4:43 PM CDT) Source Urine, Urine, Midstream 02/13/2024 5:32 PM CDT DTL Color, U Yellow 02/13/2024 5:32 PM CDT DTL Clarity, U Clear 02/13/2024 5:32 PM CDT DTL Protein, U 10 <26 mg/dL 02/13/2024 6:31 PM CDT DTL Protein/Osmol ality 0.13 <0.42 ratio 02/13/2024 6:31 PM CDT DTL Predicted 24 HR Protein, U 105 <229 mg/24 h 02/13/2024 6:31 PM CDT DTL Predicted Range 26-424 mg/24 h 02/13/2024 6:31 PM CDT DTL Urine (Urine, Midstream) 02/13/2024 4:43 PM CDT 02/13/2024 5:32 PM CDT Polly Saenz LAB URINE ORDER ARIN [facility] [address] [place] [address], [facility] [address] [place] [address] * US OB Follow-up and or Growth Finley (02/13/2024 4:17 PM CDT) Anatomical Region Laterality Modality Body, Ultrasound OB RST LOS, Ultrasound ARZ LOS N/A Ultrasound Narrative 02/13/2024 4:58 PM CDT NEHA MARCUS OB Exam, 02/13/2024 EXAM INFORMATION Patient Name: ??NEHA MARCUS : ??1995 Age: ??28 yrs Sex: ??Female Ref Phys: ??DEZ RIVERS Exam Date: 02/13/2024 Procedure: US OB FOLLOW-UP AND OR GROWTH FINLEY Plurality: 1 OBHx: [G:(7)] ?F Trm:() Pre:() C-Sec:() Ab-I:() Ab-S:() Ect:() Multi:() Margarita:(1) INDICATIONS FOR SONOGRAPHY Follow up anatomy IMPRESSION Follow-up OB Finley Fetus: Live finley intrauterine . Presentation: Cephalic. Anatomy: cardiac anatomy appears within normal limits. Imaging was extremely limited by position and maternal habitus but anatomy appears normal where seen. Amniotic fluid volume: Normal. Conclusion: Live finley intrauterine in cephalic presentation. cardiac anatomy appears within normal limits. Imaging was extremely limited by position and maternal habitus but anatomy appears normal where seen. Normal amniotic fluid volume. Recommendations: For echocardiogram. Reassess anatomy as able with next routine ultrasound. MEASUREMENTS ??aleida ??wks [+/-] (Range) % ?? COMPUTATIONS GA: ?? 20w2d Method: ??NAIF NAIF: ??06/30/2024 Sono GA: ?? Method: ?? OBSERVATIONS Presentation: ?Cephalic FHR: ??146 bpm ANATOMY Normal: RVOT, LVOT, Pulmonary veins, Stomach, Bladder Not Seen: Ductal arch Preliminary Read by Richard Haskins on 02/13/2024 4:18:01 PM. Warehouse Shipping Clerk: ??Richard Haskins Thank You For This Referral Procedure Note Dez Rivers M.D. - 02/13/2024 NEHA MARCUS OB Exam, 02/13/2024 EXAM INFORMATION Patient Name: KEVINTAIWO NEHA RAND : 1995 Age: 28 yrs Sex: Female Ref Phys: DEZ RIVERS Exam Date: 02/13/2024 Procedure: US OB FOLLOW-UP AND OR GROWTH FINLEY Plurality: 1 OBHx: [G:(7)] F Trm:() Pre:() C-Sec:() Ab-I:() Ab-S:() Ect:() Multi:() Margarita:(1) INDICATIONS FOR SONOGRAPHY Follow up anatomy IMPRESSION Follow-up OB Finley Fetus: Live finley intrauterine . Presentation: Cephalic. Anatomy: cardiac anatomy appears within normal limits. Imaging wasextremely limited by position and maternal habitus but anatomyappears normal where seen. Amniotic fluid volume: Normal. Conclusion: Live finley intrauterine in cephalic presentation. cardiac anatomy appears within normal limits. Imaging was extremelylimited by position and maternal habitus but anatomy appears normalwhere seen. Normal amniotic fluid volume. Recommendations: For echocardiogram. Reassess anatomy as able with next routine ultrasound. MEASUREMENTS aleida wks [+/-] (Range) % COMPUTATIONS GA: 20w2d Method: NAIF NAIF: 06/30/2024 Sono GA: Method: OBSERVATIONS Presentation: Cephalic FHR: 146 bpm ANATOMY Normal: RVOT, LVOT, Pulmonary veins, Stomach, Bladder Not Seen: Ductal arch Preliminary Read by Richard Haskins on 02/13/2024 4:18:01 PM. Warehouse Shipping Clerk: Richard Haskins Thank You For This Referral Dez Rivers M.D. IMG OB US [place] OCEDURES * (ABNORMAL) CBC without Differential (02/06/2024 5:00 PM CDT) Hemoglobin 10.0(L) 11.6 - 15.0 g/dL 02/06/2024 5:31 PM CDT DTL Hematocrit 32.3(L) 35.5 - 44.9 % 02/06/2024 5:31 PM CDT DTL Erythrocytes 4.17 3.92 - 5.13 x10(12)/L 02/06/2024 5:31 PM CDT DTL MCV 77.5(L) 78.2 - 97.9 fL 02/06/2024 5:31 PM CDT DTL RBC Distrib Width 16.0 12.2 - 16.1 % 02/06/2024 5:31 PM CDT DTL Platelet Count 223 157 - 371 x10(9)/L 02/06/2024 5:31 PM CDT DTL Leukocytes 5.9 3.4 - 9.6 x10(9)/L 02/06/2024 5:31 PM CDT DTL Blood (Blood, Venous) 02/06/2024 5:00 PM CDT 02/06/2024 5:23 PM CDT Dez Rivers M.D. LAB BLOOD AD D-ON [facility] [address] [place] [address], [facility] DTL [facility] [address] [place] [address] * (ABNORMAL) Comprehensive Metabolic Panel (02/06/2024 5:00 PM CDT) Potassium, S 4.0 3.6 - 5.2 mmol/L 02/06/2024 5:52 PM CDT DTL Sodium, S 138 135 - 145 mmol/L 02/06/2024 5:52 PM CDT DTL Chloride, S 105 98 - 107 mmol/L 02/06/2024 5:52 PM CDT DTL Bicarbonate, S 23 22 - 29 mmol/L 02/06/2024 5:52 PM CDT DTL Anion Gap 10 7 - 15 02/06/2024 5:52 PM CDT DTL BUN (Blood Urea Nitrogen), S 6 6 - 21 mg/dL 02/06/2024 5:52 PM CDT DTL Creatinine 0.58(L) 0.59 - 1.04 mg/dL 02/06/2024 5:52 PM CDT DTL Estimated GFR (eGFR) >90 >=60 mL/min/BS A 02/06/2024 5:52 PM CDT DTL Comment: Estimated GFR calculated using the 2020 CKD_EPI creatinine equation. Calcium, Total, S 9.2 8.6 - 10.0 mg/dL 02/06/2024 5:52 PM CDT DTL Glucose, S 85 70 - 140 mg/dL 02/06/2024 5:52 PM CDT DTL Protein, Total, S 6.5 6.3 - 7.9 g/dL 02/06/2024 5:52 PM CDT DTL Albumin, S 3.9 3.5 - 5.0 g/dL 02/06/2024 5:52 PM CDT DTL Aspartate Aminotransferase (AST), S 15 8 - 43 U/L 02/06/2024 5:52 PM CDT DTL Alkaline Phosphatase, S 46 35 - 104 U/L 02/06/2024 5:52 PM CDT DTL Alanine Aminotransferase (ALT), S 18 7 - 45 U/L 02/06/2024 5:52 PM CDT DTL Bilirubin, Total, S 0.2 0.0 - 1.2 mg/dL 02/06/2024 5:52 PM CDT DTL Blood (Blood, Venous) 02/06/2024 5:00 PM CDT 02/06/2024 5:36 PM CDT Dez Rivers M.D. LAB BLOOD AD D-ON [facility] [address] [place] [address], [facility] DTL [facility] [address] [place] [address] * US OB Advanced Level Finley (02/06/2024 3:16 PM CDT) Anatomical Region Laterality Modality Body, Ultrasound OB RST LOS, Ultrasound ARZ LOS N/A Ultrasound Narrative 02/06/2024 5:02 PM CDT NEHA MARCUS OB Exam, 02/06/2024 EXAM INFORMATION Patient Name: ??NEHA MARCUS : ??1995 Age: ??28 yrs Sex: ??Female Ref Phys: ??DEZ KAMLA RIVERS Exam Date: 02/06/2024 Procedure: US OB ADVANCED LEVEL FINLEY Exam Site: [facility] OB #[id number] Plurality: 1 OBHx: [G:(7)] ?F Trm:() Pre:() C-Sec:() Ab-I:() Ab-S:() Ect:() Multi:() Margarita:(1) INDICATIONS FOR SONOGRAPHY Chronic HTN BMI IMPRESSION Detailed anatomy survey was performed for obesity. Both transabdominal and transvaginal ultrasound was performed. Transvaginal ultrasound was performed to better assess placenta location. Detailed Anatomy Survey Fetus: Live finley intrauterine . Presentation: Variable. Anatomy: Incomplete detailed anatomy survey as noted, with imaging limited by position and maternal habitus. No structural abnormalities identified with anatomy that was seen. heart was suboptimally imaged but appeared normal otherwise. Growth: Appropriate for gestational age (2 days discrepancy). Amniotic fluid volume: Normal. Placenta: Right lateral placenta previa. Inferior edge of placenta covers internal os of cervix on transvaginal imaging. Marginal cord insertion (1.72 cm from placenta edge). Uterus: No uterine abnormalities are identified. Ovaries / Adnexa: Both ovaries appear normal. No adnexal abnormalities are identified. Cervix: Appears long on transabdominal imaging. Conclusion: Live finley intrauterine in variable presentation. Incomplete detailed anatomy survey as noted, with imaging limited by position and maternal habitus. No structural abnormalities identified with anatomy that was seen. heart was suboptimally imaged but appeared normal otherwise. Appropriate growth and normal amniotic fluid volume. Right lateral placenta previa. Marginal cord insertion (1.72 cm from placenta edge). Recommendations: Follow-up ultrasound in 1-4 weeks to complete detailed anatomy survey. Follow-up growth and transvaginal ultrasound with color imaging of internal cervical os anytime once at 28w - 32w gestation to evaluate interval growth, assess placenta location and exclude vasa previa. MEASUREMENTS ??aleida ??wks [+/-] (Range) % ?? BPD: 4.62 cm ?? 20w0d ??[+/-1.73] ??(3.80 - 4.98) 78% FL: ??3.26 cm ?? 20w1d ??[+/-1.80] ??(2.47 - 3.65) 75% HC: ??17.24 cm ?? 19w6d ??[+/-1.48] ??(14.81 - 18.73) 68% AC: ??13.67 cm ?? 19w1d ??[+/-2.06] ??(11.41 - 16.66) 39% HL: ??3.14 cm ?? 20w2d ? (2.36 - 3.36) 75% TCD: 1.94 cm ?? 19w3d ??[+/-1.80] ??(1.80 - 2.20) 52% NF: ??4.02 mm ? Cisterna Magna: 0.44 cm ? RATIOS ??(Range) % ?? HC/AC: 1.26 ?(1.09 - 1.26) 96% ?? FL/BPD: 0.71 ? FL/AC: 0.24 ? LONG BONES SURVEY ??cm ??wks [+/-] (Range) % ?? Humerus: 3.14 cm ?? 20w2d ? (2.36 - 3.36) 75% Ulna: ?? 2.76 cm ? Radius: 2.46 cm ? Femur: 3.26 cm ?? 20w1d ??[+/-1.80] ??(2.47 - 3.65) 75% Tibia: 2.95 cm ? Fibula: 2.76 cm ? COMPUTATIONS GA: ?? 19w2d [+/-1.40] Method: ??NAIF NAIF: ??06/30/2024 Sono GA: ??19w4d [+/-1.40] Method: ?? BPD, HC, AC, FL Weight: ??327 gms. ??0 lb 11 oz. ??86% Method: ??BPD, HC, AC, FL OBSERVATIONS Amniotic Fluid Fluid Volume: ??Normal Placenta: ??Placenta is Right Lateral. ??There is a complete anterior placenta previa. Presentation: ?Variable Size: ?Normal for dates FHR: ??144 bpm ANATOMY Normal: Sag and Trans Cervical spine, Sag and Trans Thoracic spine, Sag and Trans Lumbar spine, Sag and Trans Sacral spine, Cerebellum, Vermis, Cisterna magna, Cerebral ventricle, Choroid plexus, Nuchal thickness, CSP, Midline falx, Palate, Maxilla, Mandible, Tongue, 4 chamber heart, Interventricular septum, Situs, 3VV, 3VT, Aortic arch, SVC/IVC, Chest/Heart/lungs, Diaphragm, Anterior abdominal wall, Abdominal cord insertion, 3 vessel cord, Stomach, Kidneys (coronal and trans), Renal arteries, Bladder, Face, Upper lip/nose, Profile/Nasal Bone, Orbits/lens, Upper extremities, Lower extremities, Hands, Feet Abnormal: Placental cord insert Not Seen: RVOT, LVOT, Ductal arch, Pulmonary veins Preliminary Read by Ana Aguilar on 02/06/2024 3:16:07 PM. Preliminary Read by Ana Aguilar on 02/06/2024 3:25:27 PM. Preliminary Read by Dez Rivers M.D. on 02/06/2024 4:26:07 PM. Warehouse Shipping Clerk: ??Ana Aguilar Thank You For This Referral Procedure Note Dez Rivers M.D. - 02/06/2024 KIRSTEN NEHA RAND OB Exam, 02/06/2024 EXAM INFORMATION Patient Name: NEHA MARCUS : 1995 Age: 28 yrs Sex: Female Ref Phys: DEZ RIVERS Exam Date: 02/06/2024 Procedure: US OB ADVANCED LEVEL FINLEY Exam Site: [facility] OB #[id number] Plurality: 1 OBx: [G:(7)] F Trm:() Pre:() C-Sec:() Ab-I:() Ab-S:() Ect:() Multi:() Margarita:(1) INDICATIONS FOR SONOGRAPHY Chronic HTN BMI IMPRESSION Detailed anatomy survey was performed for obesity. Both transabdominal and transvaginal ultrasound was performed. Transvaginal ultrasound was performed to better assess placenta location. Detailed Anatomy Survey Fetus: Live finley intrauterine . Presentation: Variable. Anatomy: Incomplete detailed anatomy survey as noted, with imaginglimited by position and maternal habitus. No structuralabnormalities identified with anatomy that was seen. heart wassuboptimally imaged but appeared normal otherwise. Growth: Appropriate for gestational age (2 days discrepancy). Amniotic fluid volume: Normal. Placenta: Right lateral placenta previa. Inferior edge of placenta coversinternal os of cervix on transvaginal imaging. Marginal cord insertion(1.72 cm from placenta edge). Uterus: No uterine abnormalities are identified. Ovaries / Adnexa: Both ovaries appear normal. No adnexal abnormalities areidentified. Cervix: Appears long on transabdominal imaging. Conclusion: Live finley intrauterine in variable presentation. Incomplete detailed anatomy survey as noted, with imaging limited byfetal position and maternal habitus. No structural abnormalitiesidentified with anatomy that was seen. heart was suboptimally imaged but appeared normal otherwise. Appropriate growth and normal amniotic fluid volume. Right lateral placenta previa. Marginal cord insertion (1.72 cm from placenta edge). Recommendations: Follow-up ultrasound in 1-4 weeks to complete detailed anatomysurvey. Follow-up growth and transvaginal ultrasound with color imaging ofinternal cervical os anytime once at 28w - 32w gestation to evaluateinterval growth, assess placenta location and exclude vasa previa. MEASUREMENTS aleida wks [+/-] (Range) % BPD: 4.62 cm 20w0d [+/-1.73] (3.80 - 4.98) 78% FL: 3.26 cm 20w1d [+/-1.80] (2.47 - 3.65) 75% HC: 17.24 cm 19w6d [+/-1.48] (14.81 - 18.73) 68% AC: 13.67 cm 19w1d [+/-2.06] (11.41 - 16.66) 39% HL: 3.14 cm 20w2d (2.36 - 3.36) 75% TCD: 1.94 cm 19w3d [+/-1.80] (1.80 - 2.20) 52% NF: 4.02 mm Cisterna Magna: 0.44 cm RATIOS (Range) % HC/AC: 1.26 (1.09 - 1.26) 96% FL/BPD: 0.71 FL/AC: 0.24 LONG BONES SURVEY cm wks [+/-] (Range) % Humerus: 3.14 cm 20w2d (2.36 - 3.36) 75% Ulna: 2.76 cm Radius: 2.46 cm Femur: 3.26 cm 20w1d [+/-1.80] (2.47 - 3.65) 75% Tibia: 2.95 cm Fibula: 2.76 cm COMPUTATIONS GA: 19w2d [+/-1.40] Method: NAIF NAIF: 06/30/2024 Sono GA: 19w4d [+/-1.40] Method: BPD, HC, AC, FL Weight: 327 gms. 0 lb 11 oz. 86% Method: BPD, HC, AC, FL OBSERVATIONS Amniotic Fluid Fluid Volume: Normal Placenta: Placenta is Right Lateral. There is a complete anteriorplacenta previa. Presentation: Variable Size: Normal for dates FHR: 144 bpm ANATOMY Normal: Sag and Trans Cervical spine, Sag and Trans Thoracic spine, Sagand Trans Lumbar spine, Sag and Trans Sacral spine, Cerebellum, Vermis,Cisterna magna, Cerebral ventricle, Choroid plexus, Nuchal thickness, CSP,Midline falx, Palate, Maxilla, Mandible, Tongue, 4 chamber heart, Interventricular septum, Situs, 3VV,3VT, Aortic arch, SVC/IVC, Chest/Heart/lungs, Diaphragm, Anteriorabdominal wall, Abdominal cord insertion, 3 vessel cord, Stomach, Kidneys(coronal and trans), Renal arteries, Bladder, Face, Upper lip/nose, Profile/Nasal Bone, Orbits/lens, Upperextremities, Lower extremities, Hands, Feet Abnormal: Placental cord insert Not Seen: RVOT, LVOT, Ductal arch, Pulmonary veins Preliminary Read by Ana Aguilar on 02/06/2024 3:16:07 PM. Preliminary Read by Ana Aguilar on 02/06/2024 3:25:27 PM. Preliminary Read by Dez Rivers M.D. on 02/06/2024 4:26:07PM. Warehouse Shipping Clerk: Ana Aguilar Thank You For This Referral Dez Rivers M.D. IMG OB US TX OCEDURES * US Kidneys with Renal Artery Doppler (01/30/2024 3:02 PM CDT) Anatomical Region Laterality Modality Abdomen, Renal, Ultrasound R ST LOS, Ultrasound ARZ LOS, Ultrasound FLA LOS, Procedural, Vascular Interventional NWWI LOS N/A Ultrasound Impressions 01/30/2024 5:30 PM CDT 1. Elevated velocities within the distal right renal artery (237 cm/s), suggestive of narrowing, which may be secondary to fibromuscular dysplasia in this location. 2. Borderline elevated velocities within the distal left renal artery (161 cm/s), which may be secondary to fibromuscular dysplasia in this location. 3. MRA could be helpful in further evaluation if clinically indicated. Narrative 01/30/2024 5:30 PM CDT EXAM: US KIDNEYS WITH RENAL ARTERY DOPPLER Exam performed with color and spectral Doppler analysis. COMPARISON: None. FINDINGS: Right kidney: Normal echogenicity and parenchymal thickness. No hydronephrosis. Right renal artery: Elevated velocities within the distal right renal artery (237 cm/s), suggestive of narrowing, which may be secondary to fibromuscular dysplasia in this location; single vessel well seen. Left kidney: Normal echogenicity and parenchymal thickness. Mild prominence of the left renal collecting system. Left renal artery: Borderline elevated velocities within the distal left renal artery (161 cm/s), which may be secondary to fibromuscular dysplasia in this location; single vessel well seen. Right Renal Measurements: Right renal length: 13.3 cm Right segmental artery - upper pole RI: 0.82 Right segmental artery - lower pole RI: 0.73 Right renal artery origin PSV: 142 cm/s Right renal artery prox PSV: 163 cm/s Right renal artery mid PSV: 160 cm/s Right renal artery distal PSV: 237 cm/s Left Renal Measurements: Left renal length: 15.0 cm Left segmental artery - upper pole RI: 0.78 Left segmental artery - lower pole RI: 0.79 Left renal artery origin PSV: 92 cm/s Left renal artery prox PSV: 116 cm/s Left renal artery mid PSV: 155 cm/s Left renal artery distal PSV: 161 cm/s Aorta: Normal caliber. Aorta PSV: 136 cm/s Bladder: Grossly normal where seen. Other: Gravid uterus. Procedure Note Kira Drummond M.D. - 01/30/2024 EXAM: US KIDNEYS WITH RENAL ARTERY DOPPLER Exam performed with color and spectral Doppler analysis. COMPARISON: None. FINDINGS: Right kidney: Normal echogenicity and parenchymal thickness. Nohydronephrosis. Right renal artery: Elevated velocities within the distal right renalartery (237 cm/s), suggestive of narrowing, which may be secondary tofibromuscular dysplasia in this location; single vessel well seen. Left kidney: Normal echogenicity and parenchymal thickness. Mildprominence of the left renal collecting system. Left renal artery: Borderline elevated velocities within the distal leftrenal artery (161 cm/s), which may be secondary to fibromuscular dysplasiain this location; single vessel well seen. Right Renal Measurements: Right renal length: 13.3 cm Right segmental artery - upper pole RI: 0.82 Right segmental artery - lower pole RI: 0.73 Right renal artery origin PSV: 142 cm/s Right renal artery prox PSV: 163 cm/s Right renal artery mid PSV: 160 cm/s Right renal artery distal PSV: 237 cm/s Left Renal Measurements: Left renal length: 15.0 cm Left segmental artery - upper pole RI: 0.78 Left segmental artery - lower pole RI: 0.79 Left renal artery origin PSV: 92 cm/s Left renal artery prox PSV: 116 cm/s Left renal artery mid PSV: 155 cm/s Left renal artery distal PSV: 161 cm/s Aorta: Normal caliber. Aorta PSV: 136 cm/s Bladder: Grossly normal where seen. Other: Gravid uterus. IMPRESSION: 1. Elevated velocities within the distal right renal artery (237 cm/s),suggestive of narrowing, which may be secondary to fibromuscular dysplasiain this location. 2. Borderline elevated velocities within the distal left renal artery (161cm/s), which may be secondary to fibromuscular dysplasia in thislocation. 3. MRA could be helpful in further evaluation if clinically indicated. Dez Rivers M.D. IMG US PROCE DURES * (ABNORMAL) ThinPrep Screen (04/14/2022 10:41 AM [...] Wild M.D. LAB PAP PATHDX ORDER [facility] [address] [place] [address], [facility] [address] [place] [address] from Last 3 Months or Most Recently Relevant to Health Maintenance Advance Directives For more information, please contact: [phone] * Full Code (Latest Code Status on File) Date Activated Date Inactivated Comments 03/23/2023 5:05 PM 03/23/2023 9:40 PM Question Answer Comments Full Code: Discussed * Full Code Date Activated Date Inactivated Comments 03/23/2023 10:38 AM 03/23/2023 5:05 PM Question Answer Comments Full Code: Discussed Care Teams Vault Cashier Relationship Specialty Start Date End Date Shan Wild M.D. [address] [place] [address] [phone] PCP - General Family Medicine 04/07/22
--- OUTSIDE RECORDS SUMMARY | 2024-04-04 12:05 | XMS_ITS ---
Author Organization [facility] Address [address] [place] [address] Care Team Providers Care Manager Casino Name Role Phone Unavailable Unavailable Unavailable Surgery Details Not on file Complications Check Surgery Details section. Procedure Estimated Blood Loss Check Surgery Details section. Procedure Findings Check Surgery Details section. Procedure Specimens Taken Check Surgery Details section.
--- OUTSIDE RECORDS SUMMARY | 2024-04-04 12:05 | XMS_ITS | Clinical Summary ---
Author Organization [facility] Address [address] [place] [id number] Care Team Providers Care Clean Room Technician Name Role Phone Shan Wild M.D. Primary Care Provider Source Comments Patient records contain information from all sites at [facility]. For routine questions regarding patient records, call [phone] during business hours, M-F 8:00 AM - 5:00 PM Central Time. Record requests for emergency care only can be directed to [phone] at any time.[facility] Allergies Active Allergy Reactions Criticality Noted Date [...] 2 (two) times a day. 01/18/2024 Active [id number] 27 mg iron- 1 mg tablet Take 1 tablet by mouth daily. 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 Pre Existing Essential Hypertension [...] Encounter Department of Obstetrics and Gynecology in [place], [place] [address] [place] [phone] Dez Rivers M.D. Complication Morbid Obesity Body Mass Index Greater Than 40 (HCC); Pre Existing Essential Hypertension Complicating Second Trimester (HCC); Recurrent Loss Second Trimester (HCC) Discharge Disposition: Home or Self Care 03/10/2024 11:00 AM CDT Comprehensive Visit Division of Pediatric Cardiology in [place], [place] [address] [place] [phone] Binu Ho M.B.B.SRochelle Encounter For Screening For Congenital Cardiac Abnormalities (HCC) (Primary Dx); Complication Morbid Obesity Body Mass Index Greater Than 40 (HCC); Pre Existing Essential Hypertension Complicating Second Trimester (HCC); Recurrent Loss Second Trimester (HCC) 03/10/2024 9:55 AM CDT - 03/10/2024 1:35 PM CDT Hospital Encounter Department of Cardiovascular Diseases in [place], [place] [address] [place] [address] Dez Rivers M.D. Complication Morbid Obesity Body Mass Index Greater Than 40 (HCC); Pre Existing Essential Hypertension Complicating Second Trimester (HCC); Recurrent Loss Second Trimester (HCC) Discharge Disposition: Home or Self Care 02/13/2024 4:30 PM CDT Routine Department of Obstetrics and Gynecology in [place], [place] [address] [place] [address] Dez Rivers M.D. Complication Morbid Obesity Body [...] Trimester (HCC); 20 Weeks Gestation (HCC) 02/13/2024 4:26 PM CDT - 02/13/2024 11:59 PM CDT Hospital Encounter Department of Laboratory Medicine and Pathology, [facility] in [place], [place] [address] [place] [address] Polly Vega M.B.B.S. Pre Existing Essential Hypertension Complicating First Trimester (HCC) Discharge Disposition: Home or Self Care 02/13/2024 3:21 PM CDT - 02/13/2024 4:25 PM CDT Hospital Encounter Department of Obstetrics and Gynecology in [place], [place] [address] [place] [phone] Dez Rivers M.D. Maternal Care For Other Isoimmunization Second Trimester Single Gestation (HCC); Encounter For Screening For Malformations ([facility]); Complication Morbid Obesity Body Mass Index Greater Than 40 ([facility]); Pre Existing Essential Hypertension Complicating Second Trimester (HCC) Discharge Disposition: Home or Self Care 02/13/2024 2:30 PM CDT Comprehensive Visit Division of Nephrology and Hypertension in [place], [place] [address] [place] [phone] Sona Walsh M.D., Ph.D. Hyperplasia Fibromuscular Renal Artery (HCC) (Primary Dx); Pre Existing Essential Hypertension Complicating First Trimester (HCC) 02/13/2024 Orders Only Department of Obstetrics and Gynecology in [place], [place] [address] [place] [address] Dez Rivers M.D. Complication Morbid Obesity Body Mass Index Greater Than 40 (HCC) (Primary Dx); Pre Existing Essential Hypertension Complicating Second Trimester (HCC); Recurrent Loss Second Trimester (HCC) 02/07/2024 Clinical Communication Department of Obstetrics and Gynecology in [place], [place] [address] [place] [address] Dez Rivers M.D. 02/06/2024 3:30 PM CDT Routine Department of Obstetrics and Gynecology in [place], [place] [address] [place] [address] Dez Rivers M.D. Complication Morbid Obesity Body [...] Encounter Department of Obstetrics and Gynecology in [place], [place] [address] [place] [address] Dez Rivers M.D. Maternal Care For Other Isoimmunization First Trimester Single Gestation (HCC) Discharge Disposition: Home or Self Care 01/30/2024 1:45 PM CDT - 01/30/2024 11:59 PM CDT Hospital Encounter Department of Radiology, [facility], in [place], [place] [address] [place] [address] Dez Rivers M.D. Maternal Care For Other Isoimmunization First Trimester Single Gestation (HCC); Pre Existing Essential Hypertension Complicating First Trimester (HCC) Discharge Disposition: Home or Self Care 01/30/2024 Orders Only Department of Obstetrics and Gynecology in [place], [place] [address] [place] [phone] Dez Rivers M.D. Pre Existing Essential Hypertension Complicating First Trimester (HCC) (Primary Dx) 01/11/2024 11:00 AM CDT Virtual Visit Department of Obstetrics and Gynecology in [place], [place] [address] [place] [phone] Celina Mauricio M.S., CGC Recurrent Loss Unspecified Trimester (HCC) (Primary Dx) from Last 3 Months Immunizations Name Administration [...] Family History Medical History Relation Name Comments No Known Problems Brother 1 Hypertension Father Emphysema Maternal Grandfather Lung cancer Maternal Grandmother Miscarriages / Stillbirths Maternal Grandmother several miscarriage s, at least 2 stillbirths Stroke Maternal Grandmother Anemia Mother Diabetes Mother Congenital Hearing Loss Other 1 Felipe () Carlos topete's sister also has hearing loss Diabetes Paternal Grandmother Heart disease Paternal Grandmother Hypertension Paternal Grandmother Hypertension Sister No Known Problems Son Relation Name Status Comments Brother 1 Alive Brother 2 Alive Father Alive Maternal Cousin 1 Alive Maternal Cousin 2 Alive Maternal Cousin 3 Alive Maternal Grandfather Alive Maternal Grandmother Mother Alive 1 miscarriage Mother's Sister Alive Other 1 Felipe () Alive sister had 2 miscarriages. IEP, mainly for reading. sister and brother also had IEP. Other 2 Fetus - In Utero Other 3 Fetus - Stillbirth Paternal Grandmother Alive Sister Alive Son Alive Social History Tobacco Use Types Packs/Day Years Used Date Smoking Tobacco: Former Cigarettes 0.3 10 Q uit: 08/24/2023 Smokeless Tobacco: Never Tobacco Cessation:Counseling Given: Not Answered Comments:Currently using a vape. Alcohol Use Standard Drinks/Week Comments Yes 0 (1 standard drink = 0.6 oz pur e alcohol) Once a month [facility] Utilities Answer Date Recorded In the past 12 months has th e electric, gas, oil, or water company threatened to shut off services in your [...] often do you attend chur ch or gnosticist services? Never 08/30/2022 Do you belong to any clubs o r organizations such as buddhism groups, unions, fraternal or athletic groups, or [...] Date Recorded PHQ-2 Score 1 05/30/2023 [facility] - Occupational Stress Questionnaire Answer [...] Sex Assigned at Female 08/23/2022 7:16 PM DIRECTOR OF DIETARY Gender Identity Female 08/23/2022 7:16 PM DIRECTOR OF DIETARY Sexual Orientation Bisexual 08/23/2022 7: 16 PM DIRECTOR OF DIETARY Last Filed Vital Signs Vital Sign Reading Time Taken Comments Blood Pressure 126/76 03/10/2024 2:30 PM CDT Pulse 75 03/10/2024 2:30 PM CDT Temperature 36.8 ??C (98.2 ??F) 03/10/2024 2:30 PM CD T Respiratory Rate 16 06/01/2023 9:19 AM DIRECTOR OF DIETARY Oxygen Saturation 99% 03/10/2024 2:30 PM CDT Inhaled Oxygen Concentration - - Weight 140 kg (308 lb 10.3 oz) 03/10/2024 2:30 P M CDT Height 173.4 cm (5' 8.27) 02/13/2024 2:31 PM CD T Body Mass Index 46.56 02/13/2024 2:31 PM CDT Plan of Treatment Health Maintenance Due Date Last Done Comments HIV Screening 1995 Hepatitis C Screening 1995 Visit: Chronic Disease, age 18+ 1995 Depression Screening (Annual PHQ-2) 06/25/2023 COVID-19 Vaccine ( season) 2024 06/01/2023, 04/14/2022, 06/15/2021, Additional history exists Influenza Vaccine (#1) 2024 , 04/14/2022, 04/28/2016, Additional history exists RSV vaccine - (32-36 weeks) or 60+ years (1 - Risk 1-dose series) 05/05/2024 Office Visit for Blood Pressure Check / Re-check 03/10/2025 03/10/2024 Cervical Cancer Screening 05/05/2025 05/05/2022, DTaP,Tdap,and Td Vaccines (7 - Td or Tdap) 04/28/2026 04/28/2016, 11/17/2004, 04/14/1998, Additional history exists Hepatitis B Vaccines Completed 04/14/1998, 05/06/1997, 04/14/1996 HPV Vaccines Completed 04/28/2016, 11/23, 04/28/2008 Pneumococcal vaccine (0-64 years) Aged Out 06/01/2023 No longer eligible based on patient's age [...] Phys: ??DEZ RIVERS Exam Date: 03/10/2024 Procedure: OB GROWTH FINLEY Exam Site: [facility] OB #[id number] Plurality: 1 OBHx: [G:(7)] ?F [...] Jesús Silva R.D.M.SRochelle on 03/10/2024 2:22:44 PM. Hospitality Services Manager: ??Jesús Silva R.D.MZulma Thank You For This Referral Procedure Note Chin Bates M.D. - 03/10/2024 KIRSTEN RAND NEHA JEAN OB Exam, 03/10/2024 EXAM INFORMATION Patient Name: NEHA MARCUS : 1995 Age: 28 yrs Sex: Female Ref Phys: DEZ RIVERS Exam Date: 03/10/2024 Procedure: US OB GROWTH FINLEY Exam Site: [facility] OB #[id number] Plurality: 1 OBHx: [G:(7)] F [...] Jesús Silva R.D.M.SRochelle on 03/10/2024 2:22:44 PM. Hospitality Services Manager: Jesús Silva R.D.MRochelleSRochelle Thank You For This Referral Dez Rivers M.D. IMG OB US MI OCEDURES * FINLEY ECHO 2D WITH COLOR AND DOPPLER (03/10/2024 11:12 AM CDT) [facility] Signature Ejection Fraction [facility] Anatomical Region Laterality Modality Echocardiography 03/10/2024 [...] CDT Polly Saenz LAB URINE ORDER ARIN [place] [address] [facility] [address] [place] [address] * (ABNORMAL) Microscopic Automated (02/13/2024 4:43 PM [...] LAB URINE ORDER ARIN Performing Organization Address City/[facility] [facility]/ZIP Co de Phone Number [facility] [address] [place] [address] * pH, Urine (02/13/2024 4:43 PM CDT) pH, U 5.9 4.5 - 8.0 02/13/2024 6:2 7 PM CDT DTL Urine 02/13/2024 4:43 PM CDT 02/13/2024 5:32 PM CDT Polly Bee.S. LAB URINE ORDER ARIN Performing Organization Address [facility] de Phone Number [facility] [address] [place], [place] [address] [place] [phone] * Albumin, Random, Urine (02/13/2024 4:43 PM CDT) Albumin, Random, U <5.0 mg/L 2023 10:29 AM CDT DTL Comment: ----ADDITIONAL INFORMATION---- This test has been modified from the capacity planning manager's instructions. Its performance characteristics were determined by [facility] in a manner consistent with CLIA requirements. [...] CDT Polly MarquisBRochelleS. LAB URINE ORDER ARIN [facility] [address] [place] [address], [facility] [address] [place] [address] * Protein/Creatinine Ratio, Random, Urine (02/13/2024 4:43 [...] LAB URINE ORDER ARIN Performing Organization Address City/[facility]/ZIP Co de Phone Number [facility] [address] [place] [address], [facility] [address] [place] [address] * Osmolality, Urine (02/13/2024 4:43 PM CDT) Osmolality, U 770 150 - 1150 mOsm/kg 02/13/2024 6:27 PM CDT DTL Urine 02/13/2024 4:43 PM CDT 02/13/2024 5:32 PM CDT Polly MarquisBRochelleS. LAB URINE ORDER ARIN [facility] [address] [place] [address], [facility] [address] [place] [address] * Urinalysis, with Microscopic: Urine, Midstream (02/13/2024 [...] CDT Polly Saenz [place] [address], [facility] [address] [place] [address] * US OB Follow-up and or Growth [...] by Richard Haskins on 02/13/2024 4:18:01 PM. Hospitality Services Manager: ??Richard Haskins Thank You For This Referral Procedure Note Dez Rivers M.D. - 02/13/2024 NEHA MARCUS OB Exam, 02/13/2024 EXAM INFORMATION Patient Name: NEHA MARCUS : [...] by Richard Haskins on 02/13/2024 4:18:01 PM. Hospitality Services Manager: Richard Hasknis Thank You For This Referral Dez Rivers M.D. IMG OB US MI OCEDURES * (ABNORMAL) CBC without Differential (02/06/2024 [...] Dez Rivers M.D. LAB BLOOD AD D-ON [facility] [address] [place] [address], [facility] DTL [facility] [address] [place] [address] * (ABNORMAL) Comprehensive Metabolic Panel (02/06/2024 5:00 [...] Dez Rivers M.D. LAB BLOOD AD D-ON [facility] [address] [place] [address], [facility] DTL [facility] [address] [place] [address] * US OB Advanced Level Finley (02/06/2024 3:16 PM CDT) Anatomical Region Laterality Modality Body, Ultrasound OB RST LOS, Ultrasound ARZ LOS N/A Ultrasound Narrative 02/06/2024 5:02 PM CDT NEHA MARCUS OB Exam, 02/06/2024 EXAM INFORMATION Patient Name: ??NEHA MARCUS : ??1995 Age: ??28 yrs Sex: ??Female Ref Phys: ??DEZ RIVERS Exam Date: 02/06/2024 Procedure: US OB ADVANCED LEVEL FINLEY Exam Site: [facility] OB #[id number] Plurality: 1 OBHx: [G:(7)] ?F [...] Dez Rivers M.D. on 02/06/2024 4:26:07 PM. Hospitality Services Manager: ??Ana Aguilar Thank You For This Referral Procedure Note Dez Rivers M.D. - 02/06/2024 NEHA MARCUS OB Exam, 02/06/2024 EXAM INFORMATION Patient Name: NEHA MARCUSAN : 1995 Age: 28 yrs Sex: Female Ref Phys: DEZ RIVERS Exam Date: 02/06/2024 Procedure: US OB ADVANCED LEVEL FINLEY Exam Site: [facility] OB #[id number] Plurality: 1 OBHx: [G:7)] F Trm:() Pre:() C-Sec:() Ab-I:() Ab-S:() Ect:() [...] by Dez Rivers M.D. on 02/06/2024 4:26:07PM. Hospitality Services Manager: Ana Aguilar Thank You For This Referral Dez Rivers M.D. IMG OB US MI OCEDURES * US Kidneys with Renal Artery [...] clinically indicated. Dez Rivers M.D. IMG US CARMINA RAZA * (ABNORMAL) ThinPrep Screen (04/14/2022 10:41 AM [...] Wild M.D. LAB PAP PATHDX ORDER ARIN [facility] [address] [place] [address], [facility] HKCY [facility] [address] [place] [address] from Last 3 Months or Most Recently Relevant to Health Maintenance Advance Directives For more information, please contact: [phone] * Full Code (Latest Code Status on File) Date Activated Date Inactivated Comments 03/23/2023 5:05 PM 03/23/2023 9:40 PM Question Answer Comments Full Code: Discussed * Full Code Date Activated Date Inactivated Comments 03/23/2023 10:38 AM 03/23/2023 5:05 PM Question Answer Comments Full Code: Discussed Care Teams Clean Room Technician Relationship Specialty Start Date End Date Shan Wild M.D. [address] [place] [phone] PCP - General Family Medicine 04/07/22
--- OUTSIDE RECORDS SUMMARY | 2024-04-04 12:06 | XMS_ITS | Encounter Summary ---
Author Organization [facility] Address [address] [place] [address] Care Team Providers Care Food Safety Director Name Role Phone Shan Wild M.D. Primary Care Provider Reason for Referral * Outpatient (Routine) - Closed Specialty Diagnoses / Procedures Referred By Kike ortiz Referred To Contact Obstetrics and Gynecology Diagnoses Complication Morbid Obesity Body Mass Index Greater Than 40 (HCC) Pre Existing Essential Hypertension Complicating Second Trimester (HCC) Recurrent Loss Second Trimester (HCC) Dez Rivers M.D. [address] [place] [address] [facility] Referral ID Status Reason Start Date Expiration Date Visits Re quested Visits Authorized [id number] Closed 02/13/2024 08/14/2025 1 1 Scheduling Instructions Sched with Kaya please. * Outpatient (Routine) - Closed Specialty Diagnoses / Procedures Referred By Kike ortiz Referred To Contact Diagnoses Complication Morbid Obesity Body Mass Index Greater Than 40 (HCC) Pre Existing Essential Hypertension Complicating Second Trimester (HCC) Recurrent Loss Second Trimester (HCC) Procedures Echo Dez Rivers M.D. [address] [place] [address] [facility] Referral ID Status Reason Start Date Expiration Date Visits Re quested Visits Authorized [id number] Closed 02/13/2024 02/12/2025 1 1 * Outpatient (Routine) - Closed Specialty Diagnoses / Procedures Referred By Kike ortiz Referred To Contact Pediatric Cardiology Diagnoses Complication Morbid Obesity Body Mass Index Greater Than 40 (HCC) Pre Existing Essential Hypertension Complicating Second Trimester (HCC) Recurrent Loss Second Trimester (HCC) Dez Rivers M.D. [address] [place] [address] [facility] Referral ID Status Reason Start Date Expiration Date Visits Re quested Visits Authorized [id number] Closed 02/13/2024 08/14/2025 1 1 Scheduling Instructions Schedule echo before growth US please. Encounter Details Date Type Department Care Team (Late st Contact Info) Description 02/13/2024 Orders Only Department of Obstetrics and Gynecology in [place], [place] [address] [place] [address] Dez Rivers M.D. [address] [place] [address] Complication Morbid Obesity Body Mass Index Greater [...] oz pur e alcohol) Once a month [facility] Utilities Answer Date Recorded In the past 12 months has e electric, gas, oil, or water [employer] threatened to shut off services in your [...] often do you attend chur ch or restoration services? Never 08/30/2022 Do you belong to any clubs o r organizations such as latter day groups, unions, fraternal or athletic groups, or [...] Answer Date Recorded PHQ-2 Score 1 05/30/2023 [facility] - Occupational Stress [...] your living situation today? I have a [facility] place to live 12/17/2023 Education Answer Date Recorded What is the highest level of school you have completed or the highest degree you have received? 12th grade 08/23/2022 Estimated Date of Delivery Comme nts Yes 06/30/2024 Based on last me nstrual period of 09/24/2023 (Exact Date) Sex and Gender Information Value Date Recorded Sex Assigned at Female 08/23/2022 7:16 PM PLATE WORKER HELPER Gender Identity Female 08/23/2022 7:16 PM PLATE WORKER HELPER Sexual Orientation Bisexual 08/23/2022 7: 16 PM PLATE WORKER HELPER documented as of this encounter Plan of Treatment Scheduled Referrals Name Type Priority Associated Diagnoses Orde r Schedule Pediatric Cardiology - clinic consult (clinic) Outpatient Referral Routine Complication Morbid Obesity Body Mass Index Greater Than 40 (HCC) Pre Existing Essential Hypertension Complicating Second Trimester (HCC) Recurrent Loss Second Trimester (HCC) Expected: 03/05/2024, Expires: 05/15/2025 Obstetrics and Gynecology office visit (clinic) Outpatient Referral Routine Complication Morbid Obesity Body Mass Index Greater Than 40 (HCC) Pre Existing Essential Hypertension Complicating Second Trimester (HCC) Recurrent Loss Second Trimester (HCC) Expected: 03/05/2024, Expires: 05/15/2025 documented as of this encounter Results * US OB Growth Finley (03/10/2024 2:22 PM CDT) Anatomical Region Laterality Modality Body, Ultrasound OB RST LOS, Ultrasound ARZ LOS N/A Ultrasound Narrative 03/10/2024 4:10 PM CDT PETAR MARCUS OB Exam, 03/10/2024 EXAM INFORMATION Patient Name: ??PETAR MARCUS : ??1995 Age: ??28 yrs Sex: ??Female Ref Phys: ??DEZ RIVERS Exam Date: 03/10/2024 Procedure: US OB GROWTH FINLEY Exam Site: [facility] OB #126 Plurality: 1 OBHx: [G:(7)] [...] Jesús Silva R.D.M.SRochelle on 03/10/2024 2:22:44 PM. Air Quality Consultant: ??Jesús Silva R.D.M.S. Thank You For This Referral Procedure Note Chin Bates M.D. - 03/10/2024 PETAR MARCUS OB Exam, 03/10/2024 EXAM INFORMATION Patient Name: PETAR MARCUS : 1995 Age: 28 yrs Sex: Female Ref Phys: DEZ RIVERS Exam Date: 03/10/2024 Procedure: OB GROWTH FINLEY Exam Site: [facility] OB #126 Plurality: 1 OBHx: [G:(7)] [...] was obtained. Preliminary Read by Jesús Silva R.D.MRochelleSRochelle on 03/10/2024 2:22:44 PM. Air Quality Consultant: Jesús Silva R.D.M.S. Thank You For This Referral Dez Rivers M.D. IMG OB US NE OCEDURES * FINLEY ECHO 2D WITH COLOR AND DOPPLER (03/10/2024 11:12 AM CDT) Ejection Fraction [facility] Anatomical Region Laterality Modality Echocardiography 03/10/2024 [...] see the Order-Level Documents. Dez Rivers M.D. ECHO PROC EDURES documented in this encounter Visit Diagnoses Diagnosis Complication Morbid Obesity Body Mass Index Greater Than 40 (HCC)- Primary Pre Existing Essential Hypertension Complicating Second Trimester (HCC) Recurrent Loss Second Trimester (HCC) Complication Morbid Obesity Body Mass Index Greater Than 40 (HCC) Pre Existing Essential Hypertension Complicating Second Trimester (HCC) Recurrent Loss Second Trimester (HCC) Complication Morbid Obesity Body Mass Index Greater Than 40 (HCC) Pre Existing Essential Hypertension Complicating Second Trimester (HCC) Recurrent Loss Second Trimester (HCC) documented in this encounter Care Teams Food Safety Director Relationship Specialty Start Date End Date Shan Wild M.D. [address] [place] [phone] PCP - General Family Medicine 04/07/22 documented as of this encounter
--- OUTSIDE RECORDS SUMMARY | 2024-04-04 12:06 | XMS_ITS | Encounter Summary ---
Author Organization [facility] Address [address] [place] [address] Care Team Providers Care Welfare Case Worker Name Role Phone Shan Wild M.D. Primary Care Provider Reason for Visit * Outpatient (Routine) - Closed Specialty Diagnoses / Procedures Referred By Kike ortiz Referred To Contact Obstetrics and Gynecology Diagnoses Maternal Care For Other Isoimmunization First Trimester Single Gestation (HCC) Encounter For Screening For Malformations (HCC) Complication Morbid Obesity Body Mass Index Greater Than 40 (HCC) Pre Existing Essential Hypertension Complicating Second Trimester (HCC) Danielle Kirkpatrick M.D. [address] [place] [address] [facility] Referral ID Status Reason Start Date Expiration Date Visits Re quested Visits Authorized [id number] Closed 02/06/2024 08/07/2025 1 1 Encounter Details Date Type Department Care Team (Latest Contact Info) Description 02/13/2024 4:30 PM CDT Routine Department of Obstetrics and Gynecology in [place], [place] [address] [place] [phone] Danielle Kirkpatrick M.D. [address] [place] [phone] Complication Morbid Obesity Body Mass Index Greater [...] Second Trimester (HCC); 20 Weeks Gestation (HCC) Social History Tobacco Use Types Packs/Day Years Used Date Smoking Tobacco: Former Cigarettes 0.3 10 Q uit: 08/24/2023 Smokeless Tobacco: Never Comments:Currently using a v ape. Alcohol Use Standard Drinks/Week Comments Yes 0 (1 standard drink = 0.6 oz pur e alcohol) Once a month [facility] Utilities Answer Date Recorded In the past 12 months has e [employer], oil, or water [employer] threatened to shut off services in your [...] often do you attend chur ch or zoroastrian services? Never 08/30/2022 Do you belong to any clubs o r organizations such as episcopalian groups, unions, fraternal or athletic groups, or [...] Answer Date Recorded PHQ-2 Score 1 05/30/2023 [facility] - [...] Sex Assigned at Female 08/23/2022 7:[address] ENGINEER FREIGHT Gender Identity Female 08/23/2022 7:[address] ENGINEER FREIGHT Sexual Orientation Bisexual 08/23/2022 7: [address] ENGINEER FREIGHT documented as of this encounter Progress Notes * Danielle Kirkpatrick M.D. - 02/13/2024 4:30 PM CDT SUBJECTIVE CHIEF COMPLAINT Maternal anti-Georgina isoimmunization HISTORY OF PRESENT ILLNESS OB History Para Term AB Living 7 1 1 5 1 SAB IAB Ectopic Molar Multiple Live Births 5 1 # Outcome Date GA Lbr Antoine/2nd Weight Sex Type Anes PTL Lv 7 Current 6 SAB 2019 8w0d SAB 5 SAB 2019 8w0d SAB 4 SAB 2018 8w0d SAB 3 SAB 2017 8w0d SAB 2 SAB 2016 8w0d SAB 1 Term 02/08/13 39w6d 4.054 kg M CS-LTranv Spinal N JAIME Mrs. Neha Rand is a 28 y.o. at 20w2d gestation. Estimated Date of Delivery: 06/30/24 is based on her last menstrual period and first trimester 8w4d dating ultrasound. Patient presents for high risk follow-up. She has been doing well otherwise, with no obstetric complaints other than normal discomforts of . She reports good movement. She denies uterine contractions, leakage of fluid or vaginal bleeding. I have reviewed and updated the following as indicated: past medical history, past surgical history, social history, family medical history, medications, allergies, and problem list. Medications the Patient Reported Taking acetaminophen (TYLENOL) 500 mg tablet (Taking) ferrous sulfate 325 mg (65 mg iron) tablet (Taking) OBJECTIVE LMP 09/24/2023 (Exact Date) General: Alert and comfortable. Ultrasound: Live hernandez intrauterine in cephalic presentation. cardiac anatomy appears within normal limits. Imaging was extremely limited by positionand maternal habitus but anatomy appears normal where seen. Normal amniotic fluid volume. 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 at 20w2d gestation complicated by the followin. Placenta previa 2. 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 History: prior myomectomy (02/2023) requiring section 5. History: prior section (G1) 6. History: (5) recurrent first trimester loss 7. Obesity Class 3 BMI 45 kg/m2 8. Marginal cord insertion RECOMMENDATIONS CARE Continue routine care with her primary obstetric providers in [facility], [facility] Vito Reyes CNM and care team. Maternal Medicine will continue to follow along closely. RISK COUNSELLING Placenta previa Ultrasound finding of placenta previa was reviewed in detail with patient. She has had no episodes of vaginal bleeding so far. Reassuringly, there are no findings concerning for placenta accreta. We had an extensive discussion regarding risks and complications associated with placenta previa, including vaginal bleeding that could lead to clinically significant anemia, nonreassuring status, maternal hemodynamic instability, emergent and/or medically indicated deliveryrequiring section. Precautions were reviewed. Chronic hypertension, controlled, on medications Renal artery ultrasound recently done is concerning for fibromuscular dysplasia. I have asked that she meet with Nephrology Hypertension OB for a consultation to review. Noted recent start of antihypertension medications. Hypertension appears to be well controlled at this time, with no concerns for superimposed preeclampsia. Maternal anti-Georgina isoimmunization Potential for anti-Georgina isoimmunization to have resulted from prior blood transfusion in 2021. Unknown Georgina antigen status for . Given fetus negative for Ingalls antigens, maternal anti-Ingalls isoimmunization is not expected to be clinically significant for this and fetus is at low risk of hemolytic disease. If blood transfusion is indicated, patient should receive Ingalls negative blood. History: prior myomectomy (02/2023) requiring section History: prior section (G1) Patient is not an ideal candidate for trial of labor after section. Given prior extensive myomectomy, she requires a section for delivery even if endometrial cavity was not entered during the myomectomy. Myomectomy operative report was reviewed: Per SUKHWINDER Salas, Given the extensive depth of the dissection this patient would benefit from delivery in the future if she were to get . CHRONIC HYPERTENSION BLOOD PRESSURE juice mixer blood pressure trend closely. Start home blood pressure monitoring and maintain blood pressure log. To call or come in for evaluation If with worsening hypertension trend, any persistent BP >140/90 mm Hg, any severe range BP>160/110 mm Hg or any signs or symptoms concerning for severepreeclampsia. LABORATORY / OTHER EVALUATION Repeat CBC, comprehensive metabolic panel (ordered, to be drawn today). ANTIHYPERTENSION MEDICATIONS Continue labetalol 200 mg oral every 12 hours. Asdjust medications to target BP <140/90 mm Hg. PREECLAMPSIA PROPHYLAXIS Continue low dose aspirin 81 mg oral daily for preeclampsia prophylaxis (OTC). PLACENTA PREVIA FOLLOW-UP ULTRASOUND Repeat transvaginal ultrasound at 28w to evaluate placental location, specifically to to assess forpersistence of placenta previa and exclude vasa previa. If with persistent placenta previa or low-lying placenta at 28w gestation, repeat transvaginal ultrasound at 32w and again at 36w gestation. PREVIA PRECAUTIONS / CONSIDERATIONS Recommend pelvic rest after 20 weeks gestation and decreased overall physical activity in the thirdtrimester. Recommendation for extended inpatient observation if with first episode of clinically significant bleeding; likely inpatient admission until delivery if with third episode of clinically significant bleeding. Pelvic rest and nothing in vagina until further advised. Patient was advised to present to triage for evaluation immediately if with any vaginal bleeding, abdominal pain, uterine contractions, leakage of fluid or vaginal bleeding. ANEMIA IRON SUPPLEMENTATION Continue oral iron supplementation. Continue high iron diet. DETAILED ANATOMY SURVEY Reviewed. Follow-up in 1 week to complete. ECHOCARDIOGRAM echocardiogram anytime once at 22w - 24w gestation given class 3 obesity (ordered, to be scheduled). GROWTH SURVEILLANCE Repeat growth ultrasound every 4 weeks to evaluate interval growth (24w, 28w, 32w and 36w gestation, sooner if clinically indicated). SURVEILLANCE Weekly BPP or modified BPP or NST starting at 32w-34w gestation. MODE OF DELIVERY Mode of delivery will be a planned repeat (second) section. TIMING OF DELIVERY Timing of delivery will be based on maternal and status. Medically indicated early term delivery anytime from 37w0d - 38w6d gestation for prior myomectomy requiring delivery. Low threshold to proceed with delivery anytime once at 36w0d gestation if with any concern for worsening chronic hypertension or early labor. CONTRACEPTION moth exterminator reversible contraception options, other contraception options and elective permanent sterilization options were reviewed. Revisit discussion in future visit depending on patient interest. Patient verbalized understanding our discussion. All her questions were answered and her concerns were addressed. A total of 10 minutes was spent in care of this patient. Danielle Kirkpatrick M.D. documented in this encounter Plan of Treatment Not on file documented as of this encounter Visit Diagnoses Diagnosis Complication Morbid Obesity Body Mass Index Greater Than 40 (HCC)- Primary Maternal Care For Other Isoimmunization Second Trimester Single Gestation (HCC) Encounter For Screening For Malformations (HCC) Pre Existing Essential Hypertension Complicating Second Trimester (HCC) Recurrent Loss Second Trimester (HCC) Maternal Care For Low Transverse Scar From Previous Delivery (HCC) Maternal Care Due To Uterine Scar From Other Previous Surgery (HCC) Complete Placenta Previa With Hemorrhage Second Trimester (HCC) 20 Weeks Gestation (HCC) documented in this encounter Care Teams Welfare Case Worker Relationship Specialty Start Date End Date Shan iWld M.D. [address] [place] [phone] PCP - General Family Medicine 04/07/22 documented as of this encounter
--- OUTSIDE RECORDS SUMMARY | 2024-04-04 12:06 | XMS_ITS | Encounter Summary ---
Author Organization [facility] Address [address] [place] [address] Care Team Providers Care Press Breaker Name Role Phone Shan Wild M.D. Primary Care Provider Encounter Details Date Type Department Care Team (Latest Contact Info) Description 03/10/2024 1:36 PM CDT - 03/10/2024 11:59 PM CDT Hospital Encounter Department of Obstetrics and Gynecology in [place], [place] [address] [place] [address] Dez Rivers M.D. [address] [place] [address] Complication Morbid Obesity Body Mass Index Greater Than 40 (HCC); Pre Existing Essential Hypertension Complicating Second Trimester (HCC); Recurrent Loss Second Trimester (HCC) Discharge Disposition: Home or Self Care Social History Tobacco Use Types Packs/Day Years Used Date Smoking Tobacco: Former Cigarettes 0.3 10 Q uit: 08/24/2023 Smokeless Tobacco: Never Comments:Currently using a v ape. Alcohol Use Standard Drinks/Week Comments Yes 0 (1 standard drink = 0.6 oz pur e alcohol) Once a month [facility] Utilities Answer Date Recorded In the past 12 months has e electric, gas, oil, or water company [...] How often do you attend chur or worship services? Never 08/30/2022 Do you belong to any clubs o r organizations such as taoism groups, unions, fraternal or athletic groups, or [...] Answer Date Recorded PHQ-2 Score 1 05/30/2023 [facility] Occupational Stress Questionnaire Answer Date [...] your living situation today? I have a [facility] place to live 12/17/2023 Education Answer Date Recorded What is the highest level of school you have completed or the highest degree you have received? 12th grade 08/23/2022 Estimated Date of Delivery Comme nts Yes 06/30/2024 Based on last me nstrual period of 09/24/2023 (Exact Date) Sex and Gender Information Value Date Recorded Sex Assigned at Female 08/23/2022 7:16 PM DIRECTOR DIGITAL ANALYTICS Gender Identity Female 08/23/2022 7:16 PM DIRECTOR DIGITAL ANALYTICS Sexual Orientation Bisexual 08/23/2022 7: 16 PM DIRECTOR DIGITAL ANALYTICS documented as of this encounter Medications at Time of Discharge Medication Sig Dispensed Refills Start Date End Date acetaminophen (TYLENOL) 500 mg tablet Take 2 tablets (1,000 mg total) by mouth every 6 (six) hours as needed for pain. Alternate with ibuprofen every 3 hours. Do not exceed 4000 mg or 4 g in 24 hours. 30 tablet 03/23/2023 aspirin 81 mg tabletIndications:Maternal Care For Other Isoimmunization First Trimester Fetus 1 (HCC) Take 1 tablet (81 mg total) by mouth daily. 12/19/2023 ferrous sulfate 325 mg (65 mg iron) tablet Take 325 mg by mouth every other day. Twice daily, every other day 04/26/2022 labetaloL 200 mg tablet Take 1 tablet by mouth 2 (two) times a day. 01/18/2024 [id number] 27 mg iron- 1 mg tablet Take 1 tablet by mouth daily. UNABLE TO FIND Apple cider vinegar tablet 3 times daily documented as of this encounter Plan of Treatment Not on file documented as of this encounter Procedures Procedure Name Priority Date/Time Associated Diagnosis Comments US OB GROWTH FINLEY RAD - Routine (most inpatients and all outpatients) 03/10/2024 2:22 PM CDT Complication Morbid Obesity Body Mass Index Greater Than 40 (HCC) Pre Existing Essential Hypertension Complicating Second Trimester (HCC) Recurrent Loss Second Trimester (HCC) documented in this encounter Results * US OB Growth Finley (03/10/2024 2:22 PM CDT) Anatomical Region Laterality Modality Body, Ultrasound OB RST LOS, Ultrasound ARZ LOS N/A Ultrasound Narrative 03/10/2024 4:10 PM CDT PETAR MARCUS OB Exam, 03/10/2024 EXAM INFORMATION Patient Name: ??PETAR MARCUS : ??1995 Age: ??28 yrs Sex: ??Female Ref Phys: ??DEZ KAMLA RIVERS Exam Date: 03/10/2024 Procedure: US OB GROWTH FINLEY Exam Site: [facility] OB #[id number] Plurality: 1 OBHx: [...] Jesús Silva R.D.MRochelleSRochelle on 03/10/2024 2:22:44 PM. Security Services Specialist: ??Jesús Silva R.D.M.S. Thank You For This Referral Procedure Note Chin Bates M.D. - 03/10/2024 KIRSTEN RANDPETAR OB Exam, 03/10/2024 EXAM INFORMATION Patient Name: PETAR MARCUS : 1995 Age: 28 yrs Sex: Female Ref Phys: DEZ RIVERS Exam Date: 03/10/2024 Procedure: OB GROWTH FINLEY Exam Site: [facility] OB #[id number] Plurality: 1 OBHx: [...] was obtained. Preliminary Read by Jesús Silva R.D.M.S. on 03/10/2024 2:22:44 PM. Security Services Specialist: Jesús Silva R.D.MRochelleSRochelle Thank You For This Referral Dez FORD OB US IN OCEDURES documented in this encounter Visit Diagnoses Diagnosis Complication Morbid Obesity Body Mass Index Greater Than 40 (HCC) Pre Existing Essential Hypertension Complicating Second Trimester (HCC) Recurrent Loss Second Trimester (HCC) documented in this encounter Care Teams Press Breaker Relationship Specialty Start Date End Date Shan Wild M.D. [address] [place] [address] [place] [phone] PCP - General Family Medicine 04/07/22 documented as of this encounter
--- OUTSIDE RECORDS SUMMARY | 2024-04-04 12:06 | XMS_ITS | Encounter Summary ---
Author Organization [facility] Address [address] [place] [address] Care Team Providers Care Quilter Fixer Name Role Phone Shan Wild M.D. Primary Care Provider Reason for Referral * Outpatient (Routine) - Closed Specialty Diagnoses / Procedures Referred By Kike ortiz Referred To Contact Diagnoses Complication Morbid Obesity Body Mass Index Greater Than 40 (HCC) Pre Existing Essential Hypertension Complicating Second Trimester (HCC) Recurrent Loss Second Trimester (HCC) Procedures Echo Danielle Kirkpatrick M.D. [address] [place] [address] [facility] Referral ID Status Reason Start Date Expiration Date Visits Re quested Visits Authorized [id number] Closed 02/13/2024 02/12/2025 1 1 Reason for Visit * Outpatient (Routine) - Closed Specialty Diagnoses / Procedures Referred By Kike ortiz Referred To Contact Diagnoses Complication Morbid Obesity Body Mass Index Greater Than 40 (HCC) Pre Existing Essential Hypertension Complicating Second Trimester (HCC) Recurrent Loss Second Trimester (HCC) Procedures Echo Danielle Blackburn M.D. [address] [place] [address] [facility] Referral ID Status Reason Start Date Expiration Date Visits Re quested Visits Authorized [id number] Closed 02/13/2024 02/12/2025 1 1 Encounter Details Date Type Department Care Team (Latest Contact Info) Description 03/10/2024 9:55 AM CDT - 03/10/2024 1:35 PM CDT Hospital Encounter Department of Cardiovascular Diseases in [place], [place] [address] [place] [address] Danielle Kirkpatrick M.D. [address] [place] [address] Complication Morbid Obesity Body Mass Index Greater [...] Once a month [facility] Utilities Answer Date Recorded In the past 12 months has [employer], gas, oil, or water [employer] threatened to shut off services in your [...] often do you attend chur ch or church services? Never 08/30/2022 Do you belong to [...] Answer Date Recorded PHQ-2 Score 1 05/30/2023 [facility] - Occupational Stress Questionnaire Answer [...] your living situation today? I have a [facility] place to live 12/17/2023 Education Answer Date Recorded What is the highest level of school you have completed or the highest degree you have received? 12th grade 08/23/2022 Estimated Date of Delivery Comme nts Yes 06/30/2024 Based on last me nstrual period of 09/24/2023 (Exact Date) Sex and Gender Information Value Date Recorded Sex Assigned at Female 08/23/2022 7:16 PM SALON COORDINATOR Gender Identity Female 08/23/2022 7:16 PM SALON COORDINATOR Sexual Orientation Bisexual 08/23/2022 7: 16 PM SALON COORDINATOR documented as of this encounter Medications at [...] mouth 2 (two) times a day. 01/18/2024 [id number]-[id number] 27 mg iron- 1 mg tablet Take 1 tablet by mouth daily. UNABLE TO FIND Apple cider vinegar tablet 3 times daily documented as of this encounter Plan of Treatment Not on file documented as of this encounter Procedures Procedure Name Priority Date/Time Associated Diagnosis Comments FINLEY ECHO 2D WITH COLOR AND DOPPLER Routine 03/10/2024 11:12 AM CDT Complication Morbid Obesity Body Mass Index Greater Than 40 (HCC) Pre Existing Essential Hypertension Complicating Second Trimester (HCC) Recurrent Loss Second Trimester (HCC) documented in this encounter Results * FINLEY ECHO 2D WITH COLOR AND DOPPLER (03/10/2024 11:12 AM CDT) Ejection Fraction [facility] Anatomical Region Laterality Modality Echocardiography 03/10/2024 [...] the complete report, see the Order-Level Documents. Danielle Kirkpatrick M.D. CV ECHO PROC EDURES documented in this encounter Visit Diagnoses Diagnosis Complication Morbid Obesity Body Mass Index Greater Than 40 (HCC) Pre Existing Essential Hypertension Complicating Second Trimester (HCC) Recurrent Loss Second Trimester (HCC) documented in this encounter Care Teams Quilter Fixer Relationship Specialty Start Date End Date Shan Wild M.D. [address] [place] [phone] PCP - General Family Medicine 04/07/22 documented as of this encounter
--- OUTSIDE RECORDS SUMMARY | 2024-04-04 12:06 | XMS_ITS | Encounter Summary ---
Author Organization [facility] Address [address] [place] [address] Care Team Providers Care Drying Machine Back Tender Name Role Phone Shan Wild M.D. Primary [...] Existing Essential Hypertension Complicating Second Trimester (HCC) Dez Rivers M.D. [address] [place] [address] [facility] Referral ID Status Reason Start Date Expiration Date Visits Re quested Visits Authorized [id number] Closed 02/06/2024 08/07/2025 1 1 Reason for Visit * Outpatient (Routine) - Closed Specialty Diagnoses / Procedures Referred By Kike ortiz Referred To Contact Obstetrics and Gynecology Diagnoses Maternal Care For Other Isoimmunization First Trimester Single Gestation (HCC) Dez Rivers M.D. [address] [place] [address] [facility] Referral ID Status Reason Start Date Expiration Date Visits Re quested Visits Authorized [id number] Closed 12/19/2023 06/19/2025 1 1 Encounter Details Date Type Department Care Team (Latest Contact Info) Description 02/06/2024 3:30 PM CDT Routine Department of Obstetrics and Gynecology in [place], [place] [address] [place] [address] Dez Rivers M.D. [address] [place] [address] Complication Morbid Obesity Body Mass Index Greater Than 40 (HCC) (Primary Dx); Maternal Care For Other Isoimmunization Second Trimester Single Gestation (HCC); Encounter For Screening For Malformations (HCC); Pre Existing Essential Hypertension Complicating Second Trimester (HCC); Anemia Complicating Second Trimester (HCC); Recurrent Loss Second Trimester (HCC); Complete Placenta Previa With Hemorrhage Second Trimester (HCC); 19 Weeks Gestation (HCC) Social History Tobacco Use Types Packs/Day Years Used Date Smoking Tobacco: Former Cigarettes 0.3 10 Q uit: 08/24/2023 Smokeless Tobacco: Never Comments:Currently using a v ape. Alcohol Use Standard Drinks/Week Comments Not Currently 0 (1 standard drink = 0.6 oz pur e alcohol) Once a month [facility] Utilities Answer Date Recorded In the past 12 months has [employer], gas, oil, or water [employer] threatened to shut off services in your [...] often do you attend chur ch or christianity services? Never 08/30/2022 Do you belong to any clubs o r organizations such as mormon groups, unions, fraternal or athletic groups, or [...] Answer Date Recorded PHQ-2 Score 1 05/30/2023 [facility] - Occupational Stress Questionnaire Answer Date [...] your living situation today? I have a [facility] place to live 12/17/2023 Education Answer Date Recorded What is the highest level of school you have completed or the highest degree you have received? 12th grade 08/23/2022 Estimated Date of Delivery Comme nts Yes 06/30/2024 Based on last me nstrual period of 09/24/2023 (Exact Date) Sex and Gender Information Value Date Recorded Sex Assigned at Female 08/23/2022 7:16 PM VISUAL EDUCATOR Gender Identity Female 08/23/2022 7:16 PM VISUAL EDUCATOR Sexual Orientation Bisexual 08/23/2022 7: 16 PM VISUAL EDUCATOR documented as of this encounter Last Filed Vital Signs Vital Sign Reading Time Taken Comments Blood Pressure 131/82 02/06/2024 3:33 PM CDT Pulse 70 02/06/2024 3:33 PM CDT Temperature - - Respiratory Rate - - Oxygen Saturation 100% 02/06/2024 3:33 PM CDT Inhaled Oxygen Concentration - - Weight - - Height - - Body Mass Index - - documented in this encounter Progress Notes * Dez Rivers M.D. 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 Neha Rand is a 28 y.o. at 19w2d gestation. Estimated Date of Delivery: 06/30/24 is [...] mg (65 mg iron) tablet (Taking) OBJECTIVE BP 131/82 (Cuff Size: Thigh) Pulse 70 LMP 09/24/2023 (Exact Date) SpO2 100% General: Alert and comfortable. Ultrasound: Live hernandez intrauterine in variable presentation. Incomplete detailed anatomy survey as noted, with imaging limited by position and maternal habitus. No structural abnormalities identified with anatomy that was seen. heart was suboptimally imaged but appeared normal otherwise. Appropriate growth and normal amniotic fluid volume. Right lateral placenta previa. Marginal cord insertion (1.72 cm from placenta edge). 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 at 19w2d gestation complicated by the followin. Placenta previa 2. 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 History: prior myomectomy (02/2023) requiring section 5. History: prior section (G1) 6. History: (5) recurrent first trimester loss 7. Obesity Class 3 BMI 45 kg/m2 8. Marginal cord insertion RECOMMENDATIONS CARE Continue routine care with her primary obstetric providers in [facility], [facility] Vito Reyes CNM and care team. [...] with no concerns for superimposed preeclampsia. 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 Unknown [place] antigen status for . 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 If blood transfusion is indicated, patient should receive Georgina negative blood. History: prior myomectomy (02/2023) requiring [...] to get . 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 Start home blood [...] 22w - 24w gestation given class 3 obesity. GROWTH SURVEILLANCE Repeat growth ultrasound every 4 [...] worsening chronic hypertension or early labor. CONTRACEPTION senior living reversible contraception options, other contraception options and elective permanent sterilization options were reviewed. Revisit discussion in future visit depending on patient interest. Patient verbalized understanding our discussion. All her questions were answered and her concerns were addressed. My contact information was given. Patient was encouraged to contact me again without hesitation if she has any additional questions or concerns. A total of 20 minutes was spent in care of this patient. Dez Rivers M.D. documented in this encounter Plan of Treatment Scheduled Referrals Name Type Priority Associated Diagnoses Orde r Schedule Obstetrics and Gynecology office visit (clinic) Outpatient Referral Routine Maternal Care For Other Isoimmunization Second Trimester Single Gestation (HCC) Encounter For Screening For Malformations (HCC) Complication Morbid Obesity Body Mass Index Greater Than 40 (HCC) Pre Existing Essential Hypertension Complicating Second Trimester (HCC) Expected: 02/13/2024, Expires: 05/08/2025 documented as of this encounter Results * US OB Follow-up and or Growth Hernandez (02/13/2024 4:17 PM CDT) Anatomical Region Laterality Modality Body, Ultrasound OB RST LOS, Ultrasound ARZ LOS N/A Ultrasound Narrative 02/13/2024 4:58 PM CDT NEHA MARCUS OB Exam, 02/13/2024 EXAM INFORMATION Patient Name: ??KEVINTAIWO NEHA RAND : ??1995 Age: ??28 yrs Sex: ??Female Ref Phys: ??DEZ RIVERS Exam Date: 02/13/2024 Procedure: US OB FOLLOW-UP AND OR GROWTH HERNANDEZ Plurality: 1 OBHx: [G:(7)] ?F Trm:() Pre:() C-Sec:() Ab-I:() Ab-S:() Ect:() Multi:() Jaime:(1) INDICATIONS FOR SONOGRAPHY Follow up anatomy IMPRESSION Follow-up OB Hernandez Fetus: Live hernandez intrauterine . Presentation: Cephalic. Anatomy: cardiac anatomy appears within normal limits. Imaging was extremely limited by position and maternal habitus but anatomy appears normal where seen. Amniotic fluid volume: Normal. Conclusion: Live heranndez intrauterine in cephalic presentation. cardiac anatomy appears [...] by Richard Haskins on 02/13/2024 4:18:01 PM. Manager Massage Department: ??Richard Haskins Thank You For This Referral Procedure Note Dez Rivers M.D. - 02/13/2024 NEHA MARCUS OB Exam, 02/13/2024 EXAM INFORMATION Patient Name: KIRSTEN RAND NEHA IRIZARRY : 1995 Age: 28 yrs Sex: Female Ref Phys: DEZ RIVERS Exam Date: 02/13/2024 Procedure: US OB FOLLOW-UP AND OR GROWTH HERNANDEZ Plurality: 1 OBHx: [G:(7)] F Trm:() Pre:() C-Sec:() Ab-I:() Ab-S:() Ect:() Multi:() Jaime:(1) INDICATIONS FOR SONOGRAPHY Follow up anatomy IMPRESSION Follow-up OB Hernandez Fetus: Live hernandez intrauterine . Presentation: Cephalic. Anatomy: cardiac anatomy appears within normal limits. Imaging wasextremely limited by position and maternal habitus but anatomyappears normal where seen. Amniotic fluid volume: Normal. Conclusion: Live hernandez intrauterine in cephalic presentation. cardiac [...] by Richard Haskins on 02/13/2024 4:18:01 PM. Manager Massage Department: Richard Haskins Thank You For This Referral Dez Rivers M.D. IMG OB US IN OCEDURES * (ABNORMAL) Comprehensive Metabolic Panel (02/06/2024 5:00 [...] Dez Rivers M.D. LAB BLOOD AD D-ON [address] [address], [facility] [address] [place] [address] * (ABNORMAL) CBC without Differential (02/06/2024 5:00 [...] Dez Rivers M.D. LAB BLOOD AD D-ON [facility] [address] [place] [address], [facility] [address] [place] [address] documented in this encounter Visit Diagnoses Diagnosis Complication Morbid Obesity Body Mass Index Greater Than 40 (HCC)- Primary Maternal Care For Other Isoimmunization Second Trimester Single Gestation (HCC) Encounter For Screening For Malformations (HCC) Pre Existing Essential Hypertension Complicating Second Trimester (HCC) Anemia Complicating Second Trimester (HCC) Recurrent Loss Second Trimester (HCC) Complete Placenta Previa With Hemorrhage Second Trimester (HCC) 19 Weeks Gestation (HCC) Maternal Care For Other Isoimmunization Second Trimester Single Gestation (HCC) Encounter For Screening For Malformations (HCC) Complication Morbid Obesity Body Mass Index Greater Than 40 (HCC) Pre Existing Essential Hypertension Complicating Second Trimester (HCC) documented in this encounter Care Teams Drying Machine Back Tender Relationship Specialty Start Date End Date Shan Wild M.D. [address] [place] [phone] PCP - General Family Medicine 04/07/22 documented as of this encounter
--- OUTSIDE RECORDS SUMMARY | 2024-04-04 12:06 | XMS_ITS | Encounter Summary ---
Author Organization [facility] Address [address] [place] [address] Care Team Providers Care Marine Underwriter Name Role Phone Shan Wild M.D. Primary Care Provider Reason for Referral * Outpatient (Routine) - Authorized Specialty Diagnoses / Procedures Referred By Kike ortiz Referred To Contact Nephrology and Hypertension Diagnoses Polly Peña M.B.B.S. [address] [place] [phone] Sona Walsh M.D., Ph.D. [address] [place] [phone] Referral ID Status Reason Start Date Expiration Date V isits Requested Visits Authorized [id number] Authorized 02/13/2024 08/14/2025 1 1 Reason for Visit * Outpatient (Routine) - Closed Specialty Diagnoses / Procedures Referred By Kike ortiz Referred To Contact Nephrology and Hypertension Diagnoses Pre Existing Essential Hypertension Complicating First Trimester (HCC) Danielle Kirkpatrick M.D. [address] [place] [address] [facility] Referral ID Status Reason Start Date Expiration Date Visits Re quested Visits Authorized [id number] Closed 01/30/2024 07/31/2025 1 1 Encounter Details Date Type Department Care Team (Latest Contact Info) Description 02/13/2024 2:30 PM CDT Comprehensive Visit Division of Nephrology and Hypertension in [place], [place] [address] [place] [address] Sona Walsh M.D., Ph.D. [address] [place] [address] Hyperplasia Fibromuscular Renal Artery (HCC) (Primary Dx); Pre Existing Essential Hypertension Complicating First Trimester (HCC) Social History Tobacco Use Types Packs/Day Years Used Date Smoking Tobacco: Former Cigarettes 0.3 10 Q uit: 08/24/2023 Smokeless Tobacco: Never Tobacco Cessation:Counseling Given: Not Answered Comments:Currently using a vape. Alcohol Use Standard Drinks/Week Comments Yes 0 (1 standard drink = 0.6 oz pur e alcohol) Once a month [facility] Utilities Answer Date Recorded In the past 12 months has [employer], gas, oil, or water [employer] threatened to shut off services in your [...] often do you attend chur ch or rastafari services? Never 08/30/2022 Do you belong to any clubs o r organizations such as anabaptist groups, unions, fraternal or athletic groups, or [...] Answer Date Recorded PHQ-2 Score 1 05/30/2023 [facility] - Occupational Stress [...] your living situation today? I have a [facility] place to live 12/17/2023 Education Answer Date Recorded What is the highest level of school you have completed or the highest degree you have received? 12th grade 08/23/2022 Estimated Date of Delivery Comme nts Yes 06/30/2024 Based on last me nstrual period of 09/24/2023 (Exact Date) Sex and Gender Information Value Date Recorded Sex Assigned at Female 08/23/2022 7:16 PM ALMOND BLANCHER HAND Gender Identity Female 08/23/2022 7:16 PM ALMOND BLANCHER HAND Sexual Orientation Bisexual 08/23/2022 7: 16 PM ALMOND BLANCHER HAND documented as of this encounter Last Filed Vital Signs Vital Sign Reading Time Taken Comments Blood Pressure 134/81 02/13/2024 2:31 PM CDT Pulse 81 02/13/2024 2:31 PM CDT Temperature - - Respiratory Rate - - Oxygen Saturation - - Inhaled Oxygen Concentration - - Weight 141 kg (311 lb 13.5 oz) 02/13/2024 2:31 P M CDT Height 173.4 cm (5' 8.27) 02/13/2024 2:31 PM CD T Body Mass Index 47.04 02/13/2024 2:31 PM CDT documented in this encounter Consult Notes * Polly Vega M.B.BRochelleS. - 02/13/2024 2:30 PM CDT Referring Provider: Danielle Kirkpatrick,* SUBJECTIVE REASON FOR CONSULT Chronic hypertension Hypertension in HISTORY OF PRESENT ILLNESS Ms. Vikash Rand is a 28 y.o. female who presents for hypertension in . 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 She does not have any history of hypertension during her last . She currently has a 11-year-old son. During that she had borderline gestational diabetes. She was not on insulin. She has obesity with a BMI of 47 Reportedly snores at night but she has not had any sleep studies. She quit smoking 6 months ago she would smoke intermittently. Rare alcohol use in the past. No recreational substance use. Denies any NSAID use. Family history of hypertension is sister, father and paternal grandmother. During this she was diagnosed with hypertension prior to 20 weeks of gestation. Two months ago she was started on labetalol 100 b.i.d. and currently she is on labetalol 200 b.i.d.. Her blood pressure today is 134/80 with a heart rate of 81. She reports that prior to this she was told she was hypotensive by her primary care provider and recommendations were lifestyle modifications and dietary changes. She was on oral medications for weight loss prior to this and had lost weight. She was not on any antihypertensives prior to this. She has had outside labs in November 24 hour urine in 12/13/2023 at [facility] showed to 20 mg/dL of protein. Urinalysis showed a proteincreatinine ratio of 0.5. Labs with a hemoglobin of 10 8.4 in 2022. MCV of 77.5. No electrolyte abnormalities. Creatinine of 0.58 same as creatinine 2021. We do not have any urine studies. Ultrasound kidneys with Doppler completed on january with elevated velocities in the distal right renal artery to 37 centimeter/second suggestive of narrowing could be in the setting of fibromuscular dysplasia and this location, borderline elevated velocities within distal left renal artery 161 centimeter/second. Her ultrasound was indicative of fibromuscular dysplasia. The following portions of the patient's history were reviewed and updated as appropriate: allergies, current medications, family history, medical history, social history, surgical history, and problem list. REVIEW OF SYSTEMS REVIEW OF SYSTEMS OBJECTIVE BP 134/81 Pulse 81 Ht 173.4 cm Wt (!) 141 kg LMP 09/24/2023 (Exact Date) BMI 47.04 kg/m?? PHYSICAL EXAMINATION General: Alert and oriented to person, place and situation. Cardiac: Regular S1 and S2. No murmurs. Respiratory: Normal respiratory effort. Clear bilateral breath sounds. Abdomen: Soft, nontender. Upper extremities: No AVF or graft Lower Extremities: trace edema. DIAGNOSTICS No results found for this or any previous visit (from the past 72 hour(s)). ASSESSMENT / PLAN Chronic hypertension Fibromuscular dysplasia on renal ultrasound with Doppler a 5 Current gestation 20 weeks Obesity 28-year-old female a 5 with a history of miscarriage in the setting of large fibroid, currently 20 weeks gestation, referred to us for hypertension. She has been started on labetalol by her OB team and she is on 200 b.i.d. of labetalol with a bloodpressure of 134/80 with a heart rate of 81. Renal ultrasound is indicative of fibromuscular dysplasia. Currently her blood pressure is 134/80 with a heart rate of 81. She has had hypotension that was present prior to this not on any medications and was recommended on lifestyle modifications. Recommendation Continue labetalol at the current dose Close home BP monitoring, we will require dose adjustment if significantly hypotensive Fibromuscular dysplasia management we will have to be deferred post unless she develops critical hypertension during her . We will closely follow up with her in 4 weeks Urine studies with urine protein creatinine ratio today Discussed with Jaret Kirkpatrick.B.S. Associated attestation - Sona Walsh M.D., Ph.D. - 02/20/2024 2:18 PM CDT I saw and evaluated Ms. Vikash Rand with Polly Vega M.B.BRochelleS. I reviewed the EMR and confirmed the hwang elements of the history and physical exam. I agree with the findings, assessment and planof care as outlined in the note. ASSESSMENT / PLAN #1 Pre Existing Essential Hypertension Complicating First Trimester (HCC) #2 Hyperplasia Fibromuscular Renal Artery (HCC) documented in this encounter Plan of Treatment Scheduled Orders Name Type Priority Associated Diagnoses Orde r Schedule Renal Function Panel Lab Routine Pre Existing Essential Hypertension Complicating First Trimester (HCC) Expected: 03/15/2024, Expires: 05/15/2025 Urinalysis, with Microscopic: Urine, Midstream Lab Routine Pre Existing Essential Hypertension Complicating First Trimester (HCC) Expected: 03/15/2024, Expires: 05/15/2025 Protein/Creatinine Ratio, Random, Urine Lab Routine Pre Existing Essential Hypertension Complicating First Trimester (HCC) Expected: 03/15/2024, Expires: 05/15/2025 Scheduled Referrals Name Type Priority Associated Diagnoses Order Schedule Nephrology and Hypertension office visit (clinic) Outpatient Referral Routine Expected: 03/15/2024, Expires: 05/15/2025 documented as of this encounter Results * Albumin, Random, Urine (02/13/2024 4:43 PM CDT) Albumin, Random, U <5.0 mg/L 2023 10:29 AM CDT DTL Comment: ----ADDITIONAL INFORMATION---- This test has been modified from the loom operator's instructions. Its performance characteristics were determined by [facility] in a manner consistent with CLIA [...] CDT Polly Saenz LAB URINE ORDER [facility] [address] [place] [address], [facility] [address] [place] [address] * Protein/Creatinine Ratio, Random, Urine (02/13/2024 4:43 PM CDT) Protein, Total, Random, U 10 mg/dL 02/13/2024 6:31 PM CDT DTL Creatinine, Random, U 148 16 - 326 mg/dL 02/13/2024 6:31 PM CDT DTL Protein/Creatin ine Ratio 0.07 <0.18 mg/mg 02/13/2024 6:31 PM CDT DTL Urine (Urine, Midstream) 02/13/2024 4:43 PM CDT 02/13/2024 5:32 PM CDT Polly SmithSRochelle LAB URINE ORDER [facility] [address] [place] [address], [facility] [address] [place] [address] * Urinalysis, with Microscopic: Urine, Midstream (02/13/2024 [...] PM CDT 02/13/2024 5:32 PM CDT Polly MarquisBRochelleSRochelle LAB URINE ORDER [facility] [address] [place] [address], [place] [facility] [address] [place] [address] documented in this encounter Visit Diagnoses Diagnosis Hyperplasia Fibromuscular Renal Artery (HCC)- Primary Pre Existing Essential Hypertension Complicating First Trimester (HCC) documented in this encounter Care Teams Marine Underwriter Relationship Specialty Start Date End Date Shan Wild M.D. [address] [place] [phone] PCP - General Family Medicine 04/07/22 documented as of this encounter
--- OUTSIDE RECORDS SUMMARY | 2024-04-04 12:06 | XMS_ITS | Encounter Summary ---
Author Organization [facility] Address [address] [place] [address] Care Team Providers Care Retail Salesperson Name Role Phone Shan Wild M.D. Primary Care Provider [phone] Encounter Details Date Type Department Care Team (Latest Contact Info) Description 02/13/2024 3:21 PM CDT - 02/13/2024 4:25 PM CDT Hospital Encounter Department of Obstetrics and Gynecology in [place], [place] [address] [place] [address] Dez Rivers M.D. [address] [place] [address] Maternal Care For Other Isoimmunization Second Trimester [...] oz pur e alcohol) Once a month [facility] Utilities Answer Date Recorded In the past 12 months has [employer], gas, oil, or water company threatened [...] week 08/30/2022 How often do you attend [facility] or zoroastrianism services? Never 08/30/2022 Do you belong to any clubs o r organizations such as pentecostalism groups, unions, fraternal or athletic groups, or [...] Answer Date Recorded PHQ-2 Score 1 05/30/2023 [facility] of Occupat ional Health - Occupational [...] your living situation today? I have a [facility] place to live 12/17/2023 Education Answer Date Recorded What is the highest level of school you have completed or the highest degree you have received? 12th grade 08/23/2022 Estimated Date of Delivery Comme nts Yes 06/30/2024 Based on last me nstrual period of 09/24/2023 (Exact Date) Sex and Gender Information Value Date Recorded Sex Assigned at Female 08/23/2022 7:16 PM HUB ASSOCIATE Gender Identity Female 08/23/2022 7:16 PM HUB ASSOCIATE Sexual Orientation Bisexual 08/23/2022 7: 16 PM HUB ASSOCIATE documented as of this encounter Medications at Time of Discharge Medication Sig Dispensed Refills Start Date End Date acetaminophen (TYLENOL) 500 mg tablet Take 2 tablets (1,000 mg total) by mouth every 6 (six) hours as needed for pain. Alternate with ibuprofen every 3 hours. Do not exceed 4000 mg or 4 g in 24 hours. 30 tablet 03/23/[address] tabletIndications:Maternal Care For Other Isoimmunization First Trimester Fetus 1 (HCC) Take 1 tablet (81 mg total) by mouth daily. 12/19/2023 ferrous sulfate 325 mg (65 mg iron) tablet Take 325 mg by mouth every other day. Twice daily, every other day 04/26/2022 labetaloL 200 mg tablet Take 1 tablet by mouth 2 (two) times a day. 01/18/2024 ymcyzzs-Ob-jnxj-FA 27 mg iron- 1 mg tablet Take 1 tablet by mouth daily. UNABLE TO FIND Apple cider vinegar tablet 3 times daily documented as of this encounter Plan of Treatment Not on file documented as of this encounter Procedures Procedure Name Priority Date/Time Associated Diagnosis Comments US OB FOLLOW-UP AND OR GROWTH HERNANDEZ RAD - Routine (most inpatients and all outpatients) 02/13/2024 4:17 PM CDT Maternal Care For Other Isoimmunization Second Trimester Single Gestation (HCC) Encounter For Screening For Malformations (HCC) Complication Morbid Obesity Body Mass Index Greater Than 40 (HCC) Pre Existing Essential Hypertension Complicating Second Trimester (HCC) documented in this encounter Results * US OB Follow-up and or Growth Hernandez (02/13/2024 4:17 PM CDT) Anatomical Region Laterality Modality Body, Ultrasound OB RST LOS, Ultrasound ARZ LOS N/A Ultrasound Narrative 02/13/2024 4:58 PM CDT PETAR MARCUS OB Exam, 02/13/2024 EXAM INFORMATION Patient Name: ??PETAR MARCUS : [...] by Richard Haskins on 02/13/2024 4:18:01 PM. Mannequin Molder: ??Richard Haskins Thank You For This Referral Procedure Note Dez Rivers M.D. - 02/13/2024 PETAR MARCUS OB Exam, 02/13/2024 EXAM INFORMATION Patient Name: KEVINTAIWO PETAR RAND : 1995 Age: 28 yrs Sex: [...] by Richard Haskins on 02/13/2024 4:18:01 PM. Mannequin Molder: Richard Haskins Thank You For This Referral Dez Rivers M.D. IMG OB US [place] OCEDURES documented in this encounter Visit Diagnoses Diagnosis Maternal Care For Other Isoimmunization Second Trimester Single Gestation (HCC) Encounter For Screening For Malformations (HCC) Complication Morbid Obesity Body Mass Index Greater Than 40 (HCC) Pre Existing Essential Hypertension Complicating Second Trimester (HCC) documented in this encounter Care Teams Retail Salesperson Relationship Specialty Start Date End Date Shan Wild M.D. [address] [place] [address] [phone] PCP - General Family Medicine 04/07/22 documented as of this encounter
--- OUTSIDE RECORDS SUMMARY | 2024-04-04 12:06 | XMS_ITS | Encounter Summary ---
Author Organization [facility] Address [address] [place] [address] Care Team Providers Care Call Out Clerk Name Role Phone Shan Wild M.D. Primary Care Provider Reason for Visit * Reason Comments Routine Visit MFM * Outpatient (Routine) - Closed Specialty Diagnoses / Procedures Referred By Kike ortiz Referred To Contact Obstetrics and Gynecology Diagnoses Complication Morbid Obesity Body Mass Index Greater Than 40 (HCC) Pre Existing Essential Hypertension Complicating Second Trimester (HCC) Recurrent Loss Second Trimester (HCC) Danielle Kirkpatrick M.D. 200 [place] [address] [facility] Referral ID Status Reason Start Date Expiration Date Visits Re quested Visits Authorized [id number] Closed 02/13/2024 08/14/2025 1 1 Encounter Details Date Type Department Care Team (Latest Contact Info) Description 03/10/2024 3:00 PM CDT Routine Department of Obstetrics and Gynecology in [place], [place] [address] [place] [phone] Danielle Kirkpatrick M.D. [address] [place] [phone] Pre Existing Essential Hypertension Complicating Second Trimester [...] Single Gestation (HCC); 24 Weeks Gestation (HCC) Social History Tobacco Use Types Packs/Day Years Used Date Smoking Tobacco: Former Cigarettes 0.3 10 Q uit: 08/24/2023 Smokeless Tobacco: Never Comments:Currently using a v ape. Alcohol Use Standard Drinks/Week Comments Yes 0 (1 standard drink = 0.6 oz pur e alcohol) Once a month [facility] [employer] Answer Date Recorded In the past 12 months has e [facility] [place], [place], oil, or water [employer] threatened to shut off services in your [...] often do you attend chur ch or adventist services? Never 08/30/2022 Do you belong to any clubs o r organizations such as evangelical groups, unions, fraternal or athletic groups, or [...] Answer Date Recorded PHQ-2 Score 1 05/30/2023 [facility] of Occupat ional [facility] - Occupational Stress Questionnaire Answer Date [...] Sex Assigned at Female 08/23/2022 7:16 PM VACUUM METALIZING SUPERVISOR Gender Identity Female 08/23/2022 7:16 PM VACUUM METALIZING SUPERVISOR Sexual Orientation Bisexual 08/23/2022 7: 16 PM VACUUM METALIZING SUPERVISOR documented as of this encounter Last Filed Vital Signs Vital Sign Reading Time Taken Comments Blood Pressure 126/76 03/10/2024 2:30 PM CDT Pulse 75 03/10/2024 2:30 PM CDT Temperature 36.8 ??C (98.2 ??F) 03/10/2024 2:30 PM CD T Respiratory Rate - - Oxygen Saturation 99% 03/10/2024 2:30 PM CDT Inhaled Oxygen Concentration - - Weight 140 kg (308 lb 10.3 oz) 03/10/2024 2:30 P M CDT Height - - Body Mass Index 46.56 02/13/2024 2:31 PM CDT documented in this encounter Progress Notes * Danielle Kirkpatrick M.D. - 03/10/2024 3:00 PM CDT SUBJECTIVE CHIEF COMPLAINT Maternal anti-Georgina isoimmunization HISTORY OF PRESENT ILLNESS OB History Para Term AB Living 7 1 1 5 1 SAB IAB Ectopic Molar Multiple Live Births 5 1 # Outcome Date GA Lbr Antoine/2nd Weight Sex Type Anes PTL Lv 7 Current 6 2019 8w0d SAB 5 SAB 2018 8w0d SAB 4 SAB 2017 8w0d SAB 3 SAB 2017 8w0d SAB 2 2016 8w0d SAB 1 Term 02/08/13 39w6d 4.054 kg M CS-LTranv Spinal N JAIME Mrs. Neha Rand is a 28 y.o. at 24w0d gestation. Estimated Date of Delivery: 06/30/24 is [...] (65 mg iron) tablet (Taking) OBJECTIVE BP 126/76 (Cuff Size: Thigh) Pulse 75 Temp 36.8 ??C (Oral) Wt (!) 140 kg LMP 09/24/2023 (Exact Date) SpO2 99% BMI 46.56 kg/m?? General: Alert and comfortable. Ultrasound: [place] intrauterine . NAIF established by LMP consistent with 8 week scan. ductal arch appears normal. Composite biometry is consistent with gestational age (82%,747 grams). Amniotic fluid volume normal. 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 at 24w0d gestation complicated by the followin. Placenta previa 2. 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 History: prior myomectomy (02/2023) requiring section 5. History: prior section (G1) 6. History: (5) recurrent first trimester loss 7. Obesity Class 3 BMI 45 kg/m2 8. Marginal cord insertion RECOMMENDATIONS CARE Continue routine care with her primary obstetric providers in [facility], ANTHONY Reyes CNM and care team. No further follow-up with Maternal Medicine is needed unless new issues arise. RISK COUNSELLING Placenta previa Ultrasound finding of [...] superimposed preeclampsia. Maternal anti-[place]ina isoimmunization Potential for anti-[place] isoimmunization to have resulted from prior blood transfusion in 2021. Unknown [place] antigen status for . 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 If blood transfusion is indicated, patient should receive [place] negative blood. History: prior myomectomy (02/2023) requiring [...] to get . CHRONIC HYPERTENSION BLOOD PRESSURE day treatment clinician/art therapist blood pressure trend closely. Start home blood pressure monitoring and maintain blood pressure log. To call or come in for evaluation If with worsening hypertension trend, any persistent BP >140/90 mm Hg, any severe range BP>160/110 mm Hg or any signs or symptoms concerning for severepreeclampsia. ANTIHYPERTENSION MEDICATIONS Continue labetalol 200 mg oral [...] ultrasound at 32w and again at 36w gestation as clinically indicated. PREVIA PRECAUTIONS / CONSIDERATIONS Recommend pelvic rest [...] Continue high iron diet. DETAILED ANATOMY SURVEY Completed, reviewed. ECHOCARDIOGRAM Completed, reviewed. GROWTH SURVEILLANCE Repeat growth ultrasound every 4 [...] worsening chronic hypertension or early labor. CONTRACEPTION [facility]FP reversible contraception options, other contraception options and elective permanent sterilization options were reviewed. Revisit discussion in future visit depending on patient interest. Patient verbalized understanding our discussion. All her questions were answered and her concerns were addressed. A total of 20 minutes was spent in care of this patient. Danielle Kirkpatrick M.D. documented in this encounter Plan of Treatment Not on file documented as of this encounter Visit Diagnoses Diagnosis Pre Existing Essential Hypertension Complicating Second Trimester (HCC)- Primary Complication Morbid Obesity Body Mass Index Greater Than 40 (HCC) Recurrent Loss Second Trimester (HCC) Anemia Complicating Second Trimester (HCC) Complete Placenta Previa Without Hemorrhage Second Trimester (HCC) Maternal Care Due To Uterine Scar From Other Previous Surgery (HCC) Maternal Care For Low Transverse Scar From Previous Delivery (HCC) Maternal Care For Other Isoimmunization Second Trimester Single Gestation (HCC) 24 Weeks Gestation (HCC) documented in this encounter Care Teams Call Out Clerk Relationship Specialty Start Date End Date Shan Wild M.D. [address] [place] [phone] PCP - General Family Medicine 04/07/22 documented as of this encounter
--- OUTSIDE RECORDS SUMMARY | 2024-04-04 12:06 | XMS_ITS | Encounter Summary ---
Author Organization [facility] Address [address] [place] [address] Care Team Providers Care Sculpture Conservator Name Role Phone Shan Wild M.D. Primary Care Provider Reason for Visit * Reason Comments Results Encounter Details Date Type Department Care Team (Late st Contact Info) Description 01/11/2024 11:00 AM CDT Virtual Visit Department of Obstetrics and Gynecology in [place], [place] [address] [place] [phone] Celina Maurciio M.S., [facility] [address] [place] [phone] Recurrent Loss Unspecified Trimester (HCC) (Primary Dx) Social History Tobacco Use Types Packs/Day Years Used Date Smoking Tobacco: Former Cigarettes 0.3 10 Q uit: 08/24/2023 Smokeless Tobacco: Never Comments:Currently using a v ape. Alcohol Use Standard Drinks/Week Comments Not Currently 0 (1 standard drink = 0.6 oz pur e alcohol) Once a month [facility] Utilities Answer Date Recorded In the past 12 months has e [employer], gas, oil, or water [employer] threatened to shut off services in your [...] often do you attend chur ch or shinto services? Never 08/30/2022 Do you belong to any clubs o r organizations such as jain groups, unions, fraternal or athletic groups, or [...] Answer Date Recorded PHQ-2 Score 1 05/30/2023 [facility] [place] of Occupat ional Health - Occupational Stress [...] your living situation today? I have a [facility] place to live 12/17/2023 Education Answer Date Recorded What is the highest level of school you have completed or the highest degree you have received? 12th grade 08/23/2022 Estimated Date of Delivery Comme nts Yes 06/30/2024 Based on last me nstrual period of 09/24/2023 (Exact Date) Sex and Gender Information Value Date Recorded Sex Assigned at Female 08/23/2022 7:16 PM OIL AGENT Gender Identity Female 08/23/2022 7:16 PM OIL AGENT Sexual Orientation Bisexual 08/23/2022 7: 16 PM OIL AGENT documented as of this encounter Consult Notes * Celina Mauricio M.S., [facility] - 01/11/2024 11:00 AM CDT Images from the original note were not included. CHIEF COMPLAINT/PURPOSE [place] test results HISTORY OF PRESENT ILLNESS Neha was seen in the Division of Reproductive Genomics on 12/19/2023. Neha underwent [employer] carrier screening, aneuploidy screening and antigen testing at that time. I called to discuss results with her by phone. She was not available, so I left a voicemail summarizing them, and will also send a portal message. IMPRESSION/REPORT/PLAN In summary: Fetus tested negative for [place] antigens. Neha's carrier screening was negative for cystic fibrosis, spinal muscular atrophy, alpha and beta thalassemia. Neha and her partner, Felipe, both had normal karyotypes. Aneuploidy screening could not be completed - a re-draw is required. Testing was negative for the K antigen in the fetus. The antigen testing is still considered a screen, and it does not completely rule out the possibility of alloimmunization in the . A study from 2022 (PMID: [id number]) completed 2 tests for over 1000 patients, and the concordance of the two samples was 99.9%. They also assessed 53 patients whose neonates were then tested after and 100% were correctly diagnosed by the [employer] NIPT. FOLLOW UP/RECOMMENDATIONS I asked Neha to call or portal message if she would like to set up a re-draw for aneuploidy screening. Electronically signed by Celina Mauricio M.S., [facility] at 01/11/2024 5:05 PM CDT documented in this encounter Plan of Treatment Not on file documented as of this encounter Visit Diagnoses Diagnosis Recurrent Loss Unspecified Trimester (HCC)- Primary documented in this encounter Care Teams Sculpture Conservator Relationship Specialty Start Date End Date Shan Wild M.D. [address] [place] [phone] PCP - General Family Medicine 04/07/22 documented as of this encounter
--- OUTSIDE RECORDS SUMMARY | 2024-04-04 12:06 | XMS_ITS | Encounter Summary ---
Author Organization [facility] Address [address] [place] [address] Care Team Providers Care Guest Services Attendant Name Role Phone Shan Wild M.D. Primary Care Provider Encounter Details Date Type Department Care Team (Late st Contact Info) Description 02/07/2024 Clinical Communication Department of Obstetrics and Gynecology in [place], [place] [address] [place] [address] Danielle Kirkpatrick M.D. [address] [place] [phone] Social History Tobacco Use Types Packs/Day Years Used Date Smoking Tobacco: Former Cigarettes 0.3 10 Q uit: 08/24/2023 Smokeless Tobacco: Never Comments:Currently using a v ape. Alcohol Use Standard Drinks/Week Comments Not Currently 0 (1 standard drink = 0.6 oz pur e alcohol) Once a month [facility] Utilities Answer Date Recorded In the past [...] often do you attend chur ch or yazdanism services? Never 08/30/2022 Do you belong to any clubs o r organizations such as samaritan groups, unions, fraternal or athletic groups, or [...] Answer Date Recorded PHQ-2 Score 1 05/30/2023 [facility] [place] of Occupat ional Health - Occupational Stress [...] your living situation today? I have a [facility] place to live 12/17/2023 Education Answer Date Recorded What is the highest level of school you have completed or the highest degree you have received? 12th grade 08/23/2022 Estimated Date of Delivery Comme nts Yes 06/30/2024 Based on last me nstrual period of 09/24/2023 (Exact Date) Sex and Gender Information Value Date Recorded Sex Assigned at Female 08/23/2022 7:16 PM SALES FINANCIAL ANALYST Gender Identity Female 08/23/2022 7:16 PM SALES FINANCIAL ANALYST Sexual Orientation Bisexual 08/23/2022 7: 16 PM SALES FINANCIAL ANALYST documented as of this encounter Miscellaneous Notes * Telephone Encounter - Danielle Kirkpatrick M.D. - 02/12/2024 3:58 PM CDT I was unable to contact patient. US findings to be reviewed in detail with patient in future visit. Danielle Kirkpatrick M.D. documented in this encounter Plan of Treatment Not on file documented as of this encounter Visit Diagnoses Not on filedocumented in this encounter Care Teams Guest Services Attendant Relationship Specialty Start Date End Date Shan Wild M.D. [address] [place] [phone] PCP - General Family Medicine 04/07/22 documented as of this encounter
--- OUTSIDE RECORDS SUMMARY | 2024-04-04 12:06 | XMS_ITS | Encounter Summary ---
Author Organization [facility] Address [address] [place] [address] Care Team Providers Care Cooky Packer Name Role Phone Shan Wild M.D. Primary Care Provider [phone] Reason for Visit * Reason Onset Date Comments Triage 12/12/2023 Encounter Details Date Type Department Care Team (Late st Contact Info) Description 12/12/2023 Clinical Communication Department of Obstetrics and Gynecology in [place], [place] [address] [place] [phone] Prescheduling, Provider Triage Social History Tobacco Use Types Packs/Day Years Used Date Smoking Tobacco: Some Days Cigarettes 0.3 10 Smokeless Tobacco: Never Comments:Currently using a v ape. Alcohol Use Standard Drinks/Week Comments Yes 0 (1 standard drink = 0.6 oz pur e alcohol) Once a month [facility] Utilities Answer Date Recorded In the past 12 months has [employer] gas, oil, or water [employer] threatened to shut off services in your [...] How often do you attend chur or christianity services? Never 08/30/2022 Do you belong to any clubs o r organizations such as shinto groups, unions, fraternal or athletic groups, or [...] Answer Date Recorded PHQ-2 Score 1 05/30/2023 [facility] of Occupat ional Health - Occupational [...] your living situation today? I have a [facility] place to live 12/17/2023 Education Answer Date Recorded What is the highest level of school you have completed or the highest degree you have received? 12th grade 08/23/2022 Sex and Gender Information Value Date Recorded Sex Assigned at Female 08/23/2022 7:16 PM POWER MARKETER Gender Identity Female 08/23/2022 7:16 PM POWER MARKETER Sexual Orientation Bisexual 08/23/2022 7: 16 PM POWER MARKETER documented as of this encounter Plan of Treatment Not on file documented as of this encounter Visit Diagnoses Not on filedocumented in this encounter Care Teams Cooky Packer Relationship Specialty Start Date End Date Shan Wild M.D. [address] [place] [address] [place] [phone] PCP - General Family Medicine 04/07/22 documented as of this encounter
--- OUTSIDE RECORDS SUMMARY | 2024-04-04 12:06 | XMS_ITS | Encounter Summary ---
Author Organization [facility] Address [address] [place] [address] Care Team Providers Care Drawing Operator Name Role Phone Shan Wild M.D. Primary Care Provider Encounter Details Date Type Department Care Team (Latest Contact Info) Description 02/13/2024 4:26 PM CDT - 02/13/2024 11:59 PM CDT Hospital Encounter Department of Laboratory Medicine and Pathology, [facility], in [place], [place] [address] [place] [address] Polly Vega M.B.B.S. [address] [place] [phone] Pre Existing Essential Hypertension Complicating First Trimester (HCC) Discharge Disposition: Home or Self Care Social History Tobacco Use Types Packs/Day Years Used Date Smoking Tobacco: Former Cigarettes 0.3 10 Q uit: 08/24/2023 Smokeless Tobacco: Never Comments:Currently using a v ape. Alcohol Use Standard Drinks/Week Comments Yes 0 (1 standard drink = 0.6 oz pur e alcohol) Once a month [facility] Utilities Answer Date Recorded In [...] often do you attend chur ch or advent services? Never 08/30/2022 Do you belong to any clubs o r organizations such as caodaism groups, unions, fraternal or athletic groups, or [...] Answer Date Recorded PHQ-2 Score 1 05/30/2023 [facility] of Occupat ional Health - Occupational Stress [...] your living situation today? I have a [facility] place to live 12/17/2023 Education Answer Date Recorded What is the highest level of school you have completed or the highest degree you have received? 12th grade 08/23/2022 Estimated Date of Delivery Comme nts Yes 06/30/2024 Based on last me nstrual period of 09/24/2023 (Exact Date) Sex and Gender Information Value Date Recorded Sex Assigned at Female 08/23/2022 7:16 PM CURRICULUM FACILITATOR Gender Identity Female 08/23/2022 7:16 PM CURRICULUM FACILITATOR Sexual Orientation Bisexual 08/23/2022 7: 16 PM CURRICULUM FACILITATOR documented as of this encounter Medications at [...] mouth 2 (two) times a day. 01/18/2024 uvagqud-Sy-drcx-FA 27 mg iron- 1 mg tablet Take 1 tablet by mouth daily. UNABLE TO FIND Apple cider vinegar tablet 3 times daily documented as of this encounter Plan of Treatment Not on file documented as of this encounter Procedures Procedure Name Priority Date/Time Associated Diagnosis Comments DIPSTICK, U Routine 02/13/2024 4:43 PM CDT MICROSCOPIC AUTOMATED Routine 02/13/2024 4:43 PM CDT PH, U Routine 02/13/2024 4:43 PM CDT ALBUMIN, RANDOM, U Routine 02/13/2024 4: 43 PM CDT Pre Existing Essential Hypertension Complicating First Trimester (HCC) PROTEIN/CREATININE RATIO, RANDOM, URINE Routine 02/13/2024 4:43 PM CDT Pre Existing Essential Hypertension Complicating First Trimester (HCC) OSMOLALITY, U Routine 02/13/2024 4:43 PM CDT URINALYSIS WITH MICROSCOPIC Routine 02/13/2024 4:43 PM CDT Pre Existing Essential Hypertension Complicating First Trimester (HCC) documented in this encounter Results * Dipstick, Urine (02/13/2024 4:43 PM CDT) [...] CDT Polly MarquisB.S. LAB URINE ORDER ARIN [facility] [address] [place] [address] * pH, Urine (02/13/2024 4:43 PM CDT) pH, U 5.9 4.5 - 8.0 02/13/2024 6:2 7 PM CDT DTL Urine 02/13/2024 4:43 PM CDT 02/13/2024 5:32 PM CDT Polly MarquisB.S. LAB URINE ORDER ARIN Performing Organization Address City/[facility]/ZIP Co de Phone Number [facility] [address] [place] [address], [facility] [address] [place] [address] * Osmolality, Urine (02/13/2024 4:43 PM CDT) Osmolality, U 770 150 - 1150 mOsm/kg 02/13/2024 6:27 PM CDT DTL Urine 02/13/2024 4:43 PM CDT 02/13/2024 5:32 PM CDT Polly MarqiusB.S. LAB URINE ORDER ARIN [facility] 200 [place] [address], [facility] 200 [place] [address] * (ABNORMAL) Microscopic Automated (02/13/2024 4:43 PM [...] LAB URINE ORDER ARIN [facility] 200 [place] [address], [facility] [address] [place] [address] * Albumin, Random, Urine (02/13/2024 4:43 PM CDT) Albumin, Random, U <5.0 mg/L 2023 10:29 AM CDT DTL Comment: ----ADDITIONAL INFORMATION---- This test has been modified from the night time nanny's instructions. Its performance characteristics were determined by [facility] in a manner consistent with CLIA [...] CDT Polly MarquisBRochelleSRochelle LAB URINE ORDER ARIN Performing Organization Address City/[facility] Co de Phone Number [facility] 200 [place] [address], [facility] 200 [place] [address] * Protein/Creatinine Ratio, Random, Urine (02/13/2024 4:43 PM CDT) Protein, Total, Random, U 10 mg/dL 02/13/2024 6:31 PM CDT DTL Creatinine, Random, U 148 16 - 326 mg/dL 02/13/2024 6:31 PM CDT DTL Protein/Creatin ine Ratio 0.07 <0.18 mg/mg 02/13/2024 6:31 PM CDT DTL Urine (Urine, Midstream) 02/13/2024 4:43 PM CDT 02/13/2024 5:32 PM CDT Polly MarquisBRochelleSRochelle LAB URINE ORDER ARIN Performing Organization Address City/[facility] Co de Phone Number [facility] [address] [place] [address], [facility] 200 [place] [address] * Urinalysis, with Microscopic: Urine, Midstream (02/13/2024 [...] LAB URINE ORDER ARIN [facility] [address] [place] [address], [facility] [address] [place] [address] documented in this encounter Visit Diagnoses Diagnosis Pre Existing Essential Hypertension Complicating First Trimester (HCC) documented in this encounter Care Teams Drawing Operator Relationship Specialty Start Date End Date Shan Wild M.D. [address] [place] [phone] PCP - General Family Medicine 04/07/22 documented as of this encounter
--- OUTSIDE RECORDS SUMMARY | 2024-04-04 12:06 | XMS_ITS | Encounter Summary ---
Author Organization [facility] Address [address] [place] [address] Care Team Providers Care Deportation Officer Name Role Phone Shan Wild M.D. Primary Care Provider Encounter Details Date Type Department Care Team (Latest Contact Info) Description 02/06/2024 1:45 PM CDT - 02/06/2024 11:59 PM CDT Hospital Encounter Department of Obstetrics and Gynecology in [place], [place] [address] [place] [address] Dez Rivers M.D. [address] [place] [address] Maternal Care For Other Isoimmunization First Trimester Single Gestation (HCC) Discharge Disposition: Home or Self Care Social History Tobacco Use Types Packs/Day Years Used Date Smoking Tobacco: Former Cigarettes 0.3 10 Q uit: 08/24/2023 Smokeless Tobacco: Never Comments:Currently using a v ape. Alcohol Use Standard Drinks/Week Comments Not Currently 0 (1 standard drink = 0.6 oz pur e alcohol) Once a month [facility] Utilities Answer Date Recorded In the [...] often do you attend chur ch or cheondoism services? Never 08/30/2022 Do you belong to any clubs o r organizations such as christian groups, unions, fraternal or athletic groups, or [...] Answer Date Recorded PHQ-2 Score 1 05/30/2023 [facility] of Occupat ional Health - Occupational Stress [...] your living situation today? I have a [facility] place to live 12/17/2023 Education Answer Date Recorded What is the highest level of school you have completed or the highest degree you have received? 12th grade 08/23/2022 Estimated Date of Delivery Comme nts Yes 06/30/2024 Based on last me nstrual period of 09/24/2023 (Exact Date) Sex and Gender Information Value Date Recorded Sex Assigned at Female 08/23/2022 7:16 PM LINESPERSON Gender Identity Female 08/23/2022 7:16 PM LINESPERSON Sexual Orientation Bisexual 08/23/2022 7: 16 PM LINESPERSON documented as of this encounter Medications at [...] mouth 2 (two) times a day. 01/18/2024 UNABLE TO FIND Apple cider vinegar tablet 3 times daily documented as of this encounter Plan of Treatment Not on file documented as of this encounter Procedures Procedure Name Priority Date/Time Associated Diagnosis Comments US OB ADVANCED LEVEL HERNANDEZ RAD - Routine (most inpatients and all outpatients) 02/06/2024 3:16 PM CDT Maternal Care For Other Isoimmunization First Trimester Single Gestation (HCC) documented in this encounter Results * US OB Advanced Level Hernandez (02/06/2024 3:16 PM CDT) Anatomical Region Laterality Modality Body, Ultrasound OB RST LOS, Ultrasound ARZ LOS N/A Ultrasound Narrative 02/06/2024 5:02 PM CDT PETAR MARCUS OB Exam, 02/06/2024 EXAM INFORMATION Patient Name: ??PETAR MARCUS : ??1995 Age: ??28 yrs Sex: ??Female Ref Phys: ??DZE RIVERS Exam Date: 02/06/2024 Procedure: US OB ADVANCED LEVEL HERNANDEZ Exam Site: [id number] Plurality: 1 OBHx: [G:(7)] ?F Trm:() Pre:() C-Sec:() Ab-I:() Ab-S:() Ect:() Multi:() Margarita:(1) INDICATIONS FOR SONOGRAPHY Chronic HTN BMI IMPRESSION Detailed anatomy survey was performed for obesity. Both transabdominal and transvaginal ultrasound was performed. Transvaginal ultrasound was performed to better assess placenta location. Detailed Anatomy Survey Fetus: Live hernandez intrauterine . Presentation: Variable. Anatomy: Incomplete detailed [...] Appears long on transabdominal imaging. Conclusion: Live hernandez intrauterine in variable presentation. Incomplete [...] Dez Rivers M.D. on 02/06/2024 4:26:07 PM. Insurance Assistant: ??Ana Aguilar Thank You For This Referral Procedure Note Dez Rivers M.D. - 02/06/2024 KIRSTEN RANDPETAR OB Exam, 02/06/2024 EXAM INFORMATION Patient Name: PETAR MARCUS : 1995 Age: 28 yrs Sex: Female Ref Phys: DEZ RIVERS Exam Date: 02/06/2024 Procedure: US OB ADVANCED LEVEL HERNANDEZ Exam Site: [id number] Plurality: 1 OBHx: [G:(7)] F Trm:() Pre:() C-Sec:() Ab-I:() Ab-S:() Ect:() Multi:() Margarita:(1) INDICATIONS FOR SONOGRAPHY Chronic HTN BMI IMPRESSION Detailed anatomy survey was performed for obesity. Both transabdominal and transvaginal ultrasound was performed. Transvaginal ultrasound was performed to better assess placenta location. Detailed Anatomy Survey Fetus: Live hernandez intrauterine . Presentation: Variable. Anatomy: Incomplete detailed [...] Appears long on transabdominal imaging. Conclusion: Live hernandez intrauterine in variable presentation. Incomplete [...] by Dez Rivers M.D. on 02/06/2024 4:26:07PM. Insurance Assistant: Ana Aguilar Thank You For This Referral Dez Rivers M.D. IMG OB US [place] OCEDURES documented in this encounter Visit Diagnoses Diagnosis Maternal Care For Other Isoimmunization First Trimester Single Gestation (HCC) documented in this encounter Care Teams Deportation Officer Relationship Specialty Start Date End Date Shan Wild M.D. [address] [place] [phone] PCP - General Family Medicine 04/07/22 documented as of this encounter
--- OUTSIDE RECORDS SUMMARY | 2024-04-04 12:06 | XMS_ITS | Encounter Summary ---
Author Organization [facility] Address [address] [place] [address] Care Team Providers Care Hr Business Partner Name Role Phone Shan Wild M.D. Primary Care Provider Reason for Referral * Outpatient (Routine) - Authorized Specialty Diagnoses / Procedures Referred By Kike ortiz Referred To Contact Obstetrics and Gynecology Diagnoses Pre Existing Essential Hypertension Complicating First Trimester (HCC) Danielle Kirkpatrick M.D. [address] [place] [address] [facility] Referral ID Status Reason Start Date Expiration Date V isits Requested Visits Authorized [id number] Authorized 01/30/2024 07/31/2025 1 1 Scheduling Instructions Add phone visit to Kaya. Hide appointment from patient please. Kaya to call when free in [place]. * Outpatient (Routine) - Closed Specialty Diagnoses / Procedures Referred By Kike ortiz Referred To Contact Nephrology and Hypertension Diagnoses Pre Existing Essential Hypertension Complicating First Trimester (HCC) Danielle Kirkpatrick M.D. [address] [place] [address] [facility] Referral ID Status Reason Start Date Expiration Date Visits Re quested Visits Authorized [id number] Closed 01/30/2024 07/31/2025 [address] Estevez or Jillian. After next visit if possible. No need to call patient. Encounter Details Date Type Department Care Team (Late st Contact Info) Description 01/30/2024 Orders Only Department of Obstetrics and Gynecology in [place], [place] [address] [place] [address] Danielle Kirkpatrick M.D. [address] [place] [address] Pre Existing Essential Hypertension Complicating First Trimester (HCC) (Primary Dx) Social History Tobacco Use Types Packs/Day Years Used Date Smoking Tobacco: Former Cigarettes 0.3 10 Q uit: 08/24/2023 Smokeless Tobacco: Never Comments:Currently using a v ape. Alcohol Use Standard Drinks/Week Comments Not Currently 0 (1 standard drink = 0.6 oz pur e alcohol) Once a month [facility] Utilities Answer Date Recorded In the past 12 months has Incentive, gas, oil, or water [employer] threatened to shut off services in your [...] often do you attend chur ch or sikhism services? Never 08/30/2022 Do you belong to any clubs o r organizations such as baptism groups, unions, fraternal or athletic groups, or [...] Answer Date Recorded PHQ-2 Score 1 05/30/2023 [facility] of Occupat ional Health - Occupational [...] your living situation today? [facility] a [facility] 12/17/2023 Education Answer Date Recorded What is the highest level of school you have completed or the highest degree you have received? 12th grade 08/23/2022 Estimated Date of Delivery Comme nts Yes 06/30/2024 Based on last me nstrual period of 09/24/2023 (Exact Date) Sex and Gender Information Value Date Recorded Sex Assigned at Female 08/23/2022 7:16 PM WASHER OPERATOR Gender Identity Female 08/23/2022 7:16 PM WASHER OPERATOR Sexual Orientation Bisexual 08/23/2022 7: 16 PM WASHER OPERATOR documented as of this encounter Plan of Treatment Scheduled Referrals Name Type Priority Associated Diagnoses Orde r Schedule Nephrology - Hypertension in consult (clinic) Outpatient Referral Routine Pre Existing Essential Hypertension Complicating First Trimester (HCC) Expected: 02/06/2024, Expires: 05/01/2025 Obstetrics and Gynecology office visit (clinic) Outpatient Referral Routine Pre Existing Essential Hypertension Complicating First Trimester (HCC) Expected: 01/31/2024, Expires: 05/01/2025 documented as of this encounter Visit Diagnoses Diagnosis Pre Existing Essential Hypertension Complicating First Trimester (HCC)- Primary documented in this encounter Care Teams Hr Business Partner Relationship Specialty Start Date End Date Shna Wild M.D. [address] [place] [phone] PCP - General Family Medicine 04/07/22 documented as of this encounter
--- OUTSIDE RECORDS SUMMARY | 2024-04-04 12:06 | XMS_ITS | Encounter Summary ---
Author Organization [facility] Address [address] [place] [address] Care Team Providers Care Head Golf Coach Name Role Phone Shan Wild M.D. Primary Care Provider Reason for Referral * Outpatient (Routine) - Closed Specialty Diagnoses / Procedures Referred By Kike ortiz Referred To Contact Diagnoses Maternal Care For Other Isoimmunization First Trimester Single Gestation (HCC) Preexisting Hypertension (HCC) Procedures US Kidneys with Renal Artery Doppler Danielle Kirkpatrick M.D. [address] [place] [address] [facility] Referral ID Status Reason Start Date Expiration Date Visits Re quested Visits Authorized [id number] Closed 12/19/2023 12/18/2024 1 1 Reason for Visit * Outpatient (Routine) - Closed Specialty Diagnoses / Procedures Referred By Kike ortiz Referred To Contact Diagnoses Maternal Care For Other Isoimmunization First Trimester Single Gestation (HCC) Preexisting Hypertension (HCC) Procedures US Kidneys with Renal Artery Doppler Danielle Kirkpatrick M.D. [address] [place] [address] [facility] Referral ID Status Reason Start Date Expiration Date Visits Re quested Visits Authorized [id number] Closed 12/19/2023 12/18/2024 1 1 Encounter Details Date Type Department Care Team (Latest Contact Info) Description 01/30/2024 1:45 PM CDT - 01/30/2024 11:59 PM CDT Hospital Encounter Department of Radiology, [facility], in [place], [place] [address] [place] [address] Danielle Kirkpatrick M.D. [address] [place] [address] Maternal Care For Other Isoimmunization First Trimester [...] oz pur e alcohol) Once a month [facility] Utilities Answer Date Recorded In the past 12 months has [employer], gas, oil, or water [employer] threatened to shut off services in your [...] week 08/30/2022 How often do you attend [facility] health system or amish services? Never 08/30/2022 Do you belong to any clubs o r organizations such as jew groups, unions, fraternal or athletic groups, or [...] Answer Date Recorded PHQ-2 Score 1 05/30/2023 [facility] [place] [facility] of Occupat ional [facility] - Occupational Stress Questionnaire Answer Date [...] your living situation today? I have a [facility] place to live 12/17/2023 Education Answer Date Recorded What is the highest level of school you have completed or the highest degree you have received? 12th grade 08/23/2022 Estimated Date of Delivery Comme nts Yes 06/30/2024 Based on last me nstrual period of 09/24/2023 (Exact Date) Sex and Gender Information Value Date Recorded Sex Assigned at Female 08/23/2022 7:16 PM MANGANESE BREAKER Gender Identity Female 08/23/2022 7:16 PM MANGANESE BREAKER Sexual Orientation Bisexual 08/23/2022 7: 16 PM MANGANESE BREAKER documented as of this encounter Medications at [...] Name Priority Date/Time Associated Diagnosis Comments US KIDNEYS WITH RENAL ARTERY DOPPLER RAD - Routine (most inpatients and all outpatients) 01/30/2024 3:02 PM CDT Maternal Care For Other Isoimmunization First Trimester Single Gestation (HCC) Pre Existing Essential Hypertension Complicating First Trimester (HCC) documented in this encounter Results * US Kidneys with Renal Artery Doppler [...] helpful in further evaluation if clinically indicated. Danielle RAZA documented in this encounter Visit Diagnoses Diagnosis Maternal Care For Other Isoimmunization First Trimester Single Gestation (HCC) Pre Existing Essential Hypertension Complicating First Trimester (HCC) documented in this encounter Care Teams Head Golf Coach Relationship Specialty Start Date End Date Shan Wild M.D. [address] [place] [phone] PCP - General Family Medicine 04/07/22 documented as of this encounter
--- OUTSIDE RECORDS SUMMARY | 2024-04-04 12:07 | XMS_ITS | Clinical Summary ---
Author Organization [facility] Address [place], [place] [address] Care Team Providers Care Heavy Duty Diesel Mechanic Name Role Phone Damien Jaramillo MD Primary Care Provider [phone] Allergies Active Allergy Reactions Criticality Noted Date [...] adult 09/2015 Supervision of normal first 06/26/2012 Overview (07/29/2012): 1. NAIF 02/05/2013 by sure LMP. 8 [...] 11/27/2016, Additional history exists COVID-19 vaccine series (2023- season) 2024 04/14/2022, 06/15/2021, 05/18/2021 Influenza for age 9-49 02/24/2024 04/28/2016 Pap test for age 21-65 05/05/2025 , 05/05/2022, 04/28/2016, Additional history exists Tetanus booster 04/28/2026 04/28/2016, 11/17/2004 HIV for age 15-65 Completed 06/26/2012 Tdap Completed 04/28/2016 Pneumococcal series for age 6-64 Aged Out No longer eligible based on patient's age to complete this topic Procedures Procedure Name Priority Date/Time Associated Diagnosis Comments HPV HIGH RISK Routine 05/05/2022 9:50 AM VEGETABLE HARVEST MACHINE OPERATOR ANTI HIV 1/2 Routine 06/26/2012 12:44 PM VEGETABLE HARVEST MACHINE OPERATOR Supervision of normal first from Last 3 Months or Most Recently Relevant to Health Maintenance Results * HPV HIGH RISK (05/05/2022 9:50 AM VEGETABLE HARVEST MACHINE OPERATOR) TYPE 16 Negative Negative 05/09/2022 5:09 PM VEGETABLE HARVEST MACHINE OPERATOR [facility] TYPE 18 Negative Negative 05/09/2022 5:09 PM VEGETABLE HARVEST MACHINE OPERATOR [facility] OTHER HIGH RISK TYPES Negative Negative 05/09/2022 5:09 PM VEGETABLE HARVEST MACHINE OPERATOR [facility] Other (Cervical) 05/05/2022 9:50 AM VEGETABLE HARVEST MACHINE OPERATOR 05/08/2022 1:46 PM VEGETABLE HARVEST MACHINE OPERATOR Narrative [facility] - 05/09/2022 5:09 PM VEGETABLE HARVEST MACHINE OPERATOR HPV types 16, 18, 31, 33, 35, 39, 45, 51, 52, 56, 58, 59, 66 and 68 DNA were undetectable or below the pre-set threshold. Methodology: Kassidy Keon 4800 HPV Test September Ritika METZ MICROBIOLOGY [facility] [address] [place] [address], * ANTI HIV 1/2 (06/26/2012 12:44 PM VEGETABLE HARVEST MACHINE OPERATOR) ANTI HIV 1/2 Non-reacti ve [facility] Blood specimen (specimen) BLOOD SPECIMEN / Unknown 06/26/2012 12:44 PM VEGETABLE HARVEST MACHINE OPERATOR 06/26/2012 12:34 PM VEGETABLE HARVEST MACHINE OPERATOR Kiah Valencia WAX BALL KNOCK OUT WORKER SEND OUTS [facility] INTERNAL ZIP [address] [place] [address] from Last 3 Months or Most Recently Relevant to Health Maintenance Advance Directives * Full Code (Latest Code Status on File) Date Activated Date Inactivated Comments 04/25/2022 5:49 PM 04/26/2022 8:26 PM Question Answer Comments Code Status Discussion: Reviewed Preferences Care Teams Heavy Duty Diesel Mechanic Relationship Specialty Start Date End Date Damien Jaramillo MD [address] [place] [address] PCP - General 06/07/06
[2024-04-04 12:12] VITALS: BP 140/71; PULSE 81; RESP 18; TEMP 36.6; O2SAT 99
[2024-04-04 12:27] VITALS: BP 128/66; PULSE 81
[2024-04-04 12:42] VITALS: BP 122/60; PULSE 80
--- NOTE | 2024-04-04 12:50 | CRLHL7_ITS ---
For Patients: As a result of the Century Cures Act, medical imaging exams and procedure reports are released immediately into your electronic medical record. You may view this report before your referring provider. If you have questions, please contact your health care provider. INDICATION: Abdominal pain TECHNIQUE: Ultrasound OB pelvis transabdominal. Real-time mckeon-scale imaging of the fetus was performed without stress testing. COMPARISON: None. FINDINGS: Images showing body movement tone and breathing were not saved but were reported. Estimated gestational age based on LMP: 27 weeks, 4 days heart rate: Regular, 141 bpm. position: Transverse. Amniotic fluid volume single deepest pocket 6.3 cm, 2/2. motion 2/2. tone 2/2. breathing movements 2/2. Placenta: Placenta along the right wall. No evidence of abruption, the only limited views provided. Cervix: Cervix is closed and measures 4.4 centimeters. IMPRESSION: [place] intrauterine in transverse position with a biophysical profile 8/8. Cardiac activity is present. No evidence of placental abruption. Cervix is normal and closed. Dictated by Nanda Aguillon MD @ 04/04/2024 1:54:58 PM (Electronically Signed)
[2024-04-04 12:57] VITALS: BP 117/54; PULSE 80
[2024-04-04] MEDS: ACETAMINOPHEN 500 MG TABLET 1000 MG PO (13:03)
--- NOTE | 2024-04-04 15:13 | PC.OBNST ---
NST Note NST Note Start: 04/04/24 12:04 Freq: ONCE Status: Active Protocol: Document 04/04/24 14:00 PORTC (Rec: 04/04/24 15:12 PORTC Desktop) NST Note 7 Para (# of births) 1 EDC 06/30/24 Gestational Age In Weeks & Days 27 Weeks & 4 Days High Risk Factors High Blood Pressure - Gestational Patient Presented with Complaint(s) of Pain If Pain, describe location Sharp, pin-point abdominal pain in lower right abdomen Other Complaints Pt reported sudden onset of sharp abdominal pain in lower right abdomen while unloading a truck at work. Reactive Yes Appropriate for Gestational Age Yes RN Soco Golden RN Date 04/04/24 Reactive Yes Appropriate for Gestational Age Yes YVAN Mendoza MD Date 04/04/24 OB NST charge Yes Complete NST Note via Write Note Yes The provider's electronic signature indicates the NST is reactive/appropriate for gestational age. *Note to provider: If an addendum is required, open the patient's chart and click on the note under the Nurse/Allied Health tab.
--- NOTE | 2024-04-04 17:55 | P.OBO_ITS ---
OB Outpatient HPI History of Present Illness Date Seen: 04/04/24 History of Present Illness: 28 year old at 27 4/7 weeks' gestation presents with complaint of acute abdominal pain beginning today. She was unloading boxes from a truck at her place of work when the pain started, and became more severe. When she called the triage nurse, she reported sharp pain at a 6/10. She then left work and came to the Center for further evaluation. 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 This was to be treated as a classical uterine incision and she was to be delivered at 36 weeks gestation. She does also have a history of delivery prior to that. She has right lateral placental previa noted on level 2 ultrasound on 02/06/2024. There were no findings concerning for placental accreta. She denies any vaginal bleeding. She denies any contractions or loss of fluid. She reports good movement. When at rest, lying down, she has no pain. She has right lateral placental previa noted on level 2 ultrasound on 02/06/2024. There were no findings concerning for placental accreta. She denies any vaginal bleeding. Meds Home Medications and Allergies Home Medications ?Medication ?Instructions ?Recorded ?Confirmed ?Type ferrous sulfate 325 mg (65 mg 325 mg PO QDAY 11/23/22 03/17/24 History iron) tablet docosahexaenoic acid 200 mg mg PO 11/23/23 03/17/24 History capsule ( DHA) aspirin 81 mg chewable tablet 81 mg PO QDAY 12/21/23 03/17/24 History (Aspirin Childrens) Allergies Allergy/AdvReac Type Severity Reaction Status Date / Time nickel Allergy Mild Rash Verified 03/17/24 10:49 agave Allergy Mild Hives Uncoded 03/17/24 10:49 blackberry Allergy Mild Hives Uncoded 03/17/24 10:49 [facility] Medical History (Updated 04/04/24 @ 18:06 by Perla Mendoza MD) Fibroid uterus ?D25.9 - Leiomyoma of uterus, unspecified (ICD-10) History of abnormal cervical Pap smear ?Z87.42 - Personal history of other diseases of the female genital tract (ICD-10) Iron deficiency anemia ?D50.9 - Iron deficiency anemia, unspecified (ICD-10) Morbid obesity with BMI of 50.0-59.9, adult ?E66.01 - Morbid (severe) obesity due to excess calories (ICD-10) ?Z68.43 - Body mass index [BMI] 50.0-59.9, adult (ICD-10) Recurrent loss ?N96 - Recurrent loss (ICD-10) Elevated blood pressure reading ?R03.0 - Elevated blood-pressure reading, without diagnosis of hypertension (ICD-10) Dysmenorrhea ?N94.6 - Dysmenorrhea, unspecified (ICD-10) Menorrhagia ?N92.0 - Excessive and frequent menstruation with regular cycle (ICD-10) Surgical History (Updated 11/23/23 @ 19:23 by Urmila Tom CNM) History of myomectomy ?Z98.890 - Other specified postprocedural states (ICD-10) History of ?Z98.891 - History of uterine scar from previous surgery (ICD-10) Family History Family/Other Breast cancer Aunt Lung cancer Family/Other High blood pressure Maternal Grandmother Diabetes Social History (Updated 11/23/23 @ 19:07 by Urmila Tom CNM) Narrative: SOCIAL Education: High School Work: [employer] 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, [employer]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 Lives with: Cece Wang Pets: 2 dogs and 2 cats Abuse: Denies past/present Special Diet: was on keto, not on during Ok with a blood transfusion: yes Culture or restoration beliefs: denies RISK FACTORS Exercise Times/wk: Walk daily, walk dogs Hx of Depression and/or Anxiety/other mood disorder: denies hx Seat Belt Use: Routinely Smoking: Denies present; 2 sigs per day stopped about 1 month ago Alcohol/day: Denies while ; occasionally prior to Caffeine: Coffee 1-2 maybe Drug Use: Denies past/present Chicken Pox: Yes as a child MRSA: Denies What is your current living situation?: I presently have a place to live Problems where you live: no known problems In the past 12 months, utilities in danger of being shut off: no In past 12 months, lack of transportation kept you from medical appts, meetings, work, or getting things needed for daily living: no In the past 12 mos, have been you worried that your food would run out before you had money to buy more?: never true In the past 12 mos, the food you bought just didn't last and you didn't have money to buy more?: never true Smoking Status: Former smoker What tobacco products do you use: cigarettes Smoking quit date/years: <= 15 years ago Do you use any of these nicotine containing products: Vaping Products Second hand tobacco smoke exposure: No How often do you have a drink containing alcohol: monthly or less How many standard drinks containing alcohol do you have on a typical day: 1 or 2 How often do you have six or more drinks on one occasion: Never AUDIT-C Alcohol total score: 1 Non-prescribed substance use: marijuana (any form) Non-prescribed substance use details: occasionally marijuana gummy for sleep How often does anyone, including family, friends and others, physically hurt you : never How often does anyone, including family, friends and others, insult or talk down to you: never How often does anyone, including family, friends and others, threaten you with harm: never How often does anyone, including family, friends and others, scream or curse at you: never Little interest or pleasure in doing things: several days Feeling down, depressed, or hopeless: several days service: No History History 7 Elective abortions Para 1 Spontaneous abortions 5 Hx # Term Pregnancies Ectopic pregnancies Hx # Pregnancies Multiple births Number of Living Children 1 Past Pregnancies Del. Date GA/Weeks Outcome Route wt Inf Gender Labor Lgth Anesthesia Location Provider Compli Unknown 5 spontaneous Unknown 6 spontaneous Unknown 6 spontaneous Unknown 6 spontaneous Unknown 5 spontaneous 02/08/13 live - full term low transverse 8 lb 6 oz [facility]. OB - H&P: Exam Physical Exam Vital signs: Temp Pulse Resp BP Pulse Ox 97.8 F 80 18 117/54 L 99 04/04/24 12:12 04/04/24 12:57 04/04/24 12:12 04/04/24 12:57 04/04/24 12:12 Narrative: Physical exam: Vitals as noted above. General: No acute distress Psych: Alert and oriented x 3, full affect HEENT: Normocephalic, atraumatic Abdomen: Soft, gravid, fundus nontender. She does have some tenderness in the right lower abdomen which is not exacerbated by touching the fundus. Exam in the lower abdomen is limited by patient habitus NST: Baseline 135, accelerations to 150, no decelerations, moderate variability. Reactive, reassuring for gestational age Labs Labs Ultrasound: Estimated gestational age based on LMP: 27 weeks, 4 days heart rate: Regular, 141 bpm. position: Transverse. Amniotic fluid volume single deepest pocket 6.3 cm, 2/2. motion 2/2. tone 2/2. breathing movements 2/2. Placenta: Placenta along the right wall. No evidence of abruption, the only limited views provided. Cervix: Cervix is closed and measures 4.4 centimeters. IMPRESSION: [place] intrauterine in transverse position with a biophysical profile 8/8. Cardiac activity is present. No evidence of placental abruption. Cervix is normal and closed. Assessment and Plan Assessment and plan (1) Abdominal wall pain: Status: Acute (2) : Status: Acute Plan Given her recent lifting and subsequent pain, the consistency of the location of the pain, and lack of tenderness to palpation of her uterus, I suspect that this represents abdominal wall pain. testing is all reassuring, and her ultrasound is normal. She was treated with 1 g of Tylenol, and noted that symptoms were much improved. She was discharged to home.
== END 2024-04-04 14:00 | disposition home or self-care (01) ==
LOC: OB OUT 11:59 → OB 11:59
PROVIDERS: PCP Pediatrics; Visit Provider Obstetrics & Gynecology
DX: O26.892 Other specified pregnancy related conditions, second trimester (principal); R10.9 Unspecified abdominal pain; Z3A.27 27 weeks gestation of pregnancy
CPT/HCPCS: 59025; 76815; G0463; A9270

== ENCOUNTER 2024-04-07 13:35 | Outpatient (CLI) | payer OTHER, SELFPAY ==
--- OUTSIDE RECORDS SUMMARY | 2024-04-10 07:27 | XMS_ITS | Encounter Summary ---
Author Organization [facility] Address [address] [place] [id number] Care Team Providers Care Leadership Recruiter Name Role Phone Shan Wild M.D. Primary Care Provider Reason for Visit * Outpatient (Routine) - Closed Specialty Diagnoses / Procedures Referred By Kike ortiz Referred To Contact Pediatric Cardiology Diagnoses Complication Morbid Obesity Body Mass Index Greater Than 40 (HCC) Pre Existing Essential Hypertension Complicating Second Trimester (HCC) Recurrent Loss Second Trimester (HCC) Danielle Kirkpatrick M.D. [address] [place] [phone] Phone: tel: fax: [facility] Referral ID Status Reason Start Date Expiration Date Visits Re quested Visits Authorized [id number] Closed 02/13/2024 08/14/2025 1 1 Encounter Details Date Type Department Care Team (Latest Contact Info) Description 03/10/2024 11:00 AM CDT Comprehensive Visit Division of Pediatric Cardiology in [place], [place] [address] [place] [phone] Binu Ho M.B.B.S. [address] [place] [phone] Encounter For Screening For Congenital Cardiac Abnormalities [...] oz pur e alcohol) Once a month [facility] [employer] Answer Date Recorded In the past 12 months has e [employer], [employer], oil, or water [employer] threatened to shut off services in your [...] week 08/30/2022 How often do you attend [facility] or hinduism services? 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 - 03/10/2024 11:00 AM CDT [facility] Cardiology Consultation Sarah JenkinsS. Date of Consultation: 03/10/2024 Patient: Neha Rand Date of : 1995, Age: 28 y.o. , CSN: [id number] Address: [address] [place] [phone] Referral: Danielle Kirkpatrick M.D. [address] [place] [phone] SUBJECTIVE CHIEF COMPLAINT: cardiovascular screening. HISTORY OF [...] by mouth 2 (two) times a day. [id number] 27 mg iron- 1 mg tablet, Take [...] Morbid Obesity Body Mass Index 50.0-59.9 Adult ([facility]) Past Surgical History: Procedure Laterality Date SECTION 2012 HYSTEROSCOPY N/A 03/23/2023 Procedure: DIAGNOSTIC HYSTEROSCOPY.; Surgeon: Jeremías Salas M.B.BRochelleSRochelle; Location: [facility] OR LAPAROSCOPIC MYOMECTOMY N/A 03/23/2023 Procedure: LAPAROSCOPIC MYOMECTOMY, CHROMO DYE TEST; Surgeon: Jeremías Salas M.B.BRochelleSRochelle; Location: [facility] OR Social History Socioeconomic History Marital status: Spouse name: Felipe Highest education level: 12th grade Occupational History Occupation: [employer] Tobacco Use Smoking status: Former Current packs/day: [...] should any questions or concerns arise. Benitez JenkinsB.S. documented in this encounter Plan of Treatment Not on file documented as of this encounter Visit Diagnoses Diagnosis Encounter For Screening For Congenital Cardiac Abnormalities (HCC)- Primary Complication Morbid Obesity Body Mass Index Greater Than 40 (HCC) Pre Existing Essential Hypertension Complicating Second Trimester (HCC) Recurrent Loss Second Trimester (HCC) documented in this encounter Care Teams Leadership Recruiter Relationship Specialty Start Date End Date Shan Wild M.D. [address] [place] [phone] PCP - General Family Medicine 04/07/22 documented as of this encounter
--- OUTSIDE RECORDS SUMMARY | 2024-04-10 07:27 | XMS_ITS | Referral Summary ---
Author Organization [facility] Address [address] [place] [address] Care Team Providers Care Protective Signal Operations Supervisor Name Role Phone Shan Wild M.D. Primary Care Provider Source Comments Patient records contain information from all sites at [facility]. For routine questions regarding patient records, call [phone] during business hours, M-F 8:00 AM - 5:00 PM Central Time. Record requests for emergency care only can be directed to [phone] at any time.[facility] Encounters Date Type Department Care Team Description 03/10/2024 11:00 AM CDT Comprehensive Visit Division of Pediatric Cardiology in [place], [place] [address] [place] [address] Binu Ho M.B.B.S. Encounter For Screening For Congenital Cardiac Abnormalities (HCC) (Primary Dx); Complication Morbid Obesity Body Mass Index Greater Than 40 (HCC); Pre Existing Essential Hypertension Complicating Second Trimester (HCC); Recurrent Loss Second Trimester (HCC) 03/10/2024 3:00 PM CDT Routine Department of Obstetrics and Gynecology in [place], [place] [address] [place] [phone] Dez Rivers M.D. Pre Existing Essential Hypertension [...] Encounter Department of Obstetrics and Gynecology in [place], [place] [address] [place] [phone] Dez Rivesr M.D. Complication Morbid Obesity Body Mass Index Greater Than 40 (HCC); Pre Existing Essential Hypertension Complicating Second Trimester (HCC); Recurrent Loss Second Trimester (HCC) Discharge Disposition: Home or Self Care 03/10/2024 9:55 AM CDT - 03/10/2024 1:35 PM CDT Hospital Encounter Department of Cardiovascular Diseases in [place], [place] [address] [place] [address] Dez Rivers M.D. Complication Morbid Obesity Body Mass Index Greater Than 40 (HCC); Pre Existing Essential Hypertension Complicating Second Trimester (HCC); Recurrent Loss Second Trimester (HCC) Discharge Disposition: Home or Self Care 02/13/2024 Orders Only Department of Obstetrics and Gynecology in [place], [place] [address] [place] [address] Dez Rivers M.D. Complication Morbid Obesity Body Mass Index Greater Than 40 (HCC) (Primary Dx); Pre Existing Essential Hypertension Complicating Second Trimester (HCC); Recurrent Loss Second Trimester (HCC) 02/13/2024 4:26 PM CDT - 02/13/2024 11:59 PM CDT Hospital Encounter Department of Laboratory Medicine and Pathology, [facility], in [place], [place] [address] [place] [phone] Polly Vega M.B.B.SRochelle Pre Existing Essential Hypertension Complicating First Trimester (HCC) Discharge Disposition: Home or Self Care 02/13/2024 4:30 PM CDT Routine Department of Obstetrics and Gynecology in [place], [place] [address] [place] [address] Dez Rivers M.D. Complication Morbid Obesity Body [...] Encounter Department of Obstetrics and Gynecology in [place], [place] 200 [place] [address] Dez Rivers M.D. Maternal Care For Other Isoimmunization Second Trimester Single Gestation (HCC); Encounter For Screening For Malformations (HCC); Complication Morbid Obesity Body Mass Index Greater Than 40 (HCC); Pre Existing Essential Hypertension Complicating Second Trimester (HCC) Discharge Disposition: Home or Self Care 02/13/2024 2:30 PM CDT Comprehensive Visit Division of Nephrology and Hypertension in [place], [place] 200 [place] [address] Sona Walsh M.D., Ph.D. Hyperplasia Fibromuscular Renal Artery (HCC) (Primary Dx); Pre Existing Essential Hypertension Complicating First Trimester (HCC) 02/07/2024 Clinical Communication Department of Obstetrics and Gynecology in [place], [place] [address] [place] [address] Dez Rivers M.D. 02/06/2024 3:30 PM CDT Routine Department of Obstetrics and Gynecology in [place], [place] [address] [place] [address] Dez Rivers M.D. Complication Morbid Obesity Body [...] Encounter Department of Obstetrics and Gynecology in [place], [place] [address] [place] [address] Dez Rivers M.D. Maternal Care For Other Isoimmunization First Trimester Single Gestation (HCC) Discharge Disposition: Home or Self Care 01/30/2024 Orders Only Department of Obstetrics and Gynecology in [place], [place] [address] [place] [address] Dez Rivers M.D. Pre Existing Essential Hypertension Complicating First Trimester (HCC) (Primary Dx) 01/30/2024 1:45 PM CDT - 01/30/2024 11:59 PM CDT Hospital Encounter Department of Radiology, [facility], in [place], [place] [address] [place] [address] Dez Rivers M.D. Maternal Care For Other Isoimmunization First Trimester Single Gestation (HCC); Pre Existing Essential Hypertension Complicating First Trimester (HCC) Discharge Disposition: Home or Self Care 01/11/2024 11:00 AM CDT Virtual Visit Department of Obstetrics and Gynecology in [place], [place] [address] [place] [address] Celina Mauricio M.S., CGC Recurrent Loss Unspecified Trimester (HCC) (Primary Dx) from Last 3 Months Allergies Active Allergy Reactions Criticality Noted Date Comments Alcohol Hives (Reselect Reaction) Medium 04/14/2022 TEQUILA Blackberry Hives (Reselect Reaction) Medium 04/14/2022 Nickel Rash 04/28/2016 Medications * This document contains information received from the source organization and may not represent a complete record from that organization. ferrous sulfate 325 mg (65 mg iron) tablet Take 325 mg by mouth every other day. Twice daily, every other day 11/02/202 2 Active acetaminophen (TYLENOL) 500 mg tablet Take 2 tablets (1,000 mg total) by mouth every 6 (six) hours as needed for pain. Alternate with ibuprofen every 3 hours. Do not exceed 4000 mg or 4 g in 24 hours. 30 tablet 3 Active UNABLE TO FIND Apple cider vinegar tablet 3 times daily Active aspirin [address] tabletIndications:M aternal Care For Other Isoimmunization First Trimester Fetus 1 (HCC) Take 1 tablet (81 mg total) by mouth daily. 4 Active labetaloL 200 mg tablet Take 1 tablet by mouth 2 (two) times a day. 4 Active salzpoz-Vr-gxad-FA 27 mg iron- 1 mg tablet Take 1 tablet by mouth daily. 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 Never 08/30/2022 Do you belong to any clubs o r organizations such as rastafarian groups, unions, fraternal or athletic groups, or [...] Answer Date Recorded PHQ-2 Score 1 05/30/2023 [employer] [facility] - Occupational Stress Questionnaire Answer [...] your living situation today? I have a [facility] place to live 12/17/2023 Education Answer Date Recorded What is the highest level of school you have completed or the highest degree you have received? 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[id number] Plurality: 1 OBHx: [G:(7)] ?F [...] was obtained. Preliminary Read by Jesús Silva, ROsmany.M.S. on 03/10/2024 2:22:44 PM. Pan Tank Worker: ??Jesús Silva R.D.M.S. Thank You For This Referral Procedure Note Chin Bates M.D. - 03/10/2024 KIRSTEN NEHA RAND OB Exam, 03/10/2024 EXAM INFORMATION Patient Name: NEHA MARCUS : 1995 Age: 28 yrs Sex: Female Ref Phys: DEZ RIVERS Exam Date: 03/10/2024 Procedure: OB GROWTH FINLEY Exam Site: [facility] OB #126 Plurality: 1 OBHx: [G:(7)] F [...] Jesús Silva R.D.M.S. on 03/10/2024 2:22:44 PM. Pan Tank Worker: Jesús Silva R.D.MRochelleSRochelle Thank You For This Referral us Dez Rivers M.D. IMG OB US PROCEDURES Final Result * FINLEY ECHO 2D WITH COLOR AND DOPPLER (03/10/2024 11:12 AM CDT) Ejection Fraction [facility] Anatomical Region Laterality Modality Echocardiography 03/10/2024 [...] Order-Level Documents. Dez Rivers M.D. CV ECHO PROCEDURES F inal Result * Dipstick, Urine (02/13/2024 4:43 PM CDT) [...] 5:32 PM CDT Polly Saenz LAB URINE ORDERABLES Fi nal Result [facility] [address] [facility] [facility] [address] [place] [address] * (ABNORMAL) Microscopic Automated (02/13/2024 4:43 PM [...] 5:32 PM CDT Polly MarquisB.S. LAB URINE ORDERABLES Fi nal Result Performing Organization Address City/[facility] Co de Phone Number [facility] [address] [place] [address] * pH, Urine (02/13/2024 4:43 PM CDT) pH, U 5.9 4.5 - 8.0 02/13/2024 6:2 7 PM CDT DTL Urine 02/13/2024 4:43 PM CDT 02/13/2024 5:32 PM CDT Polly MarquisB.S. LAB URINE ORDERABLES Fi nal Result Performing Organization Address [facility] de Phone Number [facility] 200 [place] [address] * Albumin, Random, Urine (02/13/2024 4:43 PM CDT) Albumin, Random, U <5.0 mg/L 2023 10:29 AM CDT DTL Comment: ----ADDITIONAL INFORMATION---- This test has been modified from the chlorine operator's instructions. Its performance characteristics were determined by [facility] in a manner consistent with CLIA [...] 5:32 PM CDT Polly MarquisB.S. LAB URINE ORDERABLES Fi nal Result Performing Organization Address [facility] de Phone Number [facility] 200 [place] [address], [facility] 200 [place] [address] * Protein/Creatinine Ratio, Random, Urine (02/13/2024 4:43 PM CDT) Protein, Total, Random, U 10 mg/dL 02/13/2024 6:31 PM CDT DTL Creatinine, Random, U 148 16 - 326 mg/dL 02/13/2024 6:31 PM CDT DTL Protein/Creatin ine Ratio 0.07 <0.18 mg/mg 02/13/2024 6:31 PM CDT DTL Urine (Urine, Midstream) 02/13/2024 4:43 PM CDT 02/13/2024 5:32 PM CDT Polly MarquisB.S. LAB URINE ORDERABLES nal Result Performing Organization Address [facility] Co de Phone Number [facility] 200 [place] [address], [facility] 200 [place] [address] * Osmolality, Urine (02/13/2024 4:43 PM CDT) Osmolality, U 770 150 - 1150 mOsm/kg 02/13/2024 6:27 PM CDT DTL Urine 02/13/2024 4:43 PM CDT 02/13/2024 5:32 PM CDT Polly MarquisB.S. LAB URINE ORDERABLES Fi nal Result Performing Organization Address [facility] Co de Phone Number [facility] 200 [place], [place] [phone] [place] [address] 200 [place] [address] * Urinalysis, with Microscopic: Urine, Midstream (02/13/2024 [...] 5:32 PM CDT Polly MarquisB.S. LAB URINE ORDERABLES Fi nal Result Performing Organization Address [facility] Co de Phone Number [facility] 200 [place] [address], [facility] 200 [place] [address] * US OB Follow-up and or Growth [...] by Richard Haskins on 02/13/2024 4:18:01 PM. Pan Tank Worker: ??Richard Haskins Thank You For This Referral [...] by Richard Haskins on 02/13/2024 4:18:01 PM. Pan Tank Worker: Richard Haskins Thank You For This Referral us Dez Rivers M.D. IMG OB US PROCEDURES Final Result * (ABNORMAL) CBC without Differential (02/06/2024 5:00 [...] 5:00 PM CDT 02/06/2024 5:23 PM CDT us Dez Rivers M.D. LAB BLOOD ADD-ON Fin al Result [facility] [address] [place] [address], [facility] [address] [address] * (ABNORMAL) Comprehensive Metabolic Panel (02/06/2024 5:00 PM CDT) [facility] Potassium, S 4.0 3.6 - 5.2 mmol/L [...] 5:00 PM CDT 02/06/2024 5:36 PM CDT us Dez Rivers M.D. LAB BLOOD ADD-ON Fin al Result [facility] [address] [address], [facility] [place] [place] [address] * US OB Advanced Level Finley (02/06/2024 3:16 PM CDT) Anatomical Region Laterality Modality Body, Ultrasound OB RST LOS, Ultrasound ARZ LOS N/A Ultrasound Narrative 02/06/2024 5:02 PM CDT NEHA MARCUS OB Exam, 02/06/2024 EXAM INFORMATION Patient Name: ??NEHA MARCUS : ??1995 Age: ??28 yrs Sex: ??Female Ref Phys: ??DEZ RIVERS Exam Date: 02/06/2024 Procedure: US OB ADVANCED LEVEL FINLEY Exam Site: [facility] OB #139 Plurality: 1 OBHx: [G:(7)] ?F [...] Dez Rivers M.D. on 02/06/2024 4:26:07 PM. Pan Tank Worker: ??Ana Aguilar Thank You For This Referral Procedure Note Dez Rivers M.D. - 02/06/2024 NEHA MARCUS OB Exam, 02/06/2024 EXAM INFORMATION Patient Name: NEHA MARCUS : 1995 Age: 28 yrs Sex: Female Ref Phys: DEZ RIVERS Exam Date: 02/06/2024 Procedure: US OB ADVANCED LEVEL FINLEY Exam Site: [facility] OB #139 Plurality: 1 OBHx: [G:(7)] F [...] by Dez Rivers M.D. on 02/06/2024 4:26:07PM. Pan Tank Worker: Ana Aguilar Thank You For This Referral us Dez Rivers M.D. IMG OB US PROCEDURES Final Result * US Kidneys with Renal Artery Doppler [...] helpful in further evaluation if clinically indicated. us Dez Rivers M.D. IMG US PROCEDURES Fi nal Result * (ABNORMAL) ThinPrep Screen (04/14/2022 10:41 AM [...] 10:41 AM CDT 04/17/2022 9:23 AM CDT us Shan Wild M.D. LAB PAP PATHDX ORDERABLES Fi nal Result [facility] [address] [place] [address], [place] [facility] [address] [place] [address] from Last 3 Months or Most Recently Relevant to Health Maintenance Insurance [employer] [place] Directives For more information, please contact: [phone] * Full Code (Latest Code Status on File) Date Activated Date Inactivated Comments 03/23/2023 5:05 PM 03/23/2023 9:40 PM Question Answer Comments Full Code: Discussed * Full Code Date Activated Date Inactivated Comments 03/23/2023 10:38 AM 03/23/2023 5:05 PM Question Answer Comments Full Code: Discussed Care Teams Protective Signal Operations Supervisor Relationship Specialty Start Date End Date Shan Wild M.D. [address] [place] [phone] PCP - General Family Medicine 04/07/22
--- OUTSIDE RECORDS SUMMARY | 2024-04-10 07:27 | XMS_ITS | Encounter Summary ---
Author Organization [facility] Address [address] [place] [address] Care Team Providers Care Field Artillery Fire Control Man Name Role Phone Shan Wild M.D. Primary Care Provider Reason for Visit * Reason Comments Routine Visit MFM * Outpatient (Routine) - Closed Specialty Diagnoses / Procedures Referred By Kike ortiz Referred To Contact Obstetrics and Gynecology Diagnoses Complication Morbid Obesity Body Mass Index Greater Than 40 (HCC) Pre Existing Essential Hypertension Complicating Second Trimester (HCC) Recurrent Loss Second Trimester (HCC) Danielle Kikrpatrick M.D. 200 [place] [address] Phone: tel: fax: [facility] Referral ID Status Reason Start Date Expiration Date Visits Re quested Visits Authorized [id number] Closed 02/13/2024 08/14/2025 1 1 Encounter Details Date Type Department Care Team (Latest Contact Info) Description 03/10/2024 3:00 PM CDT Routine Department of Obstetrics and Gynecology in [place], [place] [address] [place] [phone] Danielle Kirkpatrick M.D. [address] [place] [phone] Pre Existing Essential Hypertension Complicating Second Trimester [...] oz pur e alcohol) Once a month [facility] Utilities Answer Date Recorded In the past 12 months has e [employer], gas, oil, or water [employer] threatened to shut off services in [...] often do you attend chur ch or mandaen services? Never 08/30/2022 Do you belong to [...] Answer Date Recorded PHQ-2 Score 1 05/30/2023 [facility] of Occupat ional [facility] - Occupational [...] Sex Assigned at Female 08/23/2022 7:16 PM REO ASSET MANAGER Legal Sex Female 12:17 PM CDT Gender Identity Female 08/23/2022 7:16 PM REO ASSET MANAGER Sexual Orientation Bisexual 08/23/2022 7: 16 PM REO ASSET MANAGER Occupation Industry Job Start Date Job [...] 7 Current 6 2019 8w0d SAB 5 2018 8w0d SAB 4 SAB 2017 8w0d SAB 3 SAB 2016 8w0d SAB 2 2015 8w0d SAB 1 Term 02/08/13 39w6d 4.054 [...] 200 mg oral every 12 hours) 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 No further [...] from prior blood transfusion in 2021. Unknown [place] antigen status for . Given fetus negative for [place] antigens, maternal anti-Georgina isoimmunization is not expected to be clinically [...] to get . CHRONIC HYPERTENSION BLOOD PRESSURE chief wellness officer blood pressure trend closely. Start home blood [...] worsening chronic hypertension or early labor. CONTRACEPTION manager long term care reversible contraception options, other contraception options and [...] (HCC) documented in this encounter Care Teams Field Artillery Fire Control Man Relationship Specialty Start Date End Date Shan Wild M.D. [address] [place] [phone] PCP - General Family Medicine 04/07/22 documented as of this encounter
--- OUTSIDE RECORDS SUMMARY | 2024-04-10 07:27 | XMS_ITS | Encounter Summary ---
Author Organization [facility] Address [address] [place] [address] Care Team Providers Care Inventory Worker Name Role Phone Shan Wild M.D. [...] Second Trimester (HCC) Danielle Kirkpatrick M.D. 200 [place] [address] Phone: tel: fax: [facility] Referral ID Status Reason Start Date Expiration Date Visits Re quested Visits Authorized [id number] Closed 02/06/2024 08/07/2025 1 1 Encounter Details Date Type Department Care Team (Latest Contact Info) Description 02/13/2024 4:30 PM CDT Routine Department of Obstetrics and Gynecology in [place], [place] [address] [place] [phone] Danielle Kirkpatrick M.D. [address] [place] [phone] Complication Morbid Obesity Body Mass Index Greater [...] oz pur e alcohol) Once a month [facility] Utilities Answer Date Recorded In the past 12 months has e [employer], gas, oil, or water [employer] threatened to shut off services in your [...] often do you attend chur ch or latter day services? Never 08/30/2022 Do you belong to any clubs o r organizations such as restorationism groups, unions, fraternal or athletic groups, or [...] Answer Date Recorded PHQ-2 Score 1 05/30/2023 [facility] - Occupational Stress Questionnaire Answer Date Recorded [...] your living situation today? I have a [facility] to live 12/17/2023 Education Answer Date Recorded What is the highest level of school you have completed or the highest degree you have received? 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 History: prior myomectomy (02/2023) requiring section 5. History: prior section (G1) 6. History: (5) recurrent first trimester loss 7. Obesity Class 3 BMI 45 kg/m2 8. Marginal cord insertion RECOMMENDATIONS CARE Continue routine care with her primary obstetric providers in [employer], [facility] Vito Reyes CNM and care team. [...] with no concerns for superimposed preeclampsia. 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 Unknown [place] antigen status for . Given fetus negative for [place] antigens, maternal anti-[place] isoimmunization is not expected to be clinically significant for this and fetus is at low risk of hemolytic disease. If blood transfusion is indicated, patient should receive Early [place] negative blood. History: prior myomectomy (02/2023) requiring section History: prior section (G1) Patient is not an ideal candidate for trial of labor after section. Given prior extensive myomectomy, she requires a section for delivery even if endometrial cavity was not entered during the myomectomy. Myomectomy operative report was reviewed: Per SUKHWINDER Dr. Salas, Given the extensive depth of the dissection this patient would benefit from delivery in the future if she were to get . CHRONIC HYPERTENSION BLOOD PRESSURE fur liner blood pressure trend closely. Start home blood [...] worsening chronic hypertension or early labor. CONTRACEPTION correction reversible contraception options, other contraception options and [...] (HCC) documented in this encounter Care Teams Inventory Worker Relationship Specialty Start Date End Date Shan Wild M.D. [address] [place] [phone] PCP - General Family Medicine 04/07/22 documented as of this encounter
--- OUTSIDE RECORDS SUMMARY | 2024-04-10 07:27 | XMS_ITS | Clinical Summary ---
Author Organization [facility] Address [address] [place] [address] Care Team Providers Care Geometry Teacher Name Role Phone Shan Wild M.D. Primary Care Provider [phone] Source Comments Patient records contain information from all sites at [facility]. For routine questions regarding patient records, call [phone] during business hours, M-F 8:00 AM - 5:00 PM Central Time. Record requests for emergency care only can be directed to [phone] at any time.[facility] Allergies Active Allergy Reactions Criticality Noted Date [...] other day. Twice daily, every other day 2 Active acetaminophen (TYLENOL) 500 mg tablet Take 2 tablets (1,000 mg total) by mouth every 6 (six) hours as needed for pain. Alternate with ibuprofen every 3 hours. Do not exceed 4000 mg or 4 g in 24 hours. 30 tablet 3 Active UNABLE TO FIND Apple cider vinegar tablet 3 times daily Active aspirin [address] tabletIndications:Samuel aternal Care For Other Isoimmunization First Trimester Fetus 1 (HCC) Take 1 tablet (81 mg total) by mouth daily. 4 Active labetaloL 200 mg tablet Take 1 tablet by mouth 2 (two) times a day. 4 Active tysjgrj-Qn-nfdl-FA 27 mg iron- 1 mg tablet Take 1 tablet by mouth daily. 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 Pre Existing Essential Hypertension [...] Encounter Department of Obstetrics and Gynecology in [place], [place] [address] [place] [address] Dez Rivers M.D. Complication Morbid Obesity Body Mass Index Greater Than 40 (HCC); Pre Existing Essential Hypertension Complicating Second Trimester (HCC); Recurrent Loss Second Trimester (HCC) Discharge Disposition: Home or Self Care 03/10/2024 11:00 AM CDT Comprehensive Visit Division of Pediatric Cardiology in [place], [place] [address] [place] [address] Binu Ho M.B.B.S. Encounter For Screening For Congenital Cardiac Abnormalities (HCC) (Primary Dx); Complication Morbid Obesity Body Mass Index Greater Than 40 (HCC); Pre Existing Essential Hypertension Complicating Second Trimester (HCC); Recurrent Loss Second Trimester (HCC) 03/10/2024 9:55 AM CDT - 03/10/2024 1:35 PM CDT Hospital Encounter Department of Cardiovascular Diseases in [place], [place] [address] [place] [address] Dez Rivers M.D. Complication Morbid Obesity Body Mass Index Greater Than 40 (HCC); Pre Existing Essential Hypertension Complicating Second Trimester (HCC); Recurrent Loss Second Trimester (HCC) Discharge Disposition: Home or Self Care 02/13/2024 4:30 PM CDT Routine Department of Obstetrics and Gynecology in [place], [place] [address] [place] [address] Dez Rivers M.D. Complication Morbid Obesity Body [...] Encounter Department of Laboratory Medicine and Pathology, [facility] in [place], [place] [address] [place] [address] Polly Vega M.B.BRochelleS. Pre Existing Essential Hypertension Complicating First Trimester (HCC) Discharge Disposition: Home or Self Care 02/13/2024 3:21 PM CDT - 02/13/2024 4:25 PM CDT Hospital Encounter Department of Obstetrics and Gynecology in [place], [place] [address] [place] [address] Dez Rivers M.D. Maternal Care For Other Isoimmunization Second Trimester Single Gestation (HCC); Encounter For Screening For Malformations (HCC); Complication Morbid Obesity Body Mass Index Greater Than 40 (HCC); Pre Existing Essential Hypertension Complicating Second Trimester (HCC) Discharge Disposition: Home or Self Care 02/13/2024 2:30 PM CDT Comprehensive Visit Division of Nephrology and Hypertension in [place], [place] [address] [place] [address] Sona Walsh M.D., Ph.D. Hyperplasia Fibromuscular Renal Artery (HCC) (Primary Dx); Pre Existing Essential Hypertension Complicating First Trimester (HCC) 02/13/2024 Orders Only Department of Obstetrics and Gynecology in [place], [place] [address] [place] [address] Dez Rivers M.D. Complication Morbid Obesity Body Mass Index Greater Than 40 (HCC) (Primary Dx); Pre Existing Essential Hypertension Complicating Second Trimester (HCC); Recurrent Loss Second Trimester (HCC) 02/07/2024 Clinical Communication Department of Obstetrics and Gynecology in [place], [place] [address] [place] [address] Dez Rivers M.D. 02/06/2024 3:30 PM CDT Routine Department of Obstetrics and Gynecology in [place], [place] [address] [place] [address] Dez Rivers M.D. Complication Morbid Obesity Body [...] Encounter Department of Obstetrics and Gynecology in [place], [place] [address] [place] [address] Dez Rivers M.D. Maternal Care For Other Isoimmunization First Trimester Single Gestation (HCC) Discharge Disposition: Home or Self Care 01/30/2024 1:45 PM CDT - 01/30/2024 11:59 PM CDT Hospital Encounter Department of Radiology, [facility], in [place], [place] [address] [place] [address] Dez Rivers M.D. Maternal Care For Other Isoimmunization First Trimester Single Gestation (HCC); Pre Existing Essential Hypertension Complicating First Trimester (HCC) Discharge Disposition: Home or Self Care 01/30/2024 Orders Only Department of Obstetrics and Gynecology in [place], [place] [address] [place] [address] Dez Rivers M.D. Pre Existing Essential Hypertension Complicating First Trimester (HCC) (Primary Dx) 01/11/2024 11:00 AM CDT Virtual Visit Department of Obstetrics and Gynecology in [place], [place] [address] [place] [address] Celina Mauricio M.S., CGC Recurrent Loss Unspecified [...] In the past 12 months has e [place], gas, oil, or water [employer] threatened to shut off services in your [...] How often do you attend chur or yarsanism services? 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 Preliminary Read by Jesús Silva, RGinaM.S. on 03/10/2024 2:22:44 PM. Section Beamer: ??Jseús Silva R.D.M.S. Thank You For This Referral Procedure Note Chin Bates M.D. - 03/10/2024 KIRSTEN NEHA RAND OB Exam, 03/10/2024 EXAM INFORMATION Patient Name: NEHA MARCUS : 1995 Age: 28 yrs Sex: Female Ref Phys: DEZ RIVERS Exam Date: 03/10/2024 Procedure: OB GROWTH FINLEY Exam Site: [facility] OB #126 Plurality: 1 OBHx: [G:(7)] [...] Jesús Silva R.D.M.SRochelle on 03/10/2024 2:22:44 PM. Section Beamer: Jesús Silva R.D.MRochelleSRochelle Thank You For This Referral us Dez Rivers M.D. IMG OB US PROCEDURES Final Result * FINLEY ECHO 2D WITH COLOR AND DOPPLER (03/10/2024 11:12 AM CDT) Ejection Fraction [facility] Anatomical Region Laterality Modality Echocardiography 03/10/2024 10:0 [...] Saenz LAB URINE ORDERABLES Fi nal Result [facility] [address] [place] [address], [facility] [address] [place] [address] * (ABNORMAL) Microscopic Automated (02/13/2024 4:43 PM [...] ORDERABLES Fi nal Result Performing Organization Address City/[facility] Co de Phone Number [facility] [address] [place] [address] * pH, Urine (02/13/2024 4:43 PM CDT) pH, U 5.9 4.5 - 8.0 02/13/2024 6:2 7 PM CDT DTL Urine 02/13/2024 4:43 PM CDT 02/13/2024 5:32 PM CDT Polly MarquisB.S. LAB URINE ORDERABLES Fi nal Result Performing Organization Address [facility] de Phone Number [facility] [address] [place] [address] * Albumin, Random, Urine (02/13/2024 4:43 PM CDT) Albumin, Random, U <5.0 mg/L 2023 10:29 AM CDT DTL Comment: ----ADDITIONAL INFORMATION---- This test has been modified from the bag filler's instructions. Its performance characteristics were determined by [facility] in a manner consistent with CLIA requirements. [...] ORDERABLES Fi nal Result Performing Organization Address [facility] de Phone Number [facility] 200 [place] [address], [facility] 200 [place] [address] * Protein/Creatinine Ratio, Random, Urine (02/13/2024 4:43 [...] ORDERABLES Fi nal Result Performing Organization Address [facility] de Phone Number [facility] [address] [place] [address], [facility] [address] [place] [address] * Osmolality, Urine (02/13/2024 4:43 PM CDT) Osmolality, U 770 150 - 1150 mOsm/kg 02/13/2024 6:27 PM CDT DTL Urine 02/13/2024 4:43 PM CDT 02/13/2024 5:32 PM CDT Polly MarquisB.S. LAB URINE ORDERABLES Fi nal Result Performing Organization Address [facility] Co de Phone Number [facility] [address] [place], [place] [id number] [place] [address] [facility] [address] [place] [address] * Urinalysis, with Microscopic: Urine, Midstream (02/13/2024 [...] ORDERABLES Fi nal Result Performing Organization Address [facility]/ZIP Co de Phone Number [facility] [address] [place], [place] [address] [address] [place] [address] * US OB Follow-up and or Growth [...] by Richard Haskins on 02/13/2024 4:18:01 PM. Section Beamer: ??Richard Haskins Thank You For This Referral [...] by Richard Haskins on 02/13/2024 4:18:01 PM. Section Beamer: Richard Haskins Thank You For This Referral [...] PM CDT Dez Rivers M.D. LAB BLOOD ADD-ON Fin al Result [facility] [address] [place] [address], [facility] [address] [place] [address] * (ABNORMAL) Comprehensive Metabolic Panel (02/06/2024 5:00 PM CDT) Pathologist [facility] Potassium, S 4.0 3.6 - 5.2 mmol/L [...] M.D. LAB BLOOD ADD-ON Fin al Result [facility] [address] [place] [address], [facility] [address] [place] [address] * US OB Advanced Level Finley (02/06/2024 3:16 PM CDT) Anatomical Region Laterality Modality Body, Ultrasound OB RST LOS, Ultrasound ARZ LOS N/A Ultrasound Narrative 02/06/2024 5:02 PM CDT NEHA MARCUS OB Exam, 02/06/2024 EXAM INFORMATION Patient Name: ??NEHA MARCUS : ??1995 Age: ??28 yrs Sex: ??Female Ref Phys: ??DEZ RIVERS Exam Date: 02/06/2024 Procedure: US OB ADVANCED LEVEL FINLEY Exam Site: [facility] OB #[id number] Plurality: 1 OBHx: [G:(7)] [...] Dez Rivers M.D. on 02/06/2024 4:26:07 PM. Section Beamer: ??Ana Aguilar Thank You For This Referral Procedure Note Dez Rivers M.D. - 02/06/2024 NEHA MARCUS OB Exam, 02/06/2024 EXAM INFORMATION Patient Name: NEHA MARCUS : 1995 Age: 28 yrs Sex: Female Ref Phys: DEZ RIVERS Exam Date: 02/06/2024 Procedure: US OB ADVANCED LEVEL FINLEY Exam Site: [facility] OB #139 Plurality: 1 OBHx: [G:(7)] F [...] by Dez Rivers M.D. on 02/06/2024 4:26:07PM. Section Beamer: Ana Aguilar Thank You For This Referral [...] LAB PAP PATHDX ORDERABLES Fi nal Result [facility] [address] [place] [address], [place] [facility] [address] [place] [address] from Last 3 Months or Most Recently Relevant to Health Maintenance Insurance [employer] Advance Directives For more information, please contact: [phone] * Full Code (Latest Code Status on File) Date Activated Date Inactivated Comments 03/23/2023 5:05 PM 03/23/2023 9:40 PM Question Answer Comments Full Code: Discussed * Full Code Date Activated Date Inactivated Comments 03/23/2023 10:38 AM 03/23/2023 5:05 PM Question Answer Comments Full Code: Discussed Care Teams Geometry Teacher Relationship Specialty Start Date End Date Shan Wild M.D. [address] [place] [phone] PCP - General Family Medicine 04/07/22
--- OUTSIDE RECORDS SUMMARY | 2024-04-10 07:27 | XMS_ITS | Encounter Summary ---
Author Organization [facility] Address [address] [place] [address] Care Team Providers Care Fixing Carpenter Name Role Phone Shan Wild M.D. Primary Care Provider Reason for Referral * Outpatient (Routine) - Closed Specialty Diagnoses / Procedures Referred By Kike ortiz Referred To Contact Obstetrics and Gynecology Diagnoses Complication Morbid Obesity Body Mass Index Greater Than 40 (HCC) Pre Existing Essential Hypertension Complicating Second Trimester (HCC) Recurrent Loss Second Trimester (HCC) Dez Rivers M.D. [address] [place] [address] Phone: tel: fax: [facility] Referral ID Status Reason Start Date Expiration Date Visits Re quested Visits Authorized [id number] Closed 02/13/2024 08/14/2025 1 1 Scheduling Instructions Sched with Kaya please. * Outpatient (Routine) - Closed Specialty Diagnoses / Procedures Referred By Kike ortiz Referred To Contact Diagnoses Complication Morbid Obesity Body Mass Index Greater Than 40 (HCC) Pre Existing Essential Hypertension Complicating Second Trimester (HCC) Recurrent Loss Second Trimester (HCC) Procedures Echo Dez Rivers M.D. [address] [place] [address] Phone: tel: fax: [facility] Referral ID Status Reason Start Date Expiration Date Visits Re quested Visits Authorized [id number] Closed 02/13/2024 02/12/2025 1 1 * Outpatient (Routine) - Closed Specialty Diagnoses / Procedures Referred By Contac t Referred To Contact Pediatric Cardiology Diagnoses Complication Morbid Obesity Body Mass Index Greater Than 40 (HCC) Pre Existing Essential Hypertension Complicating Second Trimester (HCC) Recurrent Loss Second Trimester (HCC) Dez Rivers M.D. [address] [place] [address] Phone: tel: fax: [facility] Referral ID Status Reason Start Date Expiration Date Visits Re quested Visits Authorized [id number] Closed 02/13/2024 08/14/2025 1 1 Scheduling Instructions Schedule echo before growth US please. Encounter Details Date Type Department Care Team (Late st Contact Info) Description 02/13/2024 Orders Only Department of Obstetrics and Gynecology in [place], [place] [address] [place] [address] Dez Rivers M.D. [address] [place] [address] Complication Morbid Obesity Body Mass Index Greater [...] oz pur e alcohol) Once a month [facility] Utilities Answer Date Recorded In the past 12 months has [employer], gas, oil, or water [employer] threatened to shut off services in your [...] week 08/30/2022 How often do you attend [facility] or yarsanism services? Never 08/30/2022 Do you [...] Answer Date Recorded PHQ-2 Score 1 05/30/2023 [facility] - Occupational [...] your living situation today? I have a [facility] place to live 12/17/2023 Education Answer Date Recorded What is the highest level of school you have completed or the highest degree you have received? 12th grade 08/23/2022 Estimated Date of Delivery Comme nts Yes 06/30/2024 Based on last me nstrual period of 09/24/2023 (Exact Date) Sex and Gender Information Value Date Recorded Sex Assigned at Female 08/23/2022 7:16 PM QUALITY SYSTEMS SPECIALIST Legal Sex Female 12:17 PM CDT Gender Identity Female 08/23/2022 7:16 PM QUALITY SYSTEMS SPECIALIST Sexual Orientation Bisexual 08/23/2022 7: 16 PM QUALITY SYSTEMS SPECIALIST Occupation Industry Job Start Date Job End [...] OB GROWTH FINLEY Exam Site: [facility] OB #126 Plurality: 1 OBHx: [G:(7)] [...] was obtained. Preliminary Read by Jesús Silva, R.D.M.S. on 03/10/2024 2:22:44 PM. Amusement Park Ride Mechanic: ??Jesús Silva R.D.M.SRochelle Thank You For This Referral Procedure Note Chin Bates M.D. - 03/10/2024 PETAR MARCUS OB Exam, 03/10/2024 EXAM INFORMATION Patient Name: PETAR MARCUS : 1995 Age: 28 yrs Sex: Female Ref Phys: DEZ RIVERS Exam Date: 03/10/2024 Procedure: OB GROWTH FINLEY Exam Site: [facility] OB #126 Plurality: 1 OBHx: [G:(7)] [...] Jesús Silva R.D.M.S. on 03/10/2024 2:22:44 PM. Amusement Park Ride Mechanic: Jesús Silva R.D.MRochelleSRochelle Thank You For This Referral us Dez Rivers M.D. IMG OB US PROCEDURES Final Result * FINLEY ECHO 2D WITH COLOR AND DOPPLER (03/10/2024 11:12 AM CDT) Ejection Fraction [facility] Anatomical Region Laterality Modality Echocardiography 03/10/2024 [...] the complete report, see the Order-Level Documents. Result [facility] Dez Rivers M.D. CV ECHO PROCEDURES F inal Result documented in this encounter Visit Diagnoses Diagnosis [...] (HCC) documented in this encounter Care Teams Fixing Carpenter Relationship Specialty Start Date End Date Shan Wild M.D. [address] [place] [address] PAWAN Rodriguez [phone] PCP - General Family Medicine 04/07/22 documented as of this encounter
--- OUTSIDE RECORDS SUMMARY | 2024-04-10 07:27 | XMS_ITS | Encounter Summary ---
Author Organization [facility] Address [address] [place] [address] Care Team Providers Care Invas Tech Name Role Phone Shan Wild M.D. Primary Care Provider Encounter Details Date Type Department Care Team (Latest Contact Info) Description 03/10/2024 1:36 PM CDT - 03/10/2024 11:59 PM CDT Hospital Encounter Department of Obstetrics and Gynecology in [place], [place] [address] [place] [address] Dez Rivers M.D. [address] [place] [address] Complication Morbid Obesity Body Mass Index Greater [...] oz pur e alcohol) Once a month [facility] Utilities Answer Date Recorded In the [...] How often do you attend chur or holiness services? Never 08/30/2022 Do you belong to [...] Answer Date Recorded PHQ-2 Score 1 05/30/2023 [facility] Occupational Stress Questionnaire Answer [...] your living situation today? I have a [facility] place [facility] live 12/17/2023 Education Answer Date Recorded What is the highest level of school you have completed or the highest degree you have received? 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 Alternate with ibuprofen every 3 hours. Do not exceed 4000 mg or 4 g in 24 hours. 30 tablet 03/23/[address] [facility]Ind[facility] First Trimester Fetus 1 (HCC) Take 1 tablet (81 mg total) by mouth daily. 12/19/2023 ferrous sulfate 325 mg (65 mg iron) tablet Take 325 mg by mouth every other day. Twice daily, every other day 04/26/2022 labetaloL 200 mg tablet Take 1 tablet by mouth 2 (two) times a day. 01/18/2024 temrxgh-Xa-jvse-FA 27 mg iron- 1 mg tablet Take [...] Procedure: US OB GROWTH FINLEY [facility] OB [facility]126 Plurality: 1 OBHx: [G:(7)] ?F [...] Jesús Silva R.D.MRochelleSRochelle on 03/10/2024 2:22:44 PM. Banking Paralegal: ??Jesús Silva R.D.M.S. Thank You For This Referral Procedure Note Chin Bates M.D. - 03/10/2024 KIRSTEN RANDPETAR OB Exam, 03/10/2024 EXAM INFORMATION Patient Name: PETAR MARCUS : 1995 Age: 28 yrs Sex: Female Ref Phys: DEZ RIVERS Exam Date: 03/10/2024 Procedure: OB GROWTH FINLEY Exam Site: [facility] OB #126 Plurality: 1 OBHx: [G:(7)] F [...] Jesús Silva R.D.M.S. on 03/10/2024 2:22:44 PM. Banking Paralegal: Jesús Silva R.D.MRochelleSRochelle Thank You For This Referral us Dez Rivers M.D. IMG OB US PROCEDURES Final Result documented in this encounter Visit Diagnoses Diagnosis Complication Morbid Obesity Body Mass Index Greater Than 40 (HCC) Pre Existing Essential Hypertension Complicating Second Trimester (HCC) Recurrent Loss Second Trimester (HCC) documented in this encounter Care Teams Invas Tech Relationship Specialty Start Date End Date Shan Wild M.D. [address] [place] [address] PAWAN Rodriguez [phone] PCP - General Family Medicine 04/07/22 documented as of this encounter
--- OUTSIDE RECORDS SUMMARY | 2024-04-10 07:27 | XMS_ITS | Encounter Summary ---
Author Organization [facility] Address [address] [place] [address] Care Team Providers Care Medical Claims Manager Name Role Phone Shan Wild M.D. Primary Care Provider Encounter Details Date Type Department Care Team (Latest Contact Info) Description 02/13/2024 4:26 PM CDT - 02/13/2024 11:59 PM CDT Hospital Encounter Department of Laboratory Medicine and Pathology, [facility], in [place], [place] [address] [place] [address] Polly Vega M.B.B.S. [address] [place] [phone] Pre Existing Essential Hypertension Complicating First Trimester (HCC) Discharge Disposition: Home or Self Care Social History Tobacco Use Types Packs/Day Years Used Date Smoking Tobacco: Former Cigarettes 0.3 10 Q uit: 08/24/2023 Smokeless Tobacco: Never Comments:Currently using a v ape. Alcohol Use Standard Drinks/Week Comments Yes 0 (1 standard drink = 0.6 oz pur e alcohol) Once a month [facility] Utilities Answer Date Recorded In the [...] often do you attend chur ch or jain services? Never 08/30/2022 Do you belong to any clubs o r organizations such as sikh groups, unions, fraternal or athletic groups, or [...] Answer Date Recorded PHQ-2 Score 1 05/30/2023 [facility] [place] of Occupat ional Health - Occupational Stress [...] Sex Assigned at Female 08/23/2022 7:16 PM ASSISTANT PROFESSOR OF GERMAN Legal Sex Female 12:17 PM CDT Gender Identity Female 08/23/2022 7:16 PM ASSISTANT PROFESSOR OF GERMAN Sexual Orientation Bisexual 08/23/2022 7: 16 PM ASSISTANT PROFESSOR OF GERMAN Occupation Industry Job Start Date Job End [...] hours. 30 tablet 03/23/2023 aspirin 81 mg tabletIndications:[facility] First Trimester Fetus 1 (HCC) Take 1 tablet (81 mg total) by mouth daily. 12/19/2023 ferrous sulfate 325 mg (65 mg iron) tablet Take 325 mg by mouth every other day. Twice daily, every other day 04/26/2022 labetaloL 200 mg tablet Take 1 tablet by mouth 2 (two) times a day. 01/18/2024 [id number] 27 mg iron- 1 mg tablet Take [...] ORDERABLES Fi nal Result Performing Organization Address City/[facility]/ZIP Co de Phone Number [facility] 200 [place] [address] * pH, Urine (02/13/2024 4:43 PM CDT) Pathologist [facility] pH, U 5.9 4.5 - 8.0 02/13/2024 6:2 7 PM CDT DT Urine 02/13/2024 4:43 PM CDT 02/13/2024 5:32 PM CDT Polly Raygoza.B.S. LAB URINE ORDERABLES Fi nal Result [facility] 200 [place], [place] [id number] [place] [address] * Osmolality, Urine (02/13/2024 4:43 PM CDT) Pathologist [facility] Osmolality, U 770 150 - 1150 mOsm/kg 02/13/2024 6:27 PM CDT DTL Urine 02/13/2024 4:43 PM CDT 02/13/2024 5:32 PM CDT Polly SmithS. LAB URINE ORDERABLES Fi nal Result Performing Organization Address City/[facility]/ZIP Co de Phone Number [facility] 200 [place], [place] [id number] [place] [address] [place] [address] * (ABNORMAL) Microscopic Automated (02/13/2024 4:43 PM [...] PM CDT 02/13/2024 5:32 PM CDT Polly SmithS. LAB URINE ORDERABLES Fi nal Result Performing Organization Address [facility] Co de Phone Number [facility] 200 [place], [place] [address] [address] [address] * Albumin, Random, Urine (02/13/2024 4:43 PM CDT) Albumin, Random, U <5.0 mg/L 2023 10:29 AM CDT DTL Comment: ----ADDITIONAL INFORMATION---- This test has been modified from the pit crane operator's instructions. Its performance characteristics were determined by [facility] in a manner consistent with CLIA [...] MarquisB.S. LAB URINE ORDERABLES Fi nal Result [id number] [place] [address] * Protein/Creatinine Ratio, Random, Urine (02/13/2024 4:43 PM CDT) Protein, Total, Random, U 10 mg/dL 02/13/2024 6:31 PM CDT DTL Creatinine, Random, U 148 16 - 326 mg/dL 02/13/2024 6:31 PM CDT DTL Protein/Creatin ine Ratio 0.07 <0.18 mg/mg 02/13/2024 6:31 PM CDT DTL Urine (Urine, Midstream) 02/13/2024 4:43 PM CDT 02/13/2024 5:32 PM CDT Polly MarquisB.S. LAB URINE ORDERABLES Fi nal Result [id number] [place] [address] * Urinalysis, with Microscopic: Urine, Midstream (02/13/2024 [...] Saenz LAB URINE ORDERABLES Fi nal Result [facility] [address] [place] [address], [facility] DTL [facility] [address] [place] [address] documented in this encounter Visit Diagnoses Diagnosis Pre Existing Essential Hypertension Complicating First Trimester (HCC) documented in this encounter Care Teams Medical Claims Manager Relationship Specialty Start Date End Date Shan Wild M.D. [address] [place] [phone] PCP - General Family Medicine 04/07/22 documented as of this encounter
--- OUTSIDE RECORDS SUMMARY | 2024-04-10 07:27 | XMS_ITS | Encounter Summary ---
Author Organization [facility] Address [address] [place] [address] Care Team Providers Care Residential Caregiver Name Role Phone Shan Wild M.D. Primary Care Provider [phone] Reason for Referral * Outpatient (Routine) - Closed Specialty Diagnoses / Procedures Referred By Kike ortiz Referred To Contact Diagnoses Complication Morbid Obesity Body Mass Index Greater Than 40 (HCC) Pre Existing Essential Hypertension Complicating Second Trimester (HCC) Recurrent Loss Second Trimester (HCC) Procedures Echo Danielle Kirkpatrick M.D. 200 [place] [address] Phone: tel: fax: [facility] Referral ID Status Reason Start Date Expiration Date Visits Re quested Visits Authorized [id number] Closed 02/13/2024 02/12/2025 1 1 Reason for Visit * Outpatient (Routine) - Closed Specialty Diagnoses / Procedures Referred By Kike ortiz Referred To Contact Diagnoses Complication Morbid Obesity Body Mass Index Greater Than 40 (HCC) Pre Existing Essential Hypertension Complicating Second Trimester (HCC) Recurrent Loss Second Trimester (HCC) Procedures Echo Danielle Kirkpatrick M.D. [address] [place] [address] Phone: tel: fax: [facility] Referral ID Status Reason Start Date Expiration Date Visits Re quested Visits Authorized [id number] Closed 02/13/2024 02/12/2025 1 1 Encounter Details Date Type Department Care Team (Latest Contact Info) Description 03/10/2024 9:55 AM CDT - 03/10/2024 1:35 PM CDT Hospital Encounter Department of Cardiovascular Diseases in [place], [place] [address] [place] [address] Danielle Kirkpatrick M.D. [address] [place] [address] Complication Morbid Obesity Body Mass Index Greater [...] In the past 12 months has e [employer], gas, oil, or water [employer] threatened to shut off services in your [...] often do you attend chur ch or scientology services? Never 08/30/2022 Do you belong to any clubs o r organizations such as rastafari groups, unions, fraternal or athletic groups, or [...] Answer Date Recorded PHQ-2 Score 1 05/30/2023 [facility] of Occupat ional Health - Occupational Stress [...] living situation today? I have a [facility] place to live 12/17/2023 Education Answer Date Recorded What is the highest level of school you have completed or the highest degree you have received? 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 30 tablet 03/23/2023 aspirin 81 mg tabletIndications:Shandra Thompson For Other Isoimmunization First Trimester Fetus 1 (HCC) Take 1 tablet (81 mg total) by mouth daily. 12/19/2023 ferrous sulfate 325 mg (65 mg iron) tablet Take 325 mg by mouth every other day. Twice daily, every other day 04/26/2022 labetaloL 200 mg tablet Take 1 tablet by mouth 2 (two) times a day. 01/18/2024 [id number]-[id number]-FA 27 mg iron- 1 mg tablet Take [...] DOPPLER (03/10/2024 11:12 AM CDT) Ejection Fraction [facility] Anatomical Region Laterality Modality Echocardiography 03/10/2024 [...] Order-Level Documents. Danielle Kirkpatrick M.D. CV ECHO PROCEDURES F inal Result documented in this encounter Visit Diagnoses Diagnosis Complication Morbid Obesity Body Mass Index Greater Than 40 (HCC) Pre Existing Essential Hypertension Complicating Second Trimester (HCC) Recurrent Loss Second Trimester (HCC) documented in this encounter Care Teams Residential Caregiver Relationship Specialty Start Date End Date Shan Wild M.D. [address] [place] [phone] PCP - General Family Medicine 04/07/22 documented as of this encounter
--- OUTSIDE RECORDS SUMMARY | 2024-04-10 07:27 | XMS_ITS ---
Author Organization [facility] Address [address] [place] [address] Care Team Providers Care Certified Mortician Name Role Phone Unavailable Unavailable Unavailable Surgery Details Not on file Complications Check Surgery Details section. Procedure Estimated Blood Loss Check Surgery Details section. Procedure Findings Check Surgery Details section. Procedure Specimens Taken Check Surgery Details section.
--- OUTSIDE RECORDS SUMMARY | 2024-04-10 07:28 | XMS_ITS | Encounter Summary ---
Author Organization [facility] Address [address] [place] [address] Care Team Providers Care Silver Chaser Name Role Phone Shan Wild M.D. Primary Care Provider Encounter Details Date Type Department Care Team (Latest Contact Info) Description 02/13/2024 3:21 PM CDT - 02/13/2024 4:25 PM CDT Hospital Encounter Department of Obstetrics and Gynecology in [place], [place] [address] [place] [address] Dez Rivers M.D. [address] [place] [address] Maternal Care For Other Isoimmunization Second Trimester [...] oz pur e alcohol) Once a month [facility] Utilities Answer Date Recorded In the past 12 months has [employer] electric, gas, oil, or water company threatened [...] 08/30/2022 How often do you attend [facility] or anabaptist services? Never 08/30/2022 Do you belong to [...] Answer Date Recorded PHQ-2 Score 1 05/30/2023 [facility] of Occupat ional Health - Occupational Stress [...] your living situation today? I have a [facility] place to live 12/17/2023 Education Answer Date Recorded What is the highest level of school you have completed or the highest degree you have received? 12th grade 08/23/2022 Estimated Date of Delivery Comme nts Yes 06/30/2024 Based on last me nstrual period of 09/24/2023 (Exact Date) Sex and Gender Information Value Date Recorded Sex Assigned at Female 08/23/2022 7:16 PM DISTRICT SALES LEADER Legal Sex Female 12:17 PM CDT Gender Identity Female 08/23/2022 7:16 PM DISTRICT SALES LEADER Sexual Orientation Bisexual 08/23/2022 7: 16 PM DISTRICT SALES LEADER Occupation Industry Job Start Date Job End [...] hours. 30 tablet 03/23/2023 aspirin 81 mg tabletIndications:Ma ternal Care For Other Isoimmunization First Trimester Fetus 1 (HCC) Take 1 tablet (81 mg total) by mouth daily. 12/19/2023 ferrous sulfate 325 mg (65 mg iron) tablet Take 325 mg by mouth every other day. Twice daily, every other day 04/26/2022 labetaloL 200 mg tablet Take 1 tablet by mouth 2 (two) times a day. 01/18/2024 [id number]-Sh-aroz-FA 27 mg iron- 1 mg tablet Take [...] by Richard Haskins on 02/13/2024 4:18:01 PM. Steam Room Attendant: ??Richard Haskins Thank You For This Referral Procedure Note Dez Rivers M.D. - 02/13/2024 PETAR MARCUS OB Exam, 02/13/2024 EXAM INFORMATION Patient Name: PETAR MARCUS : [...] by Richard Haskins on 02/13/2024 4:18:01 PM. Steam Room Attendant: Richard Haskins Thank You For This Referral [...] (HCC) documented in this encounter Care Teams Silver Chaser Relationship Specialty Start Date End Date Shan Wild M.D. [address] [place] [address] [place] [phone] PCP - General Family Medicine 04/07/22 documented as of this encounter
--- OUTSIDE RECORDS SUMMARY | 2024-04-10 07:28 | XMS_ITS | Encounter Summary ---
Author Organization [facility] Address [address] [place] [address] Care Team Providers Care Veterinary Practitioner Name Role Phone Shan Wild M.D. Primary Care Provider [phone] Reason for Referral * Outpatient (Routine) - Authorized Specialty Diagnoses / Procedures Referred By Kike ortiz Referred To Contact Obstetrics and Gynecology Diagnoses Pre Existing Essential Hypertension Complicating First Trimester (HCC) Danielle Kirkpatrick M.D. 200 [place] [address] Phone: tel: fax: [facility] Referral ID Status Reason Start Date Expiration Date V isits Requested Visits Authorized [id number] Authorized 01/30/2024 07/31/2025 1 1 Scheduling Instructions Add phone visit to Kaya. Hide appointment from patient please. Kaya to call when free in [place]. * Outpatient (Routine) - Closed Specialty Diagnoses / Procedures Referred By Kike ortiz Referred To Contact Nephrology and Hypertension Diagnoses Pre Existing Essential Hypertension Complicating First Trimester (HCC) Danielle Kirkaptrick M.D. 200 [place] [address] Phone: tel: fax: [facility] Referral ID Status Reason Start Date Expiration Date Visits Re quested Visits Authorized [id number] Closed 01/30/2024 07/31/2025 [address] Estevez or Jillian. After next visit if possible. No need to call patient. Encounter Details Date Type Department Care Team (Late st Contact Info) Description 01/30/2024 Orders Only Department of Obstetrics and Gynecology in [place], [place] [address] [place] [address] Danielle Kirkpatrick M.D. [address] [place] [address] Pre Existing Essential Hypertension Complicating First Trimester (HCC) (Primary Dx) Social History Tobacco Use Types Packs/Day Years Used Date Smoking Tobacco: Former Cigarettes 0.3 10 Q uit: 08/24/2023 Smokeless Tobacco: Never Comments:Currently using a v ape. Alcohol Use Standard Drinks/Week Comments Not Currently 0 (1 standard drink = 0.6 oz pur e alcohol) Once a month [facility] Utilities Answer Date Recorded In the past 12 months has [employer], gas, oil, or water [employer] threatened to shut off services in your [...] often do you attend chur ch or zoroastrianism services? Never 08/30/2022 Do you belong to any clubs o r organizations such as cheondoism groups, unions, fraternal or athletic groups, or [...] Answer Date Recorded PHQ-2 Score 1 05/30/2023 [facility] of Occupat ional Health - [...] your living situation today? I have a [facility] place to live 12/17/2023 Education Answer Date Recorded What is the highest level of school you have completed or the highest degree you have received? 12th grade 08/23/2022 Estimated Date of Delivery Comme nts Yes 06/30/2024 Based on last me nstrual period of 09/24/2023 (Exact Date) Sex and Gender Information Value Date Recorded Sex Assigned at Female 08/23/2022 7:16 PM GRAPHIC DESIGN PROFESSOR Legal Sex Female 12:17 PM CDT Gender Identity Female 08/23/2022 7:16 PM GRAPHIC DESIGN PROFESSOR Sexual Orientation Bisexual 08/23/2022 7: 16 PM GRAPHIC DESIGN PROFESSOR Occupation Industry Job Start Date Job End [...] Primary documented in this encounter Care Teams Veterinary Practitioner Relationship Specialty Start Date End Date Shan Wild M.D. [address] [place] [phone] PCP - General Family Medicine 04/07/22 documented as of this encounter
--- OUTSIDE RECORDS SUMMARY | 2024-04-10 07:28 | XMS_ITS | Encounter Summary ---
Author Organization [facility] Address [address] [place] [address] Care Team Providers Care Cellar Packer Name Role Phone Shan Wild M.D. Primary Care Provider Reason for Visit * Reason Comments Results Encounter Details Date Type Department Care Team (Late st Contact Info) Description 01/11/2024 11:00 AM CDT Virtual Visit Department of Obstetrics and Gynecology in [place], [place] [address] [place] [phone] Celina Mauricio M.S., [facility] [address] [place] [phone] Recurrent Loss Unspecified Trimester (HCC) (Primary Dx) Social History Tobacco Use Types Packs/Day Years Used Date Smoking Tobacco: Former Cigarettes 0.3 10 Q uit: 08/24/2023 Smokeless Tobacco: Never Comments:Currently using a v ape. Alcohol Use Standard Drinks/Week Comments Not Currently 0 (1 standard drink = 0.6 oz pur e alcohol) Once a month [facility] Utilities Answer Date Recorded In the past 12 months has e [employer], gas, oil, or water [employer] threatened to shut off services in your [...] any clubs o r organizations such as orthodox groups, unions, fraternal or athletic groups, or [...] Answer Date Recorded PHQ-2 Score 1 05/30/2023 [facility] [place] of Occupat ional Health - Occupational Stress [...] your living situation today? I have a [facility] place to live 12/17/2023 Education Answer Date Recorded What is the highest level of school you have completed or the highest degree you have received? 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 CHIEF COMPLAINT/PURPOSE [employer] test results HISTORY OF PRESENT ILLNESS Neha was seen in the Division of Reproductive Genomics on 12/19/2023. Neha underwent [employer] carrier screening, aneuploidy screening and antigen testing at that time. I called to discuss results with her by phone. She was not available, so I left a voicemail summarizing them, and will also send a portal message. IMPRESSION/REPORT/PLAN In summary: Fetus tested negative for [place] antigens. Neha's carrier screening was negative for [...] the . A study from 2022 (PMID: [id number]) completed 2 tests for over 1000 patients, and the concordance of the two samples was 99.9%. They also assessed 53 patients whose neonates were then tested after and 100% were correctly diagnosed by the [employer] NIPT. FOLLOW UP/RECOMMENDATIONS I asked Neha to call or portal message if she would like to set up a re-draw for aneuploidy screening. documented in this encounter Plan of Treatment Not on file documented as of this encounter Visit Diagnoses Diagnosis Recurrent Loss Unspecified Trimester (HCC)- Primary documented in this encounter Care Teams Cellar Packer Relationship Specialty Start Date End Date Shan Wild M.D. [address] [place] [phone] PCP - General Family Medicine 04/07/22 documented as of this encounter
--- OUTSIDE RECORDS SUMMARY | 2024-04-10 07:28 | XMS_ITS | Encounter Summary ---
Author Organization [facility] Address [address] [place] [address] Care Team Providers Care Chief Service Observer Name Role Phone Shan Wild M.D. Primary Care Provider Reason for Referral * Outpatient (Routine) - Closed Specialty Diagnoses / Procedures Referred By Kike ortiz Referred To Contact Diagnoses Maternal Care For Other Isoimmunization First Trimester Single Gestation (HCC) Preexisting Hypertension (HCC) Procedures US Kidneys with Renal Artery Doppler Danielle Kirkpatrick M.D. 200 [place] [address] Phone: tel: fax: [facility] Referral ID Status Reason Start Date Expiration Date Visits Re quested Visits Authorized [id number] Closed 12/19/2023 12/18/2024 1 1 Reason for Visit * Outpatient (Routine) - Closed Specialty Diagnoses / Procedures Referred By Kike ortiz Referred To Contact Diagnoses Maternal Care For Other Isoimmunization First Trimester Single Gestation (HCC) Preexisting Hypertension (HCC) Procedures US Kidneys with Renal Artery Doppler Danielle Kirkpatrick M.D. 200 [place] [address] Phone: tel: fax: [facility] Referral ID Status Reason Start Date Expiration Date Visits Re quested Visits Authorized [id number] Closed 12/19/2023 12/18/2024 1 1 Encounter Details Date Type Department Care Team (Latest Contact Info) Description 01/30/2024 1:45 PM CDT - 01/30/2024 11:59 PM CDT Hospital Encounter Department of Radiology, [facility], in [place], [place] [address] [place] [address] Danielle Kirkpatrick M.D. [address] [place] [address] Maternal Care For Other Isoimmunization First Trimester [...] oz pur e alcohol) Once a month [facility] Utilities Answer Date Recorded In the past 12 months has [employer], gas, oil, or water [employer] threatened to shut off services in your [...] often do you attend chur ch or religion services? Never 08/30/2022 Do you belong to any clubs o r organizations such as spiritism groups, unions, fraternal or athletic groups, or [...] Answer Date Recorded PHQ-2 Score 1 05/30/2023 [facility] - Occupational Stress Questionnaire Answer Date [...] your living situation today? I have a [facility] place to live 12/17/2023 Education Answer Date Recorded What is the highest level of school you have completed or the highest degree you have received? 12th grade 08/23/2022 Estimated Date of Delivery Comme nts Yes 06/30/2024 Based on last me nstrual period of 09/24/2023 (Exact Date) Sex and Gender Information Value Date Recorded Sex Assigned at Female 08/23/2022 7:16 PM SUPERVISOR PROPERTIES Legal Sex Female 12:17 PM CDT Gender Identity Female 08/23/2022 7:16 PM SUPERVISOR PROPERTIES Sexual Orientation Bisexual 08/23/2022 7: 16 PM SUPERVISOR PROPERTIES Occupation Industry Job Start Date Job End [...] 30 tablet 03/23/2023 aspirin 81 mg tabletIndications:Shandra welsh Care For Other Isoimmunization First Trimester Fetus [...] in further evaluation if clinically indicated. Danielle Kirkpatrick M.D. IMTae US PROCEDURES Fi nal Result documented in this encounter Visit Diagnoses Diagnosis Maternal Care For Other Isoimmunization First Trimester Single Gestation (HCC) Pre Existing Essential Hypertension Complicating First Trimester (HCC) documented in this encounter Care Teams Chief Service Observer Relationship Specialty Start Date End Date Shan Wild M.D. [address] [place] [phone] PCP - General Family Medicine 04/07/22 documented as of this encounter
--- OUTSIDE RECORDS SUMMARY | 2024-04-10 07:28 | XMS_ITS | Encounter Summary ---
Author Organization [facility] Address [address] [place] [address] Care Team Providers Care Blow Mold Technician Name Role Phone Shan Wild M.D. Primary Care Provider [phone] Encounter Details Date Type Department Care Team (Late st Contact Info) Description 02/07/2024 Clinical Communication Department of Obstetrics and Gynecology in [place], [place] [address] [place] [address] Danielle Kirkpatrick M.D. [address] [place] [phone] Social History Tobacco Use Types Packs/Day Years Used Date Smoking Tobacco: Former Cigarettes 0.3 10 Q uit: 08/24/2023 Smokeless Tobacco: Never Comments:Currently using a v ape. Alcohol Use Standard Drinks/Week Comments Not Currently 0 (1 standard drink = 0.6 oz pur e alcohol) Once a month [facility] Utilities Answer Date Recorded In [...] often do you attend chur ch or taoist services? Never 08/30/2022 Do you belong to any clubs o r organizations such as baptist groups, unions, fraternal or athletic groups, or [...] Answer Date Recorded PHQ-2 Score 1 05/30/2023 [facility] of Occupat ional Health - Occupational Stress [...] your living situation today? [facility] have a [facility] place to live 12/17/2023 Education Answer Date Recorded What is the highest level of school you have completed or the highest degree you have received? 12th grade 08/23/2022 Estimated Date of Delivery Comme nts Yes 06/30/2024 Based on last me nstrual period of 09/24/2023 (Exact Date) Sex and Gender Information Value Date Recorded Sex Assigned at Female 08/23/2022 7:16 PM LOTTERY MANAGER Legal Sex Female 12:17 PM CDT Gender Identity Female 08/23/2022 7:16 PM LOTTERY MANAGER Sexual Orientation Bisexual 08/23/2022 7: 16 PM LOTTERY MANAGER Occupation Industry Job Start Date Job [...] on filedocumented in this encounter Care Teams Blow Mold Technician Relationship Specialty Start Date End Date Shan Wild M.D. [address] [place] [phone] PCP - General Family Medicine 04/07/22 documented as of this encounter
--- OUTSIDE RECORDS SUMMARY | 2024-04-10 07:28 | XMS_ITS | Encounter Summary ---
Author Organization [facility] Address [address] [place] [address] Care Team Providers Care Comfort Filler Name Role Phone Shan Wild M.D. Primary Care Provider [phone] Reason for Visit * Reason Onset Date Comments Triage 12/12/2023 Encounter Details Date Type Department Care Team (Late st Contact Info) Description 12/12/2023 Clinical Communication Department of Obstetrics and Gynecology in [place], [place] [address] [place] [address] Prescheduling, Provider Triage Social History Tobacco Use Types Packs/Day Years Used Date Smoking Tobacco: Some Days Cigarettes 0.3 10 Smokeless Tobacco: Never Comments:Currently using a v ape. Alcohol Use Standard Drinks/Week Comments Yes 0 (1 standard drink = 0.6 oz pur e alcohol) Once a month [facility] Utilities Answer Date Recorded In the past 12 months has [employer] gas, oil, or water [employer] threatened to shut off services in your [...] How often do you attend chur or hoahaoism services? Never 08/30/2022 Do you belong to any clubs o r organizations such as religious groups, unions, fraternal or athletic groups, or [...] Answer Date Recorded PHQ-2 Score 1 05/30/2023 [facility] of Occupat ional Health - [...] your living situation today? I have a [facility] place to live 12/17/2023 Education Answer Date Recorded What is the highest level of school you have completed or the highest degree you have received? 12th grade 08/23/2022 Comments Unknown Sex and Gender Information Value Date Recorded Sex Assigned at Female 08/23/2022 7:16 PM DYE BOX OPERATOR Legal Sex Female 12:17 PM CDT Gender Identity Female 08/23/2022 7:16 PM DYE BOX OPERATOR Sexual Orientation Bisexual 08/23/2022 7: 16 PM DYE BOX OPERATOR documented as of this encounter Plan of Treatment Not on file documented as of this encounter Visit Diagnoses Not on filedocumented in this encounter Care Teams Comfort Filler Relationship Specialty Start Date End Date Shan Wild M.D. [address] [place] [address] [place] [phone] PCP - General Family Medicine 04/07/22 documented as of this encounter
--- OUTSIDE RECORDS SUMMARY | 2024-04-10 07:28 | XMS_ITS | Encounter Summary ---
Author Organization [facility] Address [address] [place] [address] Care Team Providers Care Collection Development Librarian Name Role Phone Shan Wild M.D. Primary Care Provider Encounter Details Date Type Department Care Team (Latest Contact Info) Description 02/06/2024 1:45 PM CDT - 02/06/2024 11:59 PM CDT Hospital Encounter Department of Obstetrics and Gynecology in [place], [place] [address] [place] [address] Dez Rivers M.D. [address] [place] [address] Maternal Care For Other Isoimmunization First Trimester Single Gestation (HCC) Discharge Disposition: Home or Self Care Social History Tobacco Use Types Packs/Day Years Used Date Smoking Tobacco: Former Cigarettes 0.3 10 Q uit: 08/24/2023 Smokeless Tobacco: Never Comments:Currently using a v ape. Alcohol Use Standard Drinks/Week Comments Not Currently 0 (1 standard drink = 0.6 oz pur e alcohol) Once a month [facility] Utilities Answer Date Recorded In [...] often do you attend chur ch or caodaism services? Never 08/30/2022 Do you belong to any clubs o r organizations such as pentecostal groups, unions, fraternal or athletic groups, or [...] Answer Date Recorded PHQ-2 Score 1 05/30/2023 [facility] of Occupat ional Health - Occupational [...] your living situation today? I have a [facility] place to live 12/17/2023 Education Answer Date Recorded What is the highest level of school you have completed or the highest degree you have received? 12th grade 08/23/2022 Estimated Date of Delivery Comme nts Yes 06/30/2024 Based on last me nstrual period of 09/24/2023 (Exact Date) Sex and Gender Information Value Date Recorded Sex Assigned at Female 08/23/2022 7:16 PM COUNTY ENGINEER Legal Sex Female 12:17 PM CDT Gender Identity Female 08/23/2022 7:16 PM COUNTY ENGINEER Sexual Orientation Bisexual 08/23/2022 7: 16 PM COUNTY ENGINEER Occupation Industry Job Start Date Job End [...] 30 tablet 03/23/[address] gtzIndications:Shandra ternal Care For Other Isoimmunization First Trimester [...] US OB ADVANCED LEVEL HERNANDEZ Exam Site: [id number] Plurality: 1 OBHx: [G:7)] ?F Trm:() Pre:() C-Sec:() Ab-I:() Ab-S:() Ect:() [...] Dez Rivers M.D. on 02/06/2024 4:26:07 PM. Machinist Automotive: ??Ana Aguilar Thank You For This Referral Procedure Note Dez Rivers M.D. - 02/06/2024 [facility] MARCUS OB Exam, 02/06/2024 EXAM INFORMATION Patient Name: KIRSTEN RANDPETAR : 1995 Age: 28 yrs Sex: Female Ref Phys: DEZ RIVERS Exam Date: 02/06/2024 Procedure: US OB ADVANCED LEVEL HERNANDEZ Exam Site: [id number] Plurality: 1 OBHx: [G:(7)] [...] by Dez Rivers M.D. on 02/06/2024 4:26:07PM. Machinist Automotive: Ana Aguilar Thank You For This Referral us Dez Rivers M.D. IMG OB US PROCEDURES Final Result documented in this encounter Visit Diagnoses Diagnosis Maternal Care For Other Isoimmunization First Trimester Single Gestation (HCC) documented in this encounter Care Teams Collection Development Librarian Relationship Specialty Start Date End Date Shan Wild M.D. [address] [place] [phone] PCP - General Family Medicine 04/07/22 documented as of this encounter
--- OUTSIDE RECORDS SUMMARY | 2024-04-10 07:28 | XMS_ITS | Encounter Summary ---
Author Organization [facility] Address [address] [place] [address] Care Team Providers Care Aquatic Director Name Role Phone Shan Wild M.D. Primary Care Provider [phone] Reason for Referral * Outpatient (Routine) - Authorized Specialty Diagnoses / Procedures Referred By Kike ortiz Referred To Contact Nephrology and Hypertension Diagnoses na Polly Vega M.B.B.S. [address] [place] [phone] Phone: tel: fax: Sona Walsh M.D., Ph.D. [address] [place] [phone] Phone: tel: fax: Referral ID Status Reason Start Date Expiration Date V isits Requested Visits Authorized [id number] Authorized 02/13/2024 08/14/2025 1 1 Reason for Visit * Outpatient (Routine) - Closed Specialty Diagnoses / Procedures Referred By Kike ortiz Referred To Contact Nephrology and Hypertension Diagnoses Pre Existing Essential Hypertension Complicating First Trimester (HCC) Danielle Kirkpatrick M.D. [address] [place] [phone] Phone: tel: fax: [facility] Referral ID Status Reason Start Date Expiration Date Visits Re quested Visits Authorized [id number] Closed 01/30/2024 07/31/2025 1 1 Encounter Details Date Type Department Care Team (Latest Contact Info) Description 02/13/2024 2:30 PM CDT Comprehensive Visit Division of Nephrology and Hypertension in [place], [place] [address] [place] [address] Sona Walsh M.D., Ph.D. [address] [place] [phone] Hyperplasia Fibromuscular Renal Artery (HCC) (Primary Dx); [...] oz pur e alcohol) Once a month [facility] Big Super Searchities Answer Date Recorded In the past 12 months has [employer], gas, oil, or water [employer] threatened to shut off services in your [...] often do you attend chur ch or baptist services? Never 08/30/2022 Do you belong to any clubs o r organizations such as advent groups, unions, fraternal or athletic groups, or [...] Answer Date Recorded PHQ-2 Score 1 05/30/2023 [facility] of Occupat ional Health - Occupational [...] your living situation today? I have a [facility] place to live 12/17/2023 Education Answer Date Recorded What is the highest level of school you have completed or the highest degree you have received? 12th grade 08/23/2022 Estimated Date of Delivery Comme nts Yes 06/30/2024 Based on last me nstrual period of 09/24/2023 (Exact Date) Sex and Gender Information Value Date Recorded Sex Assigned at Female 08/23/2022 7:16 PM TRIAGE CLINICIAN Legal Sex Female 12:17 PM CDT Gender Identity Female 08/23/2022 7:16 PM TRIAGE CLINICIAN Sexual Orientation Bisexual 08/23/2022 7: 16 PM TRIAGE CLINICIAN Occupation Industry Job Start Date Job End [...] November 24 hour urine in 12/13/2023 at [facility] showed to 20 mg/dL of protein. Urinalysis [...] urine protein creatinine ratio today Discussed with Benitez KirkpatrickB.S. Cosigned by Sona Walsh M.D., Ph.D. at 02/20/2024 2:18 PM CDT Associated attestation - Sona Walsh M.D., Ph.D. - 02/20/2024 2:18 PM CDT I saw and evaluated Ms. Vikash Rand with Polly Vega M.B.B.S. I reviewed the EMR and confirmed the [...] This test has been modified from the fire control officer's instructions. Its performance characteristics were determined by [facility] in a manner consistent with CLIA requirements. [...] 4:43 PM CDT 02/13/2024 5:32 PM CDT us Polly MarquisB.SRochelle LAB URINE ORDERABLES Fi nal Result Performing Organization Address [facility]/ZIP Co de Phone Number [facility] 200 [place] [address], [facility] 200 [place] [address] * Protein/Creatinine Ratio, Random, Urine (02/13/2024 4:43 PM CDT) Protein, Total, Random, U 10 mg/dL 02/13/2024 6:31 PM CDT DTL Creatinine, Random, U 148 16 - 326 mg/dL 02/13/2024 6:31 PM CDT DTL Protein/Creatin ine Ratio 0.07 <0.18 mg/mg 02/13/2024 6:31 PM CDT DTL Urine (Urine, Midstream) 02/13/2024 4:43 PM CDT 02/13/2024 5:32 PM CDT us Polly MarquisB.S. LAB URINE ORDERABLES Fi nal Result Performing Organization Address [facility] Co de Phone Number [facility] 200 [place] [address], [facility] [place] 200 [place] [address] * Urinalysis, with Microscopic: Urine, Midstream (02/13/2024 [...] Saenz LAB URINE ORDERABLES Fi nal Result [facility] [address] [place] [address], [facility] DTL [facility] [address] [place] [address] documented in this encounter Visit Diagnoses Diagnosis Hyperplasia Fibromuscular Renal Artery (HCC)- Primary Pre Existing Essential Hypertension Complicating First Trimester (HCC) documented in this encounter Care Teams Aquatic Director Relationship Specialty Start Date End Date Shan Wild M.D. [address] [place] [phone] PCP - General Family Medicine 04/07/22 documented as of this encounter
--- OUTSIDE RECORDS SUMMARY | 2024-04-10 07:28 | XMS_ITS | Encounter Summary ---
Author Organization [facility] Address [address] [place] [address] Care Team Providers Care Nurse Practitioner Manager Name Role Phone Shan Wild M.D. Primary Care Provider [phone] Reason for Referral * Outpatient (Routine) - Closed Specialty Diagnoses / Procedures Referred By Kike ortiz Referred To Contact Obstetrics and Gynecology Diagnoses Maternal Care For Other Isoimmunization First Trimester Single Gestation (HCC) Encounter For Screening For Malformations (HCC) Complication Morbid Obesity Body Mass Index Greater Than 40 (HCC) Pre Existing Essential Hypertension Complicating Second Trimester (HCC) Dez Rivers M.D. 200 [place] [address] Phone: tel: fax: [facility] Referral ID Status Reason Start Date Expiration Date Visits Re quested Visits Authorized [id number] Closed 02/06/2024 08/07/2025 1 1 Reason for Visit * Outpatient (Routine) - Closed Specialty Diagnoses / Procedures Referred By Kike ortiz Referred To Contact Obstetrics and Gynecology Diagnoses Maternal Care For Other Isoimmunization First Trimester Single Gestation (HCC) Dez Rivers M.D. 200 [place] [address] Phone: tel: fax: [facility] Referral ID Status Reason Start Date Expiration Date Visits Re quested Visits Authorized [id number] Closed 12/19/2023 06/19/2025 1 1 Encounter Details Date Type Department Care Team (Latest Contact Info) Description 02/06/2024 3:30 PM CDT Routine Department of Obstetrics and Gynecology in [place], [place] [address] [place] [address] Dez Rivers M.D. [address] [place] [phone] Complication Morbid Obesity Body Mass Index Greater [...] e alcohol) Once a month [facility] fishfishmeities Answer Date Recorded In the past 12 months has e [employer], gas, oil, or water [employer] threatened to shut off services in your [...] often do you attend chur ch or jainism services? Never 08/30/2022 Do you belong to any clubs o r organizations such as sikhism groups, unions, fraternal or athletic groups, or [...] Answer Date Recorded PHQ-2 Score 1 05/30/2023 [facility] of Occupat ional Health - Occupational [...] your living situation today? I have a [facility] place to live 12/17/2023 Education Answer Date Recorded What is the highest level of school you have completed or the highest degree you have received? 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 History: prior myomectomy (02/2023) requiring section 5. History: prior section (G1) 6. History: (5) recurrent first trimester loss 7. Obesity Class 3 BMI 45 kg/m2 8. Marginal cord insertion RECOMMENDATIONS CARE Continue routine care with her primary obstetric providers in [facility], ANTHONY Reyes CNM and care team. Maternal Medicine [...] superimposed preeclampsia. Maternal anti-Georgina isoimmunization Potential for anti-[place] isoimmunization to have resulted from prior blood transfusion in 2021. Unknown [place] antigen status for . Given fetus negative for Georgina antigens, maternal anti-[place] isoimmunization is not expected to be clinically significant for this and fetus is at low risk of hemolytic disease. If blood transfusion is indicated, patient should receive [place] negative blood. History: prior myomectomy (02/2023) requiring section History: prior section (G1) Patient is not an ideal candidate for trial of labor after section. Given prior extensive myomectomy, she requires a section for delivery even if endometrial cavity was not entered during the myomectomy. Myomectomy operative report was reviewed: Per SUKHWINDERTrinidad Salas, Given the extensive depth of the dissection this patient would benefit from delivery in the future if she were to get . CHRONIC HYPERTENSION BLOOD PRESSURE senior advisory blood pressure trend closely. Start home blood [...] worsening chronic hypertension or early labor. CONTRACEPTION custodial reversible contraception options, other contraception options and [...] FOLLOW-UP AND OR GROWTH HERNANDEZ Plurality: 1 OBx: [G:(7)] ?F Trm:() Pre:() C-Sec:() Ab-I:() Ab-S:() [...] by Richard Haskins on 02/13/2024 4:18:01 PM. Vegetable Farmworker: ??Richard Haskins Thank You For This Referral [...] by Richard Haskins on 02/13/2024 4:18:01 PM. Vegetable Farmworker: Richard Haskins Thank You For This Referral us Dez Rivers M.D. IMG OB US PROCEDURES Final Result * (ABNORMAL) Comprehensive Metabolic Panel (02/06/2024 5:00 [...] M.D. LAB BLOOD ADD-ON Fin al Result [place] [address] [place] [address], [facility] [address] [place] [address] * (ABNORMAL) CBC without Differential (02/06/2024 5:00 [...] M.D. LAB BLOOD ADD-ON Fin al Result [facility] [address] [place] [address], [facility] [address] [place] [address] documented in this encounter Visit Diagnoses Diagnosis [...] (HCC) documented in this encounter Care Teams Nurse Practitioner Manager Relationship Specialty Start Date End Date Shan Wild M.D. [address] [place] [phone] PCP - General Family Medicine 04/07/22 documented as of this encounter
== END 2024-04-07 13:36 | disposition home or self-care (01) ==
LOC: NFLDREF 04-10 07:25
PROVIDERS: PCP Pediatrics; Referring Provider Pediatrics; Visit Provider Obstetrics & Gynecology
DX: Z34.93 Encounter for supervision of normal pregnancy, unspecified, third trimester (principal); Z3A.28 28 weeks gestation of pregnancy
CPT/HCPCS: 86592

== ENCOUNTER 2024-04-25 09:10 | Outpatient (RCR) | payer OTHER, SELFPAY ==
--- NOTE | 2024-04-23 14:52 | URNOTE ---
Request received for authorization for [employer]?([id number]). Prior authorization is not required per Rep. Yolanda at [facility] (Ref#Yolanda B. 04/23/24), website confirmation#[id number].
[2024-04-25 09:26] VITALS: BP 129/79; PULSE 70; RESP 16; TEMP 36.4; O2SAT 98
[2024-04-25] MEDS: SODIUM CHLORIDE 0.9 % (FLUSH) 10 ML SYRINGE IVF (10:00)
[2024-04-25] MEDS: 0.9 % SODIUM CHLORIDE 500 ML IV (10:00)
[2024-04-25] MEDS: IRON DEXTRAN COMPLEX 25 MG in 0.9 % SODIUM CHLORIDE 100 ml 100 ML 400 MG IVPB (10:07)
[2024-04-25 10:26] VITALS: BP 120/82; PULSE 83; RESP 16; O2SAT 100
[2024-04-25] MEDS: IRON DEXTRAN COMPLEX 975 MG in 0.9 % SODIUM CHLORIDE 250 ml 250 ML 270 MG IVPB (11:11)
[2024-04-25 12:22] VITALS: BP 129/79; PULSE 71; RESP 18; TEMP 36.6; O2SAT 99
== END 2024-10-22 23:59 | disposition home or self-care (01) ==
LOC: CCIC 09:10
PROVIDERS: PCP Pediatrics; Visit Provider Obstetrics & Gynecology
DX: O99.013 Anemia complicating pregnancy, third trimester (principal); D50.9 Iron deficiency anemia, unspecified
CPT/HCPCS: 96365; 96376; J1750; J7030; J7050

== ENCOUNTER 2024-05-09 11:49 | Outpatient (CLI) | payer OTHER, SELFPAY ==
--- OUTSIDE RECORDS SUMMARY | 2024-05-09 11:51 | XMS_ITS | Clinical Summary ---
Author Organization [facility] Address [place], [place] [address] Care Team Providers Care Snow Technician Name Role Phone Damien Jaramillo MD Primary Care Provider [phone] Allergies Active Allergy Reactions Criticality Noted Date [...] HPV HIGH RISK Routine 05/05/2022 9:50 AM SENIOR USER EXPERIENCE ARCHITECT ANTI HIV 1/2 Routine 06/26/2012 12:44 PM SENIOR USER EXPERIENCE ARCHITECT Supervision of normal first from Last 3 Months or Most Recently Relevant to Health Maintenance Results * HPV HIGH RISK (05/05/2022 9:50 AM SENIOR USER EXPERIENCE ARCHITECT) TYPE 16 Negative Negative 05/09/2022 5:09 PM SENIOR USER EXPERIENCE ARCHITECT [facility] TYPE 18 Negative Negative 05/09/2022 5:09 PM SENIOR USER EXPERIENCE ARCHITECT [facility] OTHER HIGH RISK TYPES Negative Negative 05/09/2022 5:09 PM SENIOR USER EXPERIENCE ARCHITECT [facility] Other (Cervical) 05/05/2022 9:50 AM SENIOR USER EXPERIENCE ARCHITECT 05/08/2022 1:46 PM SENIOR USER EXPERIENCE ARCHITECT Narrative [facility] - 05/09/2022 5:09 PM SENIOR USER EXPERIENCE ARCHITECT HPV types 16, 18, 31, 33, 35, 39, 45, 51, 52, 56, 58, 59, 66 and 68 DNA were undetectable or below the pre-set threshold. Methodology: Kassidy Keon 4800 HPV Test September Ritika METZ MICROBIOLOGY [facility] [address] [place] [address], * ANTI HIV 1/2 (06/26/2012 12:44 PM SENIOR USER EXPERIENCE ARCHITECT) ANTI HIV 1/2 Non-reacti ve [facility] Blood specimen (specimen) BLOOD SPECIMEN / Unknown 06/26/2012 12:44 PM SENIOR USER EXPERIENCE ARCHITECT 06/26/2012 12:34 PM SENIOR USER EXPERIENCE ARCHITECT Kiah Valencia ANALYTIC PROGRAMMER SEND OUTS [facility] INTERNAL ZIP [address] [place] [address] from Last 3 Months or Most Recently Relevant to Health Maintenance Advance Directives * Full Code (Latest Code Status on File) Date Activated Date Inactivated Comments 04/25/2022 5:49 PM 04/26/2022 8:26 PM Question Answer Comments Code Status Discussion: Reviewed Preferences Care Teams Snow Technician Relationship Specialty Start Date End Date Damien Jaramillo MD [address] [place] [address] PCP - General 06/07/06
--- NOTE | 2024-05-09 12:15 | CRLHL7_ITS ---
For Patients: As a result of the Century Cures Act, medical imaging exams and procedure reports are released immediately into your electronic medical record. You may view this report before your referring provider. If you have questions, please contact your health care provider. INDICATION: Chronic HTN, h/x of extensive myomectomy, placenta previa TECHNIQUE: Real time mckeon scale imaging of the fetus was performed. COMPARISON: 04/04/2024 FINDINGS: Sonographic imaging demonstrates a single living intrauterine gestation. Fetus demonstrates a regular cardiac rate of 139 beats per minute. Fetus has a vertex position. The placenta lies right lateral. Edge of the placenta located 4.7 cm from the internal cervical os. Amniotic fluid volume appears normal and there is a single deepest pocket of 6.5 cm. The estimated weight is 2156gm which lies at the 63rd %. BPD 41st percentile. HC 47th percentile. AC is 63rd percentile. FL 70th percentile. The fetus was active and demonstrated normal breathing movements. There was normal flexion and extension of the trunk and extremities. IMPRESSION: Normal biophysical profile score 8/8. Sonographic gestational age 33 weeks 2 days and sonographic due date 06/25/2024. Good correlation with dates. Normal interval growth. Estimated weight 63rd percentile. Abdominal circumference 63rd percentile. No previa. Dictated by James Byers MD @ 05/12/2024 7:31:49 AM (Electronically Signed)
== END 2024-05-09 11:50 | disposition home or self-care (01) ==
LOC: US 11:50
PROVIDERS: Visit Provider Obstetrics & Gynecology
DX: O10.913 Unspecified pre-existing hypertension complicating pregnancy, third trimester (principal); Z3A.33 33 weeks gestation of pregnancy
CPT/HCPCS: 76816; 76817; 76819; 82565; 82570; 84156; 84450; 84460

== ENCOUNTER 2024-05-15 14:12 | Outpatient (CLI) | payer OTHER, SELFPAY ==
--- NOTE | 2024-05-15 14:00 | CRLHL7_ITS ---
For Patients: As a result of the Century Cures Act, medical imaging exams and procedure reports are released immediately into your electronic medical record. You may view this report before your referring provider. If you have questions, please contact your health care provider. INDICATION: chronic HTN, h/x of extensive myomectomy COMPARISON: 01/07/2024 TECHNIQUE: Real time mckeon scale imaging of the fetus was performed. Without non-stress testing. FINDINGS: Sonographic imaging demonstrates a single living intrauterine gestation. Fetus demonstrates a regular cardiac rate of 141 beats per minute. Fetus has a breech position. The amniotic fluid volume appears normal and there is a single deepest pocket measurement of 6.2 cm. The fetus was active and demonstrated normal breathing movements. There was normal flexion and extension of the trunk and extremities. IMPRESSION: Normal biophysical profile score of 8 out of 8. Dictated by James Byers MD @ 05/16/2024 8:19:36 PM (Electronically Signed)
== END 2024-05-15 14:13 | disposition home or self-care (01) ==
LOC: US 14:13
PROVIDERS: Visit Provider Obstetrics & Gynecology
DX: O10.919 Unspecified pre-existing hypertension complicating pregnancy, unspecified trimester (principal)
CPT/HCPCS: 76819; 82565; 82570; 84156; 84450; 84460

== ENCOUNTER 2024-05-23 12:56 | Outpatient (CLI) | payer OTHER, SELFPAY ==
--- NOTE | 2024-05-23 13:00 | CRLHL7_ITS ---
For Patients: As a result of the Cures Act, medical imaging exams and procedure reports are released immediately into your electronic medical record. You may view this report before your referring provider. If you have questions, please contact your health care provider. INDICATION: Chronic hypertension. History of extensive myomectomy 04/04/2024. COMPARISON: Biophysical profile from 05/15/2024. FINDINGS: Transabdominal examination of the is performed. A single intrauterine gestation is seen in cephalic presentation with regular cardiac activity at 137 beats per minute. The placenta is right lateral and is free of the cervical os. The placental grade is 2 and the amniotic fluid volume is normal. The DVP is normal at 6.7 cm, similar to the previous study where it measured 6.2 cm. The biophysical profile score is 8/8 with no points off. IMPRESSION: 1. Single intrauterine gestation in cephalic presentation with regular cardiac activity. 2. Normal DVP at 6.7 cm, unchanged from the previous study. 3. Normal biophysical profile score of 8/8. Dictated by Raheel Lawler MD @ 05/24/2024 2:16:01 PM (Electronically Signed)
== END 2024-05-23 12:57 | disposition home or self-care (01) ==
LOC: US 12:57
PROVIDERS: Visit Provider Obstetrics & Gynecology
DX: O10.919 Unspecified pre-existing hypertension complicating pregnancy, unspecified trimester (principal); O34.29 Maternal care due to uterine scar from other previous surgery
CPT/HCPCS: 76819; 82565; 82570; 84156; 84450; 84460; 87081; 87653

== ENCOUNTER 2024-05-30 13:29 | Outpatient (CLI) | payer OTHER, SELFPAY ==
--- NOTE | 2024-05-30 13:45 | CRLHL7_ITS ---
For Patients: As a result of the Century Cures Act, medical imaging exams and procedure reports are released immediately into your electronic medical record. You may view this report before your referring provider. If you have questions, please contact your health care provider. INDICATION: pre-existing HTN COMPARISON: 05/23/2024 TECHNIQUE: Real time mckeon scale imaging of the fetus was performed. Without non-stress testing. FINDINGS: Sonographic imaging demonstrates a single living intrauterine gestation. Fetus demonstrates a regular cardiac rate of 126 beats per minute. Fetus has a vertex position. The amniotic fluid volume appears normal and there is a single deepest pocket measurement of 6.6 cm. The fetus was active and demonstrated normal breathing movements. There was normal flexion and extension of the trunk and extremities. IMPRESSION: Normal biophysical profile score of 8 out of 8. Dictated by James Byers MD @ 06/02/2024 9:33:31 AM (Electronically Signed)
== END 2024-05-30 13:30 | disposition home or self-care (01) ==
LOC: US 13:29
PROVIDERS: Visit Provider Obstetrics & Gynecology
DX: O10.919 Unspecified pre-existing hypertension complicating pregnancy, unspecified trimester (principal)
CPT/HCPCS: 76819; 82565; 82570; 84156; 84450; 84460

== ENCOUNTER 2024-05-31 17:17 | Outpatient (CLI) | payer OTHER, SELFPAY ==
--- OUTSIDE RECORDS SUMMARY | 2024-05-31 17:18 | XMS_ITS | Clinical Summary ---
Author Organization [employer] [facility] [employer] Address [place], [place] [address] Care Team Providers Care Program Coordinator Name Role Phone Damien Jaramillo MD Primary Care Provider [phone] Allergies Active Allergy Reactions Criticality Noted Date Comments Nickel Rash 04/28/2016 Medications acetaminophen (TYLENOL EXTRA STRGTH) 500 mg tablet Take 1,000 mg by mouth every 6 hours if needed for Pain. Max acetaminophen dose: 4000mg in 24 hrs. Active ibuprofen (ADVIL; MOTRIN) 200 mg tablet Take 400 mg by mouth every 6 hours if needed for Pain. Active ferrous sulfate, 65 mg elemental, tabletIndicati ons:Iron deficiency anemia due to chronic blood loss Take 1 Tablet (325 mg) by mouth once every other day. 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 Not on file Not on file Obstetrics History Para Term [...] 64 04/26/2022 4:37 PM CDT Temperature 36.6 C (97.8 F) 04/26/2022 4:37 PM CDT Respiratory Rate 18 [...] HPV HIGH RISK Routine 05/05/2022 9:50 AM [facility] ANTI HIV 1/2 Routine 06/26/2012 12:44 PM [facility] Supervision of normal first from Last 3 Months or Most Recently Relevant to Health Maintenance Results * HPV HIGH RISK (05/05/2022 9:50 AM PRESIDING [facility]EWARD) TYPE 16 Negative Negative 05/09/2022 5:09 PM PRES[facility]ING [facility]ARD [facility] TYPE 18 Negative Negative 05/09/2022 5:09 PM PRESIDING STEWARD [facility] OTHER HIGH RISK TYPES Negative Negative 05/09/2022 5:09 PM PRESIDING STEWARD [facility] Other (Cervical) 05/05/2022 9:50 AM PRESIDING [facility]ARD 05/08/2022 1:46 PM [facility]ING [facility]ARD Narrative [facility] - 05/09/2022 5:09 PM PRESIDING STEWARD HPV types 16, 18, 31, 33, 35, 39, 45, 51, 52, 56, 58, 59, 66 and 68 DNA were undetectable or below the pre-set threshold. Methodology: Kassidy Keon 4800 HPV Test September Ritika METZ MICROBIOLOGY Final Resu lt [facility] [address] [place] [address], * ANTI HIV 1/2 (06/26/2012 12:44 PM PRESIDING [facility]EWARD) ANTI HIV 1/2 Non-reacti ve [facility] Blood specimen (specimen) BLOOD SPECIMEN / Unknown 06/26/2012 12:44 PM [facility] 06/26/2012 12:34 PM [facility] Kiah Valencia TELEPHONE ORDER DISPATCHER SEND OUTS F inal Result [facility] [place]IP [address] [place] [address] from Last 3 Months or Most Recently Relevant to Health Maintenance Insurance [facility] [address] [id number] Advance Directives * Full Code (Latest Code Status on File) Date Activated Date Inactivated Comments 04/25/2022 5:49 PM 04/26/2022 8:26 PM Question Answer Comments Code Status Discussion: Reviewed Preferences Care Teams Program Coordinator Relationship Specialty Start Date End Date Damien Jaramillo MD [address] [place] [address] PCP - General 06/07/06
[2024-05-31] MEDS: BETAMETHASONE SOD PHOS/ACETATE 6 MG/ML ML 12 MG IM (17:25)
== END 2024-05-31 17:18 | disposition home or self-care (01) ==
PROVIDERS: Visit Provider Obstetrics & Gynecology
DX: O10.919 Unspecified pre-existing hypertension complicating pregnancy, unspecified trimester (principal)
CPT/HCPCS: G0463; J0702

== ENCOUNTER 2024-06-06 05:43 | Inpatient (IN) | payer OTHER, SELFPAY ==
[2024-06-06] VITALS (31 sets, daily range): BP systolic 119–160; BP diastolic 62–92; PULSE 56–78; RESP 16–22; TEMP 36.4–36.7; O2SAT 96–99; BMI 49.5
[2024-06-06] MEDS: LACTATED RINGERS 1000 ML 1,000 ML 1100 ML IV (06:24)
[2024-06-06 06:29] LABS: Hemoglobin* 10.4 gm/dL (12.0-16.0)
--- NOTE | 2024-06-06 07:13 | P.LDBA_ITS ---
Subjective History of Present Illness Time Seen by Provider: 07:13 Date Seen: 06/06/24 Narrative: Patient is being admitted to Labor and Delivery for scheduled repeat CD. She is a 29 year old at 36.4 weeks gestation. Her full history and physical was dictated by Dr. Peters on 05/23/24. Please see this for details. Active movement. Denies Ctx, LOF, vaginal bleeding or abnormal vaginal discharge. Denies any persistent headache, vision changes, SOB, right upper quadrant/epigastric pain, or rapidly expanding edema. S/p BMZ series for late delivery. Specific Issues/Plans 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 Son: Cece (11yo) Baby: Girl: Lu # Chronic HTN, previous elevated BP and BP elevated at 1st OB; no formal diagnosis outside * Recommended baby ASA * Pre-e labs ordered, doing 24 hour urine collection also: WNL, p/c ratio 0.5. Doing 24 hour urine: * Recommend BP check in 1 week * Labetalol 100 mg b.i.d. prescribed on 12/21/2023. BP goal: <140/90. * Home BP monitoring. * Growth ultrasound q4 weeks starting at 32 weeks * Weekly BPPs or NST with labs starting 32 weeks * Renal artery ultrasound recently done is concerning for fibromuscular dysplasia. She is seeing Nephrology. * Labetalol 200 mg BID --> 300 mg BID (on 05/09/24) > 300mg TID on 05/30 * Normal HELLP labs 05/30 # BMI 43.2 at [facility] (40.2 with patient report initial weight) Per patient report, she has gained 20lbs from her prepregnancy weight She was losing weight prior to and stopped diet due to fatigue/ HgB A1C: 5.0% (On metformin) Referral to store operations associate Referral to anesthesia 20-week Level II detailed ultrasound, consult with MFM: scheduled for 02/06/24 Early screening for GDM (1-hour) at 16-20 weeks: 102, repeat at 28 weeks was 76 Weekly BPP and/or NST starting at 32 weeks Growth ultrasound between 32 and 36 weeks. # Right lateral previa (Resolved on 05/09/24) Identifying on level 2 ultrasound at 19 weeks 2 days (February 05) No findings concerning for placental accreta. Recommend pelvic rest an overall decrease in physical activity in the 3rd trimester. Recommendation for extended inpatient observation if with the 1st episode of clinically significant bleeding, likely inpatient admission until delivery if with 3rd episode of clinically significant bleeding. # Hx of section. Planning repeat. 2012, code white per patient following epidural placement # Hx of myomectomy, repeat c/s recommended at 36-37 weeks gestation 20 x 14 x 3.5 cm at time of removal Records scanned to chart # Marginal cord insertion Marginal cord insertion, 1.72 cm from placental edge. 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 * referral to [facility]: seen in Division of Reproductive Genomics on 12/17/23. [place] carrier screening, aneuploidy screening and antigen testing done. Fetus tested negative for Lorain antigens. Carrier screening was negative for cystic fibrosis, SMA, alpha and beta thalassemia. Neha and her partner had normal karyotypes. Aneuploidy screening could not be completed, redraw is required. * If patient needs blood transfusion, patient received Lorain negative blood. * Lorain antigen negative from cell free DNA testing on 01/11/2024. Given fetus negative for Lor[place] antigens, maternal anti Georgina isoimmunization is not expected to be clinically significant for this and the fetus is at low risk of hemolytic disease. US: - 02/06/24: Level 2 US: EFW 86%tile, AC 39%tile. Incomplete detailed anatomy survey. No structural anomalies identified. heart was suboptimally imaged. Appropriate growth and normal amniotic volume. Right lateral placenta previa. Not concerning for an accreta. Marginal cord insertion, 1.72 cm from placental edge. Recommended follow-up ultrasound in 1-4 weeks to complete detailed anatomy survey. Follow-up growth and transvaginal ultrasound with color imaging of internal os any time once at 38 weeks to 32 weeks gestation to assess interval growth, assess placental location and exclude Vasa previa. - 05/09/24: EFW 62.6%tile, AC 62.8%tile. SDP 6.5 cm. Previa resolved at 4.7 cm away from cervical os. 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 20 x 14 x 3.5 cm at time of removal Status: Acute (5) Chronic hypertension affecting : Status: Acute Plan CS Consent - The patient was consented for section. She understands that the four main categories of risk include pain, bleeding, infection, and damage to surrounding structures. Intraoperative pain will be manage with spinal anesthesia or epidural anesthesia. If that those are not effective or not appropriate for the clinical situation, general anesthesia will be administered. Immediately postop, TAP block will be performed. Throughout her recovery course, she will have on PO pain medications such as ibuprofen, Tylenol, and oxycodone. Regarding infection, she understands that we will be delivering appropriate antibiotics, however that the risk of infection following section still is approximately 5%. She understands that though the risk is very low that there is always a risk of damage to the bladder, uterus, ovaries, fallopian tubes, bowels, ureters, or even the fetus. This risk is increased in her specific cause due to her surgical history. She understands that most injuries can be addressed at the time of surgery, however, such an injury may require additional surgeries to fix. She understands that a section carries a risk of bleeding, and that while this bleeding can be ad dressed with multiple medical and surgical modalities (including hysterectomy), that there is the possibility of needing a blood transfusion. Lastly, she understands that a section does increase risks for future pregnancies and deliveries including, but not limited to, the risk of uterine rupture or placenta accreta. She will accept a blood transfusion if needed. We also reviewed postoperative care, recovery, and restrictions. - Will proceed with scheduled procedure. - Hgb 10.4 - T&S: A+, positive antibody screen, pending antibody identification. Likely Anti-K as previously noted. OB Exam Physical Exam Vital signs: Temp Pulse BP Pulse Ox 98.0 F 58 L 152/69 H 99 06/06/24 06:41 06/06/24 07:10 06/06/24 07:10 06/06/24 07:11 Narrative: Physical exam: General: No acute distress Psych: Alert and oriented x3, full affect HEENT: Normocephalic, atraumatic Lungs: Unlabored breathing Neuro: No focal deficit. Mentating appropriately Pelvic exam: Deferred BSUS performed to help with obtaining heart tones - Cephalic position.
[2024-06-06] MEDS: LACTATED RINGERS 1000 ML 1,000 ML 125 ML IV ×2 (07:17→09:01)
[2024-06-06 07:23] LABS: Basophils Absolute Auto 0.03 K/uL (0.00-0.30); Basophils Percent Auto 0.3 % (0.0-3.0); Eosinophils Absolute Auto 0.05 K/uL (0.00-0.50); Eosinophils Percent Auto 0.6 % (0.0-7.0); Hematocrit 32.4 % (33.0-51.0); Immature Granulocytes Abs Auto 0.01 K/uL (0.00-0.30); Immature Granulocytes Pct Auto 0.1 %; Lymphocytes Percent Auto 18.5 % (20-44); Mean Corpuscular HGB Conc 32 gm/dL (32-36); Mean Corpuscular Hemoglobin 27 pg (26-34); Mean Corpuscular Volume 84 fL (80-100); Monocytes Percent Auto 6.7 % (0.0-11.0); Neutrophils Percent Auto 73.8 % (42.0-72.0); Platelet Count* 217 K/uL (140-440); RDW Coefficient of Variation % 16.5 % (11.5-15.5); Red Blood Count 3.86 m/uL (4.00-5.20); White Blood Count* 8.82 K/uL (4.50-11.00)
[2024-06-06 07:34] LABS: Slide Review Reflex No
[2024-06-06] MEDS: CEFAZOLIN 2 GM INJ IVP (07:41)
[2024-06-06] MEDS: MAGNESIUM IV 4 GM/100 ML PIGGYBACK IVPB (08:20)
[2024-06-06] MEDS: KETOROLAC 30 MG/ML inj IVP ×3 (08:55→21:12)
[2024-06-06] MEDS: MAGNESIUM Infusion 40 GM/1,000 ML IV.SOLN IVPB (08:59)
--- NOTE | 2024-06-06 09:32 | W.PM.NB ---
Nerve Block Nerve Block Time Seen by Provider: 09:10 Date Seen: 06/06/24 Type of block requested by surgeon for post-operative analgesia: TAP Side: bilateral Time out performed: Yes Verification of patient name: Yes Verification of date of : Yes Site marking: site marked Name of person performing procedure: Jason Hall Continuous monitoring Was continuous monitoring of O2 sat, B/P, quality assurance monitor, recorded every 15 minutes?: Yes Procedure Checklist: sterile prep, needles and gloves Ultrasound guided. Images saved: Yes Medications given in 5ml increments after negative aspiration: Marcaine %: 0.25 mL: 30 Needle gauge: 20 and Exparel mL: 10 Needle gauge: 20 Patient tolerated procedure well: Yes Additional comments: Injected in 5ml increments after negative aspiration Block Charges Block Charge (with Pro Fee): TAP Bilateral Use of Ultrasound Machine for Block: Yes- US Guidance/pain block
--- NOTE | 2024-06-06 09:33 | W.ANESCHARGE ---
Anesthesia Charges Start Date/Time Anesthesia Start Date: 06/06/24 Anesthesia Start Time: 07:24 Stop Date/Time Anesthesia Stop Date: 06/06/24 Anesthesia Stop Time: 09:25
--- NOTE | 2024-06-06 09:34 | W.ANESCHARGE ---
Anesthesia Charges Start Date/Time Anesthesia Start Date: 06/06/24 Anesthesia Start Time: 07:24 Stop Date/Time Anesthesia Stop Date: 06/06/24 Anesthesia Stop Time: 09:25
--- NOTE | 2024-06-06 10:04 | P.OBPRC_ITS ---
Procedure Time Seen by Provider: 10:00 Date of procedure: 06/06/24 Procedure Done: Global [facility] bill your pro fee for this procedure?: Yes Blood Loss Measurement Type: QBL (1705) Bakri Used: No Urine Output (mL): 500 Urine Output Comment: Clear Procedure Description: DELIVERY BY SECTION Date of Service: 06/06/2024 Delivery time: 08 Summary: Admitted for scheduled repeat delivery at 36.4, repeat lower uterine transverse section, Pfannenstiel, Closed with sutures, QBL 1475 cc Findings: Moderate amount of adhesions between fascia and rectus muscle. Minimal filmy adhesions intra-abdominally. Thick previous lower transverse scar noted. No development of the lower uterine segment. Normal bilateral ovaries and tubes 8/9 weight 5lb 15oz Primary Indication: 1. Chronic hypertension on medication 2. Previous delivery x1 3. Previous myomectomy with extensive dissection Postop diagnosis: 1. Superimposed preeclampsia with severe features 2. delivery x 2 3. Previous myomectomy with a sense of dissection Procedures: Repeat lower uterine transverse section Laufe forceps assisted delivery Specimens Removed: Placenta Surgeon: Lien Grace MD Senior Business Process Analyst Surgeon: Dinorah Peters MD Anesthesia: Spinal, TAP Report: Prophylactic antibiotic, 3 g of Ancef was given before patient was taken to OR. After arrival to the operating room patient was placed in the supine position with left lateral tilt after administration of spinal anesthesia. Traxi placed. Laparotomy A pfannenstiel incision was made through the anterior abdominal wall with #10 scalpel approximately 2 cm above the pubic symphysis. This new incision was made 1 cm below previous incision. This was extended sharply with the #10 scalpel through the subcutaneous tissue to the level of fascia. The fascia was entered sharply with a #10 scalpel (Pfannenstiel) in the midline and extended in semi-elliptical fashion with Arroyo scissor. The underlying muscles were dissected off the overlying fascia by grasping the superior aspect of fascia with two maritza clamps and blunt dissection was used along the midline. The fascia was further from rectus muscle with Arroyo scissor and/or cautery. In similar fashion, the lower aspect of fascia was also grasped with two Maritza clamps and both blunt and sharp dissection was used to separate fascia from rectus muscle. The rectus muscles were in the midline with Daniela's. The peritoneum was then entered sharply with Metzenbaum. The peritoneal incision was then extended superiorly and inferiorly under direct visualization with care being taken to avoid bladder and bowel. Minimal filmy adhesions noted. The peritoneal incision was enlarged bluntly by lateral traction from the surgeon's and nurse first aid's hand. Jonathon retractor was inserted into the abdomen. Delivery A bladder flap was developed by grasping with Micronesian forcep and enter with Metzenbaun scissor. Then sharp and blunt dissection with Metzenbaum scissor and fingers were performed. A low transverse hysterotomy was made then with #10 sca lpel and extended laterally and cephalad with fingers in a low transverse fashion with Manu العلي technique with care being taken to avoid injury to the fetus. The amniotic cavity (membrane) was then entered with spontaneous rupture of membrane, and the amniotic fluid was noted to be clear, fetus was delivered cephalic with the assistance of Laufe forceps. Blades applied in the usual manner. 1 pull needed. With delivery of the baby, no extension was noted. No blade toscano noted. Placenta was delivered spontaneously with steady traction on cord and manual separation of placenta from uterine wall. Closure Uterine cavity was cleaned after placental delivery with lap sponge x 3. Increased bleeding noted to be from large exposed vessel at the hysterotomy. Tone was excellent. The hysterotomy was closed in two layers with stitches using 0 vicryl with continuous locking stitches and 0 monocryl in a continuous non locking manner. Hemostasis was achieved as needed with electrocautery and multiple figure of 8s along the hysterotomy. The ovaries/tubes/uterine surface were evaluated. They were found to be normal. Jonathon retractor removed and hemostasis was confirmed again. Gregorio applied. Fascia was closed with running stitches using 0 PDS. Subcutaneous layer was irrigated. Hemostasis was checked for and found to be adequate. The subcutaneous layer was closed with running 2-0 vicryl sutures. The skin was closed with monocryl subcuticular sutures . The incision was cleaned and covered steri- strips and silver dressing. The procedure considered terminate at this time. Intraoperative Complications: Intraoperative hemorrhage from vessels along the hysterotomy. Intraoperative superimposed preeclampsia with severe features necessitating IV antihypertensives (labetalol 20 mg, 40 mg, and 10 mg of hydralazine). Magnesium sulfate started intraoperatively as well. Uterotonics: 40u of Pitocin, 1g of TXA Disposition: The patient tolerated the procedure well. She was recovered in Obstetric PACU for close monitoring in stable condition, with a contracted uterus and normal transvaginal bleeding. The was sent to mother?s bedside/PACU. The placenta was sent to pathology due to superimposed preeclampsia with severe features. Debrief with OR team performed and specimen reviewed at the conclusion of the procedure.
[2024-06-06] MEDS: NIFEdipine 30 MG TAB.ER.24 PO (10:52)
[2024-06-06] MEDS: LABETALOL HCL 100 MG TABLET 300 MG PO ×2 (10:53→21:12)
[2024-06-06] MEDS: ACETAMINOPHEN 500 MG TABLET 1000 MG PO ×2 (11:27→17:51)
[2024-06-06 12:21] LABS: Hemoglobin* 9.9 gm/dL (12.0-16.0); Mean Corpuscular HGB Conc 32 gm/dL (32-36); Mean Corpuscular Hemoglobin 27 pg (26-34); Mean Corpuscular Volume 84 fL (80-100); Platelet Count* 191 K/uL (140-440); Red Blood Count 3.69 m/uL (4.00-5.20); White Blood Count* 11.42 K/uL (4.50-11.00)
[2024-06-06 12:22] LABS: Slide Review Reflex No
[2024-06-06 12:37] LABS: Aspartate Amino Transferase* 20 U/L (12-35); Creatinine* 0.4 mg/dL (0.5-1.5); Est. Creatinine Clearance* 220.37; Estimated Glomerular Filt Rate 136 ml/min
[2024-06-06 12:38] LABS: Alanine Aminotransferase* 13 U/L (4-35); Blood Urea Nitrogen* 8 mg/dL (5-24)
[2024-06-06] MEDS: ENOXAPARIN 40 MG/0.4 ML INJ SUBCUT (21:12)
[2024-06-06] MEDS: LACTATED RINGERS 1000 ML 1,000 ML 25 ML IV (23:31)
[2024-06-07] VITALS (11 sets, daily range): BP systolic 116–141; BP diastolic 69–82; PULSE 66–83; RESP 16–22; TEMP 36.4–36.9; O2SAT 93–97
[2024-06-07] MEDS: ACETAMINOPHEN 500 MG TABLET 1000 MG PO ×4 (00:04→23:40)
[2024-06-07] MEDS: KETOROLAC 30 MG/ML inj IVP ×3 (03:09→15:03)
[2024-06-07] MEDS: MAGNESIUM Infusion 40 GM/1,000 ML IV.SOLN IVPB (03:48)
[2024-06-07] MEDS: LACTATED RINGERS 1000 ML 1,000 ML 125 ML IV (03:59)
[2024-06-07 04:29] LABS: Hematocrit 30.1 % (33.0-51.0); Hemoglobin* 9.5 gm/dL (12.0-16.0); Mean Corpuscular HGB Conc 32 gm/dL (32-36); Mean Corpuscular Hemoglobin 27 pg (26-34); Mean Corpuscular Volume 85 fL (80-100); Platelet Count* 185 K/uL (140-440); Red Blood Count 3.55 m/uL (4.00-5.20)
[2024-06-07 04:40] LABS: Slide Review Reflex No
[2024-06-07 04:46] LABS: Alanine Aminotransferase* 16 U/L (4-35); Aspartate Amino Transferase* 22 U/L (12-35); Blood Urea Nitrogen* 9 mg/dL (5-24); Creatinine* 0.5 mg/dL (0.5-1.5); Est. Creatinine Clearance* 176.29; Estimated Glomerular Filt Rate 129 ml/min
[2024-06-07 04:47] LABS: Uric Acid* 4.1 mg/dL (2.2-8.4)
[2024-06-07 04:55] LABS: Magnesium* 4.7 mg/dL (1.5-2.6)
[2024-06-07] MEDS: DOCUSATE SODIUM 100 MG CAPSULE PO (08:20)
[2024-06-07] MEDS: FERROUS SULFATE 325 MG TABLET PO (08:20)
--- NOTE | 2024-06-07 08:55 | P.OBPN_ITS ---
OB - PN:Subj Subjective Date Seen: 06/07/24 Interval history: Neha is a 29-year-old G7 now P 1-1-5-2 woman who is status post repeat on 06/06/2024 at 36 weeks, 4 days gestation. Indication for late delivery was previous myomectomy. QBL was 1475 cc. She also has chronic hypertension, and was diagnosed with superimposed severe preeclampsia during her intraoperative course, diagnosed based on blood pressure elevation. OB Problem List: # Chronic HTN, previous elevated BP and BP elevated at 1st OB; no formal diagnosis outside Renal artery ultrasound recently done is concerning for fibromuscular dysplasia. She is seeing Nephrology. Labetalol 200 mg BID --> 300 mg BID (on 05/09/24) > 300mg TID on 05/30 # BMI 43.2 at NOB (40.2 with patient report initial weight) # Right lateral previa (Resolved on 05/09/24) # Hx of section. Planning repeat. 2012, code white per patient following epidural placement # Hx of myomectomy, repeat c/s recommended at 36-37 weeks gestation 20 x 14 x 3.5 cm at time of removal # Marginal cord insertion Marginal cord insertion, 1.72 cm from placental edge. 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 If patient needs blood transfusion, patient requires Georgina negative blood. [place] antigen negative from cell free DNA testing on 01/11/2024. Narrative: She is currently maintained on labetalol 300 mg t.i.d. and nifedipine ER 30 mg daily. She feels better after going off magnesium this morning. She has been able to ambulate. She reports the pain is controlled. She is tolerating regular diet and passing flatus. She is trying to breastfeed her , but is having some difficulty. OB - PN: Obj Exam Physical Exam: Vital signs: Temp Pulse Resp BP Pulse Ox O2 Del Method 97.9 F 66 18 126/80 96 Room Air 06/07/24 08:03 06/07/24 08:03 06/07/24 08:03 06/07/24 08:03 06/07/24 08:03 06/07/24 08:03 She has had 2500 mL of urine output since midnight, and had 3575 mL yesterday. Narrative: General: Pleasant, no acute distress Heart: Regular rate and rhythm, no murmur or gallop Lungs: Clear to auscultation bilaterally Abdomen: Soft, nontender, fundus well below umbilicus. Silver dressing in place over her incision, with a 3 cm spot of blood near the right aspect. Lower extremities: No edema or erythema OB - PN: Obj Data Labs Labs: Laboratory Results - last 24 hr 06/06/24 06/07/24 12:04 04:26 WBC 11.42 H 11.40 H RBC 3.69 L 3.55 L Hgb 9.9 L 9.5 L Hct 31.0 L 30.1 L MCV 84 85 MCH 27 27 MCHC 32 32 Plt Count 191 185 BUN 8 9 Creatinine 0.4 L 0.5 Estimated Creat Clear 220.37 176.29 Estimated GFR 136 129 Uric Acid 4.1 Magnesium 4.7 H* AST 20 22 ALT 13 16 OB - PN: A/P Delivery Assessment and Plan (1) BMI 45.0-49.9, adult: Status: Acute Assessment and Plan: Continue Lovenox b.i.d. until discharge. 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 HELLP labs have been normal. She has had abundant urine output. She has been normotensive for the last 24 hours. Currently treated with nifedipine ER 30 mg daily and labetalol 300 mg t.i.d.. We will titrate her antihypertensives during her remaining inpatient course. (4) S/P repeat low transverse : Status: Acute Assessment and Plan: Appropriate postoperative course. (5) Anemia due to acute blood loss: Problem details: Postoperative hemoglobin 9.5. Status: Acute Assessment and Plan: Begin ferrous sulfate 325 mg q.o.d.. Plan day: 1 Plan: routine care Comments: We discussed likely discharge on Sunday, postoperative day 3.
[2024-06-07] MEDS: NIFEdipine 30 MG TAB.ER.24 PO (09:11)
[2024-06-07] MEDS: ENOXAPARIN 40 MG/0.4 ML INJ SUBCUT ×2 (09:12→20:35)
[2024-06-07] MEDS: LABETALOL HCL 100 MG TABLET 300 MG PO ×3 (09:12→20:35)
[2024-06-08] VITALS (9 sets, daily range): BP systolic 138–156; BP diastolic 70–90; PULSE 65–77; RESP 16–18; TEMP 36.5–36.9; O2SAT 97
[2024-06-08] MEDS: ACETAMINOPHEN 500 MG TABLET 1000 MG PO ×4 (05:43→23:50)
[2024-06-08] MEDS: NIFEdipine 30 MG TAB.ER.24 PO ×3 (08:31→21:25)
[2024-06-08] MEDS: DOCUSATE SODIUM 100 MG CAPSULE PO (08:32)
[2024-06-08] MEDS: LABETALOL HCL 100 MG TABLET 300 MG PO ×3 (08:32→20:20)
[2024-06-08] MEDS: ENOXAPARIN 40 MG/0.4 ML INJ SUBCUT ×2 (08:32→20:21)
[2024-06-08] MEDS: FERROUS SULFATE 325 MG TABLET PO (09:05)
[2024-06-08] MEDS: NIFEdipine 30 MG TAB.ER.24 60 MG PO (09:26)
--- NOTE | 2024-06-08 09:32 | P.OBPN_ITS ---
OB - PN:Subj Subjective Date Seen: 06/08/24 Interval history: Neha is a 29-year-old G7 now P 1-1-5-2 woman who is status post repeat on 06/06/2024 at 36 weeks, 4 days gestation. Indication for late delivery was previous myomectomy. QBL was 1475 cc. She also has chronic hypertension, and was diagnosed with superimposed severe preeclampsia during her intraoperative course, diagnosed based on blood pressure elevation. OB Problem List: # Chronic HTN, previous elevated BP and BP elevated at 1st OB; no formal diagnosis outside Renal artery ultrasound recently done is concerning for fibromuscular dysplasia. She is seeing Nephrology. Labetalol 200 mg BID --> 300 mg BID (on 05/09/24) > 300mg TID on 05/30 # BMI 43.2 at NOB (40.2 with patient report initial weight) # Right lateral previa (Resolved on 05/09/24) # Hx of section. Planning repeat. 2012, code white per patient following epidural placement # Hx of myomectomy, repeat c/s recommended at 36-37 weeks gestation 20 x 14 x 3.5 cm at time of removal # Marginal cord insertion Marginal cord insertion, 1.72 cm from placental edge. 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 If patient needs blood transfusion, patient requires Georgina negative blood. [place] antigen negative from cell free DNA testing on 01/11/2024. Narrative: Neha has no complaints. Reports pain is at a 4. She is doing better with ! Denies any heavy bleeding. No difficulty with ambulation. Over the last 24 hours, she has had cell blood pressures in the 140s to 150s / 90s range. This is while taking nifedipine ER 30 mg QAM and labetalol 300 mg TID. OB - PN: Obj Exam Physical Exam: Vital signs: Temp Pulse Resp BP Pulse Ox O2 Del Method 98.1 F 67 17 152/90 H 97 Room Air 06/08/24 07:49 06/08/24 09:03 06/08/24 09:03 06/08/24 09:03 06/08/24 07:49 06/08/24 07:49 Narrative: Physical exam: Vitals as noted above. General: No acute distress Psych: Alert and oriented x 3, full affect HEENT: Normocephalic, atraumatic Abdomen: Normoactive bowel sounds, soft, no tenderness, rebound, or guarding, fundus below umbilicus, silver dressing with a single 4 cm spot of blood near the right aspect Lower extremities: 1+ edema left leg, no erythema OB - PN: Obj Data Labs Labs: Laboratory Results - last 24 hr 06/06/24 06:20 Antibody Identification Anti-K Crossmatch (AHG) See Detail OB - PN: A/P Delivery Assessment and Plan (1) BMI 45.0-49.9, adult: Status: Acute Assessment and Plan: Continue Lovenox b.i.d. until discharge. (2) Severe preeclampsia: Problem details: Superimposed upon chronic hypertension. Status: Acute Assessment and Plan: Now status post 24 hours of IV magnesium sulfate infusion. HELLP labs have been normal. She has had abundant urine output. Increase in blood pressures in the last 24 hours. Currently treated with nifedipine ER 30 mg daily and labetalol 300 mg t.i.d.. Increase nifedipine ER 260 mg q.a.m., 30 mg q.h.s.. Maintain labetalol 300 mg t.i.d.. We will follow her blood pressures throughout the day, with a goal of coming up with a regimen that will be sufficient to keep her normotensive at discharge tomorrow. (3) S/P repeat low transverse : Status: Acute Assessment and Plan: Appropriate postoperative course. (4) Anemia due to acute blood loss: Problem details: Postoperative hemoglobin 9.5. Status: Acute Assessment and Plan: Continue ferrous sulfate 325 mg q.o.d.. Plan day: 1 Plan: routine care Comments: We discussed likely discharge on Sunday, postoperative day 3.
--- NOTE | 2024-06-08 09:41 | PC.NURSE ---
Per discussion with Dr. Mendoza, patient medication orders have changed due to rising blood pressures starting at 2300 06/07. Dosing changed at 0924 from once daily nifedipine 30 mg to morning nifedipine 60, evening nifedipine 30. Per verbal order, a second dose of 30 mg was given at 09 following the previous morning order of 30 mg. Computer orders had not been correctly updated at time of medication administration. RN gave medication and will correct electronic record as able to reflect correct given dose to ordered dose. MD aware of a total of 60 mg now given this morning, and RN will communicate with wallpaper installer to give evening dose of 30 mg.
[2024-06-08 12:57] LABS: Rapid Plasma Reagin (RPR) Non Reactive (Non Reactive)
[2024-06-08] MEDS: LABETALOL HCL 100 MG TABLET 200 MG PO (21:25)
[2024-06-09 03:15] VITALS: BP 130/79; PULSE 78; RESP 18; TEMP 36.7; O2SAT 96
[2024-06-09] MEDS: ACETAMINOPHEN 500 MG TABLET 1000 MG PO ×2 (05:56→12:57)
--- NOTE | 2024-06-09 07:28 | P.DS_ITS ---
DS: Providers Provider Time Seen by Provider: 08:18 Date Seen: 06/09/24 Date of admission: 06/06/24 05:43 Primary care physician: Not a Local Provider Admitting Clinician: Lien Grace MD Attending Physician on discharge: Lien Grace MD Date of Discharge: 06/09/24 DS: Diagnosis Discharge Diagnosis (1) S/P repeat low transverse : Status: Acute (2) Anemia due to acute blood loss: Status: Acute Problem details: Postoperative hemoglobin 9.5. (3) Severe preeclampsia: Status: Acute Problem details: Superimposed upon chronic hypertension. 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 Dressing with small amount of blood noted in right corner but overall Clean, dry, and intact. No erythema, induration, or abnormal discharge/breakdown of the surrounding skin. Skin: No lesions or rashes Lower extremities: 2+ bilateral lower extremity edema Pelvic exam: No blood on pad Const: Vital Signs, click to edit/add: Vital Signs - 24 hr 06/08/24 07:49 06/08/24 09:03 06/08/24 11:00 Temperature 98.1 F Pulse Rate [Right Pulse Oximeter] 67 67 Respiratory Rate 18 17 Blood Pressure [Ri ght Arm] 156/83 H 152/90 H 154/70 H Pulse Oximetry 97 Oxygen Delivery Me thod Room Air 06/08/24 13:53 06/08/24 16:00 06/08/24 20:18 Temperature 98.1 F 98.5 F 98.3 F Pulse Rate [Right Pulse Oximeter] 67 67 77 Respiratory Rate 18 17 16 Blood Pressure [Ri ght Arm] 149/74 H 152/80 H 152/85 H Pulse Oximetry 97 Oxygen Delivery Me thod Room Air Room Air Room Air 06/08/24 23:22 06/09/24 03:15 Temperature 98.1 F Pulse Rate [Right Pulse Oximeter] 75 78 Respiratory Rate 16 18 Blood Pressure [Ri ght Arm] 138/83 130/79 Pulse Oximetry 97 96 Oxygen Delivery Me thod Room Air Room Air OB - DS: Summary Hospital Course Hospital Course: The patient is a 29 year old at 36.4 weeks gestation that was admitted to the [facility] on 06/06/24 for scheduled section. She had a repeat delivery complicated by intraoperative hemorrhage. She delivered a viable female . She is breast and bottle feeding. the patient has done well. Hgb stable at 9.5 gm/dL. Denies any persistent headache, vision changes, SOB, right upper quadrant/epigastric pain, or rapidly expanding edema. Peripartum Data Procedures: Procedures Operation Date: 06/06/24 07:15 Actual Procedure Side Surgeon p Repeat Section Lien Grace MD Infant Gender: Female Time Spent with Patient Time attestation: Total time spent providing and/or coordinating discharge services: Discharge Plan Discharge Disposition: Home, Self-Care Date of Admission: 06/06/24 05:43 Attending Provider on Discharge: Lien Grace Primary Care Provider: Provider,Not a Local Condition: Stable Anticipated Discharge Date/Time: 06/09/24 07:28 Discharge Medications: New acetaminophen 500 mg Tablet 1,000 mg PO Q6H PRN (Reason: Abdominal Pain) 30 Days Qty: 60 0RF ferrous sulfate 325 mg (65 mg iron) Tablet 325 mg PO Q48H 30 Days Qty: 15 0RF docusate sodium 100 mg Capsule 100 mg PO DAILY 30 Days Qty: 30 0RF ibuprofen 600 mg Tablet 600 mg PO Q6H PRN (Reason: Pain) 30 Days Qty: 60 0RF labetalol 100 mg Tablet 500 mg PO TID 30 Days Qty: 450 0RF Lanolin (HPA) 100 % Cream 1 applic topical Q1H PRNQty: 7 3RF nifedipine 30 mg Tablet Extended Release 24hr 60 mg PO BID 30 Days Qty: 120 0RF simethicone 80 mg Tablet,Chewable 80 - 160 mg PO Q4H PRN (Reason: Gas) 30 Days Qty: 60 0RF oxycodone 5 mg Tablet 5 mg PO Q6H PRN (Reason: Pain) 14 Days Qty: 15 0RF Continued DHA 200 mg capsule 1 mg PO DAILY calcium carbonate [Tums] 200 mg calcium (500 mg) tablet,chewable 200 mg PO BID ferrous sulfate 325 mg (65 mg iron) tablet 325 mg PO QDAY Discontinued aspirin [Aspirin Childrens] 81 mg tablet,chewable 81 mg PO QDAY labetalol 200 mg tablet 300 mg PO TID Discharge Orders: Discharge Order (Routine); Ordered 06/09/24 Ordered By: Lien Grace Patient Education: Preeclampsia During (DC), (DC) Additional Instructions: Follow up for blood pressure check 3-5 days after discharge POSTOPERATIVE INSTRUCTIONS ACTIVITY No heavy lifting/pushing/pulling for 4-6 weeks. Do not lift anything more than about 10-15 lbs (such as laundry, groceries, children, pets), vacuum, push heavy doors or grocery carts, etc. You may climb stairs as tolerated. Do not put anything in the vagina for 6 weeks after surgery unless otherwise instructed by your doctor (including tampons, douching, sexual intercourse, etc). No driving for about 2 weeks after surgery, while you are taking narcotic pain medication, or until you feel that you are ready. Practice checking your blind spot and stepping hard on the brake. Avoid sitting or lying in bed for more than 2 hours at a time while you are awake to reduce your risk of blood clots. You may return to work when directed by your physician. Please contact your doctor if you need any return to work letters or medical leave paperwork to be completed. WOUND CARE You will have one large incision on your abdomen. There will be dissolvable stitches under your skin that do not need to be removed. You will also have steri-strips (paper tape) on the incisions and these may be removed like a Band- Aid when they curl up at the edges. Your dressing is due to be removed 7 days after placement Shower daily after surgery. Clean your incision with mild antibacterial soap and water. Pat your incision dry with a clean towel. No tub baths until wound is completely healed. Wash your hands frequently, especially before touching your incision, changing any dressings, after using the restroom, and before eating. PAIN MANAGEMENT Take your oral pain medication as needed. You should be taking Ibuprofen 600mg every 6 hours with 1 gram of Tylenol every 6 hours. You can take these together every six hours or alternate them every 3 hours. You should then take the oxycodone as needed if you have breakthrough pain on top of the Tylenol and Ibuprofen. Some pain medications can cause constipation so you should take a stool softener (i.e. colace) while you are on these medications. You may also take milk of magnesia or Miralax for constipation. WHAT TO EXPECT AT HOME Recovery from surgery is generally 4-6 weeks, but sometimes longer for more strenuous activity. It is normal to be very tired during this time. It is normal to have lochia/some drainage or a small amount of vaginal bleeding after surgery which may last up to 6 weeks. You will most likely experience gas pain, abdominal swelling, or shoulder pain for 24-72 hours after surgery. A warm shower, heating pad, and/or walking may help. WHEN TO CALL YOUR DOCTOR : Fever (>100.4?F or 38.0?C) or chills. Incision problems such as redness, warmth, swelling, or foul smelling drainage. Severe nausea or persistent vomiting. Bright red vaginal bleeding (soaking >1 pad/hour) or foul smelling vaginal drainage. Severe pain not relieved with pain medication. Pain and swelling in your legs, especially if it is only on one side and not the other. Pain with urination, cloudy urine, or foul smelling urine. Any persistent headache, vision changes, SOB, right upper quadrant/epigastric pain, or rapidly expanding edema. BP 160/110 or higher Or if you have any other problems or questions. CALL 911 OR GO TO THE EMERGENCY ROOM IF YOU HAVE: Any shortness of breath, difficulty breathing, or chest pain. Follow Up Appointments: Provider,Not a Local [Primary Care Provider] - Forms: [facility] Info Instructions
[2024-06-09 07:42] VITALS: BP 119/76; PULSE 75; RESP 18; TEMP 36.6
[2024-06-09] MEDS: LABETALOL HCL 100 MG TABLET 500 MG PO (08:44)
[2024-06-09] MEDS: DOCUSATE SODIUM 100 MG CAPSULE PO (08:44)
[2024-06-09] MEDS: ENOXAPARIN 40 MG/0.4 ML INJ SUBCUT (08:44)
[2024-06-09] MEDS: NIFEdipine 30 MG TAB.ER.24 60 MG PO (08:45)
[2024-06-09] MEDS: LANOLIN CREAM 1 APPLIC TOPICAL (08:45)
[2024-06-09 10:55] VITALS: BP 106/69; PULSE 75; RESP 18
[2024-06-09 11:28] VITALS: BP 115/68; PULSE 75; RESP 17
[2024-06-09 12:53] VITALS: BP 128/74; PULSE 75
[2024-06-09] MEDS: LABETALOL HCL 100 MG TABLET 400 MG PO (13:57)
[2024-06-09 16:02] VITALS: BP 120/74; PULSE 75; RESP 17; TEMP 36.6; O2SAT 96
== END 2024-06-09 17:12 | disposition home or self-care (01) | DRG 787 ==
PROVIDERS: Obstetrics & Gynecology; Admitting Provider Obstetrics & Gynecology; Visit Provider Obstetrics & Gynecology
PROC: 10D00Z1 Extraction of Products of Conception, Low, Open Approach (ICD-10-PCS; CPT 59514; principal; 2024-06-06 07:15)
DX: O11.4 Pre-existing hypertension with pre-eclampsia, complicating childbirth (principal); D62 Acute posthemorrhagic anemia; Z3A.36 36 weeks gestation of pregnancy; Z37.0 Single live birth; O99.214 Obesity complicating childbirth; O69.89X0 Labor and delivery complicated by other cord complications, not applicable or unspecified; O99.013 Anemia complicating pregnancy, third trimester; Z98.891 History of uterine scar from previous surgery; D50.9 Iron deficiency anemia, unspecified; Z87.891 Personal history of nicotine dependence; N96 Recurrent pregnancy loss; O99.824 Streptococcus B carrier state complicating childbirth; O36.1930 Maternal care for other isoimmunization, third trimester, not applicable or unspecified; G89.18 Other acute postprocedural pain; E66.9 Obesity, unspecified
CPT/HCPCS: 01961; 36415; 64488; 76942; 82565; 83735; 84450; 84460; 84520; 84550; 85018; 85025; 85027; 86592; 86850; 86870; 86880; 86900; 86901; 86904; 86922; 88307; A4314; A9270; C9290; J0360; J0665; J0690; J1650; J1885; J2405; J2590; J3475; J7120

== ENCOUNTER 2024-07-10 12:53 | Day surgery (SDC) | payer OTHER, SELFPAY ==
[2024-07-10] VITALS (15 sets, daily range): BP systolic 108–147; BP diastolic 71–98; PULSE 59–88; RESP 16–18; TEMP 36.2–37; O2SAT 96–99; BMI 45.1
--- NOTE | 2024-07-10 13:47 | CRLHL7_ITS ---
For Patients: As a result of the Century Cures Act, medical imaging exams and procedure reports are released immediately into your electronic medical record. You may view this report before your referring provider. If you have questions, please contact your health care provider. INDICATION: 4.5 weeks bleeding. TECHNIQUE: Ultrasound pelvis transvaginal only. Real-time sonographic images with spectral and color Doppler imaging of the ovaries were obtained. COMPARISON: None. FINDINGS: Uterus: 11.9 x 6.7 x 7.4 cm. Lower uterine segment prominent sutures. Endometrium: Endometrial thickness measures 2.0 centimeter. No hypervascularity within the stripe. Heterogeneous hypo and hyperechoic foci consistent with retained products. Right ovary: 6.7 x 4.1 x 7.4 centimeters with normal color flow. Small subcentimeter follicles. Left ovary: 5.3 x 3.7 x 3.8 centimeters with normal color flow. 2.8 x 2.6 x 2.3 centimeter complex cyst with low-level echoes. At least 1 septation limited visualization due to body habitus and ovarian location. Cul-de-sac: No significant free fluid. IMPRESSION: 1. Thickened endometrial stripe which is heterogeneous consistent with retained products. 2. 2.8 centimeter left ovarian complex cyst. 3. No adnexal mass or free fluid. Dictated by Dionisio Haddad MD @ 07/10/2024 2:58:51 PM (Electronically Signed)
--- NOTE | 2024-07-10 16:03 | ED.GENADULT ---
HPI - General Adult General Chief complaint: Vaginal Bleeding Stated complaint: Vaginal Bleeding/Lightheaded Time Seen by Provider: 07/10/24 14:01 History of Present Illness HPI narrative: This 29-year-old female comes in reporting heavy bleeding that started last evening. She gave to a baby girl about a month ago and had some spotting afterwards. She states that the bleeding became rather heavy yesterday. She does report some lightheadedness when getting up. She had an ultrasound prior to getting into the room which shows evidence of retained products of conception. Related Data Previous Rx's ?Medication ?Instructions ?Recorded acetaminophen 500 mg tablet 1,000 mg (2 x 500 mg) PO Q6H PRN 06/09/24 Abdominal Pain 30 days #60 tabs breast pump #1 ea 06/09/24 docusate sodium 100 mg capsule 100 mg PO DAILY 30 days #30 caps 06/09/24 ferrous sulfate 325 mg (65 mg 325 mg PO Q48H 30 days #15 tabs 06/09/24 iron) tablet ibuprofen 600 mg tablet 600 mg PO Q6H PRN Pain 30 days #60 06/09/24 tabs modified lanolin 100 % topical 1 applic topical Q1H PRN #7 grams 06/09/24 cream (Lanolin (HPA)) labetalol 100 mg tablet 500 mg (5 x 100 mg) PO TID 30 days 07/07/24 #450 tabs nifedipine 30 mg tablet,extended 60 mg (2 x 30 mg) PO BID 30 days 07/07/24 release 24 hr #120 tabs Allergies Allergy/AdvReac Type Severity Reaction Status Date / Time nickel Allergy Mild Rash Verified 07/10/24 13:33 agave Allergy Mild Hives Uncoded 07/02/24 07:59 blackberry Allergy Mild Hives Uncoded 07/02/24 07:59 Review of Systems Status of ROS: Reports: 10 or more systems reviewed and unremarkable except as noted in History and below Narrative: Constitutional: No fevers, no weight gain or loss. Eyes: No discharge. No vision changes. HENT: No congestion, no sore throat, no ear pain. Cardiovascular: No chest pain, no palpitations. Respiratory: No shortness of breath, no wheezes, no cough. Gastrointestinal: No abdominal pain, no vomiting, no diarrhea. Genitourinary: No dysuria, no hematuria. Musculoskeletal: Normal range of motion. Skin: No rashes, no pruritis. Neurological: No weakness, sensory change, speech change. Endo/Heme/Allergies: No bruising or bleeding. No polydipsia. Pysch: no suicidality, no anxiety, no insomnia. All other systems reviewed and are negative. [facility] Medical History Morbid obesity with BMI of 50.0-59.9, adult ?E66.01 - Morbid (severe) obesity due to excess calories (ICD-10) ?Z68.43 - Body mass index [BMI] 50.0-59.9, adult (ICD-10) Fibroid uterus ?D25.9 - Leiomyoma of uterus, unspecified (ICD-10) History of abnormal cervical Pap smear ?Z87.42 - Personal history of other diseases of the female genital tract (ICD-10) Iron deficiency anemia ?D50.9 - Iron deficiency anemia, unspecified (ICD-10) Recurrent loss ?N96 - Recurrent loss (ICD-10) Dysmenorrhea ?N94.6 - Dysmenorrhea, unspecified (ICD-10) Menorrhagia ?N92.0 - Excessive and frequent menstruation with regular cycle (ICD-10) Surgical History History of myomectomy ?Z98.890 - Other specified postprocedural states (ICD-10) History of ?Z98.891 - History of uterine scar from previous surgery (ICD-10) Family History Family/Other Breast cancer Aunt Lung cancer Family/Other High blood pressure Maternal Grandmother Diabetes Social History Narrative: SOCIAL Education: High School Work: [employer] 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 Lives with: Cece Wang Pets: 2 dogs and 2 cats Abuse: Denies past/present Special Diet: was on keto, not on during Ok with a blood transfusion: yes Culture or mandaen beliefs: denies RISK FACTORS Exercise Times/wk: Walk daily, walk dogs Hx of Depression and/or Anxiety/other mood disorder: denies hx Seat Belt Use: Routinely Smoking: Denies present; 2 sigs per day stopped about 1 month ago Alcohol/day: Denies while ; occasionally prior to Caffeine: Coffee 1-2 maybe Drug Use: Denies past/present Chicken Pox: Yes as a child MRSA: Denies What is your current living situation?: I presently have a place to live Problems where you live: no known problems In the past 12 months, utilities in danger of being shut off: no In past 12 months, lack of transportation kept you from medical appts, meetings, work, or getting things needed for daily living: no In the past 12 mos, have been you worried that your food would run out before you had money to buy more?: never true In the past 12 mos, the food you bought just didn't last and you didn't have money to buy more?: never true Smoking Status: Former smoker What tobacco products do you use: cigarettes Smoking quit date/years: <= 15 years ago Do you use any of these nicotine containing products: Vaping Products Second hand tobacco smoke exposure: No How often do you have a drink containing alcohol: monthly or less How many standard drinks containing alcohol do you have on a typical day: 1 or 2 How often do you have six or more drinks on one occasion: Never AUDIT-C Alcohol total score: 1 Non-prescribed substance use: marijuana (any form) Non-prescribed substance use details: occasionally marijuana gummy for sleep How often does anyone, including family, friends and others, physically hurt you: never How often does anyone, including family, friends and others, insult or talk down to you: never How often does anyone, including family, friends and others, threaten you with harm: never How often does anyone, including family, friends and others, scream or curse at you: never service: No Exam Narrative: Exam Narrative: Constitutional: Well-developed, well-nourished, no acute distress. HEENT: Normocephalic, atraumatic. Neck: Normal range of motion. Nontender. Supple. Heart: Intact distal pulses. Lungs: No chest discomfort. No wheezes, rhonchi, or rales. Abdomen: Nontender. Back: Normal range of motion. Extremities: Normal range of motion. No injury. Skin: Intact. No rash. Warm. No erythema or pallor. Neurologic: No altered sensation. No weakness. Alert and oriented. Psychiatric: No suicidality. No anxiety or depression. No insomnia. Nursing notes and vitals signs are reviewed. Const: Vital Signs, click to edit/add: Vital Signs - 24 hr 07/10/24 13:28 07/10/24 17:19 07/10/24 17:30 Temperature 98.2 F 97.7 F Pulse Rate [Pulse Oximeter] 67 85 87 Respiratory Rate 16 Blood Pressure [Le ft Arm] 145/89 H 137/90 H Blood Pressure [Ri ght Upper Arm] 116/71 Pulse Oximetry 98 96 Oxygen Delivery Me thod Room Air Room Air Course Vital Signs Vital signs: Initial Vital Signs Temperature 98.2 F 07/10/24 13:28 Temperature Source Temporal Artery Scan 07/10/24 13:28 Pulse Rate 67 07/10/24 13:28 Respiratory Rate 16 07/10/24 13:28 Blood Pressure 116/71 07/10/24 13:28 Blood Pressure Mean 86 07/10/24 13:28 Blood Pressure Position Sitting 07/10/24 13:28 Pulse Oximetry 98 07/10/24 13:28 Oxygen Delivery Method Room Air 07/10/24 13:28 Vital Signs Temperature 98.2 F 07/10/24 13:28 Pulse Rate 67 07/10/24 13:28 Respiratory Rate 16 07/10/24 13:28 Blood Pressure 116/71 07/10/24 13:28 Pulse Oximetry 98 07/10/24 13:28 Oxygen Delivery Method Room Air 07/10/24 13:28 Temperature 97.7 F 07/10/24 17:19 Pulse Rate 87 07/10/24 17:30 Respiratory Rate 07/10/24 17:30 Blood Pressure 137/90 H 07/10/24 17:30 Pulse Oximetry 96 07/10/24 17:19 Oxygen Delivery Method Room Air 07/10/24 17:19 Medications Administered Medications: Generic Name Dose Route Start Last Admin Trade Name Freq PRN Reason Stop Dose Admin Doxycycline Hyclate 200 mg/ 250 mls @ 250 mls/hr 07/10/24 19:00 07/10/24 17:50 Sodium Chloride IVPB 07/10/24 19:59 250 mls/hr ONCE ONE Administration Discontinued Medications Generic Name Dose Route Start Last Admin Trade Name Freq PRN Reason Stop Dose Admin Sodium Chloride 500 mls @ 500 mls/hr 07/10/24 16:02 07/10/24 16:25 0.9 % Sodium Chloride 500 Ml IV 07/10/24 17:01 500 mls/hr .Q1H ONE Administration Medical Decision Making MDM Narrative Medical decision making narrative: This patient comes in with vaginal bleeding that became rather heavy starting yesterday. She gave to a baby girl about 4 weeks ago. She does report some lightheadedness when getting up but otherwise does not have much for complaints and is maintaining normal vital signs. Prior to a Room becoming available here she did have a vaginal ultrasound which showed evidence of retained products of conception. I did speak with Dr. Grace regarding these ultrasound findings. She came to assess the patient and did take her for a D&C. Her labs returned with reassuring results. The patient did receive 500 mL of normal saline intravenously. Lab Data Labs: Lab Results 07/10/24 Range/Units 16:13 WBC 6.50 (4.50-11.00) K/uL RBC 4.86 (4.00-5.20) m/uL Hgb 12.8 (12.0-16.0) gm/dL Hct 40.7 (33.0-51.0) % MCV 84 (80-100) fL MCH 26 (26-34) pg MCHC 31 L (32-36) gm/dL RDW Coeff of Joshua 14.5 (11.5-15.5) % Plt Count 237 (140-440) K/uL Neut % (Auto) 65.1 (42.0-72.0) % Lymph % (Auto) 23.7 (20-44) % [place] % (Auto) 7.5 (0.0-11.0) % Eos % (Auto) 2.3 (0.0-7.0) % Baso % (Auto) 0.6 (0.0-3.0) % Neut # (Auto) 4.23 (1.7-7.0) K/uL Lymph # (Auto) 1.54 (0.90-2.90) K/uL [place] # (Auto) 0.50 (0.00-0.90) K/UL Eos # (Auto) 0.15 (0.00-0.50) K/uL Baso # (Auto) 0.04 (0.00-0.30) K/uL Abs Immat Gran (auto) 0.05 (0.00-0.30) K/uL Imm/Tot Granulo (auto) 0.8 % Sodium 137 (135-149) mmol/L Potassium 4.1 (3.6-5.1) mmol/L Chloride 103 (96-114) mmol/L Carbon Dioxide 28 (20-32) mmol/L Anion Gap 6 L (7-15) mEq/L BUN 13 (5-24) mg/dL Creatinine 0.7 (0.5-1.5) mg/dL Estimated Creat Clear 125.92 Estimated GFR 119 ml/min Glucose 94 (60-115) mg/dL Calcium 9.6 (8.4-10.6) mg/dL Blood Type A Positive Antibody Screen POSITIVE Crossmatch (AHG) See Detail Discharge Plan Discharge Clinical Impression: Vaginal bleeding Patient Disposition: XFER to OR Condition: Unchanged
[2024-07-10] MEDS: 0.9 % SODIUM CHLORIDE 500 ML 500 ML IV (16:25)
[2024-07-10 16:37] LABS: Basophils Absolute Auto 0.04 K/uL (0.00-0.30); Basophils Percent Auto 0.6 % (0.0-3.0); Eosinophils Absolute Auto 0.15 K/uL (0.00-0.50); Eosinophils Percent Auto 2.3 % (0.0-7.0); Hematocrit 40.7 % (33.0-51.0); Hemoglobin* 12.8 gm/dL (12.0-16.0); Immature Granulocytes Abs Auto 0.05 K/uL (0.00-0.30); Immature Granulocytes Pct Auto 0.8 %; Lymphocytes Absolute Auto 1.54 K/uL (0.90-2.90); Lymphocytes Percent Auto 23.7 % (20-44); Mean Corpuscular HGB Conc 31 gm/dL (32-36); Mean Corpuscular Hemoglobin 26 pg (26-34); Mean Corpuscular Volume 84 fL (80-100); Monocytes Percent Auto 7.5 % (0.0-11.0); Neutrophils Absolute Auto 4.23 K/uL (1.7-7.0); Neutrophils Percent Auto 65.1 % (42.0-72.0); Platelet Count* 237 K/uL (140-440); RDW Coefficient of Variation % 14.5 % (11.5-15.5); Red Blood Count 4.86 m/uL (4.00-5.20)
[2024-07-10 16:40] LABS: Slide Review Reflex No
[2024-07-10 17:05] LABS: Chloride* 103 mmol/L (96-114); Potassium* 4.1 mmol/L (3.6-5.1); Sodium* 137 mmol/L (135-149)
[2024-07-10 17:08] LABS: Anion Gap 6 mEq/L (7-15); Blood Urea Nitrogen* 13 mg/dL (5-24); Carbon Dioxide* 28 mmol/L (20-32); Creatinine* 0.7 mg/dL (0.5-1.5); Est. Creatinine Clearance* 125.92; Estimated Glomerular Filt Rate 119 ml/min
[2024-07-10 17:09] LABS: Calcium* 9.6 mg/dL (8.4-10.6); Glucose* 94 mg/dL (60-115)
--- NOTE | 2024-07-10 17:29 | PM.GYNCN1 ---
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 She underwent a repeat CD on 06/06/24. She reports that since her surgery she had an appropriate post course in terms of recovery. Her bleeding was scant and resolve approximately a week ago. Last evening she reported resumption of spotting which wasn't concerning to her at first. However, bleeding became heavy today and she started feeling lightheaded with getting into a standing position. She is intermittently passing clots. Pelvic US 07/10/24: Uterus: 11.9 x 6.7 x 7.4 cm. Lower uterine segment prominent sutures. Endometrium: Endometrial thickness measures 2.0 centimeter. No hypervascularity within the stripe. Heterogeneous hypo and hyperechoic foci consistent with retained products. Right ovary: 6.7 x 4.1 x 7.4 centimeters with normal color flow. Small subcentimeter follicles. Left ovary: 5.3 x 3.7 x 3.8 centimeters with normal color flow. 2.8 x 2.6 x 2.3 centimeter complex cyst with low-level echoes. At least 1 septation limited visualization due to body habitus and ovarian location. Cul-de-sac: No significant free fluid. IMPRESSION: 1. Thickened endometrial stripe which is heterogeneous consistent with retained products. 2. 2.8 centimeter left ovarian complex cyst. 3. No adnexal mass or free fluid. Discussed with Neha and her mom, Kira, that her risk factors, clinical picture, and US findings are consistent with retained placenta. I recommend urgent surgery for removal of retained products as she's is having heavy bleeding. Neha would appreciate expedited treat she has had complications from her previous delivery due to delayed recognition. She worries about getting an infection if this is not addressed in a timely manner. I completely agree with her. Patient denies fever, chills, chest pain, SOB, n/v, headache, or dizziness currently. Objective VITAL SIGNS: Stable. She is afebrile. Physical exam: General: No acute distress Psych: Alert and oriented x3, full affect HEENT: Normocephalic, atraumatic. No conjunctival pallor. Extremity: Brisk capillary refills. Lungs: Unlabored breathing Neuro: No focal deficit. Mentating appropriately Pelvic exam: Medium pad is soaked with recent bleeding. No blood/clot expressed with fundal rub. cc:: CC: [facility] Medical History Morbid obesity with BMI of 50.0-59.9, adult ?E66.01 - Morbid (severe) obesity due to excess calories (ICD-10) ?Z68.43 - Body mass index [BMI] 50.0-59.9, adult (ICD-10) Fibroid uterus ?D25.9 - Leiomyoma of uterus, unspecified (ICD-10) History of abnormal cervical Pap smear ?Z87.42 - Personal history of other diseases of the female genital tract (ICD-10) Iron deficiency anemia ?D50.9 - Iron deficiency anemia, unspecified (ICD-10) Recurrent loss ?N96 - Recurrent loss (ICD-10) Dysmenorrhea ?N94.6 - Dysmenorrhea, unspecified (ICD-10) Menorrhagia ?N92.0 - Excessive and frequent menstruation with regular cycle (ICD-10) Surgical History History of myomectomy ?Z98.890 - Other specified postprocedural states (ICD-10) History of ?Z98.891 - History of uterine scar from previous surgery (ICD-10) Family History Family/Other Breast cancer Aunt Lung cancer Family/Other High blood pressure Maternal Grandmother Diabetes Social History Narrative: SOCIAL Education: High School Work: [employer] Trip 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, Traffic Safety Administrator Lives with: Cece Wang Pets: 2 dogs and 2 cats Abuse: Denies past/present Special Diet: was on keto, not on during Ok with a blood transfusion: yes Culture or jainism beliefs: denies RISK FACTORS Exercise Times/wk: Walk daily, walk dogs Hx of Depression and/or Anxiety/other mood disorder: denies hx Seat Belt Use: Routinely Smoking: Denies present; 2 sigs per day stopped about 1 month ago Alcohol/day: Denies while ; occasionally prior to Caffeine: Coffee 1-2 maybe Drug Use: Denies past/present Chicken Pox: Yes as a child MRSA: Denies What is your current living situation?: I presently have a place to live Problems where you live: no known problems In the past 12 months, utilities in danger of being shut off: no In past 12 months, lack of transportation kept you from medical appts, meetings, work, or getting things needed for daily living: no In the past 12 mos, have been you worried that your food would run out before you had money to buy more?: never true In the past 12 mos, the food you bought just didn't last and you didn't have money to buy more?: never true Smoking Status: Former smoker What tobacco products do you use: cigarettes Smoking quit date/years: <= 15 years ago Do you use any of these nicotine containing products: Vaping Products Second hand tobacco smoke exposure: No How often do you have a drink containing alcohol: monthly or less How many standard drinks containing alcohol do you have on a typical day: 1 or 2 How often do you have six or more drinks on one occasion: Never AUDIT-C Alcohol total score: 1 Non-prescribed substance use: marijuana (any form) Non-prescribed substance use details: occasionally marijuana gummy for sleep How often does anyone, including family, friends and others, physically hurt you: never How often does anyone, including family, friends and others, insult or talk down to you: never How often does anyone, including family, friends and others, threaten you with harm: never How often does anyone, including family, friends and others, scream or curse at you: never service: No Meds Home Medications and Allergies Allergies Allergy/AdvReac Type Severity Reaction Status Date / Time nickel Allergy Mild Rash Verified 07/10/24 13:33 agave Allergy Mild Hives Uncoded 07/02/24 07:59 blackberry Allergy Mild Hives Uncoded 07/02/24 07:59 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 - Exam Physical Exam: Vital signs: Temp Pulse Resp BP Pulse Ox O2 Del Method 98.2 F 67 16 116/71 98 Room Air 07/10/24 13:28 07/10/24 13:28 07/10/24 13:28 07/10/24 13:28 07/10/24 13:28 07/10/24 13:28 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 We discussed the risks, benefits, and alternatives. We discussed risk of pain, bleeding, infection, and damages to the surrounding structures such as perforation. Perforation risk 0.12-1.61% (this is more common with uterine anomalies, or postmenopausal status). Thus, she is in a higher risk category given her state. Will type and cross her for 1u of pRBC due on going bleeding and known Anti-[place] antibody. We discussed strategies to minimize these risks. I reviewed how this procedure is performed. Ideally, I would like to be able to do hysteroscopy for a more targeted approach. However, visualization might be limited due to amount of bleeding, making hysteroscopy not feasible. I would then do suction dilation and curettage if unable to do hysteroscopy. This is done in the operating room with conscious sedation and paracervical block (usually). The cervix is dilated open, a plastic curette is advanced into the uterus and connected to a vacuum. The vacuum then pulls the out of the retained products. All tissue removed from the uterus is sent to the lab for testing to verify that tissue was obtained. Ultrasound guidance is generally not required. Infection in the uterus resulting in endometritis 400-. She will receive antibiotics in the IV in the operating room prior to the procedure to prevent infection (200 mg of doxycycline). Chance of Asherman syndrome resulting in inability to conceive a in the future: 06/2499. Chance of anesthesia complications are extremely rare: Less than 1/100,000 especially with negative personal or family history of anesthesia issues. - All questions answered and consent form signed. - VSS - Hgb 12.8/237 - T/C for 1u pRBC
[2024-07-10] MEDS: DOXYCYCLINE HYCLATE 200 MG in 0.9 % SODIUM CHLORIDE 250 ml 250 ML 250 MG IVPB (17:50)
--- NOTE | 2024-07-10 18:35 | P.ANES_ITS ---
Anesthesia Charges Start Date/Time Anesthesia Start Date: 07/10/24 Anesthesia Start Time: 18:21 Stop Date/Time Anesthesia Stop Date: 07/10/24 Anesthesia Stop Time: 19:38 Summary Emergency: ZULEYKA Coding CPT Codes CPT Codes: ANESTH HYSTEROSCOPE/GRAPH - 61232 ([id number]) P3 - PATIENT W/SEVERE SYS DISEASE, QK - PUMP OPERATOR 2-4 CNCRNT ANES PROC, QX - PRIVATE EYE SVC W/ MD MED DIRECTION Additional Codes: Summary - Emergency: ZULEYKA ([id number])
--- NOTE | 2024-07-10 18:35 | W.ANESCHARGE ---
Anesthesia Charges Start Date/Time Anesthesia Start Date: 07/10/24 Anesthesia Start Time: 18:21 Stop Date/Time Anesthesia Stop Date: 07/10/24 Anesthesia Stop Time: 19:38 Summary Emergency: ZULEYKA Coding CPT Codes CPT Codes: ANESTH HYSTEROSCOPE/GRAPH - 60012 ([id number]) P3 - PATIENT W/SEVERE SYS DISEASE, QK - PAPER COATING SUPERVISOR 2-4 CNCRNT ANES PROC, QX - ASSISTANT UNIT FORESTER SVC W/ MD MED DIRECTION Additional Codes: Summary - Emergency: ZULEYKA ([id number])
--- NOTE | 2024-07-10 18:53 | P.ANES_ITS ---
Anesthesia Charges Start Date/Time Anesthesia Start Date: 07/10/24 Anesthesia Start Time: 18:21 Stop Date/Time Anesthesia Stop Date: 07/10/24 Anesthesia Stop Time: 19:38 Summary Emergency: MACHINE III COREMAKER Coding CPT Codes CPT Codes: ANESTH HYSTEROSCOPE/GRAPH - 72824 ([id number]) P3 - PATIENT W/SEVERE SYS DISEASE, QK - BILINGUAL SPEECH LANGUAGE PATHOLOGIST 2-4 CNCRNT ANES PROC, QX - MACHINE III COREMAKER SVC W/ MD MED DIRECTION Additional Codes: Summary - Emergency: MACHINE III COREMAKER ([id number])
--- NOTE | 2024-07-10 18:53 | W.ANESCHARGE ---
Anesthesia Charges Start Date/Time Anesthesia Start Date: 07/10/24 Anesthesia Start Time: 18:21 Stop Date/Time Anesthesia Stop Date: 07/10/24 Anesthesia Stop Time: 19:38 Summary Emergency: CASH REGISTER OPERATOR Coding CPT Codes CPT Codes: ANESTH HYSTEROSCOPE/GRAPH - 74739 ([id number]) P3 - PATIENT W/SEVERE SYS DISEASE, QK - SKETCH LINER 2-4 CNCRNT ANES PROC, QX - CASH REGISTER OPERATOR SVC W/ MD MED DIRECTION Additional Codes: Summary - Emergency: CASH REGISTER OPERATOR ([id number])
[2024-07-10] MEDS: LIDOCAINE 1%-EPI 1:100,000 20 ML INFILTRATI (19:15)
--- NOTE | 2024-07-10 19:59 | W.PM.GYNPROC ---
Procedure Note Time Seen by Provider: 19:59 Date of procedure: 07/10/24 Will [facility] bill your pro fee for this procedure?: Yes Pre-op diagnosis: 1. Vaginal bleeding 2. Retained placenta Post-op diagnosis: 1. Vaginal bleeding 2. Retained placenta Procedure: 1. Hysteroscopy 2. Suction and sharp dilation and curettage Anesthesia: MAC and local Complications: None Surgeon: Lien Grace MD Estimated blood loss (mL): 50 IV fluids (mL): 400 Urine Output (mL): 50 Pathology: specimen obtained, sent to pathology (Retained placenta) Condition: stable Disposition: same day Findings: Pelvic exam: Mons normal, clitoris normal, urethral meatus normal. Labia minora and majora normal in appearance bilaterally. Perineum and anus normal appearance. Vaginal introitus normal appearance. Vaginal pink and well rugated with moderate amount of blood in her vaginal vault. Cervix pink and without lesion with a small protruding clot. Bimanual exam reveals enlarge uterus, soft, mobile, anteverted, of normal texture. No palpable adnexal masses or tenderness. On hysteroscopy: Global irregularity of endometrium consistent with retained products. Difficult to visualized due to blood clots Procedure Description: PREOP ANTIBIOTIC: 200 mg of IV Doxycycline INDICATIONS: Neha is a 29 yo G 7 P 2051, with diagnosis of active vaginal bleeding secondary to retained placenta DESCRIPTION OF PROCEDURE: The patient was taken to the operating room where MAC was administered. She was prepared and draped in normal sterile fashion in the dorsal lithotomy position in yellow fin stirrups, taking care to avoid lower extremity hyperextension, hyperflexion or compression. A surgical time-out was performed with the entire operative staff per protocol. Perioperative antibiotics were given and pneumoboots were placed and activated. EUA revealed the above findings. Bladder was drained with a straight cath. A speculum was placed in the patient's vagina and an Allis was placed on the anterior lip of the cervix. The cervix was gently dilated to a 5 [place] diameter to accommodate the hysteroscope. After initial survey, decision was made to complete the procedure with suction and sharp curettage due to difficult with visualization due to clots/active bleeding. Cervix was gently dilated to accommodate a size 7 curette. The suction curettage was then inserted under direct visualization. The uterus was then gently suction curetted and rotated to clear the uterus of retained placenta. Alternating sharp curettage was utilized due to difficulty accessing the uterine fundal corners. This was performed until a gritty texture was noted and the uterus was cleared of all remaining products. There was minimal bleeding noted after the suction curettage was removed. The Allis was removed from the anterior lip of the cervix and excellent hemostasis was noted. All instruments were removed. Debrief performed per protocol and specimen reviewed. Specimen was sent to pathology. The patient tolerated the procedure well. Sponge, lap and needle counts were correct x 2. The patient was taken to the recovery room in stable condition.
== END 2024-07-10 21:36 | disposition home or self-care (01) ==
LOC: ED 16:26 → OB 17:02 → SS 17:30 → OB 17:31
PROVIDERS: Emergency Provider Emergency Medicine Emergency Medical Services; Visit Provider Obstetrics & Gynecology
PROC: 0UDB8ZZ Extraction of Endometrium, Via Natural or Artificial Opening Endoscopic (ICD-10-PCS; CPT 58558; principal; 2024-07-10 18:30)
DX: O72.0 Third-stage hemorrhage (principal); R42 Dizziness and giddiness
CPT/HCPCS: 59160; 58555; 00952; 36415; 76830; 80048; 85025; 86850; 86870; 86900; 86901; 86922; 88305; 93976; 99140; 99284; 99285; C1782; J1100; J1885; J2250; J2405; J2704; J3010; J3490; J7030; J7050